=== PATIENT | male | born 1965 | race Caucasian/White ===

== ENCOUNTER 2023-04-24 21:01 | Emergency (ER) | payer MEDICAID, SELFPAY ==
[2023-04-24 21:02] VITALS: BP 171/81; PULSE 82; RESP 18; TEMP 36.7; O2SAT 98; BMI 24.4
--- NOTE | 2023-04-24 21:05 | XR_ITS ---
The [address] [address] Patient Name: BELINDA SAUCEDA MRN: [id number] date: 1965 Sex: M Assigned Patient Location: ER Current Patient Location: ER Accession/Order Number: [id number] Exam Date: 04/24/2023 21:35 Report Date: 04/24/2023 21:49 At the request of: LOIS AGARWAL Procedure: XR ankle LT min 3V EXAM: XR ankle LT min 3V HISTORY: Fall COMPARISON: None. TECHNIQUE: 3 views of the left ankle are performed. FINDINGS: There is a minimally displaced, oblique fracture involving the distal fibula, at the level of the ankle mortise consistent with a Gonzalez type B fracture. There may be minimal widening to the medial clear space. There is soft tissue swelling at the ankle. Degenerative changes are noted at the anterior tibiotalar joint. There is a small plantar calcaneal spur. XR/XR ankle LT min 3V IMPRESSION: Normally displaced distal fibular fracture. Question subtle widening to the medial clear space of the ankle. Electronically authenticated by: JENNIFER CRISTINA Date: 04/24/2023 21:49
--- NOTE | 2023-04-24 21:06 | ED.LOWEXI1 ---
HPI - Extremity Injury (Lower) General Chief Complaint: Extremity Injury, Lower Stated Complaint: FALL Time Seen by Provider: 04/24/23 21:05 Source: patient Mode of arrival: ambulance Limitations: no limitations History of Present Illness HPI Narrative: Patient is a 58-year-old male who presents to the emergency department by ambulance for an injury to the left ankle. He states he was working outside in the mud when he slipped on a hill and twisted his left ankle. He denies any head injury, loss of consciousness, neck or back pain. He has no pain to the left knee or left foot. He has not attempted to ambulate since falling. He declined pain medication with EMS. Related Data Previous Rx's Medication Instructions Recorded hydrocodone 5 mg-acetaminophen 325 1 tab PO Q6H PRN pain 3 days #12 04/24/23 mg tablet tabs Allergies Allergy/AdvReac Type Severity Reaction Status Date / Time No Known Drug Allergies Allergy Verified 04/24/23 21:04 Review of Systems ROS Constitutional Denies: fever or chills Ears, nose, mouth, and throat Denies: throat pain or nasal congestion Respiratory Denies: shortness of breath Gastrointestinal Denies: nausea or vomiting Musculoskeletal Reports: extremity pain, extremity swelling, joint pain, limited range of motion and joint swelling; Denies: back pain or neck pain Integumentary/Breast Denies: rash Neurological Denies: headache Hematologic/Lymphatic Denies: easy bruising or easy bleeding Exam Narrative Exam Narrative: Gen.: Awake, alert, in no distress Head: Normocephalic, atraumatic ENT: Moist mucous membranes Respiratory: No respiratory distress Extremities: No bony tenderness of the left knee or left foot with 2+ left DP pulse. Left ankle is diffusely edematous and tender to palpation. No bony tenderness over the left fifth metatarsal. No open wounds or drainage noted. Normal flexion and extension of the toes of the left foot. Psych: Normal mood and affect Neuro: No focal neuro deficit Skin: Warm, dry, intact Constitutional Vital Signs, click to edit/add: Last Vital Signs Temp 98.1 F 04/24/23 21:02 Pulse 82 04/24/23 21:02 Resp 18 04/24/23 21:02 BP 171/81 H 04/24/23 21:02 Pulse Ox 98 04/24/23 21:02 O2 Del Method Room Air 04/24/23 21:02 Course Vital Signs Vital signs: Vital Signs Temperature 98.1 F 04/24/23 21:02 Pulse Rate 82 04/24/23 21:02 Respiratory Rate 18 04/24/23 21:02 Blood Pressure 171/81 H 04/24/23 21:02 Pulse Oximetry 98 04/24/23 21:02 Oxygen Delivery Method Room Air 04/24/23 21:02 Temperature 98.1 F 04/24/23 21:02 Pulse Rate 82 04/24/23 21:02 Respiratory Rate 18 04/24/23 21:02 Blood Pressure 171/81 H 04/24/23 21:02 Pulse Oximetry 98 04/24/23 21:02 Oxygen Delivery Method Room Air 04/24/23 21:02 MDM - Extremity Injury (Lower) MDM Narrative Medical decision making narrative: Patient declined pain medication. X-rays show a spiral fracture of the left distal fibula. There is good Alignment of the fracture at this time. No dislocation noted. Patient is neurovascularly intact pre and post splint application. A short posterior splint with stirrup was applied. He continues to decline pain medication but was sent home with a prescription of [place]. He was instructed to follow-up with podiatry. Rest, ice, elevate. Crutches given for comfort, he was instructed to be nonweightbearing until he follows up with podiatry. Return to the ER if symptoms change or worsen Medical Records Attestation: I reviewed the patient's medical records. Imaging Data XR ankle: Attestation: I have reviewed the pertinent imaging results. Radiologist's impression: ITS Impressions Ankle X-Ray 04/24/23 21:05 IMPRESSION: Normally displaced distal fibular fracture. Question subtle widening to the medial clear space of the ankle. Electronically authenticated by: JENNIFER CRISTINA Date: 04/24/2023 21:49 Discharge Plan Discharge Chief Complaint: Extremity Injury, Lower Clinical Impression: Closed fracture of distal end of left fibula Patient Disposition: Home, Self-Care Time of Disposition Decision: 21:50 Condition: Good Prescriptions / Home Meds: New hydrocodone-acetaminophen 5-325 mg tablet 1 tab PO Q6H PRN (Reason: pain) 3 Days Qty: 12 0RF Rx Instructions: DX: M25.572 Instructions: Ankle Fracture (ED) Stand Alone Forms: Portal Instructions Referrals: BELINDA ALONSO [Primary Care Provider] - 1 week Brett Prieto DPM [Physician] - 1 week Discharge Date/Time: 04/24/23 22:21
[2023-04-24] MEDS: HYDROCODONE/ACET 5-325 MG TABLET 2 TAB PO (22:13)
[2023-04-24 22:21] VITALS: BP 142/76
== END 2023-04-24 22:21 | disposition home or self-care (01) ==
PROVIDERS: Emergency Provider Internal Medicine; PCP Internal Medicine
DX: S82.832A Other fracture of upper and lower end of left fibula, initial encounter for closed fracture (principal); W01.0XXA Fall on same level from slipping, tripping and stumbling without subsequent striking against object, initial encounter
CPT/HCPCS: 29515; 73610; 99283

== ENCOUNTER 2023-04-25 09:47 | Emergency (ER) | payer MEDICAID, SELFPAY ==
[2023-04-25] VITALS (9 sets, daily range): BP systolic 120–133; BP diastolic 61–65; PULSE 47–55; RESP 13–20; TEMP 36.5; O2SAT 93–100; BMI 24.4
--- NOTE | 2023-04-25 09:55 | ECG_ITS ---
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
--- NOTE | 2023-04-25 10:02 | PC.NURSE ---
PT WAS SEEN AT ER YESTERDAY FOR ANKLE FRACTURE AND WAS SENT HOME ON [place]. PT STATES TOOK [place] ON EMPTY STOMACH AND WENT OUTSIDE TO SMOKE. PT STATES FELT REAL DIZZY. PT STATES PASSED OUT AND CAUGHT HIM. PT DID VOMIT UPON WAKING. PT STABLE AT BEDSIDE AT THIS TIME.
[2023-04-25 10:19] LABS: Basophils Absolute Auto 0.1 10^3/uL (0.0-0.1); Basophils Percent Auto 0.5 % (0.2-2.0); Eosinophils Absolute Auto 0.1 10^3/uL (0.0-0.7); Eosinophils Percent Auto 1.2 % (0.9-7.0); Hematocrit 37.1 % (42.0-54.0); Hemoglobin 11.8 g/dL (14.0-18.0); Immature Granulocytes Abs Auto 0.03 10^3/uL (0.00-0.03); Immature Granulocytes Pct Auto 0.3 % (0.0-0.5); Lymphocytes Absolute Auto 1.9 10^3/uL (1.2-3.8); Lymphocytes Percent Auto 19.2 % (20.5-60.0); Mean Corpuscular HGB Conc 31.8 g/dL (29.9-35.2); Mean Corpuscular Hemoglobin 29.1 pg (25.9-34.0); Mean Corpuscular Volume 91.6 fL (80.0-94.0); Mean Platelet Volume 10.6 fL (9.5-13.5); Monocytes Absolute Auto 1.1 10^3/uL (0.3-0.8); Monocytes Percent Auto 11.1 % (1.7-12.0); Neutrophils Absolute Auto 6.8 10^3/uL (1.4-6.5); Neutrophils Percent Auto 67.7 % (43.0-75.0); Platelet Count 131 10^3/uL (150-450); Red Blood Count 4.05 10^6/uL (4.70-6.10); Red Cell Distribution Width 13.1 % (11.0-15.0); White Blood Count 10.1 10^3/uL (4.0-11.0)
--- OUTSIDE RECORDS SUMMARY | 2023-04-25 10:24 | XMS_ITS | CCD ---
Author Name Unknown Address [address] [place] [id number] Organization [facility] Care Team Providers Care Practical Nursing Teacher Name Role Phone PHYSICIAN, DEFAULT Unavailable Unavailable PHYSICIAN, DEFAULT Unavailable Unavailable Gabino, Chda Unavailable Unavailable Gabino, Chad Unavailable Unavailable MIKEY JARQUIN Unavailable Unavailable MENDEZ GARCIA Unavailable Unavailable UNKNOWN, PROVIDER Unavailable Unavailable [place] Unavailable Unavailable PHYSICIAN, DEFAULT Unavailable Unavailable PHYSICIAN, DEFAULT Unavailable Unavailable MENDEZ GARCIA Unavailable Unavailable NATALYA HERNANDEZ Attending Unavailable NATALYA HERNANDEZ Consulting Unavailable NATALYA HERNANDEZ Admitting Unavailable MENDEZ GARCIA Primary Care Unavailable JAMIR YUN Attending Unavailable MENDEZ GARCIA Attending Unavailable Allergies Allergy Classification Reported Allergen(s) Allergy Type Date of Onset Reaction(s) Facility (1 source) 98809,00 Drug allergy (disorder) 8 [facility] Repository (1 source) No Known Allergies; Translations: [No Known Allergies] Propensity to adverse reactions (disorder) [facility] Repository Problems Problem Classification Problem Date Documented Da te Episodic/Chronic Coronary atherosclerosis and other heart disease (5 sources) Unstable angina; Translations: [Atherosclerotic heart disease of [place] coronary artery with unstable angina pectoris] Onset: 06-20-2017 Chronic Coronary atherosclerosis and other heart disease (2 sources) Presence of coronary angioplasty implant and graft; Translations: [Presence of coronary angioplasty implant and graft] Onset: 07-03-2022 Episodic Diabetes mellitus without complication (1 source) Type 2 diabetes mellitus without complications; Translations: [TYPE 2 DIABETES MELLITUS WITHOUT COMPLICATIONS] Onset: 06-20-2017 Chronic Heart valve disorders (4 sources) Nonrheumatic aortic (valve) insufficiency; Translations: [NONRHEUMATIC AORTIC INSUFFICIENCY] Onset: 04-07-2020 Chronic Substance-related disorders (1 source) Nicotine dependence, cigarettes, uncomplicated; Translations: [NICOTINE DEPENDENCE, CIGARETTES, UNCOMPLICATED] Onset: 06-20-2017 Chronic 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 (2 sources) Unknown / UNK(Unknown) Onset: 06-20-2017 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 (1 source) skilled nursing (current) use of oral hypoglycemic drugs; Translations: [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) USE OF ORAL HYPOGLYCEMIC DRUGS] Onset: 06-20-2017 Results Test Name Value Interpretation Reference Range Facility Office Visiton 07-03-2022 [id number] [place] 1965 M Date Provider Department Center 07/03/2022 JAMIR CHRISTIAN C[facility] Family History Problem Relation Age of Onset Coronary artery disease Mother Diabetes Mother Hypertension Father Heart attack Paternal Grandmother Family Status - Relation Status Age at Mother Father Paternal Grandmother Level of Service:48268 [place] OFFICE/OUTPATIENT ESTABLISHED LOW MDM 20-29 MIN Reason for Visit and Comments: Coronary Artery Disease [187] Normal [facility] Q - COMPREHENSIVE METABOLIC PANEL W/EGFRon 07-11-2021 Albumin [Mass/Vol] 4.4 g/dL Normal 3.6-5.1 [facility] Comment on above: Order Comment: [facility] 11U Testing performed at: [facility], [address] [place] [address], [address] [place] [address], [phone], Airport Clerk: Blaise Sol MD [facility] Collection Date/Time: [facility] Results Received Date/Time: [facility] Reported Date/Time: FASTING: NO Performed By: #### 1 0231A, [id number], [id number] #### [facility] Default [address] [place] [address] Albumin/Globulin [Mass ratio] 1.7 {ratio} Normal 1.0-2.5 [facility] Comment on above: Order Comment: [facility] 11U Testing performed at: [facility], [address] [place] [address], [address] [place] [address], [phone], Airport Clerk: Blaise Sol MD [facility] Collection Date/Time: [facility] Results Received Date/Time: [facility] Reported Date/Time: FASTING: NO Performed By: #### 1 0231A, [id number], [id number] #### [facility] Default [address] [place] [address] ALP [Catalytic activity/Vol] 65 U/L Normal 35-144 [facility] Comment on above: Order Comment: [facility] 11U Testing performed at: [employer] [facility], [address] [place] [address], [address] [place] [address], [address] [place] [address], Airport Clerk: Blaise Sol MD [facility] Collection Date/Time: [facility] Results Received Date/Time: [facility] Reported Date/Time: FASTING: NO Performed By: #### 1 0231A, [id number], [id number] #### [facility] [address] [place] [address] ALT [Catalytic activity/Vol] 62 U/L High 9-46 [facility] Specialist Comment on above: Order Comment: [facility] 11U Testing performed at: [employer] [facility], [address] [place] [address], [address] [place] [address], [address] [place] [address], Airport Clerk: Blaise Sol MD [facility] Collection Date/Time: [facility] Results Received Date/Time: [facility] Reported Date/Time: FASTING: NO Performed By: #### 1 0231A, [id number], [id number] #### [facility] [address] [place] [address] AST [Catalytic activity/Vol] 29 U/L Normal 10-35 [facility] Specialist Comment on above: Order Comment: [facility] 11U Testing performed at: [employer] [facility], [address] [place] [address], [address] [place] [address], [address] [place] [address], Airport Clerk: Blaise Sol MD [facility] Collection Date/Time: [facility] Results Received Date/Time: [facility] Reported Date/Time: FASTING: NO Performed By: #### 1 0231A, [id number], [id number] #### [facility] Default [address] [place] [address] Bilirubin [Mass/Vol] 0.4 mg/dL Normal 0.2-1.2 [facility] Specialist Comment on above: Order Comment: [facility] 11U Testing performed at: [employer] [employer] [facility], [address] [place] [address], [address] [place] [address], [address] [place] [address], Airport Clerk: Blaise Sol MD [facility] Collection Date/Time: [facility] Results Received Date/Time: [facility] Reported Date/Time: FASTING: NO Performed By: #### 1 0231A, [id number], [id number] #### [facility] Default [address] [place] [address] BUN/CREA 23 NOT APPLICABLE Normal 6-22 [facility] Comment on above: Order Comment: [facility] 11U Testing performed at: [employer] [facility], [address] [place] [address], [address] [place] [address], [address] [place] [address], Airport Clerk: Blaise Sol MD [facility] Collection Date/Time: [facility] Results Received Date/Time: [facility] Reported Date/Time: FASTING: NO Performed By: #### 1 0231A, [id number], [id number] #### [facility] Default [address] [place] [address] Calcium [Mass/Vol] 9.7 mg/dL Normal 8.6-10.3 [facility] Comment on above: Order Comment: [facility] 11U Testing performed at: [facility], [address] [place] [address], [address] [place] [address], [address] [place] [address], Airport Clerk: Blaise Sol MD [facility] Collection Date/Time: [id number] [facility] Results Received Date/Time: [facility] Reported Date/Time: FASTING: NO Performed By: #### 1 0231A, [id number], [id number] #### [facility] Default [address] [place] [address] Chloride [Moles/Vol] 104 mmol/L Normal 98-110 [facility] Comment on above: Order Comment: [facility] 11U Testing performed at: [employer] [facility], [address] [place] [address], [address] [place] [address], [address] [place] [address], Airport Clerk: Blaise Sol MD [facility] Collection Date/Time: [facility] Results Received Date/Time: [facility] Reported Date/Time: FASTING: NO Performed By: #### 1 0231A, [id number], [id number] #### [facility] [address] [place] [address] CO2 [Moles/Vol] 26 mmol/L Normal 20-32 [facility] Specialist Comment on above: Order Comment: [facility] 11U Testing performed at: [employer] [facility], [address] [place] [address], [address] [place] [address], [address] [place] [address], Airport Clerk: Blaise Sol MD [facility] Collection Date/Time: [facility] Results Received Date/Time: [facility] Reported Date/Time: FASTING: NO Performed By: #### 1 0231A, [id number], 5363X #### [facility] [address] [place] [address] Creatinine [Mass/Vol] 0.81 mg/dL Normal 0.70-1.33 [facility] Specialist Comment on above: Order Comment: [facility] 11U Testing performed at: [employer] [facility], [address] [place] [address], [address] [place] [address], [address] [place] [address], Airport Clerk: Blaise Sol MD [facility] Collection Date/Time: [facility] Results Received Date/Time: [facility] Reported Date/Time: FASTING: NO Result Comment: For patients >49 years of age, the reference limit for Creatinine is approximately 13% higher for people identified as -Burkin[place]. Performed By: #### 1 0231A, [id number], 5363X #### [facility] Default [address] [place] [address] eGFRAA (Quest) 114 mL/min/1.73m2 Normal > OR = 60 [facility] Comment on above: Order Comment: [facility] 11U Testing performed at: [employer] [facility], [address] [place] [address], [address] [place] [address], [address] [place] [address], Airport Clerk: Blaise Sol MD [facility] Collection Date/Time: [facility] Results Received Date/Time: [facility] Reported Date/Time: FASTING: NO Performed By: #### 1 0231A, [id number], 5363X #### [facility] Default [address] [place] [address] eGFRNAA (Quest) 98 mL/min/1.73m2 Normal > OR = 60 [facility] Comment on above: Order Comment: [facility] 11U Testing performed at: [facility], [employer] [facility], [address] [place] [address], [address] [place] [address], [address] [place] [address], Airport Clerk: Blaise Sol MD [facility] Collection Date/Time: [facility] Results Received Date/Time: [facility] Reported Date/Time: FASTING: NO Performed By: #### 1 0231A, [id number], 5363X #### [facility] Default [address] [place] [address] Globulin (S) [Mass/Vol] 2.6 g/dL Normal 1.9-3.7 [facility] Comment on above: Order Comment: [facility] 11U Testing performed at: [employer] [facility], [address] [place] [address], [address] [place] [address], [address] [place] [address], Airport Clerk: Blaise Sol MD [facility] Collection Date/Time: [facility] Results Received Date/Time: [facility] Reported Date/Time: FASTING: NO Performed By: #### 1 0231A, [id number], 5363X #### [facility] Default [address] [place] [address] Glucose [Mass/Vol] 123 mg/dL Normal 65-139 [facility] Comment on above: Order Comment: [facility] 11U Testing performed at: [facility], [employer] [facility], [address] [place] [address], [address] [place] [address], [address] [place] [address], Airport Clerk: Blaise Sol MD [facility] Collection Date/Time: [facility] Results Received Date/Time: [facility] Reported Date/Time: FASTING: NO Result Comment: Non-fasting reference interval For someone without known diabetes, a glucose value between 100 and 125 mg/dL is consistent with prediabetes and should be confirmed with a follow-up test. Performed By: #### 1 0231A, [id number], 5363X #### [facility] Default [address] [place] [address] Potassium [Moles/Vol] 4.7 mmol/L Normal 3.5-5.3 [facility] Comment on above: Order Comment: [facility] 11U Testing performed at: [employer] [facility], [address] [place] [address], [address] [place] [address], [phone], Airport Clerk: Blaise Sol MD [facility] Collection Date/Time: [facility] Results Received Date/Time: [facility] Reported Date/Time: FASTING: NO Performed By: #### 1 0231A, [id number], 5363X #### [facility] Default [address] [place] [address] Protein [Mass/Vol] 7.0 g/dL Normal 6.1-8.1 [facility] Comment on above: Order Comment: [facility] 11U Testing performed at: [facility], [address] [place] [address], [address] [place] [address], [phone], Airport Clerk: Blaise Sol MD [facility] Collection Date/Time: [facility] Results Received Date/Time: [facility] Reported Date/Time: FASTING: NO Performed By: #### 1 0231A, [id number], 5363X #### [facility] Default [address] [place] [address] Sodium [Moles/Vol] 137 mmol/L Normal 135-146 [facility] Comment on above: Order Comment: [facility] 11U Testing performed at: [employer] [facility], [address] [place] [address], [address] [place] [address], [phone], Airport Clerk: Blaise Sol MD [facility] Collection Date/Time: [facility] Results Received Date/Time: [facility] Reported Date/Time: FASTING: NO Performed By: #### 1 0231A, [id number], 5363X #### [facility] Default [address] [place] [address] Urea nitrogen [Mass/Vol] 19 mg/dL Normal 7-25 [facility] Comment on above: Order Comment: [facility] 11U Testing performed at: [employer] [facility], [address] [place] [address], [address] [place] [address], [address] [place] [address], Airport Clerk: Blaise Sol MD [facility] Collection Date/Time: [facility] Results Received Date/Time: [facility] Reported Date/Time: FASTING: NO Performed By: #### 1 0231A, [id number], 5363X #### [facility] Default [address] [place] [address] Q - MICROALBUMIN,RANDOM URIN E (W/CREAT)on 07-11-2021 Albumin DL <= 20 mg/L (U) [Mass/Vol] 1.0 mg/dL Normal See Note: [facility] Comment on above: Order Comment: [facility] 11U Testing performed at: [facility], [address] [place] [address], [address] [place] [address], [phone], Airport Clerk: Blaise Sol MD [facility] Collection Date/Time: [facility] Results Received Date/Time: [facility] Reported Date/Time: FASTING: NO Result Comment: Refe rence Range: Reference Range Not established Performed By: #### 1 0231A, [id number], 5363X #### [facility] Default [address] [place] [address] Creatinine (U) [Mass/Vol] 65 mg/dL Normal 20-320 [place] [facility] Comment on above: Order Comment: [facility] 11U Testing performed at: [employer] [facility], [address] [place] [address], [address] [place] [address], [address] [place] [address], Airport Clerk: Blaise Sol MD [facility] Collection Date/Time: [facility] Results Received Date/Time: [facility] Reported Date/Time: FASTING: NO Performed By: #### 1 0231A, [id number], 5363X #### [facility] Default [address] [place] [address] MICROALBUMIN/CRE ATININE RATIO, RANDOM URINE 15 mcg/mg creat Normal <30 [facility] Comment on above: Order Comment: [facility] 11U Testing performed at: [employer] [facility], [facility] [facility], [address] [place] [address], [address] [place] [address], Airport Clerk: Blaise Sol MD [facility] Collection Date/Time: [facility] Results Received Date/Time: [facility] Reported Date/Time: FASTING: NO Result Comment: The ADA defines abnormalities in albumin excretion as follows: Albuminuria Category Result (mcg/mg creatinine) Normal to Mildly increased <30 Moderately increased 30-299 Severely increased > OR = 300 The ADA recommends that at least two of three specimens collected within a 3-6 month period be abnormal before considering a patient to be within a diagnostic category. Performed By: #### 1 0231A, [id number], 5363X #### [facility] Default [address] [place] [address] Q - PSA TOTALon 07-11-2021 PSA, TOTAL 1.41 ng/mL Normal < OR = 4.00 [facility] Comment on above: Order Comment: [facility] 11U Testing performed at: [facility], [address] , [address] [place], [place], [address] [place] [address], Airport Clerk: Blaise Sol MD [facility] Collection Date/Time: [facility] Results Received Date/Time: [facility] Reported Date/Time: FASTING: NO Result Comment: The total PSA value from this assay system is standardized against the WHO standard. The test result will be approximately 20% lower when compared to the equimolar-standardized total PSA (Shadia Michaela). Comparison of serial PSA results should be interpreted with this fact in mind. This test was performed using the Siemens chemiluminescent method. Values obtained from different assay methods cannot be used interchangeably. PSA levels, regardless of value, should not be interpreted as absolute evidence of the presence or absence of disease. Performed By: #### 1 0231A, [id number], 5363X #### [facility] Default [address] [place] [address] ECHOCARDIO M/2D COMPLETEon 0 04-07-2020 ECHOCARDIO M/2D COMPLETE Patient: MENDEZ SAUCEDA Exam Date: 04/07/2020 : 1965 Gender:M Ordering : NATALYA HERNANDEZ Admission #: [id number] Family : DR MENDEZ GARCIA M.D. Order #: [id number] CLICK HERE TO VIEW EXAM ECHOCARDIOGRAM REPORT PROCEDURE: CARDIO PULMONARY ECHOCARDIO M/2D COMP INDICATIONS: Aortic valve regurgitation COMPARISON: None. DESCRIPTION: COMPLETE ECHOCARDIOGRAM Real-time transthoracic echocardiography with 2D, M-mode, spectral and color flow Doppler performed. QUALITY: Technical quality was good. LEFT VENTRICLE: Normal chamber size. Normal left ventricular wall thickness. LV EF: Normal left ventricular ejection fraction, (>55%). DIASTOLIC: Normal diastolic function. ATRIAL SEPTUM: Appears visually intact. LEFT ATRIUM: Normal chamber size. RIGHT ATRIUM: Normal chamber size. RIGHT VENTRICLE: Normal chamber size. Normal right ventricular systolic function. TRICUSPID VALVE: Normal mobility and thickness. Trivial tricuspid regurgitation. MITRAL VALVE: Normal mobility and thickness. No mitral regurgitation. AORTIC VALVE: Normal trileaflet appearance. Mildly calcified aortic valve. Mild eccentric aortic regurgitation. AORTIC ROOT: Normal diameter and appearance. PULMONIC VALVE: Normal thickness and mobility. Mild pulmonic regurgitation. PERICARDIUM: No evidence of pericardial effusion. IVC: Collapses with inspirations. CONCLUSION: Global left ventricular systolic function is normal; ejection fraction is 55 to 60%. No significant wall motion abnormalities. Mild aortic regurgitation. Mild pulmonic regurgitation. Adult Echocardiography Procedure Report Left Ventricle LVEDD (3.7 - 5.6 cm): 4.80 cm LVIVS thickness (0.6 - 1.2 cm): 1.07 cm LVPW thickness (0.5 - 1.0 cm): 9.87 mm Left Atrium Mitral Valve Right Ventricle Aorta Aortic Valve Tricuspid Valve Pulmonic Valve Right Atrium Dictated by: Carl Lazo M.D. on 04/14/2020 at 16:08 Approved by: Carl Lazo M.D. on 04/14/2020 at 16:11 Normal [facility] Discharge Summaryon 07-02-19 Discharge Summary [id number] Sauced[facility] Admitted: 06/20/2017 Discharged: 06/22/2017 Date of : 1965 Physician: Chad Lloyd MD DISCHARGE SUMMARYDISCHARGING PHYSICIAN: Dr. Robin.PRIMARY DIAGNOSIS: Unstable angina/positive stress test.SECONDARY DIAGNOSES:1. Type 2 diabetic.2. Smoker.PROCEDURES: Left heart catheterization.HOSPITAL COURSE: This 52-year-old male was transferred from [facility] with unstable angina. The stress test showed an inferior wallmotion abnormality with inferior defect by perfusion. It was also found tohave T-wave inversions in the inferior leads. He was then sent to [email or web address] next day, he received cardiac catheterization to the radial artery. Hereceived a drug-eluting stent of the mid RCA that was 90% occluded.Procedure occurred without complications. He was then subsequently startedon cardiac regimen, which was optimized.DISCHARGE DISPOSITION: Home.DISCHARGE INSTRUCTIONS: The patient is to follow up with Cardiology asscheduled. The patient is also to take medications exactly as prescribed.He is to improve lifestyle factors including diet, smoking, and other riskfactors.DISCHARGE MEDICATIONS:1. Aspirin 81 mg daily.2. Lipitor 80 mg daily.3. Plavix 75 mg daily.4. Insulin NPH in regular insulin combo as prescribed at home.5. Lisinopril 5 mg daily.6. Metformin 1000 mg b.i.d.7. Metoprolol tartrate 25 mg b.i.d.8. Nicotine 21 mg per 24 hour patch.Electronically Signed by:Chad Lloyd MD 07/25/2017 07:51 P ____Chad Lloyd MD I personally saw this patient on the day of the encounter, performed thekey portion(s) of the service and participated in the management andconfirm the resident's documentation. Please note there may be anadditional personal documentation from me. Date Dict: 06/30/2017/10:43 P/Julia Galindo Trans: 07/01/2017 12:09 Dae/Chris_JN:[id number]: Mendez Garcia M.D. [address] [facility] [address] Mikey Jarquin [facility] [address] [address] [facility] [address] Normal [facility] BASIC METABOLIC PANELon 03-3 Calcium 8.7 mg/dL Normal 8.6-10.3 [facility] Comment on above: Order Comment: No: Do not add to previou s drawNo collection time noted on specimen or requisition. The collection timerecorded is the time of receipt in the lab. Performed By: #### 0 0071, [address]277 ####[facility] [place] [address], [facility] Chloride 103 mmol/L Normal 98-107 [facility] Comment on above: Order Comment: No: Do not add to previou s drawNo collection time noted on specimen or requisition. The collection timerecorded is the time of receipt in the lab. Performed By: #### 0 0071, [id number] ####[facility] [place] [address], [facility] CO2 22 mmol/L Normal 21-31 [facility] Comment on above: Order Comment: No: Do not add to previou s drawNo collection time noted on specimen or requisition. The collection timerecorded is the time of receipt in the lab. Performed By: #### 0 0071, [address]348 ####[facility] Creatinine 0.91 mg/dL Normal 0.70-1.30 [facility] Comment on above: Order Comment: No: Do not add to previou s drawNo collection time noted on specimen or requisition. The collection timerecorded is the time of receipt in the lab. Performed By: #### 0 0071, 87006 ####[facility].[address] eGFR (black) mL/min/{1.73_m2} Normal >60 [facility] Comment on above: Order Comment: No: Do not add to previou s drawNo collection time noted on specimen or requisition. The collection timerecorded is the time of receipt in the lab. Performed By: #### 0 0071, [address] ####[facility].[address] eGFR (non-black) mL/min/{1.73_m2} Normal >60 [facility] Comment on above: Order Comment: No: Do not add to previou s drawNo collection time noted on specimen or requisition. The collection timerecorded is the time of receipt in the lab. Performed By: #### 0 0071, [address]497 ####[facility].[address] Glucose mass conc 270 mg/dL High 70-100 [facility] Comment on above: Order Comment: No: Do not add to previou s drawNo collection time noted on specimen or requisition. The collection timerecorded is the time of receipt in the lab. Performed By: #### 0 0071, [address]9760 ####[facility].[address] Potassium molar conc 4.1 mmol/L Normal 3.5-5.1 [facility] Comment on above: Order Comment: No: Do not add to previou s drawNo collection time noted on specimen or requisition. The collection timerecorded is the time of receipt in the lab. Performed By: #### 0 0071, [id number] ####[facility] [place] [address], [facility] Sodium 132 mmol/L Low 136-145 [facility] Comment on above: Order Comment: No: Do not add to previou s drawNo collection time noted on specimen or requisition. The collection timerecorded is the time of receipt in the lab. Performed By: #### 0 0071, [id number] ####[facility] Urea nitrogen 25 mg/dL Normal 7-25 [facility] Comment on above: Order Comment: No: Do not add to previou s drawNo collection time noted on specimen or requisition. The collection timerecorded is the time of receipt in the lab. Performed By: #### 0 0071, [id number] ####[facility] CBC W/DIFFon 06-22-2017 ABS BASOPHILS 0.0 10*3/uL Normal 0.0-0.2 [facility] Comment on above: Order Comment: No: Do not add to previou s drawNo collection time noted on specimen or requisition. The collection timerecorded is the time of receipt in the lab. Performed By: #### 0 0071, [id number] ####[facility] ABS IMM GRANS 0.0 10*3/uL Normal 0.0-0.2 [facility] Comment on above: Order Comment: No: Do not add to previou s drawNo collection time noted on specimen or requisition. The collection timerecorded is the time of receipt in the lab. Performed By: #### 0 0071, [id number] ####[facility].[address] Basophils Auto #/vol (Bld) 0.5 % Normal 0.0-1.0 [facility] Comment on above: Order Comment: No: Do not add to previou s drawNo collection time noted on specimen or requisition. The collection timerecorded is the time of receipt in the lab. Performed By: #### 0 0071, [id number] ####[facility] [facility] [place] [address], [facility] Eosinophils 0.2 10*3/uL Normal 0.0-0.5 [facility] Comment on above: Order Comment: No: Do not add to previou s drawNo collection time noted on specimen or requisition. The collection timerecorded is the time of receipt in the lab. Performed By: #### 0 0071, [id number] ####[facility] Eosinophils/100 leukocytes 2.1 % Normal 0.0-6.0 [facility] Comment on above: Order Comment: No: Do not add to previou s drawNo collection time noted on specimen or requisition. The collection timerecorded is the time of receipt in the lab. Performed By: #### 0 0071, [id number] ####[facility] [facility].[address] Erythrocyte distribution width Auto Ratio (RBC) 12.4 % Normal 11.5-15.0 [facility] Comment on above: Order Comment: No: Do not add to previou s drawNo collection time noted on specimen or requisition. The collection timerecorded is the time of receipt in the lab. Performed By: #### 0 0071, 53451 ####[place] [id number] [address] Erythrocytes (RBC) 0 % Normal 0-0 [facility] Comment on above: Order Comment: No: Do not add to previou s drawNo collection time noted on specimen or requisition. The collection timerecorded is the time of receipt in the lab. Performed By: #### 0 0071, 48853 ####[facility] [address] Erythrocytes (RBC) 4.30 10*6/uL Normal 4.20-5.70 [facility] Comment on above: Order Comment: No: Do not add to previou s drawNo collection time noted on specimen or requisition. The collection timerecorded is the time of receipt in the lab. Performed By: #### 0 0071, [id number] ####[facility] Hematocrit (HCT) 37.2 % Low 39.0-50.0 [facility] Comment on above: Order Comment: No: Do not add to previou s drawNo collection time noted on specimen or requisition. The collection timerecorded is the time of receipt in the lab. Performed By: #### 0 0071, 96613 ####[facility] Hemoglobin mass conc (Bld) 12.6 g/dL Low 13.0-17.0 [facility] Comment on above: Order Comment: No: Do not add to previou s drawNo collection time noted on specimen or requisition. The collection timerecorded is the time of receipt in the lab. Performed By: #### 0 0071, 65634 ####[facility] IMMATURE GRANS 0.3 % Normal 0.0-1.0 [facility] Comment on above: Order Comment: No: Do not add to previou s drawNo collection time noted on specimen or requisition. The collection timerecorded is the time of receipt in the lab. Performed By: #### 0 0071, 64220 ####[facility] Lymphocytes 2.1 10*3/uL Normal 1.2-4.0 [facility] Comment on above: Order Comment: No: Do not add to previou s drawNo collection time noted on specimen or requisition. The collection timerecorded is the time of receipt in the lab. Performed By: #### 0 0071, 12046 ####[facility] Lymphocytes/100 leukocytes 23.8 % Normal 20.0-45.0 [facility] Comment on above: Order Comment: No: Do not add to previou s drawNo collection time noted on specimen or requisition. The collection timerecorded is the time of receipt in the lab. Performed By: #### 0 0071, 32648 ####[address] MCH 29.3 pg Normal 27.0-33.0 [facility] Comment on above: Order Comment: No: Do not add to previou s drawNo collection time noted on specimen or requisition. The collection timerecorded is the time of receipt in the lab. Performed By: #### 0 0071, 30586 ####[address] MCHC mass conc (RBC) 33.9 g/dL Normal 32.0-35.0 [facility] Comment on above: Order Comment: No: Do not add to previou s drawNo collection time noted on specimen or requisition. The collection timerecorded is the time of receipt in the lab. Performed By: #### 0 0071, 71095 ####[address] MCV 86.5 fL Normal 82.0-98.0 [facility] Comment on above: Order Comment: No: Do not add to previou s drawNo collection time noted on specimen or requisition. The collection timerecorded is the time of receipt in the lab. Performed By: #### 0 0071, [id number] ####[address] Monocytes 0.8 10*3/uL Normal 0.1-1.0 [facility] Comment on above: Order Comment: No: Do not add to previou s drawNo collection time noted on specimen or requisition. The collection timerecorded is the time of receipt in the lab. Performed By: #### 0 0071, [id number] ####[facility] [facility] [place] [address], [facility] MONOS 8.9 % Normal 5.0-12.0 [facility] Comment on above: Order Comment: No: Do not add to previou s drawNo collection time noted on specimen or requisition. The collection timerecorded is the time of receipt in the lab. Performed By: #### 0 0071, 97188 ####[facility] Neutrophils 5.6 10*3/uL Normal 1.6-7.6 [facility] Comment on above: Order Comment: No: Do not add to previou s drawNo collection time noted on specimen or requisition. The collection timerecorded is the time of receipt in the lab. Performed By: #### 0 0071, 60342 ####[facility] [facility].[address] Neutrophils/100 leukocytes 64.4 % Normal 40.0-72.0 [facility] Comment on above: Order Comment: No: Do not add to previou s drawNo collection time noted on specimen or requisition. The collection timerecorded is the time of receipt in the lab. Performed By: #### 0 0071, 42455 ####[facility] [facility].[address] PLAT CNT 152 10*3/uL Normal 150-400 [facility] Comment on above: Order Comment: No: Do not add to previou s drawNo collection time noted on specimen or requisition. The collection timerecorded is the time of receipt in the lab. Performed By: #### 0 0071, 26661 ####[facility] [place] [address].[address] WBC (Leukocytes) 8.7 10*3/uL Normal 4.0-10.6 [facility] Comment on above: Order Comment: No: Do not add to previou s drawNo collection time noted on specimen or requisition. The collection timerecorded is the time of receipt in the lab. Performed By: #### 0 0071, 14322 ####[facility] Cardiovascular Lab Reporton 06-22-2017 Cardiovascular Lab Report [facility] Patient Name: Mendez Sauceda [facility] MR #: [id number] Physician: Jamir Perkins M.D.Medicine Service Date: 06/21/2017Division of Birthdate: 1965Cardiology Room #: 3CD [id number], [place] [address] Cardiovascular Laboratory ReportINDICATION: Mendez Sauceda is a 52-year-old man who was admitted to [facility] with unstable angina. A stress test showed inferior wallmotion abnormality with inferior defect by perfusion. He had T-waveinversions in the inferior leads. He was referred to our center forcardiac catheterization.PROCEDURE:1. Bilateral selective coronary angiography from the right radial access.2. Successful balloon dilatation and drug-eluting stenting of 90% stenosis in the mid right coronary artery reduced to 0% by deployment of a Synergy 2.5 x 16 mm drug-eluting stent post dilated to 2.5 mm at high pressures.3. Administration of intracoronary nitroglycerin.METHODS: Procedure was explained to the patient with risks and benefits.He signed informed consent. He was brought to laboratory animal caretaker in a fasting state.The right wrist area was prepped and draped in usual fashion. Jerome's testwas favorable. Using micropuncture technique, the right radial artery wasaccessed. A 6-Maltese x 11 cm Hydrophilic sheath was advanced. Verapamilwas given through the sheath and heparin was administered intravenously.Bilateral selective coronary angiography was then performed using a6-Maltese JR5 diagnostic catheter for engagement of the right coronaryartery and a 6-Maltese Kaveh radial diagnostic catheter for engagement ofthe left coronary artery. Catheters were removed.Therapeutic ACT confirmed during the procedure and additional heparinadministered as needed. A 6-Maltese JR4 guiding catheter was advanced andused to engage the right coronary ostium. A BMW coronary guidewire wasadvanced into the distal RCA. Balloon angioplasty in the mid RCA wasperformed using Emerge 2.5 x 12 mm balloon inflated at 10 atmospheresfollowed by administration of intracoronary nitroglycerin and angiography.This showed suboptimal result. This was treated using a Synergy 2.5 x 16mm drug-eluting stent deployed at 12 atmospheres and post dilated using NCQuantum Temple 2.5 x 8 mm noncompliant balloon inflated at 22 atmospheres.Angiography revealed excellent result after administration of intracoronarynitroglycerin with reduction of the stenosis to 0%. No evidence ofdissection or perforation and EDA-3 flow in the right coronary artery andbranches. The guiding catheter was removed. The procedure was concluded.The patient was loaded with 600 mg of Plavix at the end of the procedure.The access sheath in radial artery was removed and a compression dressingapplied for hemostasis. He tolerated the procedure well. He wastransferred back to his room.TOTAL FLUORO TIME: 18.03 minutes.TOTAL AIR KERMA: 1161 mGy.TOTAL CONTRAST VOLUME: 120 mL.HEMODYNAMICS: AO 111/68, mean 87.CORONARY ANGIOGRAPHY: This is a codominant circulation.Left main arises from left coronary cusp. It bifurcates into left anteriordescending and circumflex vessels. The left main is free of disease.Left anterior descending: This has a 50% eccentric mid segment stenosisbut no obstructive lesions.Circumflex vessel: This is large and codominant. It has an occluded 2ndobtuse marginal branch with filling of the distal obtuse marginal branch byleft to left collateral circulation. The mid circumflex at the origin ofthat obtuse marginal branch appears to have 30% to 40% stenosis.Right coronary artery: This arises from the right coronary cusp. It is amoderate size and codominant vessel. It has a 90% stenosis in the midsegment. This was reduced to 0% by balloon angioplasty and drug-elutingstenting as noted above.SUMMARY OF THE FINDINGS:1. Severe 2-vessel coronary artery disease.2. 100% occlusion of the second obtuse marginal branch with filling of the distal vessel by [id number] collateral circulation that vessel appears to be of small to moderate size.3. 50% eccentric stenosis in the mid LAD.4. 90% stenosis in the mid right coronary artery reduced to 0% by balloon angioplasty and Synergy drug-eluting stenting.RECOMMENDATIONS:1. Medical therapy for coronary artery disease with aspirin and statin therapy for life.2. Plavix therapy for a minimum of 1 year after drug-eluting stenting and unstable angina presentation.3. Maximum control of risk factors.4. Maximize antianginal therapy.5. Follow up in Cardiology Clinic. If in the future the patient is still having symptoms of angina, then revascularization of the occluded 2nd obtuse marginal branch can be considered if the patient continues to be ischemic in that territory.Electronically Signed by:Jamir Yun M.D. 06/30/2017 05:31 P Jamir Yun M.D.Date Dict: 06/21/2017/11:32 A/Jamir Yun M.D.Date Trans: 06/22/2017 08:38 A/[id number]: Mendez Garcia M.D. [address] [place] [address] Mikey Jarquin D.O. [place] [address] [place] [address] Normal [facility] MAGNESIUM BLOODon 06-22-2017 Magnesium 2.0 mg/dL Normal 1.9-2.7 [facility] Comment on above: Order Comment: No: Do not add to previou s drawNo collection time noted on specimen or requisition. The collection timerecorded is the time of receipt in the lab. Performed By: #### 0 0071, [id number] ####[facility] [place] [address], [facility] POC GLUCOSE LABon 06-22-2017 Glucose mass conc 273 mg/dL High 70-100 [facility] Comment on above: Performed By: #### 15789, 52233 ####[facility] [id number] BASIC METABOLIC PANELon 03-2 Calcium 9.3 mg/dL Normal 8.6-10.3 [facility] Comment on above: Order Comment: No: Do not add to previou s drawNo collection time noted on specimen or requisition. The collection timerecorded is the time of receipt in the lab. Performed By: #### 0 0071, 72117 ####[facility] Chloride 102 mmol/L Normal 98-107 [facility] Comment on above: Order Comment: No: Do not add to previou s drawNo collection time noted on specimen or requisition. The collection timerecorded is the time of receipt in the lab. Performed By: #### 0 0071, 88833 ####[facility] CO2 25 mmol/L Normal 21-31 [facility] Comment on above: Order Comment: No: Do not add to previou s drawNo collection time noted on specimen or requisition. The collection timerecorded is the time of receipt in the lab. Performed By: #### 0 0071, 07290 ####[place] [address] [address] Creatinine 0.92 mg/dL Normal 0.70-1.30 [facility] Comment on above: Order Comment: No: Do not add to previou s drawNo collection time noted on specimen or requisition. The collection timerecorded is the time of receipt in the lab. Performed By: #### 0 0071, 12061 ####[place] [address] eGFR (black) mL/min/{1.73_m2} Normal >60 [facility] Comment on above: Order Comment: No: Do not add to previou s drawNo collection time noted on specimen or requisition. The collection timerecorded is the time of receipt in the lab. Performed By: #### 0 0071, 92740 ####[facility] [facility].[address] eGFR (non-black) mL/min/{1.73_m2} Normal >60 [facility] Comment on above: Order Comment: No: Do not add to previou s drawNo collection time noted on specimen or requisition. The collection timerecorded is the time of receipt in the lab. Performed By: #### 0 0071, 89099 ####[facility] Glucose mass conc 193 mg/dL High 70-100 [facility] Comment on above: Order Comment: No: Do not add to previou s drawNo collection time noted on specimen or requisition. The collection timerecorded is the time of receipt in the lab. Performed By: #### 0 0071, 37337 ####[place] [address] Potassium molar conc 4.0 mmol/L Normal 3.5-5.1 [facility] Comment on above: Order Comment: No: Do not add to previou s drawNo collection time noted on specimen or requisition. The collection timerecorded is the time of receipt in the lab. Performed By: #### 0 0071, 22301 ####[facility] [facility].[address] Sodium 133 mmol/L Low 136-145 [facility] Comment on above: Order Comment: No: Do not add to previou s drawNo collection time noted on specimen or requisition. The collection timerecorded is the time of receipt in the lab. Performed By: #### 0 0071, 34791 ####[facility] [facility].[address] Urea nitrogen 23 mg/dL Normal 7-25 [facility] Comment on above: Order Comment: No: Do not add to previou s drawNo collection time noted on specimen or requisition. The collection timerecorded is the time of receipt in the lab. Performed By: #### 0 0071, 78159 ####[facility] CBC W/DIFFon 06-21-2017 ABS BASOPHILS 0.1 10*3/uL Normal 0.0-0.2 [facility] Comment on above: Order Comment: No: Do not add to previou s drawNo collection time noted on specimen or requisition. The collection timerecorded is the time of receipt in the lab. Performed By: #### 5 0103 ####[facility] ABS IMM GRANS 0.0 10*3/uL Normal 0.0-0.2 [facility] Comment on above: Order Comment: No: Do not add to previou s drawNo collection time noted on specimen or requisition. The collection timerecorded is the time of receipt in the lab. Performed By: #### 5 0103 ####[facility] Basophils Auto #/vol (Bld) 0.5 % Normal 0.0-1.0 [facility] Comment on above: Order Comment: No: Do not add to previou s drawNo collection time noted on specimen or requisition. The collection timerecorded is the time of receipt in the lab. Performed By: #### 5 0103 ####[facility] Eosinophils 0.2 10*3/uL Normal 0.0-0.5 [facility] Comment on above: Order Comment: No: Do not add to previou s drawNo collection time noted on specimen or requisition. The collection timerecorded is the time of receipt in the lab. Performed By: #### 5 0103 ####[facility] [facility] [place] [address], [facility] Eosinophils/100 leukocytes 2.0 % Normal 0.0-6.0 [facility] Comment on above: Order Comment: No: Do not add to previou s drawNo collection time noted on specimen or requisition. The collection timerecorded is the time of receipt in the lab. Performed By: #### 5 0103 ####[facility] [facility].[address] Erythrocyte distribution width Auto Ratio (RBC) 12.6 % Normal 11.5-15.0 [facility] Comment on above: Order Comment: No: Do not add to previou s drawNo collection time noted on specimen or requisition. The collection timerecorded is the time of receipt in the lab. Performed By: #### 5 0103 ####[facility] [facility] [place] [address], [facility] Erythrocytes (RBC) 0 % Normal 0-0 [facility] Comment on above: Order Comment: No: Do not add to previou s drawNo collection time noted on specimen or requisition. The collection timerecorded is the time of receipt in the lab. Performed By: #### 5 0103 ####[facility] [facility].[address] Erythrocytes (RBC) 4.95 10*6/uL Normal 4.20-5.70 [facility] Comment on above: Order Comment: No: Do not add to previou s drawNo collection time noted on specimen or requisition. The collection timerecorded is the time of receipt in the lab. Performed By: #### 5 0103 ####[facility] Hematocrit (HCT) 42.5 % Normal 39.0-50.0 [facility] Comment on above: Order Comment: No: Do not add to previou s drawNo collection time noted on specimen or requisition. The collection timerecorded is the time of receipt in the lab. Performed By: #### 5 0103 ####[facility] Hemoglobin mass conc (Bld) 14.3 g/dL Normal 13.0-17.0 [facility] Comment on above: Order Comment: No: Do not add to previou s drawNo collection time noted on specimen or requisition. The collection timerecorded is the time of receipt in the lab. Performed By: #### 5 0103 ####[facility] IMMATURE GRANS 0.4 % Normal 0.0-1.0 [facility] Comment on above: Order Comment: No: Do not add to previou s drawNo collection time noted on specimen or requisition. The collection timerecorded is the time of receipt in the lab. Performed By: #### 5 0103 ####[facility] [address] Lymphocytes 3.0 10*3/uL Normal 1.2-4.0 [facility] Comment on above: Order Comment: No: Do not add to previou s drawNo collection time noted on specimen or requisition. The collection timerecorded is the time of receipt in the lab. Performed By: #### 5 0103 ####[facility] Lymphocytes/100 leukocytes 28.2 % Normal 20.0-45.0 [facility] Comment on above: Order Comment: No: Do not add to previou s drawNo collection time noted on specimen or requisition. The collection timerecorded is the time of receipt in the lab. Performed By: #### 5 0103 ####[facility] MCH 28.9 pg Normal 27.0-33.0 [facility] Comment on above: Order Comment: No: Do not add to previou s drawNo collection time noted on specimen or requisition. The collection timerecorded is the time of receipt in the lab. Performed By: #### 5 0103 ####[facility] [facility].[address] MCHC mass conc (RBC) 33.6 g/dL Normal 32.0-35.0 [facility] Comment on above: Order Comment: No: Do not add to previou s drawNo collection time noted on specimen or requisition. The collection timerecorded is the time of receipt in the lab. Performed By: #### 5 0103 ####[facility] MCV 85.9 fL Normal 82.0-98.0 [facility] Comment on above: Order Comment: No: Do not add to previou s drawNo collection time noted on specimen or requisition. The collection timerecorded is the time of receipt in the lab. Performed By: #### 5 0103 ####[facility] [facility].[address] Monocytes 1.0 10*3/uL Normal 0.1-1.0 [facility] Comment on above: Order Comment: No: Do not add to previou s drawNo collection time noted on specimen or requisition. The collection timerecorded is the time of receipt in the lab. Performed By: #### 5 0103 ####[facility] [facility].[address] MONOS 9.0 % Normal 5.0-12.0 [facility] Comment on above: Order Comment: No: Do not add to previou s drawNo collection time noted on specimen or requisition. The collection timerecorded is the time of receipt in the lab. Performed By: #### 5 0103 ####[facility] Neutrophils 6.4 10*3/uL Normal 1.6-7.6 [facility] Comment on above: Order Comment: No: Do not add to previou s drawNo collection time noted on specimen or requisition. The collection timerecorded is the time of receipt in the lab. Performed By: #### 5 0103 ####[facility] Neutrophils/100 leukocytes 59.9 % Normal 40.0-72.0 [facility] Comment on above: Order Comment: No: Do not add to previou s drawNo collection time noted on specimen or requisition. The collection timerecorded is the time of receipt in the lab. Performed By: #### 5 0103 ####[facility] PLAT CNT 179 10*3/uL Normal 150-400 [facility] Comment on above: Order Comment: No: Do not add to previou s drawNo collection time noted on specimen or requisition. The collection timerecorded is the time of receipt in the lab. Performed By: #### 5 [id number] ####[facility] WBC (Leukocytes) 10.7 10*3/uL High 4.0-10.6 [facility] Comment on above: Order Comment: No: Do not add to previou s drawNo collection time noted on specimen or requisition. The collection timerecorded is the time of receipt in the lab. Performed By: #### 5 0103 ####[facility] [address] MAGNESIUM BLOODon 06-21-2017 Magnesium 2.3 mg/dL Normal 1.9-2.7 [facility] Comment on above: Order Comment: No: Do not add to previou s drawNo collection time noted on specimen or requisition. The collection timerecorded is the time of receipt in the lab. Performed By: #### 0 [id number], [id number] ####[facility] [address] POC GLUCOSE LABon 06-21-2017 Glucose mass conc 261 mg/dL High 70-100 [facility] Comment on above: Performed By: #### [id number] ####[facility].[address] Glucose mass conc 327 mg/dL High 70-100 [facility] Comment on above: Performed By: #### [id number] ####[facility].[address] Glucose mass conc 176 mg/dL High 70-100 [facility] Comment on above: Performed By: #### [id number] ####[facility] [address] PROTHROMBIN TIMEon 8 INR Coag RelTime (PPP) 1.04 {INR} Normal 0.91-1.16 [facility] Comment on above: Order Comment: No: Do not add to previou s drawNo collection time noted on specimen or requisition. The collection timerecorded is the time of receipt in the lab. Result Comment: ACCC P RECOMMENDED INR FOR WARFARIN THERAPY CONDITION INRPROPHYLAXIS OF VENOUS THROMBOSIS 2-3(HIGH-RISK SURGERY)TREATMENT OF VENOUS THROMBOSIS 2-3TREATMENT OF PULMONARY EMBOLISM 2-3PREVENTION OF SYSTEMIC EMBOLISM: 2-3 ACUTE MYOCARDIAL INFARCTION TISSUE HEART VALVES VALVULAR HEART DISEASE ATRIAL FIBRILLATION RECURRENT SYSTEMIC EMBOLISMMECHANICAL HEART VALVE 2.5-3.5 FROM: ORAL ANTICOAGULANTS. MECHANISM OF ACTION, CLINICALEFFECTIVENESS, AND OPTIMAL THERAPEUTIC RANGE. [id number];108:231S-246S. Performed By: #### 5 [id number], [id number] ####[facility] Prothrombin time (PT) Coag time (PPP) 13.6 s Normal 12.3-14.8 [facility] Comment on above: Order Comment: No: Do not add to previou s drawNo collection time noted on specimen or requisition. The collection timerecorded is the time of receipt in the lab. Result Comment: ALL RESULTS MUST BE INTERPRETED WITH RESPECT TO BLOOD DRAWING ARTIFACTOR DILUTION ERROR OF ANTICOAGULANT AT THE TIME OF SAMPLING. Performed By: #### 5 [id number], [id number] ####[facility] [place] [address], [facility] UFH HEPARIN ASSAYon 06-22-19 18 UNFRACTIONATED HEPARIN CANCELED Normal 0.30-0.70 [facility] Comment on above: Order Comment: Please see comments attac hed. Result Comment: CLIN ICAL SIGNIFICANCE OF THE PTT RESULT IS QUESTIONABLE IN THE PRESENCEOF HEPARIN. Results called. Accurately read back by GUDELIA SYKES RN,[facility] PATIENT'S NURSE, AT 1452, .Patient has had a cath.procedure per Gudelia. Patient may still haveresidual heparin that elevates this UFH result.The released value >1.00 was canceled by KNG on 06/21/2017 15:02 Performed By: #### 3 0477 ####[facility] [place] [address], [facility] UNFRACTIONATED HEPARIN >1.00 Critically high 0.30-0.70 [facility] Comment on above: Result Comment: Rivaroxaban and Apixaban will interfere with the anti Xa assay used tomonitor UFH and LMWH.CLINICAL SIGNIFICANCE OF THE PTT RESULT IS QUESTIONABLE IN THE PRESENCEOF HEPARIN. Results called. Accurately read back by GUDELIA SYKES RN,[facility] PATIENT'S NURSE, AT 1452, .Patient has had a cath.procedure per Gudelia. Patient may still haveresidual heparin in the blood stream. Performed By: #### 3 0477 ####[facility] UNFRACTIONATED HEPARIN 0.67 IU/mL Normal 0.30-0.70 [facility] Comment on above: Order Comment: MOVE TO AM PER SATISH MURRAY A T 0058.No collection time noted on specimen or requisition. The collection timerecorded is the time of receipt in the lab. Result Comment: Morena roxaban and Apixaban will interfere with the anti Xa assay used tomonitor UFH and LMWH. Performed By: #### 5 [id number], [id number] ####[facility].[address] Encounters Encounter Date Encounter Type Care Provider Facility Start: 04-16-2023 End: 04-16-2023 ambulatory MENDEZ GARCIA Not Available Start: 07-03-2022 End[facility] Start: 04-07-2020 End: 04-08-2020 Patient encounter procedure NATALYA HERNANDEZ Facility: Start: 07-19-2017 End: 07-20-2017 Ambulatory DEFAULT PHYSICIAN Facility:[facility] [[email or web address] Start: 06-20-2017 End: 06-22-2017 Evaluation and management of inpatient Chad Lloyd Facility:[facility] [[email or web address] Start: 06-20-2017 End: 06-21-2017 Ambulatory DEFAULT PHYSICIAN Facility:[facility] [[email or web address] Procedures Date Procedure Procedure Detail Performing Clinician Start: 06-21-2017 DILATION OF 1 COR AR T WITH DRUG-ELUT INTRA, PERC APPROACH JAMIR YUN Start: 06-21-2017 FLUOROSCOPY OF MULTI PLE CORONARY ARTERIES USING OTH CONTRAST JAMIR YUN Payers Date Payer Category Payer Medicaid [id number] 1965 Unknown [id number] 1965 Unknown [id number] 1961 Unknown [id number] Unknown Progress note 07-03-2022 Note Date & Type Note Facility 07-03-2022 Note [place] Cardiology - [facility] Subjective Mendez Sauceda is a 57 y.o. year old male patient being seen for 1 year follow up CAD and aortic valve regurgitation. He has lost over 30# since his last visit in Mar 2021. Feels great and has been working out. Denies chest pain and SOB. Wants to quit smoking. Patient Active Problem List Diagnosis Coronary arteriosclerosis Diabetes mellitus (CMS/HCC) Family History Problem Relation Name Age of Onset Coronary artery disease Mother Diabetes Mother Hypertension Father Heart attack Paternal Grandmother Social History Tobacco Use Smoking status: Every Day Packs/day: 0.50 Types: Cigarettes Smokeless tobacco: Never Substance Use Topics Alcohol use: Not Currently HPI Mendez is seen in follow-up. He is a 57-year-old man with coronary artery disease status post stenting of the RCA in 2018 in the setting of unstable angina and abnormal stress test. At that time he had an occluded OM branch with collateral filling and moderate LAD stenosis. He did well after the stenting procedure. Today he reports that he has been doing great. He has been doing intermittent fasting diet and he has lost about 30 pounds. He feels great. He has no angina no heart failure symptoms. No palpitations. No leg edema. Review of Systems All other systems reviewed and are negative. Objective Visit Vitals BP 137/74 (BP Location: Left arm, Patient Position: Sitting) Pulse 59 Ht 1.778 m (5' 10 ) Wt 76.2 kg (168 lb) SpO2 99% BMI 24.11 kg/m??? Smoking Status Every Day BSA 1.94 m??? Physical Exam Constitutional: Appearance: He is well-developed. He is not ill-appearing. HENT: Head: Normocephalic and atraumatic. Nose: Nose normal. Eyes: General: No scleral icterus. Pupils: Pupils are equal, round, and reactive to light. Neck: Thyroid: No thyromegaly. Vascular: No JVD. Cardiovascular: Rate and Rhythm: Normal rate and regular rhythm. Pulses: Radial pulses are 2+ on the right side and 2+ on the left side. Heart sounds: Normal heart sounds. No murmur heard. No friction rub. No gallop. Pulmonary: Effort: Pulmonary effort is normal. No respiratory distress. Breath sounds: Normal breath sounds. No wheezing or rales. Chest: Chest wall: No tenderness. Abdominal: General: Bowel sounds are normal. There is no distension. Palpations: Abdomen is soft. Tenderness: There is no abdominal tenderness. Musculoskeletal: General: No swelling. Cervical back: Neck supple. Skin: General: Skin is warm and dry. Neurological: General: No focal deficit present. Mental Status: He is alert and oriented to person, place, and time. Psychiatric: Mood and Affect: Mood normal. Behavior: Behavior is cooperative. Judgment: Judgment normal. Allergies No Known Allergies Medications Current Outpatient Medications: amLODIPine (Norvasc) 10 mg tablet, Take 1 tablet (10 mg) by mouth in the morning., Disp: 90 tablet, Rfl: 3 aspirin 81 mg chewable tablet, Chew 1 tablet (81 mg) in the morning., Disp: 90 tablet, Rfl: 3 atorvastatin (Lipitor) 80 mg tablet, Take 1 tablet (80 mg) by mouth in the morning., Disp: 90 tablet, Rfl: 3 metFORMIN (Glucophage) 1,000 mg tablet, 1,000 mg with breakfast and with evening meal., Disp: , Rfl: metoprolol succinate XL (Toprol-XL) 50 mg 24 hr tablet, Take 1 tablet (50 mg) by mouth in the morning. (Patient taking differently: Take 25 mg by mouth in the morning.), Disp: 90 tablet, Rfl: 3 Recent Labs No visits with results within 6 Month(s) from this visit. Latest known visit with results is: No results found for any previous visit. blood testing 06/28/2022: Hemoglobin 13.4, platelets 184, glucose 197, BUN 11, creatinine 0.78, EGFR 103, potassium 4.3, LFTs normal, hemoglobin A1c 8.1, cholesterol 115, HDL 45, triglycerides 65, LDL 56. Blood testing 07/11/2021: BUN 19, creatinine 0.81, glucose 123, EGFR 98, potassium 4.7, LFTs normal. Imaging and other tests Cath 06/21/2017: 1. Severe 2-vessel coronary artery disease. 2. 100% occlusion of the second obtuse marginal branch with filling of the distal vessel by [id number] collateral circulation that vessel appears to be of small to moderate size. 3. 50% eccentric stenosis in the mid LAD. 4. 90% stenosis in the mid right coronary artery reduced to 0% by balloon angioplasty and Synergy drug-eluting stenting. Echocardiogram 07/19/2017: Global left ventricular systolic function is normal (Visually estimated EF 60%). Regional wall motion abnormalities (see diagram). Inferolateral and anterolateral hypokinesia. Mild aortic valve regurgitation. Doppler studies suggest normal right sided pressures. Echocardiogram 04/07/2020: LVSF normal EF 55-60% No wall motion abnormalities Mild AV and PV regurg. Assessment/Plan Diagnoses and all orders for this visit: Coronary artery disease involving [place] coronary artery of cher[place] heart without (more content not included)... [facility] Summary Purpose Family History No Family History Records FoundNo Family History Records FoundNo Family History Records FoundNo Family History Records FoundNo Family History Records Found Advance Directives No Advanced Directives Records FoundNo Advanced Directives Records FoundNo Advanced Directives Records FoundNo Advanced Directives Records FoundNo Advanced Directives Records Found Additional Source Comments (unrecognized sect ion and content) No Status Records FoundNo Status Records FoundNo Status Records FoundNo Status Records FoundNo Status Records Found INFORMATION SOURCE (unrecogn ized section and content) DATE CREATED AUTHOR 09/13/2017 [facility] DATE CREATED AUTHOR AUTHOR'S ORGANIZ ATION 04/15/[address] [facility] DATE CREATED AUTHOR AUTHOR'S ORGANIZ ATION 07/13/2021 [facility] d[facility] Special[facility] DATE CREATED AUTHOR AUTHOR'S ORGANIZ ATION 07/03/2022 [facility] DATE CREATED AUTHOR AUTHOR'S ORGANIZ ATION 04/17/2023 [facility] dical Specialists EPIC FOR RECORDS PERTAINING TO PATIENTS WHO ARE OR HAVE BEEN ENROLLED IN A CHEMICAL DEPENDENCY/SUBSTANCEABUSE PROGRAM, SOME INFORMATION MAY BE OMITTED. This clinical summary was aggregated from multiple sources. Caution should be exercised in using it in the provision of clinical care. This summary normalizes information from multiple sources, and as a consequence, information in this document may materially change the coding, format and clinical context of patient data. In addition, data may be omitted in some cases. CLINICAL DECISIONS SHOULD BE BASED ON THE PRIMARY CLINICAL RECORDS. [employer] provides no warranty or guarantee of the accuracy or completeness of information in this document.
[2023-04-25 10:30] LABS: Anion Gap 11.3; BUN Creatinine Ratio 17.2; Calcium 8.8 mg/dL (8.5-10.1); Carbon Dioxide 24.9 mmol/L (21.0-32.0); Chloride 106 mmol/L (98-107); Estimated GFR (African America >60 (>=60); Estimated GFR (Non-African Ame >60 (>=60); Glucose 170 mg/dL (74-106); Potassium 4.2 mmol/L (3.5-5.1); Sodium 138 mmol/L (136-145)
--- NOTE | 2023-04-25 10:31 | ED.DIZZY1 ---
HPI - Dizziness General Chief Complaint: Syncope Stated Complaint: LOWER EXTREMITY INJURY Time Seen by Provider: 04/25/23 09:50 Source: patient Mode of arrival: ambulance Limitations: no limitations History of Present Illness HPI Narrative: The patient had a dizzy episode this morning and felt like he was going to pass out. He fractured his distal fibula last night and was prescribed vicodin. He took it this morning on an empty stomach and then went outside to smoke. He got nauseous and dizzy while outside smoking. He did not fall to the ground or injure anything - the was there and kept him upright. he vomited. EMS was called and told us that the patient's HR was in the 30s . He told us that he has a heart rate in the low 50s all the time . EMS reported HR dropped into the 40s during transport. No additional complaint of dizziness by the time he arrived. Related Data Previous Rx's Medication Instructions Recorded hydrocodone 5 mg-acetaminophen 325 1 tab PO Q6H PRN pain 3 days #12 04/24/23 mg tablet tabs ondansetron 4 mg disintegrating 4 mg PO Q6H PRN nausea and 04/25/23 tablet vomiting #20 tabs Allergies Allergy/AdvReac Type Severity Reaction Status Date / Time No Known Drug Allergies Allergy Verified 04/25/23 09:53 [facility] Social History Smoking status: Current every day smoker Exam Narrative Exam Narrative: Nurses notes and vital signs reviewed and patient is not hypoxic. afebrile General: Well-appearing and in no apparent distress. Skin: Warm, dry, no pallor noted. Head: Normocephalic, atraumatic. Neck: Supple, non-tender. Eye: Pupils are equal, round and EOMI. No scleral icterus. Ears, Nose, Mouth, and Throat: Oral mucosa is slightly dry Cardiovascular: Regular Rate and Rhythm without murmur, gallop or rub. Respiratory: No accessory muscle use or respiratory distress. Lungs are clear to auscultation, no wheezing, rales or rhonchi Back: No midline thoracic or lumbar vertebral tenderness. Musculoskeletal: normal ROM, no calf or popliteal tenderness, no lower extremity edema/swelling GI: Abdomen is soft, non-distended. Normal bowel sounds. No tenderness to palpation. No rebound, guarding, or rigidity noted. Neurological: A&O x4. No cranial nerve dysfunction observed. No truncal ataxia. Moves all extremities. Sensation intact. Psychiatric: Cooperative and interactive. Normal mood and affect. Constitutional Vital Signs, click to edit/add: Last Vital Signs Temp 97.7 F 04/25/23 10:11 Pulse 55 L 04/25/23 10:40 Resp 16 04/25/23 10:40 BP 133/61 04/25/23 10:30 Pulse Ox 100 04/25/23 10:40 O2 Del Method Room Air 04/25/23 09:49 Course Vital Signs Vital signs: Vital Signs Pulse Rate 51 L 04/25/23 09:49 Respiratory Rate 18 04/25/23 09:49 Blood Pressure 131/63 04/25/23 09:49 Pulse Oximetry 100 04/25/23 09:49 Oxygen Delivery Method Room Air 04/25/23 09:49 Temperature 97.7 F 04/25/23 10:11 Pulse Rate 55 L 04/25/23 10:40 Respiratory Rate 16 04/25/23 10:40 Blood Pressure 133/61 04/25/23 10:30 Pulse Oximetry 100 04/25/23 10:40 Oxygen Delivery Method Room Air 04/25/23 09:49 MDM - Dizziness MDM Narrative Medical decision making narrative: Patient was placed on awake overnight monitor and EKG obtained. Blood drawn and sent for evaluation. EMS has already started normal saline IV fluid and he finished that liter. Normal CBC. BMP notable for elevated glucose at 170 but otherwise normal. Patient without residual dizziness or orthostasis on exam and evaluation in the ED. Patient and I discussed results, diagnosis and I explained the events that triggered the episode this morning. He was given reassurance and discharged home. We discussed taking the vicodin with food and I am prescribing odt zofran and instructed him to take it about 20-30 min before taking the vidon. ED return for any concerning symptoms. Lab Data Attestation: I reviewed the patient's lab results. Labs: Lab Results 04/25/23 Range/Units 10:12 WBC 10.1 (4.0-11.0) 10^3/uL RBC 4.05 L (4.70-6.10) 10^6/uL Hgb 11.8 L (14.0-18.0) g/dL Hct 37.1 L (42.0-54.0) % MCV 91.6 (80.0-94.0) fL MCH 29.1 (25.9-34.0) pg MCHC 31.8 (29.9-35.2) g/dL RDW 13.1 (11.0-15.0) % Plt Count 131 L (150-450) 10^3/uL MPV 10.6 (9.5-13.5) fL Neut % (Auto) 67.7 (43.0-75.0) % Lymph % (Auto) 19.2 L (20.5-60.0) % [place] % (Auto) 11.1 (1.7-12.0) % Eos % (Auto) 1.2 (0.9-7.0) % Baso % (Auto) 0.5 (0.2-2.0) % Neut # (Auto) 6.8 H (1.4-6.5) 10^3/uL Lymph # (Auto) 1.9 (1.2-3.8) 10^3/uL [place] # (Auto) 1.1 H (0.3-0.8) 10^3/uL Eos # (Auto) 0.1 (0.0-0.7) 10^3/uL Baso # (Auto) 0.1 (0.0-0.1) 10^3/uL Abs Immat Gran (auto) 0.03 (0.00-0.03) 10^3/uL Imm/Tot Granulo (auto) 0.3 (0.0-0.5) % Sodium 138 (136-145) mmol/L Potassium 4.2 (3.5-5.1) mmol/L Chloride 106 (98-107) mmol/L Carbon Dioxide 24.9 (21.0-32.0) mmol/L Anion Gap 11.3 BUN 16.0 (7.0-18.0) mg/dL Creatinine 0.93 (0.70-1.30) mg/dL Est GFR ( Amer) >60 (>=60) Est GFR (Non-Af Amer) >60 (>=60) BUN/Creatinine Ratio 17.2 Glucose 170 H (74-106) mg/dL Calcium 8.8 (8.5-10.1) mg/dL ECG Data Attestation: I personally reviewed and interpreted this ECG as follows: Interpretation: EKG interpretation: Emergency Department physician interpretation. Sinus bradycardia at 47bpm. Normal axis, normal intervals and no ST segment elevation or depression. Normal except for rate Discharge Plan Discharge Chief Complaint: Syncope Clinical Impression: Vasovagal syncope Patient Disposition: Home, Self-Care Time of Disposition Decision: 10:49 Prescriptions / Home Meds: New ondansetron 4 mg tablet,disintegrating 4 mg PO Q6H PRN (Reason: nausea and vomiting) Qty: 20 0RF No Action hydrocodone-acetaminophen 5-325 mg tablet 1 tab PO Q6H PRN (Reason: pain) 3 Days Qty: 12 0RF Rx Instructions: DX: M25.572 Instructions: Near Syncope (ED) Stand Alone Forms: Portal Instructions Referrals: BELINDA ALONSO [Primary Care Provider] - 1 week
== END 2023-04-25 11:10 | disposition home or self-care (01) ==
PROVIDERS: Emergency Provider Emergency Medicine; PCP Internal Medicine
DX: R55 Syncope and collapse (principal); F17.210 Nicotine dependence, cigarettes, uncomplicated
CPT/HCPCS: 36415; 80048; 85025; 93005; 99284

== ENCOUNTER 2023-05-01 10:31 | Outpatient (OUT) | payer MEDICAID, SELFPAY ==
--- NOTE | 2023-05-01 | XR_ITS ---
[facility] [place] [id number] Patient Name: BELINDA SAUCEDA MRN: [id number] date: 1965 Sex: M Assigned Patient Location: [facility] Current Patient Location: Accession/Order Number: [id number] Exam Date: 05/01/2023 11:50 Report Date: 05/02/2023 06:46 At the request of: ALFA MCKEON Procedure: XR ankle LT min 3V PROCEDURE: XR ankle LT min 3V, XR foot LT min 3V HISTORY: LEFT ANKLE PAIN ; follow-up distal fibular fracture COMPARISON: XR ankle left 04/24/2023 FINDINGS: BONES:Nondisplaced oblique fracture of the distal fibula at the level of the ankle joint without visible callus formation at this time. Subtle asymmetric widening of the joint space between the talus and medial malleolus when compared to the rest of the joint. Mild degenerative change of the first metatarsophalangeal joint. SOFT TISSUES:Soft tissue swelling surrounding the ankle; greatest along the medial aspect. EFFUSION:None visible. OTHER: Negative. XR/XR ankle LT min 3V IMPRESSION: 1. Stable, nondisplaced subacute fracture of the distal fibula. 2. Slight asymmetric widening of the medial aspect of the joint space suggesting medial ligament injury or strain. Electronically authenticated by: GINI HOLLEY Date: 05/02/2023 06:46
--- NOTE | 2023-05-01 | XR_ITS ---
[facility] [place] [id number] Patient Name: BELINDA SAUCEDA MRN: [id number] date: 1965 Sex: M Assigned Patient Location: [facility] Current Patient Location: Accession/Order Number: [id number] Exam Date: 05/01/2023 11:32 Report Date: 05/02/2023 06:46 At the request of: ALFA MCKEON Procedure: XR foot LT min 3V PROCEDURE: XR ankle LT min 3V, XR foot LT min 3V HISTORY: LEFT ANKLE PAIN ; follow-up distal fibular fracture COMPARISON: XR ankle left 04/24/2023 FINDINGS: BONES:Nondisplaced oblique fracture of the distal fibula at the level of the ankle joint without visible callus formation at this time. Subtle asymmetric widening of the joint space between the talus and medial malleolus when compared to the rest of the joint. Mild degenerative change of the first metatarsophalangeal joint. SOFT TISSUES:Soft tissue swelling surrounding the ankle; greatest along the medial aspect. EFFUSION:None visible. OTHER: Negative. XR/XR foot LT min 3V IMPRESSION: 1. Stable, nondisplaced subacute fracture of the distal fibula. 2. Slight asymmetric widening of the medial aspect of the joint space suggesting medial ligament injury or strain. Electronically authenticated by: GINI HOLLEY Date: 05/02/2023 06:46
--- OUTSIDE RECORDS SUMMARY | 2023-05-01 10:34 | XMS_ITS | CCD ---
Author Name Unknown Address [address] [place] [id number] Organization [facility] Care Team Providers Care It Risk And Assurance Manager Name Role Phone PHYSICIAN, DEFAULT Unavailable Unavailable PHYSICIAN, DEFAULT Unavailable Unavailable Gabino, Chad Unavailable Unavailable Gabino, Chad Unavailable Unavailable MIKEY JARQUIN Unavailable Unavailable MENDEZ GARCIA Unavailable Unavailable UNKNOWN, PROVIDER Unavailable Unavailable [place] Unavailable Unavailable PHYSICIAN, DEFAULT Unavailable Unavailable PHYSICIAN, DEFAULT Unavailable Unavailable MENDEZ GARCIA Unavailable Unavailable NATALYA HERNANDEZ Attending Unavailable NATALYA HERNANDEZ Consulting Unavailable NATALYA HERNANDEZ Admitting Unavailable MENDEZ GARCIA Primary Care Unavailable JAMIR YUN Attending Unavailable MENDEZ GARCIA Attending Unavailable Allergies Allergy Classification Reported Allergen(s) Allergy Type Date of Onset Reaction(s) Facility (1 source) 40012,00 Drug allergy (disorder) 8 [facility] Repository (1 source) No Known Allergies; Translations: [No Known Allergies] Propensity to adverse reactions (disorder) [facility] Repository Problems Problem Classification Problem Date Documented Da te Episodic/Chronic Coronary atherosclerosis and other heart disease (5 sources) Unstable angina; Translations: [Atherosclerotic heart disease of [place] coronary artery with unstable angina pectoris] Onset: [...] / UNK(Unknown) Onset: 06-20-2017 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 (1 source) [facility] (current) use of oral hypoglycemic drugs; Translations: [[facility] (CURRENT) USE OF ORAL HYPOGLYCEMIC DRUGS] Onset: 06-20-2017 Results Test Name Value Interpretation Reference Range Facility Office Visiton 07-03-2022 Follow-up visit [id number] [facility] [place] 1965 M Date Provider Department Center 07/03/2022 JAMIR CHRISTIAN CARD [facility] Family History Problem Relation Age of Onset Coronary artery disease Mother Diabetes Mother Hypertension Father Heart attack Paternal Grandmother Family Status - Relation Status Age at Mother Father Paternal Grandmother Level of Service:99029 [place] OFFICE/OUTPATIENT ESTABLISHED LOW MDM 20-29 MIN Reason for Visit and Comments: Coronary Artery Disease [187] Normal [facility] Q - COMPREHENSIVE METABOLIC PANEL W/EGFRon 07-11-2021 Albumin [Mass/Vol] 4.4 g/dL Normal 3.6-5.1 [facility] Permit Coordinator Comment on above: Order Comment: [facility] 11U Testing performed at: [facility], [address] [place] [address], [address] [place] [address], [phone], Machine Welder: Blaise Sol MD [facility] Collection Date/Time: [facility] Results Received Date/Time: [facility] Reported Date/Time: FASTING: NO Performed By: #### 1 0231A, 6517X, 5363X #### [facility] Default [address] [place] [address] Albumin/Globulin [Mass ratio] 1.7 {ratio} Normal 1.0-2.5 [facility] Permit [facility]inator Comment on above: Order Comment: [facility] 11U Testing performed at: [facility], [address] [place] [address], [address] [place] [address], [phone], Machine Welder: Blaise Sol MD [facility] Collection Date/Time: [facility] Results Received Date/Time: [facility] Reported Date/Time: FASTING: NO Performed By: #### 1 0231A, 6517X, 5363X #### [facility] Default [address] [place] [address] ALP [Catalytic activity/Vol] 65 U/L Normal 35-144 [facility] Comment on above: Order Comment: [facility] 11U Testing performed at: [employer] [employer] [facility], [address] [place] [address], [address] [place] [address], [address] [place] [address], Machine Welder: Blaise Sol MD [facility] Collection Date/Time: [facility] Results Received Date/Time: [facility] Reported Date/Time: FASTING: NO Performed By: #### 1 0231A, 6517X, 5363X #### [facility] Default [address] [place] [address] ALT [Catalytic activity/Vol] 62 U/L High 9-46 [facility] Specialist Comment on above: Order Comment: [facility] 11U Testing performed at: [employer], [employer] [facility], [address] [place] [address], [address] [place] [address], [address] [place] [address], Machine Welder: Blaise Sol MD [facility] Collection Date/Time: [facility] Results Received Date/Time: [facility] Reported Date/Time: FASTING: NO Performed By: #### 1 0231A, 6517X, 5363X #### [facility] Default [address] [place] [address] AST [Catalytic activity/Vol] 29 U/L Normal 10-35 [facility] Specialist Comment on above: Order Comment: [facility] 11U Testing performed at: [employer], [employer] [facility], [address] [place] [address], [address] [place] [address], [address] [place] [address], Machine Welder: Blaise Sol MD [facility] Collection Date/Time: [facility] Results Received Date/Time: [facility] Reported Date/Time: FASTING: NO Performed By: #### 1 0231A, 6517X, 5363X #### [facility] Default [address] [place] [address] Bilirubin [Mass/Vol] 0.4 mg/dL Normal 0.2-1.2 [facility] Specialist Comment on above: Order Comment: [facility] 11U Testing performed at: [employer], [employer] [facility], [address] [place] [address], [address] [place] [address], [address] [place] [address], Machine Welder: Blaise Sol MD [facility] Collection Date/Time: [facility] Results Received Date/Time: [facility] Reported Date/Time: FASTING: NO Performed By: #### 1 0231A, [id number], 5363X #### [facility] Default [address] [place] [address] BUN/CREA 23 NOT APPLICABLE Normal 6-22 [facility] Comment on above: Order Comment: [facility] 11U Testing performed at: [employer], [employer] [facility], [address] [place] [address], [address] [place] [address], [address] [place] [address], Machine Welder: Blaise Sol MD [facility] Collection Date/Time: [facility] Results Received Date/Time: [facility] Reported Date/Time: FASTING: NO Performed By: #### 1 0231A, 6517X, 5363X #### [facility] Default [address] [place] [address] Calcium [Mass/Vol] 9.7 mg/dL Normal 8.6-10.3 [facility] Permit Coordinator Comment on above: Order Comment: [facility] 11U Testing performed at: [facility], [address] [place] [address], [address] [place] [address], [address] [place] [address], Machine Welder: Blaise Sol MD [facility] Collection Date/Time: [id number] [facility] Results Received Date/Time: [facility] Reported Date/Time: FASTING: NO Performed By: #### 1 0231A, 6517X, 5363X #### [facility] Default [address] [place] [address] Chloride [Moles/Vol] 104 mmol/L Normal 98-110 [facility] Permit Coord[facility] Comment on above: Order Comment: [facility] 11U Testing performed at: [employer], [employer] [facility], [address] [place] [address], [address] [place] [address], [address] [place] [address], Machine Welder: Blaise Sol MD [facility] Collection Date/Time: [facility] Results Received Date/Time: [facility] Reported Date/Time: FASTING: NO Performed By: #### 1 0231A, 6517X, 5363X #### [facility] Default [address] [place] [address] CO2 [Moles/Vol] 26 mmol/L Normal 20-32 [facility] Specialist Comment on above: Order Comment: [facility] 11U Testing performed at: [employer], [employer] [facility], [address] [place] [address], [address] [place] [address], [address] [place] [address], Machine Welder: Blaise Sol MD [facility] Collection Date/Time: [facility] Results Received Date/Time: [facility] Reported Date/Time: FASTING: NO Performed By: #### 1 0231A, 6517X, 5363X #### [facility] Default [address] [place] [address] Creatinine [Mass/Vol] 0.81 mg/dL Normal 0.70-1.33 [facility] Specialist Comment on above: Order Comment: [facility] 11U Testing performed at: [employer], [employer] [facility], [address] [place] [address], [address] [place] [address], [address] [place] [address], Machine Welder: Blaise Sol MD [facility] Collection Date/Time: [facility] Results Received Date/Time: [facility] Reported Date/Time: FASTING: NO Result Comment: For patients >49 years of age, the reference limit for Creatinine is approximately 13% higher for people identified as -[place]ambodian. Performed By: #### 1 0231A, 6517X, 5363X #### [facility] Default [address] [place] [address] eGFRAA (Quest) 114 mL/min/1.73m2 Normal > OR = 60 [facility] Comment on above: Order Comment: [facility] 11U Testing performed at: [employer], [employer] [facility], [address] [place] [address], [address] [place] [address], [address] [place] [address], Machine Welder: Blaise Sol MD [facility] Collection Date/Time: [facility] Results Received Date/Time: [facility] Reported Date/Time: FASTING: NO Performed By: #### 1 0231A, 6517X, 5363X #### [facility] Default [address] [place] [address] eGFRNAA (Quest) 98 mL/min/1.73m2 Normal > OR = 60 [facility] Comment on above: Order Comment: [facility] 11U Testing performed at: [facility], [employer] [facility], [address] [place] [address], [address] [place] [address], [address] [place] [address], Machine Welder: Blaise Sol MD [facility] Collection Date/Time: [facility] Results Received Date/Time: [facility] Reported Date/Time: FASTING: NO Performed By: #### 1 0231A, 6517X, 5363X #### [facility] Default [address] [place] [address] Globulin (S) [Mass/Vol] 2.6 g/dL Normal 1.9-3.7 [facility] Permit Coordinator Comment on above: Order Comment: [facility] 11U Testing performed at: [employer], [employer] [facility], [address] [place] [address], [address] [place] [address], [address] [place] [address], Machine Welder: Blaise Sol MD [facility] Collection Date/Time: [facility] Results Received Date/Time: [facility] Reported Date/Time: FASTING: NO Performed By: #### 1 0231A, 6517X, 5363X #### [facility] Default [address] [place] [address] Glucose [Mass/Vol] 123 mg/dL Normal 65-139 [facility] Permit Coordinator Comment on above: Order Comment: [facility] 11U Testing performed at: [facility], [employer] [facility], [address] [place] [address], [address] [place] [address], [address] [place] [address], Machine Welder: Blaise Sol MD [facility] Collection Date/Time: [facility] Results Received Date/Time: [facility] Reported Date/Time: FASTING: NO Result Comment: Non-fasting reference interval For someone without known diabetes, a glucose value between 100 and 125 mg/dL is consistent with prediabetes and should be confirmed with a follow-up test. Performed By: #### 1 0231A, 6517X, 5363X #### [facility] Default [address] [place] [address] Potassium [Moles/Vol] 4.7 mmol/L Normal 3.5-5.3 [facility] Permit Coordinator Comment on above: Order Comment: [facility] 11U Testing performed at: [employer] [facility], [address] [place] [address], [address] [place] [address], [phone], Machine Welder: Blaise Sol MD [facility] Collection Date/Time: [facility] Results Received Date/Time: [facility] Reported Date/Time: FASTING: NO Performed By: #### 1 0231A, 6517X, 5363X #### [facility] Default [address] [place] [address] Protein [Mass/Vol] 7.0 g/dL Normal 6.1-8.1 [facility] Permit Coordinator Comment on above: Order Comment: [facility] 11U Testing performed at: [facility], [address] [place] [address], [address] [place] [address], [phone], Machine Welder: Blaise Sol MD [facility] Collection Date/Time: [facility] Results Received Date/Time: [facility] Reported Date/Time: FASTING: NO Performed By: #### 1 0231A, 6517X, 5363X #### [facility] Default [address] [place] [address] Sodium [Moles/Vol] 137 mmol/L Normal 135-146 [facility] Permit Coordinator Comment on above: Order Comment: [facility] 11U Testing performed at: [employer], [employer] [facility], [address] [place] [address], [address] [place] [address], [phone], Machine Welder: Blaise Sol MD [facility] Collection Date/Time: [facility] Results Received Date/Time: [facility] Reported Date/Time: FASTING: NO Performed By: #### 1 0231A, 6517X, 5363X #### [facility] Default [address] [place] [address] Urea nitrogen [Mass/Vol] 19 mg/dL Normal 7-25 [facility] Permit Coordinator Comment on above: Order Comment: [facility] 11U Testing performed at: [employer], [employer] [facility], [address] [place] [address], [address] [place] [address], [address] [place] [address], Machine Welder: Blaise Sol MD [facility] Collection Date/Time: [facility] Results Received Date/Time: [facility] Reported Date/Time: FASTING: NO Performed By: #### 1 0231A, 6517X, 5363X #### [facility] Default [address] [place] [address] Q - MICROALBUMIN,RANDOM URIN E (W/CREAT)on 07-11-2021 Albumin DL <= 20 mg/L (U) [Mass/Vol] 1.0 mg/dL Normal See Note: [facility] Permit Coordinator Comment on above: Order Comment: [facility] 11U Testing performed at: [facility], [address] [place] [address], [address] [place] [address], [phone], Machine Welder: Blaise Sol MD [facility] Collection Date/Time: [facility] Results Received Date/Time: [facility] Reported Date/Time: FASTING: NO Result Comment: Refe rence Range: Reference Range Not established Performed By: #### 1 0231A, 6517X, 5363X #### [facility] Default [address] [place] [address] Creatinine (U) [Mass/Vol] 65 mg/dL Normal 20-320 [facility] Permit Coordinator Comment on above: Order Comment: [facility] 11U Testing performed at: [employer], [employer] [facility], [address] [place] [address], [address] [place] [address], [address] [place] [address], Machine Welder: Blaise Sol MD [facility] Collection Date/Time: [facility] Results Received Date/Time: [facility] Reported Date/Time: FASTING: NO Performed By: #### 1 0231A, 6517X, 5363X #### [facility] Default [address] [place] [address] MICROALBUMIN/CRE ATININE RATIO, RANDOM URINE 15 mcg/mg creat Normal <30 [facility] Permit Coordinator Comment on above: Order Comment: [facility] 11U Testing performed at: [employer], [employer] [facility], [address] [facility], [address] [place] [address], [address] [place] [address], Machine Welder: Blaise Sol MD [facility] Collection Date/Time: [facility] [...] 6517X, 5363X #### [facility] Default [address] [place] [address] Q - PSA TOTALon 07-11-2021 PSA, TOTAL 1.41 ng/mL Normal < OR = 4.00 [facility] Permit Coordinator Comment on above: Order Comment: [facility] 11U Testing performed at: [facility], [address] , [address] [place], [place], [address] [place] [address], Machine Welder: Blaise Sol MD [facility] Collection Date/Time: [facility] [...] 6517X, 5363X #### [facility] Default [address] [place] [address] ECHOCARDIO M/2D COMPLETEon 0 04-07-2020 ECHOCARDIO M/2D COMPLETE Patient: MENDEZ SAUCEDA Exam Date: 04/07/2020 : 1965 Gender:M Ordering : NATALYA HERNANDEZ Admission #: [id number] Family : DR MENDEZ GARCIA M.D. Order #: [id number] CLICK HERE TO VIEW EXAM ECHOCARDIOGRAM REPORT [...] M.D. on 04/14/2020 at 16:11 Normal [facility] Discharge Summaryon 07-02-19 Discharge Summary MR#: [id number] [facility] Mendez Sauceda Admitted: 06/20/2017 Discharged: 06/22/2017 Date of : 1965 Physician: Chad Lloyd MD DISCHARGE SUMMARYDISCHARGING PHYSICIAN: Dr. Robin.PRIMARY DIAGNOSIS: Unstable angina/positive stress test.SECONDARY DIAGNOSES:1. Type 2 diabetic.2. Smoker.PROCEDURES: Left heart catheterization.HOSPITAL COURSE: This 52-year-old male was transferred from [facility] with unstable angina. The stress test showed an inferior wallmotion abnormality with inferior defect by perfusion. It was also found tohave T-wave inversions in the inferior leads. He was then sent to [facility].The next day, he received cardiac catheterization to [...] Dict: 06/30/2017/10:43 P/Julia Galindo Trans: 07/01/2017 12:09 Dae/Chris_JN:[id number]: Mendez Garcia M.D. [address] [facility] [address] Mikey Jarquin D.O. [facility] [address] [facility] [address] Normal [facility] BASIC METABOLIC PANELon 03-3 Calcium 8.7 mg/dL Normal 8.6-10.3 [facility] Comment on above: Order Comment: No: Do not add to previou s drawNo collection time noted on specimen or requisition. The collection timerecorded is the time of receipt in the lab. Performed By: #### 0 0071, 75064 ####[facility] [place] [address], [facility] Chloride 103 mmol/L Normal 98-107 [facility] Comment on above: Order Comment: No: Do not add to previou s drawNo collection time noted on specimen or requisition. The collection timerecorded is the time of receipt in the lab. Performed By: #### 0 0071, 28985 ####[facility] [place] [address], [facility] CO2 22 mmol/L Normal 21-31 [facility] Comment on above: Order Comment: No: Do not add to previou s drawNo collection time noted on specimen or requisition. The collection timerecorded is the time of receipt in the lab. Performed By: #### 0 0071, 62178 ####[facility] [address] Creatinine 0.91 mg/dL Normal 0.70-1.30 [facility] Comment on above: Order Comment: No: Do not add to previou s drawNo collection time noted on specimen or requisition. The collection timerecorded is the time of receipt in the lab. Performed By: #### 0 0071, 75951 ####[facility].[address] eGFR (black) mL/min/{1.73_m2} Normal >60 [facility] Comment on above: Order Comment: No: Do not add to previou s drawNo collection time noted on specimen or requisition. The collection timerecorded is the time of receipt in the lab. Performed By: #### 0 0071, 02782 ####[facility].[address] eGFR (non-black) mL/min/{1.73_m2} Normal >60 Th e [facility] Comment on above: Order Comment: No: Do not add to previou s drawNo collection time noted on specimen or requisition. The collection timerecorded is the time of receipt in the lab. Performed By: #### 0 0071, 05366 ####[facility].[address] Glucose mass conc 270 mg/dL High 70-100 [facility] Comment on above: Order Comment: No: Do not add to previou s drawNo collection time noted on specimen or requisition. The collection timerecorded is the time of receipt in the lab. Performed By: #### 0 0071, 88735 ####[facility].[address] Potassium molar conc 4.1 mmol/L Normal 3.5-5.1 [facility] Comment on above: Order Comment: No: Do not add to previou s drawNo collection time noted on specimen or requisition. The collection timerecorded is the time of receipt in the lab. Performed By: #### 0 0071, 36021 ####[facility] [place] [address], [facility] Sodium 132 mmol/L Low 136-145 [facility] Comment on above: Order Comment: No: Do not add to previou s drawNo collection time noted on specimen or requisition. The collection timerecorded is the time of receipt in the lab. Performed By: #### 0 0071, 67373 ####[facility] [address] Urea nitrogen 25 mg/dL Normal 7-25 [facility] Comment on above: Order Comment: No: Do not add to previou s drawNo collection time noted on specimen or requisition. The collection timerecorded is the time of receipt in the lab. Performed By: #### 0 0071, 66948 ####[facility] [address] CBC W/DIFFon 06-22-2017 ABS BASOPHILS 0.0 10*3/uL Normal 0.0-0.2 [facility] Comment on above: Order Comment: No: Do not add to previou s drawNo collection time noted on specimen or requisition. The collection timerecorded is the time of receipt in the lab. Performed By: #### 0 0071, 78360 ####[facility] [address] ABS IMM GRANS 0.0 10*3/uL Normal 0.0-0.2 [facility] Comment on above: Order Comment: No: Do not add to previou s drawNo collection time noted on specimen or requisition. The collection timerecorded is the time of receipt in the lab. Performed By: #### 0 0071, 83600 ####[facility].[address] Basophils Auto #/vol (Bld) 0.5 % Normal 0.0-1.0 [facility] Comment on above: Order Comment: No: Do not add to previou s drawNo collection time noted on specimen or requisition. The collection timerecorded is the time of receipt in the lab. Performed By: #### 0 0071, 97399 ####[facility] [place] [address], [facility] Eosinophils 0.2 10*3/uL Normal 0.0-0.5 [facility] Comment on above: Order Comment: No: Do not add to previou s drawNo collection time noted on specimen or requisition. The collection timerecorded is the time of receipt in the lab. Performed By: #### 0 0071, 70928 ####[facility] [address] Eosinophils/100 leukocytes 2.1 % Normal 0.0-6.0 [facility] Comment on above: Order Comment: No: Do not add to previou s drawNo collection time noted on specimen or requisition. The collection timerecorded is the time of receipt in the lab. Performed By: #### 0 0071, 92191 ####[facility].[address] Erythrocyte distribution width Auto Ratio (RBC) 12.4 % Normal 11.5-15.0 [facility] Comment on above: Order Comment: No: Do not add to previou s drawNo collection time noted on specimen or requisition. The collection timerecorded is the time of receipt in the lab. Performed By: #### 0 0071, 16187 ####[place] [address] [address] Erythrocytes (RBC) 0 % Normal 0-0 [facility] Comment on above: Order Comment: No: Do not add to previou s drawNo collection time noted on specimen or requisition. The collection timerecorded is the time of receipt in the lab. Performed By: #### 0 0071, 51691 ####[facility] [address] Erythrocytes (RBC) 4.30 10*6/uL Normal 4.20-5.70 [facility] Comment on above: Order Comment: No: Do not add to previou s drawNo collection time noted on specimen or requisition. The collection timerecorded is the time of receipt in the lab. Performed By: #### 0 0071, 97718 ####[facility] [address] Hematocrit (HCT) 37.2 % Low 39.0-50.0 [facility] Comment on above: Order Comment: No: Do not add to previou s drawNo collection time noted on specimen or requisition. The collection timerecorded is the time of receipt in the lab. Performed By: #### 0 0071, 79582 ####[facility] [address] Hemoglobin mass conc (Bld) 12.6 g/dL Low 13.0-17.0 [facility] Comment on above: Order Comment: No: Do not add to previou s drawNo collection time noted on specimen or requisition. The collection timerecorded is the time of receipt in the lab. Performed By: #### 0 0071, [id number] ####[facility] IMMATURE GRANS 0.3 % Normal 0.0-1.0 [facility] Comment on above: Order Comment: No: Do not add to previou s drawNo collection time noted on specimen or requisition. The collection timerecorded is the time of receipt in the lab. Performed By: #### 0 0071, [id number] ####[facility] Lymphocytes 2.1 10*3/uL Normal 1.2-4.0 [facility] Comment on above: Order Comment: No: Do not add to previou s drawNo collection time noted on specimen or requisition. The collection timerecorded is the time of receipt in the lab. Performed By: #### 0 0071, [id number] ####[facility] [address] Lymphocytes/100 leukocytes 23.8 % Normal 20.0-45.0 [facility] Comment on above: Order Comment: No: Do not add to previou s drawNo collection time noted on specimen or requisition. The collection timerecorded is the time of receipt in the lab. Performed By: #### 0 0071, [id number] ####[address] MCH 29.3 pg Normal 27.0-33.0 [facility] Comment on above: Order Comment: No: Do not add to previou s drawNo collection time noted on specimen or requisition. The collection timerecorded is the time of receipt in the lab. Performed By: #### 0 0071, [id number] ####[address] MCHC mass conc (RBC) 33.9 g/dL Normal 32.0-35.0 [facility] Comment on above: Order Comment: No: Do not add to previou s drawNo collection time noted on specimen or requisition. The collection timerecorded is the time of receipt in the lab. Performed By: #### 0 0071, 49594 ####[address] MCV 86.5 fL Normal 82.0-98.0 [facility] Comment on above: Order Comment: No: Do not add to previou s drawNo collection time noted on specimen or requisition. The collection timerecorded is the time of receipt in the lab. Performed By: #### 0 0071, 21096 ####[address] Monocytes 0.8 10*3/uL Normal 0.1-1.0 [facility] Comment on above: Order Comment: No: Do not add to previou s drawNo collection time noted on specimen or requisition. The collection timerecorded is the time of receipt in the lab. Performed By: #### 0 0071, [id number] ####[facility] [facility] [place] [address], [facility] MONOS 8.9 % Normal 5.0-12.0 [facility] Comment on above: Order Comment: No: Do not add to previou s drawNo collection time noted on specimen or requisition. The collection timerecorded is the time of receipt in the lab. Performed By: #### 0 0071, 09265 ####[facility] [address] Neutrophils 5.6 10*3/uL Normal 1.6-7.6 [facility] Comment on above: Order Comment: No: Do not add to previou s drawNo collection time noted on specimen or requisition. The collection timerecorded is the time of receipt in the lab. Performed By: #### 0 0071, [id number] ####[facility].[address] Neutrophils/100 leukocytes 64.4 % Normal 40.0-72.0 [facility] Comment on above: Order Comment: No: Do not add to previou s drawNo collection time noted on specimen or requisition. The collection timerecorded is the time of receipt in the lab. Performed By: #### 0 0071, [id number] ####[facility].[address] PLAT CNT 152 10*3/uL Normal 150-400 [facility] Comment on above: Order Comment: No: Do not add to previou s drawNo collection time noted on specimen or requisition. The collection timerecorded is the time of receipt in the lab. Performed By: #### 0 0071, [id number] ####[facility] [place] [address].[address] WBC (Leukocytes) 8.7 10*3/uL Normal 4.0-10.6 [facility] Comment on above: Order Comment: No: Do not add to previou s drawNo collection time noted on specimen or requisition. The collection timerecorded is the time of receipt in the lab. Performed By: #### 0 0071, [id number] ####[facility]OPE[address] Cardiovascular Lab Reporton 06-22-2017 Cardiovascular Lab Report [facility] Patient Name: Mendez Sauceda [facility] MR #: [id number] Physician: Jamir Perkins M.D.Medicine Service Date: 06/21/2017Division of Birthdate: 1965Cardiology Room #: 3CD [id number] [facility] [place], [place] [address] Fax Cardiovascular Laboratory ReportINDICATION: Mendez Sauceda is a 52-year-old man who was admitted to [facility] with unstable angina. A stress test showed [...] signed informed consent. He was brought to quality lab technician in a fasting state.The right wrist area was prepped and draped in usual fashion. Jerome's testwas favorable. Using micropuncture technique, the right radial artery wasaccessed. A 6-Luxembourger x 11 cm Hydrophilic sheath was advanced. Verapamilwas given through the sheath and heparin was administered intravenously.Bilateral selective coronary angiography was then performed using a6-Luxembourger JR5 diagnostic catheter for engagement of the right coronaryartery and a 6-Luxembourger Kaveh radial diagnostic catheter for engagement ofthe left coronary artery. Catheters were removed.Therapeutic ACT confirmed during the procedure and additional heparinadministered as needed. A 6-Luxembourger JR4 guiding catheter was advanced andused to [...] 12 atmospheres and post dilated using NCQuantum Masury 2.5 x 8 mm noncompliant balloon inflated [...] with filling of the distal vessel by [id number]-bd-eglc collateral circulation that vessel appears to be [...] 06/21/2017/11:32 A/Jamir Yun M.D.Date Trans: 06/22/2017 08:38 A/quinoDN_JN:[id number]: Mendez Garcia M.D. [address] [place] [address] Mikey Jarquin D.O. [place] [address] [place] [address] Normal [facility] MAGNESIUM BLOODon 06-22-2017 Magnesium 2.0 mg/dL Normal 1.9-2.7 [facility] Comment on above: Order Comment: No: Do not add to previou s drawNo collection time noted on specimen or requisition. The collection timerecorded is the time of receipt in the lab. Performed By: #### 0 0071, [id number] ####[facility] [place] [address], [facility] POC GLUCOSE LABon 06-22-2017 Glucose mass conc 273 mg/dL High 70-100 [facility] Comment on above: Performed By: #### 00918, 27611 ####[facility] [id number] BASIC METABOLIC PANELon 03-2 Calcium 9.3 mg/dL Normal 8.6-10.3 [facility] Comment on above: Order Comment: No: Do not add to previou s drawNo collection time noted on specimen or requisition. The collection timerecorded is the time of receipt in the lab. Performed By: #### 0 0071, 08906 ####[facility] Chloride 102 mmol/L Normal 98-107 [facility] Comment on above: Order Comment: No: Do not add to previou s drawNo collection time noted on specimen or requisition. The collection timerecorded is the time of receipt in the lab. Performed By: #### 0 0071, 44378 ####[facility] CO2 25 mmol/L Normal 21-31 [facility] Comment on above: Order Comment: No: Do not add to previou s drawNo collection time noted on specimen or requisition. The collection timerecorded is the time of receipt in the lab. Performed By: #### 0 0071, 08601 ####[place] [address] [address] Creatinine 0.92 mg/dL Normal 0.70-1.30 [facility] Comment on above: Order Comment: No: Do not add to previou s drawNo collection time noted on specimen or requisition. The collection timerecorded is the time of receipt in the lab. Performed By: #### 0 0071, 52782 ####[place] [address] eGFR (black) mL/min/{1.73_m2} Normal >60 [facility] Comment on above: Order Comment: No: Do not add to previou s drawNo collection time noted on specimen or requisition. The collection timerecorded is the time of receipt in the lab. Performed By: #### 0 0071, 21479 ####[facility] [facility].[address] eGFR (non-black) mL/min/{1.73_m2} Normal >60 Th e [facility] Comment on above: Order Comment: No: Do not add to previou s drawNo collection time noted on specimen or requisition. The collection timerecorded is the time of receipt in the lab. Performed By: #### 0 0071, 18442 ####[facility] Glucose mass conc 193 mg/dL High 70-100 [facility] Comment on above: Order Comment: No: Do not add to previou s drawNo collection time noted on specimen or requisition. The collection timerecorded is the time of receipt in the lab. Performed By: #### 0 0071, 84104 ####[place] [address] Potassium molar conc 4.0 mmol/L Normal 3.5-5.1 [facility] Comment on above: Order Comment: No: Do not add to previou s drawNo collection time noted on specimen or requisition. The collection timerecorded is the time of receipt in the lab. Performed By: #### 0 0071, 09065 ####[facility] [facility].[address] Sodium 133 mmol/L Low 136-145 [facility] Comment on above: Order Comment: No: Do not add to previou s drawNo collection time noted on specimen or requisition. The collection timerecorded is the time of receipt in the lab. Performed By: #### 0 0071, 27387 ####[facility] [facility].[address] Urea nitrogen 23 mg/dL Normal 7-25 [facility] Comment on above: Order Comment: No: Do not add to previou s drawNo collection time noted on specimen or requisition. The collection timerecorded is the time of receipt in the lab. Performed By: #### 0 0071, 09213 ####[facility] CBC W/DIFFon 06-21-2017 ABS BASOPHILS 0.1 10*3/uL Normal 0.0-0.2 [facility] Comment on above: Order Comment: No: Do not add to previou s drawNo collection time noted on specimen or requisition. The collection timerecorded is the time of receipt in the lab. Performed By: #### 5 0103 ####[facility] ABS IMM GRANS 0.0 10*3/uL Normal 0.0-0.2 [facility] Comment on above: Order Comment: No: Do not add to previou s drawNo collection time noted on specimen or requisition. The collection timerecorded is the time of receipt in the lab. Performed By: #### 5 0103 ####[facility] Basophils Auto #/vol (Bld) 0.5 % Normal 0.0-1.0 [facility] Comment on above: Order Comment: No: Do not add to previou s drawNo collection time noted on specimen or requisition. The collection timerecorded is the time of receipt in the lab. Performed By: #### 5 0103 ####[facility] Eosinophils 0.2 10*3/uL Normal 0.0-0.5 [facility] Comment on above: Order Comment: No: Do not add to previou s drawNo collection time noted on specimen or requisition. The collection timerecorded is the time of receipt in the lab. Performed By: #### 5 0103 ####[facility] [facility] [place] [address], [facility] Eosinophils/100 leukocytes 2.0 % Normal 0.0-6.0 [facility] Comment on above: Order Comment: No: Do not add to previou s drawNo collection time noted on specimen or requisition. The collection timerecorded is the time of receipt in the lab. Performed By: #### 5 0103 ####[facility] [facility].[address] Erythrocyte distribution width Auto Ratio (RBC) 12.6 % Normal 11.5-15.0 [facility] Comment on above: Order Comment: No: Do not add to previou s drawNo collection time noted on specimen or requisition. The collection timerecorded is the time of receipt in the lab. Performed By: #### 5 0103 ####[facility] [facility] [place] [address], [facility] Erythrocytes (RBC) 0 % Normal 0-0 [facility] Comment on above: Order Comment: No: Do not add to previou s drawNo collection time noted on specimen or requisition. The collection timerecorded is the time of receipt in the lab. Performed By: #### 5 0103 ####[facility] [facility].[address] Erythrocytes (RBC) 4.95 10*6/uL Normal 4.20-5.70 [facility] Comment on above: Order Comment: No: Do not add to previou s drawNo collection time noted on specimen or requisition. The collection timerecorded is the time of receipt in the lab. Performed By: #### 5 0103 ####[facility] Hematocrit (HCT) 42.5 % Normal 39.0-50.0 [facility] Comment on above: Order Comment: No: Do not add to previou s drawNo collection time noted on specimen or requisition. The collection timerecorded is the time of receipt in the lab. Performed By: #### 5 0103 ####[facility] Hemoglobin mass conc (Bld) 14.3 g/dL Normal 13.0-17.0 [facility] Comment on above: Order Comment: No: Do not add to previou s drawNo collection time noted on specimen or requisition. The collection timerecorded is the time of receipt in the lab. Performed By: #### 5 0103 ####[facility] IMMATURE GRANS 0.4 % Normal 0.0-1.0 [facility] Comment on above: Order Comment: No: Do not add to previou s drawNo collection time noted on specimen or requisition. The collection timerecorded is the time of receipt in the lab. Performed By: #### 5 0103 ####[facility] Lymphocytes 3.0 10*3/uL Normal 1.2-4.0 [facility] Comment on above: Order Comment: No: Do not add to previou s drawNo collection time noted on specimen or requisition. The collection timerecorded is the time of receipt in the lab. Performed By: #### 5 0103 ####[facility] Lymphocytes/100 leukocytes 28.2 % Normal 20.0-45.0 [facility] Comment on above: Order Comment: No: Do not add to previou s drawNo collection time noted on specimen or requisition. The collection timerecorded is the time of receipt in the lab. Performed By: #### 5 0103 ####[facility] MCH 28.9 pg Normal 27.0-33.0 [facility] Comment on above: Order Comment: No: Do not add to previou s drawNo collection time noted on specimen or requisition. The collection timerecorded is the time of receipt in the lab. Performed By: #### 5 0103 ####[facility] [facility].[address] MCHC mass conc (RBC) 33.6 g/dL Normal 32.0-35.0 [facility] Comment on above: Order Comment: No: Do not add to previou s drawNo collection time noted on specimen or requisition. The collection timerecorded is the time of receipt in the lab. Performed By: #### 5 0103 ####[facility] MCV 85.9 fL Normal 82.0-98.0 [facility] Comment on above: Order Comment: No: Do not add to previou s drawNo collection time noted on specimen or requisition. The collection timerecorded is the time of receipt in the lab. Performed By: #### 5 0103 ####[facility].[address] Monocytes 1.0 10*3/uL Normal 0.1-1.0 [facility] Comment on above: Order Comment: No: Do not add to previou s drawNo collection time noted on specimen or requisition. The collection timerecorded is the time of receipt in the lab. Performed By: #### 5 0103 ####[facility].[address] MONOS 9.0 % Normal 5.0-12.0 [facility] Comment on above: Order Comment: No: Do not add to previou s drawNo collection time noted on specimen or requisition. The collection timerecorded is the time of receipt in the lab. Performed By: #### 5 0103 ####[facility] Neutrophils 6.4 10*3/uL Normal 1.6-7.6 [facility] Comment on above: Order Comment: No: Do not add to previou s drawNo collection time noted on specimen or requisition. The collection timerecorded is the time of receipt in the lab. Performed By: #### 5 0103 ####[facility] [address] Neutrophils/100 leukocytes 59.9 % Normal 40.0-72.0 [facility] Comment on above: Order Comment: No: Do not add to previou s drawNo collection time noted on specimen or requisition. The collection timerecorded is the time of receipt in the lab. Performed By: #### 5 0103 ####[facility] PLAT CNT 179 10*3/uL Normal 150-400 [facility] Comment on above: Order Comment: No: Do not add to previou s drawNo collection time noted on specimen or requisition. The collection timerecorded is the time of receipt in the lab. Performed By: #### 5 0103 ####[facility] WBC (Leukocytes) 10.7 10*3/uL High 4.0-10.6 [facility] Comment on above: Order Comment: No: Do not add to previou s drawNo collection time noted on specimen or requisition. The collection timerecorded is the time of receipt in the lab. Performed By: #### 5 0103 ####[facility] [address] MAGNESIUM BLOODon 06-21-2017 Magnesium 2.3 mg/dL Normal 1.9-2.7 [facility] Comment on above: Order Comment: No: Do not add to previou s drawNo collection time noted on specimen or requisition. The collection timerecorded is the time of receipt in the lab. Performed By: #### 0 0071, [id number] ####[facility] [address] POC GLUCOSE LABon 06-21-2017 Glucose mass conc 261 mg/dL High 70-100 [facility] Comment on above: Performed By: #### [id number] ####[facility].[address] Glucose mass conc 327 mg/dL High 70-100 [facility] Comment on above: Performed By: #### [id number] ####[facility].[address] Glucose mass conc 176 mg/dL High 70-100 [facility] Comment on above: Performed By: #### 10132 ####[facility] PROTHROMBIN TIMEon 8 INR Coag RelTime (PPP) 1.04 {INR} Normal 0.91-1.16 [facility] Comment on above: Order [...] OF ACTION, CLINICALEFFECTIVENESS, AND OPTIMAL THERAPEUTIC RANGE. [id number]. Performed By: #### 5 6101, [id number] ####[facility] Prothrombin time (PT) Coag time (PPP) 13.6 s Normal 12.3-14.8 [facility] Comment on above: Order Comment: No: Do not add to previou s drawNo collection time noted on specimen or requisition. The collection timerecorded is the time of receipt in the lab. Result Comment: ALL RESULTS MUST BE INTERPRETED WITH RESPECT TO BLOOD DRAWING ARTIFACTOR DILUTION ERROR OF ANTICOAGULANT AT THE TIME OF SAMPLING. Performed By: #### 5 6101, 02138 ####[facility] [place] [address], [facility] UFH HEPARIN ASSAYon 06-22-19 18 UNFRACTIONATED HEPARIN CANCELED Normal 0.30-0.70 [facility] Comment on above: Order Comment: Please see [...] 06/21/2017 15:02 Performed By: #### 3 0477 ####[facility] [place] [address], [facility] UNFRACTIONATED HEPARIN >1.00 Critically high 0.30-0.70 [facility] Comment on above: Result Comment: Rivaroxaban and [...] blood stream. Performed By: #### 3 0477 ####[facility] UNFRACTIONATED HEPARIN 0.67 IU/mL Normal 0.30-0.70 [facility] Comment on above: Order Comment: MOVE TO AM PER SATISH MURRAY A T 0058.No collection time noted on specimen or requisition. The collection timerecorded is the time of receipt in the lab. Result Comment: Morena roxaban and Apixaban will interfere with the anti Xa assay used tomonitor UFH and LMWH. Performed By: #### 5 6101, [id number] ####[facility].[address] Encounters Encounter Date Encounter Type Care Provider Facility Start: 04-16-2023 End: 04-16-2023 ambulatory MENDEZ GARCIA Not Available Start: 07-03-2022 End: 07-03-20[facility] Start: 04-07-2020 End: 04-08-2020 Patient encounter procedure NATALYA HERNANDEZ Facility: Start: 07-19-2017 End: 07-20-2017 Ambulatory DEFAULT PHYSICIAN Facility:[facility] Start: 06-20-2017 End: 06-22-2017 Evaluation and management of inpatient Chad Lloyd Facility:[facility] Start: 06-20-2017 End: 06-21-2017 Ambulatory DEFAULT PHYSICIAN Facility:[facility] Procedures Date Procedure Procedure Detail Performing Clinician Start: 06-21-2017 DILATION OF 1 COR AR T WITH DRUG-ELUT INTRA, PERC APPROACH JAMIR YUN Start: 06-21-2017 FLUOROSCOPY OF MULTI PLE CORONARY ARTERIES USING OTH CONTRAST JAMIR YUN Payers Date Payer Category Payer Medicaid [id number] 1965 Unknown [id number] 1965 Unknown [id number] 1961 Unknown [id number] Unknown Progress note 07-03-2022 Note Date & Type Note Facility 07-03-2022 Note [place] Cardiology - [facility] Subjective Mendez Sauceda is a [...] with filling of the distal vessel by [id number]-ercx collateral circulation that vessel appears to be [...] for this visit: Coronary artery disease involving nenana coronary artery of nenana heart without (more content not included)... [facility] Summary Purpose Family History No Family History [...] and content) DATE CREATED AUTHOR 09/13/2017 [facility] DATE CREATED AUTHOR AUTHOR'S ORGANIZ ATION 04/15/2020 [facility] DATE CREATED AUTHOR AUTHOR'S ORGANIZ ATION 07/13/2021 [facility] dical Specialist DATE CREATED AUTHOR AUTHOR'S ORGANIZ ATION 07/03/2022 [facility] DATE CREATED AUTHOR AUTHOR'S ORGANIZ ATION 04/17/2023 [facility] dical Specialists EPIC FOR RECORDS PERTAINING TO [...]
== END 2023-05-01 10:32 | disposition home or self-care (01) ==
LOC: RAD 10:31
PROVIDERS: PCP Internal Medicine; Visit Provider Podiatrist Foot & Ankle Surgery
DX: M25.572 Pain in left ankle and joints of left foot (principal); M79.672 Pain in left foot; S82.892D Other fracture of left lower leg, subsequent encounter for closed fracture with routine healing
CPT/HCPCS: 73610; 73630

== ENCOUNTER 2023-05-15 10:40 | Outpatient (OUT) | payer MEDICAID, SELFPAY ==
--- NOTE | 2023-05-15 | XR_ITS ---
The [address] [address] Patient Name: BELINDA SAUCEDA MRN: [id number] date: 1965 Sex: M Assigned Patient Location: [facility] Current Patient Location: Accession/Order Number: [id number] Exam Date: 05/15/2023 10:46 Report Date: 05/16/2023 06:33 At the request of: ALFA MCKEON Procedure: XR ankle LT min 3V PROCEDURE: XR ankle LT min 3V HISTORY: LEFT ANKLE PAIN COMPARISON: XR ankle left 05/01/2023 FINDINGS: BONES:Subacute minimally displaced distal fibular fracture level of ankle joint. Intact ankle joint. SOFT TISSUES:Mild soft tissue swelling surrounding the ankle. EFFUSION:None visible. OTHER: Negative. XR/XR ankle LT min 3V IMPRESSION: 1. Subacute distal fibular fracture with minimal displacement, but slightly greater than seen on prior study. 2. No appreciable change in osseous density of the fracture lines. 3. Symmetric appearance of ankle joint. Electronically authenticated by: GINI HOLLEY Date: 05/16/2023 06:33
--- OUTSIDE RECORDS SUMMARY | 2023-05-15 10:49 | XMS_ITS | CCD ---
Author Name Unknown Address [address] [place] [id number] Organization [facility] Care Team Providers Care Supervisor [employer] Name Role Phone PHYSICIAN, DEFAULT Unavailable Unavailable PHYSICIAN, DEFAULT Unavailable Unavailable Gabino, Chad Unavailable Unavailable Gabino, Chad Unavailable Unavailable MIKEY JARQUIN Unavailable Unavailable MENDEZ GACRIA Unavailable Unavailable UNKNOWN, PROVIDER Unavailable Unavailable SC Unavailable Unavailable PHYSICIAN, DEFAULT Unavailable Unavailable PHYSICIAN, DEFAULT Unavailable Unavailable MENDEZ GARCIA Unavailable Unavailable NATALYA HERNANDEZ Attending Unavailable NATALYA HERNANDEZ Consulting Unavailable NATALYA HERNANDEZ Admitting Unavailable MENDEZ GARCIA Primary Care Unavailable JAMIR YUN Attending Unavailable MENDEZ GARCIA Attending Unavailable Allergies Allergy Classification Reported Allergen(s) Allergy Type Date of Onset Reaction(s) Facility (1 source) 01427,00 Drug allergy (disorder) 8 [facility] (1 source) No Known Allergies; Translations: [No Known Allergies] Propensity to adverse reactions (disorder) [facility] Problems Problem Classification Problem Date Documented Da te Episodic/Chronic Coronary atherosclerosis and other heart disease (5 sources) Unstable angina; Translations: [Atherosclerotic heart disease of [place] coronary artery with unstable angina pectoris] Onset: [...] / UNK(Unknown) Onset: 06-20-2017 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 (1 source) care home (current) use of oral hypoglycemic drugs; Translations: [[facility] (CURRENT) USE OF ORAL HYPOGLYCEMIC DRUGS] Onset: 06-20-2017 Results Test Name Value Interpretation Reference Range Facility Office Visiton 07-03-2022 Follow-up visit [id number] [place] 1965 M Date Provider Department Center 07/03/2022 JAMIR CHRISTIAN CARD [facility] Family History Problem Relation Age of Onset Coronary artery disease Mother Diabetes Mother Hypertension Father Heart attack Paternal Grandmother Family Status - Relation Status Age at Mother Father Paternal Grandmother Level of Service:59133 [place] OFFICE/OUTPATIENT ESTABLISHED LOW MDM 20-29 MIN Reason for Visit and Comments: Coronary Artery Disease [187] [facility] Q - COMPREHENSIVE METABOLIC PANEL W/EGFRon 07-11-2021 Albumin [Mass/Vol] 4.4 g/dL Normal 3.6-5.1 [facility] Inspection Manager Comment on above: Order Comment: [facility] 11U Testing performed at: [facility], [address] [place] [address], [address] [place] [address], [phone], Trench Digger Helper: Blaise Sol MD [facility] Collection Date/Time: [facility] Results Received Date/Time: [facility] Reported Date/Time: FASTING: NO Performed By: #### 1 0231A, [id number], 5363X #### [facility] Default [address] [place] [address] Albumin/Globulin [Mass ratio] 1.7 {ratio} Normal 1.0-2.5 [facility] Inspection Manager Comment on above: Order Comment: [facility] 11U Testing performed at: [facility], [address] [place] [address], [address] [place] [address], [phone], Trench Digger Helper: Blaise Sol MD [facility] Collection Date/Time: [facility] Results Received Date/Time: [facility] Reported Date/Time: FASTING: NO Performed By: #### 1 0231A, [id number], 5363X #### [facility] Default [address] [place] [address] ALP [Catalytic activity/Vol] 65 U/L Normal 35-144 [facility] Comment on above: Order Comment: [facility] 11U Testing performed at: [facility], [facility], [address] [place] [address], [address] [place] [address], [address] [place] [address], Trench Digger Helper: Blaise Sol MD [facility] Collection Date/Time: [facility] Results Received Date/Time: [facility] Reported Date/Time: FASTING: NO Performed By: #### 1 0231A, [id number], 5363X #### [facility] Default [address] [place] [address] ALT [Catalytic activity/Vol] 62 U/L High 9-46 [facility] Specialist Comment on above: Order Comment: [facility] 11U Testing performed at: [employer], [facility], [address] [place] [address], [address] [place] [address], [address] [place] [address], Trench Digger Helper: Blaise Sol MD [facility] Collection Date/Time: [facility] Results Received Date/Time: [facility] Reported Date/Time: FASTING: NO Performed By: #### 1 0231A, [id number], 5363X #### [facility] Default [address] [place] [address] AST [Catalytic activity/Vol] 29 U/L Normal 10-35 [facility] Specialist Comment on above: Order Comment: [facility] 11U Testing performed at: [facility] [employer], [facility], [address] [place] [address], [address] [place] [address], [address] [place] [address], Trench Digger Helper: Blaise Sol MD [facility] Collection Date/Time: [facility] Results Received Date/Time: [facility] Reported Date/Time: FASTING: NO Performed By: #### 1 0231A, [id number], 5363X #### [facility] Default [address] [place] [address] Bilirubin [Mass/Vol] 0.4 mg/dL Normal 0.2-1.2 [facility] Special[facility] Comment on above: Order Comment: [facility] 11U Testing performed at: [facility], [facility], [address] [place] [address], [address] [place] [address], [address] [place] [address], Trench Digger Helper: Blaise Sol MD [facility] Collection Date/Time: [facility] Results Received Date/Time: [facility] Reported Date/Time: FASTING: NO Performed By: #### 1 0231A, [id number], 5363X #### [facility] Default [address] [place] [address] BUN/CREA 23 NOT APPLICABLE Normal 6-22 [facility] Comment on above: Order Comment: [facility] 11U Testing performed at: [facility], [facility], [address] [place] [address], [address] [place] [address], [address] [place] [address], Trench Digger Helper: Blaise Sol MD [facility] Collection Date/Time: [facility] Results Received Date/Time: [facility] Reported Date/Time: FASTING: NO Performed By: #### 1 0231A, [id number], 5363X #### [facility] Default [address] [place] [address] Calcium [Mass/Vol] 9.7 mg/dL Normal 8.6-10.3 [facility] Inspection Manager Comment on above: Order Comment: [facility] 11U Testing performed at: [facility], [address] [place] [address], [address] [place] [address], [address] [place] [address], Trench Digger Helper: Blaise Sol MD [facility] Collection Date/Time: [id number] [facility] Results Received Date/Time: [facility] Reported Date/Time: FASTING: NO Performed By: #### 1 0231A, [id number], 5363X #### [facility] Default [address] [place] [address] Chloride [Moles/Vol] 104 mmol/L Normal 98-110 [facility] Inspection Manager Comment on above: Order Comment: [facility] 11U Testing performed at: [facility] [employer], [facility], [address] [place] [address], [address] [place] [address], [address] [place] [address], Trench Digger Helper: Blaise Sol MD [facility] Collection Date/Time: [facility] Results Received Date/Time: [facility] Reported Date/Time: FASTING: NO Performed By: #### 1 0231A, [id number], 5363X #### [facility] Default [address] [place] [address] CO2 [Moles/Vol] 26 mmol/L Normal 20-32 [facility] Specialist Comment on above: Order Comment: [facility] 11U Testing performed at: [place], [facility], [address] [place] [address], [address] [place] [address], [address] [place] [address], Trench Digger Helper: Blaise Sol MD [facility] Collection Date/Time: [facility] Results Received Date/Time: [facility] Reported Date/Time: FASTING: NO Performed By: #### 1 0231A, [id number], 5363X #### [facility] Default [address] [place] [address] Creatinine [Mass/Vol] 0.81 mg/dL Normal 0.70-1.33 [facility] Specialist Comment on above: Order Comment: [facility] 11U Testing performed at: [facility], [facility], [address] [place] [address], [address] [place] [address], [address] [place] [address], Trench Digger Helper: Blaise Sol MD [facility] Collection Date/Time: [facility] Results Received Date/Time: [facility] Reported Date/Time: FASTING: NO Result Comment: For patients >49 years of age, the reference limit for Creatinine is approximately 13% higher for people identified as -[place]. Performed By: #### 1 0231A, 6517X, 5363X #### [facility] Default [address] [place] [address] eGFRAA (Quest) 114 mL/min/1.73m2 Normal > OR = 60 [facility] Comment on above: Order Comment: [facility] 11U Testing performed at: [facility] [employer], [facility], [address] [place] [address], [address] [place] [address], [address] [place] [address], Trench Digger Helper: Blaise Sol MD [facility] Collection Date/Time: [facility] Results Received Date/Time: [facility] Reported Date/Time: FASTING: NO Performed By: #### 1 0231A, [id number], 5363X #### [facility] Default [address] [place] [address] eGFRNAA (Quest) 98 mL/min/1.73m2 Normal > OR = 60 [facility] Comment on above: Order Comment: [facility] 11U Testing performed at: [facility], [facility], [address] [place] [address], [address] [place] [address], [address] [place] [address], Trench Digger Helper: Blaise Sol MD [facility] Collection Date/Time: [facility] Results Received Date/Time: [facility] Reported Date/Time: FASTING: NO Performed By: #### 1 0231A, [id number], 5363X #### [facility] Default [address] [place] [address] Globulin (S) [Mass/Vol] 2.6 g/dL Normal 1.9-3.7 [facility]pection Manager Comment on above: Order Comment: [facility] 11U Testing performed at: [facility] [employer], [facility], [address] [place] [address], [address] [place] [address], [address] [place] [address], Trench Digger Helper: Blaise Sol MD [facility] Collection Date/Time: [facility] Results Received Date/Time: [facility] Reported Date/Time: FASTING: NO Performed By: #### 1 0231A, 6517X, 5363X #### [facility] Default [address] [place] [address] Glucose [Mass/Vol] 123 mg/dL Normal 65-139 [facility]pection Manager Comment on above: Order Comment: [facility] 11U Testing performed at: [facility], [facility], [address] [place] [address], [address] [place] [address], [address] [place] [address], Trench Digger Helper: Blaise Sol MD [facility] Collection Date/Time: [facility] Results Received Date/Time: [facility] Reported Date/Time: FASTING: NO Result Comment: Non-fasting reference interval For someone without known diabetes, a glucose value between 100 and 125 mg/dL is consistent with prediabetes and should be confirmed with a follow-up test. Performed By: #### 1 0231A, [id number], 5363X #### [facility] Default [address] [place] [address] Potassium [Moles/Vol] 4.7 mmol/L Normal 3.5-5.3 [facility]pection Manager Comment on above: Order Comment: [facility] 11U Testing performed at: [facility], [address] [place] [address], [address] [place] [address], [phone], Trench Digger Helper: Blaise Sol MD [facility] Collection Date/Time: [facility] Results Received Date/Time: [facility] Reported Date/Time: FASTING: NO Performed By: #### 1 0231A, 6517X, 5363X #### [facility] Default [address] [place] [address] Protein [Mass/Vol] 7.0 g/dL Normal 6.1-8.1 [facility]pection Manager Comment on above: Order Comment: [facility] 11U Testing performed at: [facility], [address] [place] [address], [address] [place] [address], [phone], Trench Digger Helper: Blaise Sol MD [facility] Collection Date/Time: [facility] Results Received Date/Time: [facility] Reported Date/Time: FASTING: NO Performed By: #### 1 0231A, 6517X, 5363X #### [facility] Default [address] [place] [address] Sodium [Moles/Vol] 137 mmol/L Normal 135-146 [facility]pection Manager Comment on above: Order Comment: [facility] 11U Testing performed at: [facility], [facility], [address] [place] [address], [address] [place] [address], [phone], Trench Digger Helper: Blaise Sol MD [facility] Collection Date/Time: [facility] Results Received Date/Time: [facility] Reported Date/Time: FASTING: NO Performed By: #### 1 0231A, [id number], 5363X #### [facility] Default [address] [place] [address] Urea nitrogen [Mass/Vol] 19 mg/dL Normal 7-25 [facility]pection Manager Comment on above: Order Comment: [facility] 11U Testing performed at: [facility] [employer], [facility], [address] [place] [address], [address] [place] [address], [address] [place] [address], Trench Digger Helper: Blaise Sol MD [facility] Collection Date/Time: [facility] Results Received Date/Time: [facility] Reported Date/Time: FASTING: NO Performed By: #### 1 0231A, [id number], 5363X #### [facility] Default [address] [place] [address] Q - MICROALBUMIN,RANDOM URIN E (W/CREAT)on 07-11-2021 Albumin DL <= 20 mg/L (U) [Mass/Vol] 1.0 mg/dL Normal See Note: [facility]pection Manager Comment on above: Order Comment: [facility] 11U Testing performed at: [facility], [address] [place] [address], [address] [place] [address], [phone], Trench Digger Helper: Blaise Sol MD [facility] Collection Date/Time: [facility] Results Received Date/Time: [facility] Reported Date/Time: FASTING: NO Result Comment: Refe rence Range: Reference Range Not established Performed By: #### 1 0231A, [id number], 5363X #### [facility] Default [address] [place] [address] Creatinine (U) [Mass/Vol] 65 mg/dL Normal 20-320 [facility] Inspection Manager Comment on above: Order Comment: [facility] 11U Testing performed at: [facility] [employer], [facility], [address] [place] [address], [address] [place] [address], [address] [place] [address], Trench Digger Helper: Blaise Sol MD [facility] Collection Date/Time: [facility] Results Received Date/Time: [facility] Reported Date/Time: FASTING: NO Performed By: #### 1 0231A, [id number], 5363X #### [facility] Default [address] [place] [address] MICROALBUMIN/CRE ATININE RATIO, RANDOM URINE 15 mcg/mg creat Normal <30 [facility] Inspection Manager Comment on above: Order Comment: [facility] 11U Testing performed at: [facility], [facility], [address] [facility], [address] [place] [address], [address] [place] [address], Trench Digger Helper: Blaise Sol MD [facility] Collection Date/Time: [facility] [...] 6517X, 5363X #### [facility] Default [address] [place] [address] Q - PSA TOTALon 07-11-2021 PSA, TOTAL 1.41 ng/mL Normal < OR = 4.00 [facility] Inspection Manager Comment on above: Order Comment: [facility] 11U Testing performed at: [facility], [address] [place] , [address] [place], [place], [address] [place] [address], Trench Digger Helper: Blaise Sol MD [facility] Collection Date/Time: [facility] Results Received Date/Time: [facility] Reported Date/Time: FASTING: NO Result Comment: The total PSA value from this assay system is standardized against the WHO standard. The test result will be approximately 20% lower when compared to the equimolar-standardized total PSA (Shadia Powhatan). Comparison of serial PSA results should be interpreted with this fact in mind. This test was performed using the Siemens chemiluminescent method. Values obtained from different assay methods cannot be used interchangeably. PSA levels, regardless of value, should not be interpreted as absolute evidence of the presence or absence of disease. Performed By: #### 1 0231A, 6517X, 5363X #### [facility] Default [address] [place] [address] ECHOCARDIO M/2D COMPLETEon 0 04-07-2020 ECHOCARDIO M/2D COMPLETE Patient: MENDEZ SAUCEDA Exam Date: 04/07/2020 : 1965 Gender:M Ordering : NATALYA HERNANDEZ Admission #: [id number] Family : DR MENDEZ GARCIA M.D. Order #: [id number] CLICK HERE TO VIEW EXAM ECHOCARDIOGRAM REPORT [...] M.D. on 04/14/2020 at 16:11 Normal [facility] Discharge Summaryon 07-02-19 Discharge Summary MR#: [id number] Sau[facility] Admitted: 06/20/2017 Discharged: 06/22/2017 Date of : 1965 Physician: Chad Lloyd MD DISCHARGE SUMMARYDISCHARGING PHYSICIAN: Dr. Robin.PRIMARY DIAGNOSIS: Unstable angina/positive stress test.SECONDARY DIAGNOSES:1. Type 2 diabetic.2. Smoker.PROCEDURES: Left heart catheterization.HOSPITAL COURSE: This 52-year-old male was transferred from [facility] with unstable angina. The stress test showed an inferior wallmotion abnormality with inferior defect by perfusion. It was also found tohave T-wave inversions in the inferior leads. He was then sent to [facility].The next day, he received cardiac catheterization to [...] Dict: 06/30/2017/10:43 P/Julia Galindo Trans: 07/01/2017 12:09 Dae/Chris_JN:[id number]: Mendez Garcia M.D. [address] [facility] [address] Mikey Jarquin D.O. [facility] [address] [facility] [address] Normal [facility] BASIC METABOLIC PANELon 03-3 Calcium 8.7 mg/dL Normal 8.6-10.3 [facility] Comment on above: Order Comment: No: Do not add to previou s drawNo collection time noted on specimen or requisition. The collection timerecorded is the time of receipt in the lab. Performed By: #### 0 0071, 94261 ####[facility] [place] [address], [facility] Chloride 103 mmol/L Normal 98-107 [facility] Comment on above: Order Comment: No: Do not add to previou s drawNo collection time noted on specimen or requisition. The collection timerecorded is the time of receipt in the lab. Performed By: #### 0 0071, 26253 ####[facility] [place] [address], [facility] CO2 22 mmol/L Normal 21-31 [facility] Comment on above: Order Comment: No: Do not add to previou s drawNo collection time noted on specimen or requisition. The collection timerecorded is the time of receipt in the lab. Performed By: #### 0 0071, 99982 ####[facility] Creatinine 0.91 mg/dL Normal 0.70-1.30 [facility] Comment on above: Order Comment: No: Do not add to previou s drawNo collection time noted on specimen or requisition. The collection timerecorded is the time of receipt in the lab. Performed By: #### 0 0071, 74884 ####[facility] [facility].[address] eGFR (black) mL/min/{1.73_m2} Normal >60 [facility] Comment on above: Order Comment: No: Do not add to previou s drawNo collection time noted on specimen or requisition. The collection timerecorded is the time of receipt in the lab. Performed By: #### 0 0071, 86932 ####[facility] [facility].[address] eGFR (non-black) mL/min/{1.73_m2} Normal >60 [facility] Comment on above: Order Comment: No: Do not add to previou s drawNo collection time noted on specimen or requisition. The collection timerecorded is the time of receipt in the lab. Performed By: #### 0 0071, 32525 ####[facility].[address] Glucose mass conc 270 mg/dL High 70-100 [facility] Comment on above: Order Comment: No: Do not add to previou s drawNo collection time noted on specimen or requisition. The collection timerecorded is the time of receipt in the lab. Performed By: #### 0 0071, 67927 ####[facility] [facility].[address] Potassium molar conc 4.1 mmol/L Normal 3.5-5.1 [facility] Comment on above: Order Comment: No: Do not add to previou s drawNo collection time noted on specimen or requisition. The collection timerecorded is the time of receipt in the lab. Performed By: #### 0 0071, 37702 ####[facility] [place] [address], [facility] Sodium 132 mmol/L Low 136-145 [facility] Comment on above: Order Comment: No: Do not add to previou s drawNo collection time noted on specimen or requisition. The collection timerecorded is the time of receipt in the lab. Performed By: #### 0 0071, 38107 ####[facility] Urea nitrogen 25 mg/dL Normal 7-25 [facility] Comment on above: Order Comment: No: Do not add to previou s drawNo collection time noted on specimen or requisition. The collection timerecorded is the time of receipt in the lab. Performed By: #### 0 0071, 77280 ####[facility] CBC W/DIFFon 06-22-2017 ABS BASOPHILS 0.0 10*3/uL Normal 0.0-0.2 [facility] Comment on above: Order Comment: No: Do not add to previou s drawNo collection time noted on specimen or requisition. The collection timerecorded is the time of receipt in the lab. Performed By: #### 0 0071, 37998 ####[facility] ABS IMM GRANS 0.0 10*3/uL Normal 0.0-0.2 [facility] Comment on above: Order Comment: No: Do not add to previou s drawNo collection time noted on specimen or requisition. The collection timerecorded is the time of receipt in the lab. Performed By: #### 0 0071, 01596 ####[facility] [facility].[address] Basophils Auto #/vol (Bld) 0.5 % Normal 0.0-1.0 [facility] Comment on above: Order Comment: No: Do not add to previou s drawNo collection time noted on specimen or requisition. The collection timerecorded is the time of receipt in the lab. Performed By: #### 0 0071, 80591 ####[facility] [place] [address], [facility] Eosinophils 0.2 10*3/uL Normal 0.0-0.5 [facility] Comment on above: Order Comment: No: Do not add to previou s drawNo collection time noted on specimen or requisition. The collection timerecorded is the time of receipt in the lab. Performed By: #### 0 0071, 24837 ####[facility] Eosinophils/100 leukocytes 2.1 % Normal 0.0-6.0 [facility] Comment on above: Order Comment: No: Do not add to previou s drawNo collection time noted on specimen or requisition. The collection timerecorded is the time of receipt in the lab. Performed By: #### 0 0071, 57534 ####[facility] [facility].[address] Erythrocyte distribution width Auto Ratio (RBC) 12.4 % Normal 11.5-15.0 [facility] Comment on above: Order Comment: No: Do not add to previou s drawNo collection time noted on specimen or requisition. The collection timerecorded is the time of receipt in the lab. Performed By: #### 0 0071, 99169 ####[place] [address] [address] Erythrocytes (RBC) 0 % Normal 0-0 [facility] Comment on above: Order Comment: No: Do not add to previou s drawNo collection time noted on specimen or requisition. The collection timerecorded is the time of receipt in the lab. Performed By: #### 0 0071, 04392 ####[facility] Erythrocytes (RBC) 4.30 10*6/uL Normal 4.20-5.70 [facility] Comment on above: Order Comment: No: Do not add to previou s drawNo collection time noted on specimen or requisition. The collection timerecorded is the time of receipt in the lab. Performed By: #### 0 0071, 04774 ####[facility] Hematocrit (HCT) 37.2 % Low 39.0-50.0 [facility] Comment on above: Order Comment: No: Do not add to previou s drawNo collection time noted on specimen or requisition. The collection timerecorded is the time of receipt in the lab. Performed By: #### 0 0071, 28378 ####[facility] Hemoglobin mass conc (Bld) 12.6 g/dL Low 13.0-17.0 [facility] Comment on above: Order Comment: No: Do not add to previou s drawNo collection time noted on specimen or requisition. The collection timerecorded is the time of receipt in the lab. Performed By: #### 0 0071, [id number] ####[facility] IMMATURE GRANS 0.3 % Normal 0.0-1.0 [facility] Comment on above: Order Comment: No: Do not add to previou s drawNo collection time noted on specimen or requisition. The collection timerecorded is the time of receipt in the lab. Performed By: #### 0 0071, 58521 ####[facility] Lymphocytes 2.1 10*3/uL Normal 1.2-4.0 [facility] Comment on above: Order Comment: No: Do not add to previou s drawNo collection time noted on specimen or requisition. The collection timerecorded is the time of receipt in the lab. Performed By: #### 0 0071, 83619 ####[facility] Lymphocytes/100 leukocytes 23.8 % Normal 20.0-45.0 [facility] Comment on above: Order Comment: No: Do not add to previou s drawNo collection time noted on specimen or requisition. The collection timerecorded is the time of receipt in the lab. Performed By: #### 0 0071, 94973 ####[address] MCH 29.3 pg Normal 27.0-33.0 [facility] Comment on above: Order Comment: No: Do not add to previou s drawNo collection time noted on specimen or requisition. The collection timerecorded is the time of receipt in the lab. Performed By: #### 0 0071, 12340 ####[address] MCHC mass conc (RBC) 33.9 g/dL Normal 32.0-35.0 [facility] Comment on above: Order Comment: No: Do not add to previou s drawNo collection time noted on specimen or requisition. The collection timerecorded is the time of receipt in the lab. Performed By: #### 0 0071, 63289 ####[address] MCV 86.5 fL Normal 82.0-98.0 [facility] Comment on above: Order Comment: No: Do not add to previou s drawNo collection time noted on specimen or requisition. The collection timerecorded is the time of receipt in the lab. Performed By: #### 0 0071, 07255 ####[address] Monocytes 0.8 10*3/uL Normal 0.1-1.0 [facility] Comment on above: Order Comment: No: Do not add to previou s drawNo collection time noted on specimen or requisition. The collection timerecorded is the time of receipt in the lab. Performed By: #### 0 0071, [id number] ####[facility]3000 [place] [address], [facility] MONOS 8.9 % Normal 5.0-12.0 [facility] Comment on above: Order Comment: No: Do not add to previou s drawNo collection time noted on specimen or requisition. The collection timerecorded is the time of receipt in the lab. Performed By: #### 0 0071, 49534 ####[facility] Neutrophils 5.6 10*3/uL Normal 1.6-7.6 [facility] Comment on above: Order Comment: No: Do not add to previou s drawNo collection time noted on specimen or requisition. The collection timerecorded is the time of receipt in the lab. Performed By: #### 0 0071, 95480 ####[facility] [facility].[address] Neutrophils/100 leukocytes 64.4 % Normal 40.0-72.0 [facility] Comment on above: Order Comment: No: Do not add to previou s drawNo collection time noted on specimen or requisition. The collection timerecorded is the time of receipt in the lab. Performed By: #### 0 0071, 00602 ####[facility] [facility].[address] PLAT CNT 152 10*3/uL Normal 150-400 [facility] Comment on above: Order Comment: No: Do not add to previou s drawNo collection time noted on specimen or requisition. The collection timerecorded is the time of receipt in the lab. Performed By: #### 0 0071, 30998 ####[facility] [place] [address].[address] WBC (Leukocytes) 8.7 10*3/uL Normal 4.0-10.6 [facility] Comment on above: Order Comment: No: Do not add to previou s drawNo collection time noted on specimen or requisition. The collection timerecorded is the time of receipt in the lab. Performed By: #### 0 0071, 71493 ####[facility] Cardiovascular Lab Reporton 06-22-2017 Cardiovascular Lab Report [facility] Patient Name: Mendez Sauceda [facility] MR #: [id number] Physician: Jamir Perkins M.D.Medicine Service Date: 06/21/2017Division of Birthdate: 1965Cardiology Room #: 3CD [id number] [facility]Serv[facility] [place], [place] [address]Epwiy Fax Cardiovascular Laboratory ReportINDICATION: Mendez Sauceda is a 52-year-old man who was admitted to [facility] with unstable angina. A stress test [...] signed informed consent. 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 Jerome's testwas favorable. Using micropuncture technique, the right radial artery wasaccessed. A 6-[place] x 11 cm Hydrophilic sheath was advanced. Verapamilwas given through the sheath and heparin was administered intravenously.Bilateral selective coronary angiography was then performed using a6-[place] Citizen JR5 diagnostic catheter for engagement of the right coronaryartery and a 6-[place] Kaveh radial diagnostic catheter for engagement ofthe left coronary artery. Catheters were removed.Therapeutic ACT confirmed during the procedure and additional heparinadministered as needed. A 6-[place] Citizen JR4 guiding catheter was advanced andused to [...] 12 atmospheres and post dilated using NCQuantum Lorimor 2.5 x 8 mm noncompliant balloon inflated [...] with filling of the distal vessel by xutd-ig-mdic collateral circulation that vessel appears to be [...] be ischemic in that territory.Electronically Signed by:Jamir Ynu M.D. 06/30/2017 05:31 P Jamir Yun M.D.Date Dict: 06/21/2017/11:32 A/Jamir Yun M.D.Date Trans: 06/22/2017 08:38 A/quinoDN_JN:[id number]: Mendez Garcia M.D. [address] [place] [address] Mikey Jarquin D.O. [place] [address] [place] [address] Normal [facility] MAGNESIUM BLOODon 06-22-2017 Magnesium 2.0 mg/dL Normal 1.9-2.7 [facility] Comment on above: Order Comment: No: Do not add to previou s drawNo collection time noted on specimen or requisition. The collection timerecorded is the time of receipt in the lab. Performed By: #### 0 0071, 54400 ####[facility] [place] [address], [facility] POC GLUCOSE LABon 06-22-2017 Glucose mass conc 273 mg/dL High 70-100 [facility] Comment on above: Performed By: #### [id number], 87693 ####[facility] [id number] BASIC METABOLIC PANELon 03-2 Calcium 9.3 mg/dL Normal 8.6-10.3 [facility] Comment on above: Order Comment: No: Do not add to previou s drawNo collection time noted on specimen or requisition. The collection timerecorded is the time of receipt in the lab. Performed By: #### 0 0071, 48801 ####[facility] Chloride 102 mmol/L Normal 98-107 [facility] Comment on above: Order Comment: No: Do not add to previou s drawNo collection time noted on specimen or requisition. The collection timerecorded is the time of receipt in the lab. Performed By: #### 0 0071, 78878 ####[facility] CO2 25 mmol/L Normal 21-31 [facility] Comment on above: Order Comment: No: Do not add to previou s drawNo collection time noted on specimen or requisition. The collection timerecorded is the time of receipt in the lab. Performed By: #### 0 0071, 66676 ####[place] [address] Creatinine 0.92 mg/dL Normal 0.70-1.30 [facility] Comment on above: Order Comment: No: Do not add to previou s drawNo collection time noted on specimen or requisition. The collection timerecorded is the time of receipt in the lab. Performed By: #### 0 0071, 74999 ####[place] [address] eGFR (black) mL/min/{1.73_m2} Normal >60 [facility] Comment on above: Order Comment: No: Do not add to previou s drawNo collection time noted on specimen or requisition. The collection timerecorded is the time of receipt in the lab. Performed By: #### 0 0071, 29507 ####[facility] [facility].[address] eGFR (non-black) mL/min/{1.73_m2} Normal >60 [facility] Comment on above: Order Comment: No: Do not add to previou s drawNo collection time noted on specimen or requisition. The collection timerecorded is the time of receipt in the lab. Performed By: #### 0 0071, 77430 ####[facility] Glucose mass conc 193 mg/dL High 70-100 [facility] Comment on above: Order Comment: No: Do not add to previou s drawNo collection time noted on specimen or requisition. The collection timerecorded is the time of receipt in the lab. Performed By: #### 0 0071, 61284 ####[place] [address] Potassium molar conc 4.0 mmol/L Normal 3.5-5.1 [facility] Comment on above: Order Comment: No: Do not add to previou s drawNo collection time noted on specimen or requisition. The collection timerecorded is the time of receipt in the lab. Performed By: #### 0 0071, 46969 ####[facility]3000 [facility].[address] Sodium 133 mmol/L Low 136-145 [facility] Comment on above: Order Comment: No: Do not add to previou s drawNo collection time noted on specimen or requisition. The collection timerecorded is the time of receipt in the lab. Performed By: #### 0 0071, 11678 ####[facility] [facility].[address] Urea nitrogen 23 mg/dL Normal 7-25 [facility] Comment on above: Order Comment: No: Do not add to previou s drawNo collection time noted on specimen or requisition. The collection timerecorded is the time of receipt in the lab. Performed By: #### 0 0071, 33394 ####[facility] CBC W/DIFFon 06-21-2017 ABS BASOPHILS 0.1 10*3/uL Normal 0.0-0.2 [facility] Comment on above: Order Comment: No: Do not add to previou s drawNo collection time noted on specimen or requisition. The collection timerecorded is the time of receipt in the lab. Performed By: #### 5 0103 ####[facility] ABS IMM GRANS 0.0 10*3/uL Normal 0.0-0.2 [facility] Comment on above: Order Comment: No: Do not add to previou s drawNo collection time noted on specimen or requisition. The collection timerecorded is the time of receipt in the lab. Performed By: #### 5 0103 ####[facility] Basophils Auto #/vol (Bld) 0.5 % Normal 0.0-1.0 [facility] Comment on above: Order Comment: No: Do not add to previou s drawNo collection time noted on specimen or requisition. The collection timerecorded is the time of receipt in the lab. Performed By: #### 5 0103 ####[facility] Eosinophils 0.2 10*3/uL Normal 0.0-0.5 [facility] Comment on above: Order Comment: No: Do not add to previou s drawNo collection time noted on specimen or requisition. The collection timerecorded is the time of receipt in the lab. Performed By: #### 5 0103 ####[facility] [place] [address], [facility] Eosinophils/100 leukocytes 2.0 % Normal 0.0-6.0 [facility] Comment on above: Order Comment: No: Do not add to previou s drawNo collection time noted on specimen or requisition. The collection timerecorded is the time of receipt in the lab. Performed By: #### 5 0103 ####[facility] [facility].[address] Erythrocyte distribution width Auto Ratio (RBC) 12.6 % Normal 11.5-15.0 [facility] Comment on above: Order Comment: No: Do not add to previou s drawNo collection time noted on specimen or requisition. The collection timerecorded is the time of receipt in the lab. Performed By: #### 5 0103 ####[facility] [place] [address], [facility] Erythrocytes (RBC) 0 % Normal 0-0 [facility] Comment on above: Order Comment: No: Do not add to previou s drawNo collection time noted on specimen or requisition. The collection timerecorded is the time of receipt in the lab. Performed By: #### 5 0103 ####[facility] [facility].[address] Erythrocytes (RBC) 4.95 10*6/uL Normal 4.20-5.70 [facility] Comment on above: Order Comment: No: Do not add to previou s drawNo collection time noted on specimen or requisition. The collection timerecorded is the time of receipt in the lab. Performed By: #### 5 0103 ####[facility] Hematocrit (HCT) 42.5 % Normal 39.0-50.0 [facility] Comment on above: Order Comment: No: Do not add to previou s drawNo collection time noted on specimen or requisition. The collection timerecorded is the time of receipt in the lab. Performed By: #### 5 0103 ####[facility] Hemoglobin mass conc (Bld) 14.3 g/dL Normal 13.0-17.0 [facility] Comment on above: Order Comment: No: Do not add to previou s drawNo collection time noted on specimen or requisition. The collection timerecorded is the time of receipt in the lab. Performed By: #### 5 0103 ####[facility] IMMATURE GRANS 0.4 % Normal 0.0-1.0 [facility] Comment on above: Order Comment: No: Do not add to previou s drawNo collection time noted on specimen or requisition. The collection timerecorded is the time of receipt in the lab. Performed By: #### 5 0103 ####[facility] Lymphocytes 3.0 10*3/uL Normal 1.2-4.0 [facility] Comment on above: Order Comment: No: Do not add to previou s drawNo collection time noted on specimen or requisition. The collection timerecorded is the time of receipt in the lab. Performed By: #### 5 0103 ####[facility] Lymphocytes/100 leukocytes 28.2 % Normal 20.0-45.0 [facility] Comment on above: Order Comment: No: Do not add to previou s drawNo collection time noted on specimen or requisition. The collection timerecorded is the time of receipt in the lab. Performed By: #### 5 0103 ####[facility] MCH 28.9 pg Normal 27.0-33.0 [facility] Comment on above: Order Comment: No: Do not add to previou s drawNo collection time noted on specimen or requisition. The collection timerecorded is the time of receipt in the lab. Performed By: #### 5 0103 ####[facility] [facility].[address] MCHC mass conc (RBC) 33.6 g/dL Normal 32.0-35.0 [facility] Comment on above: Order Comment: No: Do not add to previou s drawNo collection time noted on specimen or requisition. The collection timerecorded is the time of receipt in the lab. Performed By: #### 5 0103 ####[facility] MCV 85.9 fL Normal 82.0-98.0 [facility] Comment on above: Order Comment: No: Do not add to previou s drawNo collection time noted on specimen or requisition. The collection timerecorded is the time of receipt in the lab. Performed By: #### 5 0103 ####[facility] [facility].[address] Monocytes 1.0 10*3/uL Normal 0.1-1.0 [facility] Comment on above: Order Comment: No: Do not add to previou s drawNo collection time noted on specimen or requisition. The collection timerecorded is the time of receipt in the lab. Performed By: #### 5 0103 ####[facility] [facility].[address] MONOS 9.0 % Normal 5.0-12.0 [facility] Comment on above: Order Comment: No: Do not add to previou s drawNo collection time noted on specimen or requisition. The collection timerecorded is the time of receipt in the lab. Performed By: #### 5 0103 ####[facility] Neutrophils 6.4 10*3/uL Normal 1.6-7.6 [facility] Comment on above: Order Comment: No: Do not add to previou s drawNo collection time noted on specimen or requisition. The collection timerecorded is the time of receipt in the lab. Performed By: #### 5 0103 ####[facility] Neutrophils/100 leukocytes 59.9 % Normal 40.0-72.0 [facility] Comment on above: Order Comment: No: Do not add to previou s drawNo collection time noted on specimen or requisition. The collection timerecorded is the time of receipt in the lab. Performed By: #### 5 0103 ####[facility] PLAT CNT 179 10*3/uL Normal 150-400 [facility] Comment on above: Order Comment: No: Do not add to previou s drawNo collection time noted on specimen or requisition. The collection timerecorded is the time of receipt in the lab. Performed By: #### 5 0103 ####[facility] WBC (Leukocytes) 10.7 10*3/uL High 4.0-10.6 [facility] Comment on above: Order Comment: No: Do not add to previou s drawNo collection time noted on specimen or requisition. The collection timerecorded is the time of receipt in the lab. Performed By: #### 5 0103 ####[facility] MAGNESIUM BLOODon 06-21-2017 Magnesium 2.3 mg/dL Normal 1.9-2.7 [facility] Comment on above: Order Comment: No: Do not add to previou s drawNo collection time noted on specimen or requisition. The collection timerecorded is the time of receipt in the lab. Performed By: #### 0 0071, 08309 ####[facility] POC GLUCOSE LABon 06-21-2017 Glucose mass conc 261 mg/dL High 70-100 [facility] Comment on above: Performed By: #### [id number] ####[facility] [facility].[address] Glucose mass conc 327 mg/dL High 70-100 [facility] Comment on above: Performed By: #### [id number] ####[facility] [facility].[address] Glucose mass conc 176 mg/dL High 70-100 [facility] Comment on above: Performed By: #### 11849 ####[facility] PROTHROMBIN TIMEon 8 INR Coag RelTime (PPP) 1.04 {INR} Normal 0.91-1.16 [facility] Comment on above: Order Comment: No: Do [...] OF ACTION, CLINICALEFFECTIVENESS, AND OPTIMAL THERAPEUTIC RANGE. [id number];108:[id number]. Performed By: #### 5 6101, 16381 ####[facility] Prothrombin time (PT) Coag time (PPP) 13.6 s Normal 12.3-14.8 [facility] Comment on above: Order Comment: No: Do not add to previou s drawNo collection time noted on specimen or requisition. The collection timerecorded is the time of receipt in the lab. Result Comment: ALL RESULTS MUST BE INTERPRETED WITH RESPECT TO BLOOD DRAWING ARTIFACTOR DILUTION ERROR OF ANTICOAGULANT AT THE TIME OF SAMPLING. Performed By: #### 5 6101, 62514 ####[facility] [place] [address], [facility] UFH HEPARIN ASSAYon 06-22-19 18 UNFRACTIONATED HEPARIN CANCELED Normal 0.30-0.70 [facility] Comment on above: Order Comment: Please see [...] 06/21/2017 15:02 Performed By: #### 3 0477 ####[facility] [place] [address], [facility] UNFRACTIONATED HEPARIN >1.00 Critically high 0.30-0.70 [facility] Comment on above: Result Comment: Rivaroxaban and [...] blood stream. Performed By: #### 3 0477 ####[facility] UNFRACTIONATED HEPARIN 0.67 IU/mL Normal 0.30-0.70 [facility] Comment on above: Order Comment: MOVE TO AM PER SATISH MURRAY A T 0058.No collection time noted on specimen or requisition. The collection timerecorded is the time of receipt in the lab. Result Comment: Morena roxaban and Apixaban will interfere with the anti Xa assay used tomonitor UFH and LMWH. Performed By: #### 5 6101, 30235 ####[facility] [facility].[address] Encounters Encounter Date Encounter Type Care Provider Facility Start: 04-16-2023 End: 04-16-2023 ambulatory MENDEZ GARCIA Not Available Start: 07-03-2022 End: 07-03-2022 [facility] Start: 04-07-2020 End: 04-08-2020 Patient encounter procedure NATALYA HERNANDEZ Facility: Start: 07-19-2017 End: 07-20-2017 Ambulatory DEFAULT PHYSICIAN Facility:[facility] Start: 06-20-2017 End: 06-22-2017 Evaluation and management of inpatient Chad Lloyd Facility:[facility] Start: 06-20-2017 End: 06-21-2017 Ambulatory DEFAULT PHYSICIAN Facility:[facility] Procedures Date Procedure Procedure Detail Performing Clinician Start: 06-21-2017 DILATION OF 1 COR AR T WITH DRUG-ELUT INTRA, PERC APPROACH JAMIR YUN Start: 06-21-2017 FLUOROSCOPY OF MULTI PLE CORONARY ARTERIES USING OTH CONTRAST JAMIR YUN Payers Date Payer Category Payer Medicaid [id number] 1965 Unknown [id number] 1965 Unknown [id number] 1961 Unknown [id number] Unknown Progress note 07-03-2022 Note Date & Type Note Facility 07-03-2022 Note [facility] Subjective Mendez Sauceda is a [...] with filling of the distal vessel by itaq-qr-tcbu collateral circulation that vessel appears to be [...] for this visit: Coronary artery disease involving [place] coronary artery of [place] heart without (more content not included)... [facility] Summary Purpose Family History No Family History [...] and content) DATE CREATED AUTHOR 09/13/2017 [facility] DATE CREATED AUTHOR AUTHOR'S ORGANIZ ATION 04/15/2020 [facility] DATE CREATED AUTHOR AUTHOR'S ORGANIZ ATION 07/13/2021 [facility] DATE CREATED AUTHOR AUTHOR'S ORGANIZ ATION 07/03/2022 [facility] DATE CREATED AUTHOR AUTHOR'S ORGANIZ ATION 04/17/2023 [facility] EPIC FOR RECORDS PERTAINING [...]
== END 2023-05-15 10:41 | disposition home or self-care (01) ==
PROVIDERS: PCP Internal Medicine; Visit Provider Podiatrist Foot & Ankle Surgery
DX: S82.65XD Nondisplaced fracture of lateral malleolus of left fibula, subsequent encounter for closed fracture with routine healing (principal)
CPT/HCPCS: 73610

== ENCOUNTER 2023-05-29 09:18 | Outpatient (OUT) | payer MEDICAID, SELFPAY ==
--- NOTE | 2023-05-29 | XR_ITS ---
The [address] [address] Patient Name: BELINDA SAUCEDA MRN: [id number] date: 1965 Sex: M Assigned Patient Location: Current Patient Location: Accession/Order Number: [id number] Exam Date: 05/29/2023 09:25 Report Date: 05/29/2023 10:38 At the request of: ALFA MCKEON Procedure: XR ankle LT min 3V PROCEDURE: XR ankle LT min 3V COMPARISON: 05/15/2023 HISTORY: LEFT ANKLE PAIN FINDINGS: BONES:Stable oblique/spiral fracture distal fibular diaphysis/metaphysis with interval increase in sclerosis and bony bridging. No change in angulation or distraction. No new fracture or dislocation. Enthesopathic spurring of the plantar calcaneus SOFT TISSUES:Negative. No visible soft tissue swelling. EFFUSION:None visible. OTHER: Negative. XR/XR ankle LT min 3V IMPRESSION: Stable healing distal fibular fracture Electronically authenticated by: FORREST AGUIRRE Date: 05/29/2023 10:38
--- OUTSIDE RECORDS SUMMARY | 2023-05-29 09:21 | XMS_ITS | CCD ---
Author Name Unknown Address [address] [place] [id number] Organization [facility] Care Team Providers Care Volleyball Referee Name Role Phone PHYSICIAN, DEFAULT Unavailable Unavailable PHYSICIAN, DEFAULT Unavailable Unavailable Gabino, Chad Unavailable Unavailable Gabino, Chad Unavailable Unavailable MIKEY JARQUIN Unavailable Unavailable MENDEZ GARCIA Unavailable Unavailable UNKNOWN, PROVIDER Unavailable Unavailable [place] Unavailable Unavailable PHYSICIAN, DEFAULT Unavailable Unavailable PHYSICIAN, DEFAULT Unavailable Unavailable MENDEZ GARCIA Unavailable Unavailable NATALYA HERNANDEZ Attending Unavailable NATALYA HERNANDEZ Consulting Unavailable NATALYA HERNANDEZ Admitting Unavailable MENDEZ GARCIA Primary Care Unavailable JAMIR YUN Attending Unavailable MENDEZ GARCIA Attending Unavailable Allergies Allergy Classification Reported Allergen(s) Allergy Type Date of Onset Reaction(s) Facility (1 source) 15654,00 Drug allergy (disorder) 8 [facility] Repository (1 source) No Known Allergies; Translations: [No Known Allergies] Propensity to adverse reactions (disorder) [facility] Repository Problems Problem Classification Problem Date Documented Da te Episodic/Chronic Coronary atherosclerosis and other heart disease (5 sources) Unstable angina; Translations: [Atherosclerotic heart disease of [place] coronary artery with unstable angina pectoris] Onset: [...] / UNK(Unknown) Onset: 06-20-2017 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 (1 source) assisted (current) use of oral hypoglycemic drugs; Translations: [[facility] (CURRENT) USE OF ORAL HYPOGLYCEMIC DRUGS] Onset: 06-20-2017 Results Test Name Value Interpretation Reference Range Facility Office Visiton 07-03-2022 Follow-up visit [id number] [place] 1965 M Date Provider Department Center 07/03/2022 JAMIR CHRISTIAN CARD [facility] Family History Problem Relation Age of Onset Coronary artery disease Mother Diabetes Mother Hypertension Father Heart attack Paternal Grandmother Family Status - Relation Status Age at Mother Father Paternal Grandmother Level of Service:14373 [place] OFFICE/OUTPATIENT ESTABLISHED LOW MDM 20-29 MIN Reason for Visit and Comments: Coronary Artery Disease [187] Normal [facility] Q - COMPREHENSIVE METABOLIC PANEL W/EGFRon 07-11-2021 Albumin [Mass/Vol] 4.4 g/dL Normal 3.6-5.1 [facility] Comment on above: Order Comment: [facility] 11U Testing performed at: [employer] [facility], [address] [place] [address], [address] [place] [address], [phone], Kiln Car Repairer: Blaise Sol MD [facility] Collection Date/Time: [facility] Results Received Date/Time: [facility] Reported Date/Time: FASTING: NO Performed By: #### 1 0231A, [id number], 5363X #### [facility] Default [address] [place] [address] Albumin/Globulin [Mass ratio] 1.7 {ratio} Normal 1.0-2.5 [facility] Comment on above: Order Comment: [facility] 11U Testing performed at: [employer] [facility], [address] [place] [address], [address] [place] [address], [phone], Kiln Car Repairer: Blaise Sol MD [facility] Collection Date/Time: [facility] Results Received Date/Time: [facility] Reported Date/Time: FASTING: NO Performed By: #### 1 0231A, 6517X, 5363X #### [facility] Default [address] [place] [address] ALP [Catalytic activity/Vol] 65 U/L Normal 35-144 [facility] Comment on above: Order Comment: [facility] 11U Testing performed at: [employer], [employer] [facility], [address] [place] [address], [address] [place] [address], [address] [place] [address], Kiln Car Repairer: Blaise Sol MD [facility] Collection Date/Time: [facility] Results Received Date/Time: [facility] Reported Date/Time: FASTING: NO Performed By: #### 1 0231A, [id number], 5363X #### [facility] Default [address] [place] [address] ALT [Catalytic activity/Vol] 62 U/L High 9-46 [facility] Comment on above: Order Comment: [facility] 11U Testing performed at: [employer], [employer] [facility], [address] [place] [address], [address] [place] [address], [address] [place] [address], Kiln Car Repairer: Blaise Sol MD [facility] Collection Date/Time: [facility] Results Received Date/Time: [facility] Reported Date/Time: FASTING: NO Performed By: #### 1 0231A, [id number], 5363X #### [facility] [address] [place] [address] AST [Catalytic activity/Vol] 29 U/L Normal 10-35 [facility] Comment on above: Order Comment: [facility] 11U Testing performed at: [employer], [employer] [facility], [address] [place] [address], [address] [place] [address], [address] [place] [address], Kiln Car Repairer: Blaise Sol MD [facility] Collection Date/Time: [facility] Results Received Date/Time: [facility] Reported Date/Time: FASTING: NO Performed By: #### 1 0231A, [id number], 5363X #### [facility] [address] [place] [address] Bilirubin [Mass/Vol] 0.4 mg/dL Normal 0.2-1.2 [facility] Comment on above: Order Comment: [facility] 11U Testing performed at: [employer], [employer] [facility], [address] [place] [address], [address] [place] [address], [address] [place] [address], Kiln Car Repairer: Blaise Sol MD [facility] Collection Date/Time: [facility] Results Received Date/Time: [facility] Reported Date/Time: FASTING: NO Performed By: #### 1 0231A, [id number], 5363X #### [facility] Default [address] [place] [address] BUN/CREA 23 NOT APPLICABLE Normal 6-22 [facility] Comment on above: Order Comment: [facility] 11U Testing performed at: [employer], [employer] [facility], [address] [place] [address], [address] [place] [address], [address] [place] [address], Kiln Car Repairer: Blaise Sol MD [facility] Collection Date/Time: [facility] Results Received Date/Time: [facility] Reported Date/Time: FASTING: NO Performed By: #### 1 0231A, 6517X, 5363X #### [facility] Default [address] [place] [address] Calcium [Mass/Vol] 9.7 mg/dL Normal 8.6-10.3 [facility] Comment on above: Order Comment: [facility] 11U Testing performed at: [employer] [facility], [address] [place] [address], [address] [place] [address], [address] [place] [address], Kiln Car Repairer: Blaise Sol MD [facility] Collection Date/Time: [id number] [facility] Results Received Date/Time: [facility] Reported Date/Time: FASTING: NO Performed By: #### 1 0231A, [id number], 5363X #### [facility] Default [address] [place] [address] Chloride [Moles/Vol] 104 mmol/L Normal 98-110 [facility] Comment on above: Order Comment: [facility] 11U Testing performed at: [employer], [employer] [facility], [address] [place] [address], [address] [place] [address], [address] [place] [address], Kiln Car Repairer: Blaise Sol MD [facility] Collection Date/Time: [facility] Results Received Date/Time: [facility] Reported Date/Time: FASTING: NO Performed By: #### 1 0231A, 6517X, 5363X #### [facility] Default [address] [place] [address] CO2 [Moles/Vol] 26 mmol/L Normal 20-32 [facility] Comment on above: Order Comment: [facility] 11U Testing performed at: [employer], [employer] [facility], [address] [place] [address], [address] [place] [address], [address] [place] [address], Kiln Car Repairer: Blaise Sol MD [facility] Collection Date/Time: [facility] Results Received Date/Time: [facility] Reported Date/Time: FASTING: NO Performed By: #### 1 0231A, 6517X, 5363X #### [facility] [address] [place] [address] Creatinine [Mass/Vol] 0.81 mg/dL Normal 0.70-1.33 [facility] Comment on above: Order Comment: [facility] 11U Testing performed at: [employer], [employer] [facility], [address] [place] [address], [address] [place] [address], [address] [place] [address], Kiln Car Repairer: Blaise Sol MD [facility] Collection Date/Time: [facility] Results Received Date/Time: [facility] Reported Date/Time: FASTING: NO Result Comment: For patients >49 years of age, the reference limit for Creatinine is approximately 13% higher for people identified as -Andor[place]. Performed By: #### 1 0231A, 6517X, 5363X #### [facility] Default [address] [place] [address] eGFRAA (Quest) 114 mL/min/1.73m2 Normal > OR = 60 [facility] Comment on above: Order Comment: [facility] 11U Testing performed at: [employer], [employer] [facility], [address] [place] [address], [address] [place] [address], [address] [place] [address], Kiln Car Repairer: Blaise Sol MD [facility] Collection Date/Time: [facility] Results Received Date/Time: [facility] Reported Date/Time: FASTING: NO Performed By: #### 1 0231A, 6517X, 5363X #### [facility] Default [address] [place] [address] eGFRNAA (Quest) 98 mL/min/1.73m2 Normal > OR = 60 [facility] Comment on above: Order Comment: [facility] 11U Testing performed at: [facility], [employer] [facility], [address] [place] [address], [address] [place] [address], [address] [place] [address], Kiln Car Repairer: Blaise Sol MD [facility] Collection Date/Time: [facility] Results Received Date/Time: [facility] Reported Date/Time: FASTING: NO Performed By: #### 1 0231A, 6517X, 5363X #### [facility] Default [address] [place] [address] Globulin (S) [Mass/Vol] 2.6 g/dL Normal 1.9-3.7 [facility] Comment on above: Order Comment: [facility] 11U Testing performed at: [employer], [employer] [facility], [address] [place] [address], [address] [place] [address], [address] [place] [address], Kiln Car Repairer: Blaise Sol MD [facility] Collection Date/Time: [facility] Results Received Date/Time: [facility] Reported Date/Time: FASTING: NO Performed By: #### 1 0231A, 6517X, 5363X #### [facility] Default [address] [place] [address] Glucose [Mass/Vol] 123 mg/dL Normal 65-139 [facility] Comment on above: Order Comment: [facility] 11U Testing performed at: [facility], [employer] [facility], [address] [place] [address], [address] [place] [address], [address] [place] [address], Kiln Car Repairer: Blaise Sol MD [facility] Collection Date/Time: [facility] Results Received Date/Time: [facility] Reported Date/Time: FASTING: NO Result Comment: Non-fasting reference interval For someone without known diabetes, a glucose value between 100 and 125 mg/dL is consistent with prediabetes and should be confirmed with a follow-up test. Performed By: #### 1 0231A, 6517X, 5363X #### [facility] Default [address] [place] [address] Potassium [Moles/Vol] 4.7 mmol/L Normal 3.5-5.3 [facility] Comment on above: Order Comment: [facility] 11U Testing performed at: [employer] [facility], [address] [place] [address], [address] [place] [address], [phone], Kiln Car Repairer: Blaise Sol MD [facility] Collection Date/Time: [facility] Results Received Date/Time: [facility] Reported Date/Time: FASTING: NO Performed By: #### 1 0231A, 6517X, 5363X #### [facility] Default [address] [place] [address] Protein [Mass/Vol] 7.0 g/dL Normal 6.1-8.1 [facility] Comment on above: Order Comment: [facility] 11U Testing performed at: [employer] [facility], [address] [place] [address], [address] [place] [address], [phone], Kiln Car Repairer: Blaise Sol MD [facility] Collection Date/Time: [facility] Results Received Date/Time: [facility] Reported Date/Time: FASTING: NO Performed By: #### 1 0231A, 6517X, 5363X #### [facility] Default [address] [place] [address] Sodium [Moles/Vol] 137 mmol/L Normal 135-146 [facility] Comment on above: Order Comment: [facility] 11U Testing performed at: [employer], [employer] [facility], [address] [place] [address], [address] [place] [address], [phone], Kiln Car Repairer: Blaise Sol MD [facility] Collection Date/Time: [facility] Results Received Date/Time: [facility] Reported Date/Time: FASTING: NO Performed By: #### 1 0231A, 6517X, 5363X #### [facility] Default [address] [place] [address] Urea nitrogen [Mass/Vol] 19 mg/dL Normal 7-25 [facility] Comment on above: Order Comment: [facility] 11U Testing performed at: [employer], [employer] [facility], [address] [place] [address], [address] [place] [address], [address] [place] [address], Kiln Car Repairer: Blaise Sol MD [facility] Collection Date/Time: [facility] Results Received Date/Time: [facility] Reported Date/Time: FASTING: NO Performed By: #### 1 0231A, 6517X, 5363X #### [facility] Default [address] [place] [address] Q - MICROALBUMIN,RANDOM URIN E (W/CREAT)on 07-11-2021 Albumin DL <= 20 mg/L (U) [Mass/Vol] 1.0 mg/dL Normal See Note: [facility] Comment on above: Order Comment: [facility] 11U Testing performed at: [employer] [facility], [address] [place] [address], [address] [place] [address], [phone], Kiln Car Repairer: Blaise Sol MD [facility] Collection Date/Time: [facility] Results Received Date/Time: [facility] Reported Date/Time: FASTING: NO Result Comment: Refe rence Range: Reference Range Not established Performed By: #### 1 0231A, 6517X, 5363X #### [facility] Default [address] [place] [address] Creatinine (U) [Mass/Vol] 65 mg/dL Normal 20-320 [facility] Comment on above: Order Comment: [facility] 11U Testing performed at: [employer], [employer] [facility], [address] [place] [address], [address] [place] [address], [address] [place] [address], Kiln Car Repairer: Blaise Sol MD [facility] Collection Date/Time: [facility] Results Received Date/Time: [facility] Reported Date/Time: FASTING: NO Performed By: #### 1 0231A, [id number], 5363X #### [facility] Default [address] [place] [address] MICROALBUMIN/CRE ATININE RATIO, RANDOM URINE 15 mcg/mg creat Normal <30 [facility] Comment on above: Order Comment: [facility] 11U Testing performed at: [employer], [employer] [facility], [facility], [address] [place] [address], [address] [place] [address], Kiln Car Repairer: Blaise Sol MD [facility] Collection Date/Time: [facility] [...] 6517X, 5363X #### [facility] Default [address] [place] [address] Q - PSA TOTALon 07-11-2021 PSA, TOTAL 1.41 ng/mL Normal < OR = 4.00 [facility] Comment on above: Order Comment: [facility] 11U Testing performed at: [employer] [facility], [address] , [address] [place], [place], [address] [place] [address], Kiln Car Repairer: Blaise Sol MD [facility] Collection Date/Time: [facility] [...] 6517X, 5363X #### [facility] Default [address] [place] [address] ECHOCARDIO M/2D COMPLETEon 0 04-07-2020 ECHOCARDIO M/2D COMPLETE Patient: MENDEZ SAUCEDA Exam Date: 04/07/2020 : 1965 Gender:M Ordering : NATALYA HERNANDEZ Admission #: [id number] Family : DR MENDEZ GARCIA M.D. Order #: [id number] CLICK HERE TO VIEW EXAM ECHOCARDIOGRAM REPORT [...] M.D. on 04/14/2020 at 16:11 Normal [facility] Discharge Summaryon 07-02-19 Discharge Summary MR[id number] Admitted: 06/20/2017 Discharged: 06/22/2017 Date of : 1965 Physician: Chad Lloyd MD DISCHARGE SUMMARYDISCHARGING PHYSICIAN: Dr. Robin.PRIMARY DIAGNOSIS: Unstable angina/positive stress test.SECONDARY DIAGNOSES:1. Type 2 diabetic.2. Smoker.PROCEDURES: Left heart catheterization.HOSPITAL COURSE: This 52-year-old male was transferred from [facility] with unstable angina. The stress test showed an inferior wallmotion abnormality with inferior defect by perfusion. It was also found tohave T-wave inversions in the inferior leads. He was then sent to [facility].The next day, he received cardiac catheterization to [...] Dict: 06/30/2017/10:43 P/Julia Galindo Trans: 07/01/2017 12:09 Dae/Chris_JN:[id number]: Mendez Garcia M.D. [address] [facility] [address] Mikey Jarquin D.O. [facility] [address] [facility] [address] Normal [facility] BASIC METABOLIC PANELon 03-3 Calcium 8.7 mg/dL Normal 8.6-10.3 [facility] Comment on above: Order Comment: No: Do not add to previou s drawNo collection time noted on specimen or requisition. The collection timerecorded is the time of receipt in the lab. Performed By: #### 0 0071, 38200 ####[facility] [place] [place] [address], [facility] Chloride 103 mmol/L Normal 98-107 [facility] Comment on above: Order Comment: No: Do not add to previou s drawNo collection time noted on specimen or requisition. The collection timerecorded is the time of receipt in the lab. Performed By: #### 0 0071, 14194 ####[facility] [place] [place] [address], [facility] CO2 22 mmol/L Normal 21-31 [facility] Comment on above: Order Comment: No: Do not add to previou s drawNo collection time noted on specimen or requisition. The collection timerecorded is the time of receipt in the lab. Performed By: #### 0 0071, 10549 ####[facility] [place] Creatinine 0.91 mg/dL Normal 0.70-1.30 [facility] Comment on above: Order Comment: No: Do not add to previou s drawNo collection time noted on specimen or requisition. The collection timerecorded is the time of receipt in the lab. Performed By: #### 0 0071, 30903 ####[facility] [place] [facility].[address] eGFR (black) mL/min/{1.73_m2} Normal >60 [facility] Comment on above: Order Comment: No: Do not add to previou s drawNo collection time noted on specimen or requisition. The collection timerecorded is the time of receipt in the lab. Performed By: #### 0 0071, 13264 ####[facility] [place] [facility].[address] eGFR (non-black) mL/min/{1.73_m2} Normal >60 [facility] Comment on above: Order Comment: No: Do not add to previou s drawNo collection time noted on specimen or requisition. The collection timerecorded is the time of receipt in the lab. Performed By: #### 0 0071, 04210 ####[facility] [place] [facility].[address] Glucose mass conc 270 mg/dL High 70-100 [facility] Comment on above: Order Comment: No: Do not add to previou s drawNo collection time noted on specimen or requisition. The collection timerecorded is the time of receipt in the lab. Performed By: #### 0 0071, 53369 ####[facility] [place] [facility].[address] Potassium molar conc 4.1 mmol/L Normal 3.5-5.1 [facility] Comment on above: Order Comment: No: Do not add to previou s drawNo collection time noted on specimen or requisition. The collection timerecorded is the time of receipt in the lab. Performed By: #### 0 0071, 44986 ####[facility] [place] [facility] [place] [address], [facility] Sodium 132 mmol/L Low 136-145 [facility] Comment on above: Order Comment: No: Do not add to previou s drawNo collection time noted on specimen or requisition. The collection timerecorded is the time of receipt in the lab. Performed By: #### 0 0071, 13615 ####[facility] [place] Urea nitrogen 25 mg/dL Normal 7-25 [facility] Comment on above: Order Comment: No: Do not add to previou s drawNo collection time noted on specimen or requisition. The collection timerecorded is the time of receipt in the lab. Performed By: #### 0 0071, 24671 ####[facility] [place] CBC W/DIFFon 06-22-2017 ABS BASOPHILS 0.0 10*3/uL Normal 0.0-0.2 [facility] Comment on above: Order Comment: No: Do not add to previou s drawNo collection time noted on specimen or requisition. The collection timerecorded is the time of receipt in the lab. Performed By: #### 0 0071, 00543 ####[facility] [place] ABS IMM GRANS 0.0 10*3/uL Normal 0.0-0.2 [facility] Comment on above: Order Comment: No: Do not add to previou s drawNo collection time noted on specimen or requisition. The collection timerecorded is the time of receipt in the lab. Performed By: #### 0 0071, 53531 ####[facility] [place] [facility].[address] Basophils Auto #/vol (Bld) 0.5 % Normal 0.0-1.0 [facility] Comment on above: Order Comment: No: Do not add to previou s drawNo collection time noted on specimen or requisition. The collection timerecorded is the time of receipt in the lab. Performed By: #### 0 0071, 47113 ####[facility] [place] [facility] [place] [address], [facility] Eosinophils 0.2 10*3/uL Normal 0.0-0.5 [facility] Comment on above: Order Comment: No: Do not add to previou s drawNo collection time noted on specimen or requisition. The collection timerecorded is the time of receipt in the lab. Performed By: #### 0 0071, 99128 ####[facility] [place] Eosinophils/100 leukocytes 2.1 % Normal 0.0-6.0 [facility] Comment on above: Order Comment: No: Do not add to previou s drawNo collection time noted on specimen or requisition. The collection timerecorded is the time of receipt in the lab. Performed By: #### 0 0071, 11135 ####[facility] [place] [facility].[address] Erythrocyte distribution width Auto Ratio (RBC) 12.4 % Normal 11.5-15.0 [facility] Comment on above: Order Comment: No: Do not add to previou s drawNo collection time noted on specimen or requisition. The collection timerecorded is the time of receipt in the lab. Performed By: #### 0 0071, 54985 ####[place] [id number] [address] Erythrocytes (RBC) 0 % Normal 0-0 [facility] Comment on above: Order Comment: No: Do not add to previou s drawNo collection time noted on specimen or requisition. The collection timerecorded is the time of receipt in the lab. Performed By: #### 0 0071, 66455 ####[facility] [place] Erythrocytes (RBC) 4.30 10*6/uL Normal 4.20-5.70 [facility] Comment on above: Order Comment: No: Do not add to previou s drawNo collection time noted on specimen or requisition. The collection timerecorded is the time of receipt in the lab. Performed By: #### 0 0071, 49107 ####[facility] [place] Hematocrit (HCT) 37.2 % Low 39.0-50.0 [facility] Comment on above: Order Comment: No: Do not add to previou s drawNo collection time noted on specimen or requisition. The collection timerecorded is the time of receipt in the lab. Performed By: #### 0 0071, [id number] ####[facility] [place] Hemoglobin mass conc (Bld) 12.6 g/dL Low 13.0-17.0 [facility] Comment on above: Order Comment: No: Do not add to previou s drawNo collection time noted on specimen or requisition. The collection timerecorded is the time of receipt in the lab. Performed By: #### 0 0071, [id number] ####[facility] [place] IMMATURE GRANS 0.3 % Normal 0.0-1.0 [facility] Comment on above: Order Comment: No: Do not add to previou s drawNo collection time noted on specimen or requisition. The collection timerecorded is the time of receipt in the lab. Performed By: #### 0 0071, 00915 ####[facility] [place] Lymphocytes 2.1 10*3/uL Normal 1.2-4.0 [facility] Comment on above: Order Comment: No: Do not add to previou s drawNo collection time noted on specimen or requisition. The collection timerecorded is the time of receipt in the lab. Performed By: #### 0 0071, [id number] ####[facility] [place] Lymphocytes/100 leukocytes 23.8 % Normal 20.0-45.0 [facility] Comment on above: Order Comment: No: Do not add to previou s drawNo collection time noted on specimen or requisition. The collection timerecorded is the time of receipt in the lab. Performed By: #### 0 0071, [id number] ####[address] MCH 29.3 pg Normal 27.0-33.0 [facility] Comment on above: Order Comment: No: Do not add to previou s drawNo collection time noted on specimen or requisition. The collection timerecorded is the time of receipt in the lab. Performed By: #### 0 0071, 29156 ####[address] MCHC mass conc (RBC) 33.9 g/dL Normal 32.0-35.0 [facility] Comment on above: Order Comment: No: Do not add to previou s drawNo collection time noted on specimen or requisition. The collection timerecorded is the time of receipt in the lab. Performed By: #### 0 0071, 09025 ####[address] MCV 86.5 fL Normal 82.0-98.0 [facility] Comment on above: Order Comment: No: Do not add to previou s drawNo collection time noted on specimen or requisition. The collection timerecorded is the time of receipt in the lab. Performed By: #### 0 0071, 51174 ####[address] Monocytes 0.8 10*3/uL Normal 0.1-1.0 [facility] Comment on above: Order Comment: No: Do not add to previou s drawNo collection time noted on specimen or requisition. The collection timerecorded is the time of receipt in the lab. Performed By: #### 0 0071, 42222 ####[facility] [place] [facility] [place] [address], [facility] MONOS 8.9 % Normal 5.0-12.0 [facility] Comment on above: Order Comment: No: Do not add to previou s drawNo collection time noted on specimen or requisition. The collection timerecorded is the time of receipt in the lab. Performed By: #### 0 0071, 87621 ####[facility] [place] Neutrophils 5.6 10*3/uL Normal 1.6-7.6 [facility] Comment on above: Order Comment: No: Do not add to previou s drawNo collection time noted on specimen or requisition. The collection timerecorded is the time of receipt in the lab. Performed By: #### 0 0071, [id number] ####[facility] [place] [facility].[address] Neutrophils/100 leukocytes 64.4 % Normal 40.0-72.0 [facility] Comment on above: Order Comment: No: Do not add to previou s drawNo collection time noted on specimen or requisition. The collection timerecorded is the time of receipt in the lab. Performed By: #### 0 0071, [id number] ####[facility] [place] [facility].[address] PLAT CNT 152 10*3/uL Normal 150-400 [facility] Comment on above: Order Comment: No: Do not add to previou s drawNo collection time noted on specimen or requisition. The collection timerecorded is the time of receipt in the lab. Performed By: #### 0 0071, [id number] ####[facility] [place] [place] [address].[address] WBC (Leukocytes) 8.7 10*3/uL Normal 4.0-10.6 [facility] Comment on above: Order Comment: No: Do not add to previou s drawNo collection time noted on specimen or requisition. The collection timerecorded is the time of receipt in the lab. Performed By: #### 0 0071, 46390 ####[facility] [place] Cardiovascular Lab Reporton 06-22-2017 Cardiovascular Lab Report [facility] Patient Name: Mendez Sauceda [facility] MR #: [id number] Physician: Jamir Perkins M.D.Medicine Service Date: 06/21/2017Division of Birthdate: 1965Cardiology Room #: 3CD [id number] [facility] [place], [place] [address]Yxjaj Fax Cardiovascular Laboratory ReportINDICATION: Mendez Sauceda is a 52-year-old man who was admitted to [facility] with unstable angina. A stress test [...] signed informed consent. He was brought to lab coordinator in a fasting state.The right wrist area was prepped and draped in usual fashion. Jerome's testwas favorable. Using micropuncture technique, the right radial artery wasaccessed. A 6-Tunisian x 11 cm Hydrophilic sheath was advanced. Verapamilwas given through the sheath and heparin was administered intravenously.Bilateral selective coronary angiography was then performed using a6-Tunisian JR5 diagnostic catheter for engagement of the right coronaryartery and a 6-Tunisian Kaveh radial diagnostic catheter for engagement ofthe left coronary artery. Catheters were removed.Therapeutic ACT confirmed during the procedure and additional heparinadministered as needed. A 6-Tunisian JR4 guiding catheter was advanced andused to [...] 12 atmospheres and post dilated using NCQuantum Crawford 2.5 x 8 mm noncompliant balloon inflated [...] with filling of the distal vessel by [id number] collateral circulation that vessel appears to be [...] 06/21/2017/11:32 A/Jamir Yun M.D.Date Trans: 06/22/2017 08:38 A/quinoDN_JN:[id number]: Mendez Garcia M.D. [address] [place] [address] Mikey Jarquin D.O. [place] [address] [address] [place] [address] Normal [facility] MAGNESIUM BLOODon 06-22-2017 Magnesium 2.0 mg/dL Normal 1.9-2.7 [facility] Comment on above: Order Comment: No: Do not add to previou s drawNo collection time noted on specimen or requisition. The collection timerecorded is the time of receipt in the lab. Performed By: #### 0 0071, [id number] ####[facility] [place] [place] [address], [facility] POC GLUCOSE LABon 06-22-2017 Glucose mass conc 273 mg/dL High 70-100 [facility] Comment on above: Performed By: #### [id number], [id number] ####[facility] [id number] BASIC METABOLIC PANELon 03-2 Calcium 9.3 mg/dL Normal 8.6-10.3 [facility] Comment on above: Order Comment: No: Do not add to previou s drawNo collection time noted on specimen or requisition. The collection timerecorded is the time of receipt in the lab. Performed By: #### 0 0071, 81124 ####[facility] [place] Chloride 102 mmol/L Normal 98-107 [facility] Comment on above: Order Comment: No: Do not add to previou s drawNo collection time noted on specimen or requisition. The collection timerecorded is the time of receipt in the lab. Performed By: #### 0 0071, 77263 ####[facility] [place] CO2 25 mmol/L Normal 21-31 [facility] Comment on above: Order Comment: No: Do not add to previou s drawNo collection time noted on specimen or requisition. The collection timerecorded is the time of receipt in the lab. Performed By: #### 0 0071, 60471 ####[place] [id number] Creatinine 0.92 mg/dL Normal 0.70-1.30 [facility] Comment on above: Order Comment: No: Do not add to previou s drawNo collection time noted on specimen or requisition. The collection timerecorded is the time of receipt in the lab. Performed By: #### 0 0071, 23679 ####[place] [id number] eGFR (black) mL/min/{1.73_m2} Normal >60 [facility] Comment on above: Order Comment: No: Do not add to previou s drawNo collection time noted on specimen or requisition. The collection timerecorded is the time of receipt in the lab. Performed By: #### 0 0071, 33184 ####[facility] [place] [facility].[address] eGFR (non-black) mL/min/{1.73_m2} Normal >60 [facility] Comment on above: Order Comment: No: Do not add to previou s drawNo collection time noted on specimen or requisition. The collection timerecorded is the time of receipt in the lab. Performed By: #### 0 0071, 57906 ####[facility] [place] Glucose mass conc 193 mg/dL High 70-100 [facility] Comment on above: Order Comment: No: Do not add to previou s drawNo collection time noted on specimen or requisition. The collection timerecorded is the time of receipt in the lab. Performed By: #### 0 0071, 04988 ####[place] [id number] Potassium molar conc 4.0 mmol/L Normal 3.5-5.1 [facility] Comment on above: Order Comment: No: Do not add to previou s drawNo collection time noted on specimen or requisition. The collection timerecorded is the time of receipt in the lab. Performed By: #### 0 0071, 96420 ####[facility] [place] [facility].[address] Sodium 133 mmol/L Low 136-145 [facility] Comment on above: Order Comment: No: Do not add to previou s drawNo collection time noted on specimen or requisition. The collection timerecorded is the time of receipt in the lab. Performed By: #### 0 0071, 91982 ####[facility] [place] [facility].[address] Urea nitrogen 23 mg/dL Normal 7-25 [facility] Comment on above: Order Comment: No: Do not add to previou s drawNo collection time noted on specimen or requisition. The collection timerecorded is the time of receipt in the lab. Performed By: #### 0 0071, 04641 ####[facility] [place] CBC W/DIFFon 06-21-2017 ABS BASOPHILS 0.1 10*3/uL Normal 0.0-0.2 [facility] Comment on above: Order Comment: No: Do not add to previou s drawNo collection time noted on specimen or requisition. The collection timerecorded is the time of receipt in the lab. Performed By: #### 5 0103 ####[facility] [place] ABS IMM GRANS 0.0 10*3/uL Normal 0.0-0.2 [facility] Comment on above: Order Comment: No: Do not add to previou s drawNo collection time noted on specimen or requisition. The collection timerecorded is the time of receipt in the lab. Performed By: #### 5 0103 ####[facility] [place] Basophils Auto #/vol (Bld) 0.5 % Normal 0.0-1.0 [facility] Comment on above: Order Comment: No: Do not add to previou s drawNo collection time noted on specimen or requisition. The collection timerecorded is the time of receipt in the lab. Performed By: #### 5 0103 ####[facility] [place] Eosinophils 0.2 10*3/uL Normal 0.0-0.5 [facility] Comment on above: Order Comment: No: Do not add to previou s drawNo collection time noted on specimen or requisition. The collection timerecorded is the time of receipt in the lab. Performed By: #### 5 0103 ####[facility] [place] [facility] [place] [address], [facility] Eosinophils/100 leukocytes 2.0 % Normal 0.0-6.0 [facility] Comment on above: Order Comment: No: Do not add to previou s drawNo collection time noted on specimen or requisition. The collection timerecorded is the time of receipt in the lab. Performed By: #### 5 0103 ####[facility] [place] [facility].[address] Erythrocyte distribution width Auto Ratio (RBC) 12.6 % Normal 11.5-15.0 [facility] Comment on above: Order Comment: No: Do not add to previou s drawNo collection time noted on specimen or requisition. The collection timerecorded is the time of receipt in the lab. Performed By: #### 5 0103 ####[facility] [place] [facility] [place] [address], [facility] Erythrocytes (RBC) 0 % Normal 0-0 [facility] Comment on above: Order Comment: No: Do not add to previou s drawNo collection time noted on specimen or requisition. The collection timerecorded is the time of receipt in the lab. Performed By: #### 5 0103 ####[facility] [place] [facility].[address] Erythrocytes (RBC) 4.95 10*6/uL Normal 4.20-5.70 [facility] Comment on above: Order Comment: No: Do not add to previou s drawNo collection time noted on specimen or requisition. The collection timerecorded is the time of receipt in the lab. Performed By: #### 5 0103 ####[facility] [place] Hematocrit (HCT) 42.5 % Normal 39.0-50.0 [facility] Comment on above: Order Comment: No: Do not add to previou s drawNo collection time noted on specimen or requisition. The collection timerecorded is the time of receipt in the lab. Performed By: #### 5 0103 ####[facility] [place] Hemoglobin mass conc (Bld) 14.3 g/dL Normal 13.0-17.0 [facility] Comment on above: Order Comment: No: Do not add to previou s drawNo collection time noted on specimen or requisition. The collection timerecorded is the time of receipt in the lab. Performed By: #### 5 0103 ####[facility] [place] IMMATURE GRANS 0.4 % Normal 0.0-1.0 [facility] Comment on above: Order Comment: No: Do not add to previou s drawNo collection time noted on specimen or requisition. The collection timerecorded is the time of receipt in the lab. Performed By: #### 5 0103 ####[facility] [place] Lymphocytes 3.0 10*3/uL Normal 1.2-4.0 [facility] Comment on above: Order Comment: No: Do not add to previou s drawNo collection time noted on specimen or requisition. The collection timerecorded is the time of receipt in the lab. Performed By: #### 5 0103 ####[facility] [place] Lymphocytes/100 leukocytes 28.2 % Normal 20.0-45.0 [facility] Comment on above: Order Comment: No: Do not add to previou s drawNo collection time noted on specimen or requisition. The collection timerecorded is the time of receipt in the lab. Performed By: #### 5 0103 ####[facility] [place] MCH 28.9 pg Normal 27.0-33.0 [facility] Comment on above: Order Comment: No: Do not add to previou s drawNo collection time noted on specimen or requisition. The collection timerecorded is the time of receipt in the lab. Performed By: #### 5 0103 ####[facility] [place] [facility].[address] MCHC mass conc (RBC) 33.6 g/dL Normal 32.0-35.0 [facility] Comment on above: Order Comment: No: Do not add to previou s drawNo collection time noted on specimen or requisition. The collection timerecorded is the time of receipt in the lab. Performed By: #### 5 0103 ####[facility] [place] MCV 85.9 fL Normal 82.0-98.0 [facility] Comment on above: Order Comment: No: Do not add to previou s drawNo collection time noted on specimen or requisition. The collection timerecorded is the time of receipt in the lab. Performed By: #### 5 0103 ####[facility] [place] [facility].[address] Monocytes 1.0 10*3/uL Normal 0.1-1.0 [facility] Comment on above: Order Comment: No: Do not add to previou s drawNo collection time noted on specimen or requisition. The collection timerecorded is the time of receipt in the lab. Performed By: #### 5 0103 ####[facility] [place] [facility].[address] MONOS 9.0 % Normal 5.0-12.0 [facility] Comment on above: Order Comment: No: Do not add to previou s drawNo collection time noted on specimen or requisition. The collection timerecorded is the time of receipt in the lab. Performed By: #### 5 0103 ####[facility] [place] Neutrophils 6.4 10*3/uL Normal 1.6-7.6 [facility] Comment on above: Order Comment: No: Do not add to previou s drawNo collection time noted on specimen or requisition. The collection timerecorded is the time of receipt in the lab. Performed By: #### 5 0103 ####[facility] [place] Neutrophils/100 leukocytes 59.9 % Normal 40.0-72.0 [facility] Comment on above: Order Comment: No: Do not add to previou s drawNo collection time noted on specimen or requisition. The collection timerecorded is the time of receipt in the lab. Performed By: #### 5 0103 ####[facility] [place] PLAT CNT 179 10*3/uL Normal 150-400 [facility] Comment on above: Order Comment: No: Do not add to previou s drawNo collection time noted on specimen or requisition. The collection timerecorded is the time of receipt in the lab. Performed By: #### 5 0103 ####[facility] [place] WBC (Leukocytes) 10.7 10*3/uL High 4.0-10.6 [facility] Comment on above: Order Comment: No: Do not add to previou s drawNo collection time noted on specimen or requisition. The collection timerecorded is the time of receipt in the lab. Performed By: #### 5 0103 ####[facility] [place] MAGNESIUM BLOODon 06-21-2017 Magnesium 2.3 mg/dL Normal 1.9-2.7 [facility] Comment on above: Order Comment: No: Do not add to previou s drawNo collection time noted on specimen or requisition. The collection timerecorded is the time of receipt in the lab. Performed By: #### 0 0071, 73986 ####[facility] [place] POC GLUCOSE LABon 06-21-2017 Glucose mass conc 261 mg/dL High 70-100 [facility] Comment on above: Performed By: #### 60075 ####[facility] [place] [facility].[address] Glucose mass conc 327 mg/dL High 70-100 [facility] Comment on above: Performed By: #### [id number] ####[facility] [place] [facility].[address] Glucose mass conc 176 mg/dL High 70-100 [facility] Comment on above: Performed By: #### 00046 ####[facility] [place] PROTHROMBIN TIMEon 8 INR Coag RelTime (PPP) 1.04 {INR} Normal 0.91-1.16 [facility] Comment on above: Order Comment: [...] OF ACTION, CLINICALEFFECTIVENESS, AND OPTIMAL THERAPEUTIC RANGE. [id number]. Performed By: #### 5 6101, 60701 ####[facility] [place] Prothrombin time (PT) Coag time (PPP) 13.6 s Normal 12.3-14.8 [facility] Comment on above: Order Comment: No: Do not add to previou s drawNo collection time noted on specimen or requisition. The collection timerecorded is the time of receipt in the lab. Result Comment: ALL RESULTS MUST BE INTERPRETED WITH RESPECT TO BLOOD DRAWING ARTIFACTOR DILUTION ERROR OF ANTICOAGULANT AT THE TIME OF SAMPLING. Performed By: #### 5 6101, 96310 ####[facility] [place] [place] [address], [facility] UFH HEPARIN ASSAYon 06-22-19 18 UNFRACTIONATED HEPARIN CANCELED Normal 0.30-0.70 [facility] Comment on above: Order Comment: Please [...] 06/21/2017 15:02 Performed By: #### 3 0477 ####[facility] [place] [place] [address], [facility] UNFRACTIONATED HEPARIN >1.00 Critically high 0.30-0.70 [facility] Comment on above: Result Comment: Rivaroxaban [...] blood stream. Performed By: #### 3 0477 ####[facility] [place] UNFRACTIONATED HEPARIN 0.67 IU/mL Normal 0.30-0.70 [facility] Comment on above: Order Comment: MOVE TO AM PER SATISH MURRAY A T 0058.No collection time noted on specimen or requisition. The collection timerecorded is the time of receipt in the lab. Result Comment: [place] roxaban and Apixaban will interfere with the anti Xa assay used tomonitor UFH and LMWH. Performed By: #### 5 6101, 24057 ####[facility] [place]3000 [facility].[address] Encounters Encounter Date Encounter Type Care Provider Facility Start: 04-16-2023 End: 04-16-2023 ambulatory MENDEZ GARCIA Not Available Start: 07-03-2022 End: [facility] Start: 04-07-2020 End: 04-08-2020 Patient encounter procedure NATALYA HERNANDEZ Facility: Start: 07-19-2017 End: 07-20-2017 Ambulatory DEFAULT PHYSICIAN Facility:[facility] Start: 06-20-2017 End: 06-22-2017 Evaluation and management of inpatient Chad Lloyd Facility:[facility] Start: 06-20-2017 End: 06-21-2017 Ambulatory DEFAULT PHYSICIAN Facility:[facility] Procedures Date Procedure Procedure Detail Performing Clinician Start: 06-21-2017 DILATION OF 1 COR AR T WITH DRUG-ELUT INTRA, PERC APPROACH JAMIR YUN Start: 06-21-2017 FLUOROSCOPY OF MULTI PLE CORONARY ARTERIES USING OTH CONTRAST JAMIR [facility] Payers Date Payer Category Payer Medicaid [id number] 1965 Unknown [id number] 1965 Unknown [id number] 1961 Unknown [id number] Unknown Progress note 07-03-2022 Note Date & Type Note Facility 07-03-2022 Note [facility] Subjective Menedz Sauceda is a 57 y.o. year old [...] with filling of the distal vessel by [id number] collateral circulation that vessel appears to be [...] for this visit: Coronary artery disease involving menominee coronary artery of menominee heart without (more content not included)... [facility] Summary Purpose Family History No Family [...] and content) DATE CREATED AUTHOR 09/13/2017 [facility] DATE CREATED AUTHOR AUTHOR'S ORGANIZ ATION 04/15/2020 [facility] DATE CREATED AUTHOR AUTHOR'S ORGANIZ ATION 07/13/2021 [facility] DATE CREATED AUTHOR AUTHOR'S ORGANIZ ATION 07/03/2022 [facility] DATE CREATED AUTHOR AUTHOR'S ORGANIZ ATION 04/17/2023 [facility] EPIC FOR RECORDS PERTAINING TO [...]
== END 2023-05-29 09:19 | disposition home or self-care (01) ==
LOC: EC 09:18
PROVIDERS: PCP Internal Medicine; Visit Provider Podiatrist Foot & Ankle Surgery
DX: S82.65XD Nondisplaced fracture of lateral malleolus of left fibula, subsequent encounter for closed fracture with routine healing (principal)
CPT/HCPCS: 73610

== ENCOUNTER 2023-06-13 09:13 | Outpatient (OUT) | payer MEDICAID, SELFPAY ==
--- NOTE | 2023-06-13 | XR_ITS ---
[facility] [place] [id number] Patient Name: BELINDA SAUCEDA MRN: [id number] date: 1965 Sex: M Assigned Patient Location: Current Patient Location: Accession/Order Number: [id number] Exam Date: 06/13/2023 09:35 Report Date: 06/13/2023 13:29 At the request of: ALFA MCKEON Procedure: XR ankle LT min 3V PROCEDURE: XR ankle LT min 3V COMPARISON: 05/29/2023 HISTORY: LEFT ANKLE PAIN FINDINGS: BONES:Stable oblique mildly displaced fracture of the distal fibula with interval minimal bone formation and partial bony bridging along the medial aspect. No new fracture. No dislocation. Enthesopathic spurring of the calcaneus SOFT TISSUES:Negative. No visible soft tissue swelling. EFFUSION:None visible. OTHER: Negative. XR/XR ankle LT min 3V IMPRESSION: Stable healing distal fibular fracture Electronically authenticated by: FORREST AGUIRRE Date: 06/13/2023 13:29
--- OUTSIDE RECORDS SUMMARY | 2023-06-13 09:23 | XMS_ITS | CCD ---
Author Organization [facility] Care Team Providers Care Attractions Associate Name Role Phone PHYSICIAN, DEFAULT Unavailable Unavailable PHYSICIAN, DEFAULT Unavailable Unavailable Gabino, Chad Unavailable Unavailable Gabino, Chad Unavailable Unavailable NADAUD, MIKEY Unavailable Unavailable MENDEZ GARCIA Unavailable Unavailable UNKNOWN, PROVIDER Unavailable Unavailable [place] Unavailable Unavailable PHYSICIAN, DEFAULT Unavailable Unavailable PHYSICIAN, DEFAULT Unavailable Unavailable MENDEZ GARCIA Unavailable Unavailable NATALYA HERNANDEZ Attending Unavailable NATALYA HERNANDEZ Consulting Unavailable NATALYA HERNANDEZ Admitting Unavailable MENDEZ GARCIA Primary Care Unavailable JAMIR BANG Attending Unavailable MENDEZ GARCIA Attending Unavailable Allergies Allergy Classification Reported Allergen(s) Allergy Type Date of Onset Reaction(s) Facility (1 source) 82488,00 Drug allergy (disorder) 8 [facility] Repository (1 source) No Known Allergies; Translations: [No Known Allergies] Propensity to adverse reactions (disorder) [facility] Problems Problem Classification Problem Date Documented Da te Episodic/Chronic Coronary atherosclerosis and other heart disease (5 sources) Unstable angina; Translations: [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] Onset: [...] / UNK(Unknown) Onset: 06-20-2017 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 (1 source) [facility] (current) use of oral hypoglycemic drugs; 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 DRUGS] Onset: 06-20-2017 Results Test Name Value Interpretation Reference Range Facility Office Visiton 07-03-2022 Follow-up visit [id number] Rafa Rodríguez 1965 M Date Provider Department Center 07/03/2022 Yolanda-JAMIR BANG [facility] D[facility] Family History Problem Relation Age of Onset Coronary artery disease Mother Diabetes Mother Hypertension Father Heart attack Paternal Grandmother Family Status - Relation Status Age at Mother Father Paternal Grandmother Level of Service:21622 [place] OFFICE/OUTPATIENT ESTABLISHED LOW MDM 20-29 MIN Reason for Visit and Comments: Coronary Artery Disease [187] [facility] Q - COMPREHENSIVE METABOLIC PANEL W/EGFRon 07-11-2021 Albumin [Mass/Vol] 4.4 g/dL Normal 3.6-5.1 [facility] [employer] Associate Comment on above: Order Comment: [facility] 11U Testing performed at: [facility], [address] [place] [address], [address] [place] [address], [address] [place] [address], [employer]: Blaise Sol MD Quest Collection Date/Time: [facility] Results Received Date/Time: [facility] Reported Date/Time: FASTING: NO Performed By: #### 1 0231A, [id number], 5363X #### [facility] Default [address] [place] [address] Albumin/Globulin [Mass ratio] 1.7 {ratio} Normal 1.0-2.5 [facility] Specialist Comment on above: Order Comment: [facility] 11U Testing performed at: [facility], [address] [facility], [address] [place] [address], [address] [place] [address], [employer]: Blaise Sol MD [facility] Collection Date/Time: [facility] Results Received Date/Time: [facility] Reported Date/Time: FASTING: NO Performed By: #### 1 0231A, [id number], 5363X #### [facility] Default [address] [place] [address] ALP [Catalytic activity/Vol] 65 U/L Normal 35-144 [facility] Specialist Comment on above: Order Comment: [facility] 11U Testing performed at: [employer], [facility], [address] [place] [address], [address] [place] [address], [address] [place] [address], [employer]: Blaise Sol MD [facility] Collection Date/Time: [facility] Results Received Date/Time: [facility] Reported Date/Time: FASTING: NO Performed By: #### 1 0231A, [id number], 5363X #### [facility] [address] [place] [address] ALT [Catalytic activity/Vol] 62 U/L High 9-46 [facility] Specialist Comment on above: Order Comment: [facility] 11U Testing performed at: [employer], [facility], [address] [place] [address], [address] [place] [address], [address] [place] [address], [employer]: Blaise Sol MD [facility] Collection Date/Time: [facility] Results Received Date/Time: [facility] Reported Date/Time: FASTING: NO Performed By: #### 1 0231A, [id number], 5363X #### [facility] Default [address] [place] [address] AST [Catalytic activity/Vol] 29 U/L Normal 10-35 [facility] [employer] Associate Comment on above: Order Comment: [facility] 11U Testing performed at: [employer], [facility], [address] [place] [address], [address] [place] [address], [address] [place] [address], [employer]: Blaise Sol MD [facility] Collection Date/Time: [facility] Results Received Date/Time: [facility] Reported Date/Time: FASTING: NO Performed By: #### 1 0231A, [id number], 5363X #### [facility] Default [address] [place] [address] Bilirubin [Mass/Vol] 0.4 mg/dL Normal 0.2-1.2 [facility] [employer] Associate Comment on above: Order Comment: [facility] 11U Testing performed at: [employer], [facility], [address] [facility], [address] [place] [address], [address] [place] [address], [employer]: Blaise Sol MD [facility] Collection Date/Time: [facility] Results Received Date/Time: [facility] Reported Date/Time: FASTING: NO Performed By: #### 1 0231A, [id number], 5363X #### [facility] Default [address] [place] [address] BUN/CREA 23 NOT APPLICABLE Normal 6-22 [facility] Comment on above: Order Comment: [facility] 11U Testing performed at: [employer], [facility], [address] [place] [address], [address] [place] [address], [address] [place] [address], [employer]: Blaise Sol MD [facility] Collection Date/Time: [facility] Results Received Date/Time: [facility] Reported Date/Time: FASTING: NO Performed By: #### 1 0231A, [id number], 5363X #### [facility] Default [address] [place] [address] Calcium [Mass/Vol] 9.7 mg/dL Normal 8.6-10.3 [facility] [employer] Associate Comment on above: Order Comment: [facility] 11U Testing performed at: [employer], [facility], [address] [place] [address], [address] [place] [address], [address] [place] [address], [employer]: Blaise Sol MD [facility] Collection Date/Time: [facility] Results Received Date/Time: [facility] Reported Date/Time: FASTING: NO Performed By: #### 1 0231A, [id number], 5363X #### [facility] [address] [place] [address] Chloride [Moles/Vol] 104 mmol/L Normal 98-110 [facility] [employer] Associate Comment on above: Order Comment: [facility] 11U Testing performed at: [employer], [facility], [address] [place] [address], [address] [place] [address], [address] [place] [address], [employer]: Blaise Sol MD [facility] Collection Date/Time: [facility] Results Received Date/Time: [facility] Reported Date/Time: FASTING: NO Performed By: #### 1 0231A, [id number], 5363X #### [facility] [address] [place] [address] CO2 [Moles/Vol] 26 mmol/L Normal 20-32 [facility] [employer] Associate Comment on above: Order Comment: [facility] 11U Testing performed at: [employer], [facility], [address] [place] [address], [address] [place] [address], [address] [place] [address], [employer]: Blaise Sol MD [facility] Collection Date/Time: [facility] Results Received Date/Time: [facility] Reported Date/Time: FASTING: NO Performed By: #### 1 0231A, [id number], 5363X #### [facility] Default [address] [place] [address] Creatinine [Mass/Vol] 0.81 mg/dL Normal 0.70-1.33 [facility] [employer] Associate Comment on above: Order Comment: [facility] 11U Testing performed at: [employer], [facility], [address] [place] [address], [address] [place] [address], [address] [place] [address], [employer]: Blaise Sol MD [facility] Collection Date/Time: [facility] Results Received Date/Time: [facility] Reported Date/Time: FASTING: NO Result Comment: For patients >49 years of age, the reference limit for Creatinine is approximately 13% higher for people identified as -Citizen Of [place]. Performed By: #### 1 0231A, [id number], 5363X #### [facility] Default [address] [place] [address] eGFRAA (Quest) 114 mL/min/1.73m2 Normal > OR = 60 [facility] Comment on above: Order Comment: [facility] 11U Testing performed at: [employer], [facility], [address] [place] [address], [address] [place] [address], [address] [place] [address], [employer]: Blaise Sol MD [facility] Collection Date/Time: [facility] Results Received Date/Time: [facility] Reported Date/Time: FASTING: NO Performed By: #### 1 0231A, [id number], 5363X #### [facility] Default [address] [place] [address] eGFRNAA (Quest) 98 mL/min/1.73m2 Normal > OR = 60 [facility] Comment on above: Order Comment: [facility] 11U Testing performed at: [employer], [facility], [address] [facility], [address] [place] [address], , [employer]: Blaise Sol MD [facility] Collection Date/Time: [facility] Results Received Date/Time: [facility] Reported Date/Time: FASTING: NO Performed By: #### 1 0231A, [id number], 5363X #### [facility] Default [address] [place] [address] Globulin (S) [Mass/Vol] 2.6 g/dL Normal 1.9-3.7 [facility] [employer] Associate Comment on above: Order Comment: [facility] 11U Testing performed at: [facility], [address] [facility], [address] [place] [address], [phone], [employer]: Blaise Sol MD [facility] Collection Date/Time: [facility] Results Received Date/Time: [facility] Reported Date/Time: FASTING: NO Performed By: #### 1 0231A, [id number], 5363X #### [facility] Default [address] [place] [address] Glucose [Mass/Vol] 123 mg/dL Normal 65-139 [facility] [employer] Associate Comment on above: Order Comment: [facility] 11U Testing performed at: [facility], [address] [facility], [address] [place] [address], [phone], [employer]: Blaise Sol MD [facility] Collection Date/Time: [facility] Results Received Date/Time: [facility] Reported Date/Time: FASTING: NO Result Comment: Non-fasting reference interval For someone without known diabetes, a glucose value between 100 and 125 mg/dL is consistent with prediabetes and should be confirmed with a follow-up test. Performed By: #### 1 0231A, [id number], 5363X #### [facility] Default [address] [place] [address] Potassium [Moles/Vol] 4.7 mmol/L Normal 3.5-5.3 [facility] [employer] Associate Comment on above: Order Comment: [facility] 11U Testing performed at: [employer], [facility], [address] [place] [address], [address] [place] [address], [address] [place] [address], [employer]: Blaise Sol MD [facility] Collection Date/Time: [facility] Results Received Date/Time: [facility] Reported Date/Time: FASTING: NO Performed By: #### 1 0231A, [id number], 5363X #### [facility] Default [address] [place] [address] Protein [Mass/Vol] 7.0 g/dL Normal 6.1-8.1 [facility] [employer] Associate Comment on above: Order Comment: [facility] 11U Testing performed at: [facility], [address] [place] [address], [address] [place] [address], [address] [place] [address], [employer]: Blaise Sol MD [facility] Collection Date/Time: [facility] Results Received Date/Time: [facility] Reported Date/Time: FASTING: NO Performed By: #### 1 0231A, [id number], 5363X #### [facility] Default [address] [place] [address] Sodium [Moles/Vol] 137 mmol/L Normal 135-146 [facility] [employer] Associate Comment on above: Order Comment: [facility] 11U Testing performed at: [employer], [facility], [address] [place] [address], [address] [place] [address], [address] [place] [address], [employer]: Blaise Sol MD [facility] Collection Date/Time: [facility] Results Received Date/Time: [facility] Reported Date/Time: FASTING: NO Performed By: #### 1 0231A, [id number], 5363X #### [facility] Default [address] [place] [address] Urea nitrogen [Mass/Vol] 19 mg/dL Normal 7-25 [facility] [employer] Associate Comment on above: Order Comment: [facility] 11U Testing performed at: [facility], [address] [facility], [address] [place] [address], [address] [place] [address], [employer]: Blaise Sol MD [facility] Collection Date/Time: [facility] Results Received Date/Time: [facility] Reported Date/Time: FASTING: NO Performed By: #### 1 0231A, [id number], 5363X #### [facility] Default [address] [place] [address] Q - MICROALBUMIN,RANDOM URIN E (W/CREAT)on 07-11-2021 Albumin DL <= 20 mg/L (U) [Mass/Vol] 1.0 mg/dL Normal See Note: [facility] [employer] Associate Comment on above: Order Comment: [facility] 11U Testing performed at: [facility], [address] [facility], [address] [place] [address], [address] [place] [address], [employer]: Blaise Sol MD [facility] Collection Date/Time: [facility] Results Received Date/Time: [facility] Reported Date/Time: FASTING: NO Result Comment: Refe rence Range: Reference Range Not established Performed By: #### 1 0231A, [id number], 5363X #### [facility] Default [address] [place] [address] Creatinine (U) [Mass/Vol] 65 mg/dL Normal 20-320 [facility] [employer] Associate Comment on above: Order Comment: [facility] 11U Testing performed at: [facility], [address] [place] [address], [address] [place] [address], [address] [place] [address], [employer]: Blaise Sol MD [facility] Collection Date/Time: [id number] [facility] Results Received Date/Time: [facility] Reported Date/Time: FASTING: NO Performed By: #### 1 0231A, [id number], 5363X #### [facility] Default [address] [place] [address] MICROALBUMIN/CRE ATININE RATIO, RANDOM URINE 15 mcg/mg creat Normal <30 [facility] [employer] Associate Comment on above: Order Comment: [facility] 11U Testing performed at: [employer], [facility], [address] [place] [address], [address] [place] [address], [phone], [employer]: Blaise Sol MD [facility] Collection Date/Time: Quest [...] 6517X, 5363X #### [facility] Default [address] [place] [address] Q - PSA TOTALon 07-11-2021 PSA, TOTAL 1.41 ng/mL Normal < OR = 4.00 [facility] [employer] Associate Comment on above: Order Comment: [facility] 11U Testing performed at: [facility], [address] [place] [address], [address] [place] [address], [phone], [employer]: Blaise Sol MD [facility] Collection Date/Time: [id number] [facility] Results Received Date/Time: [facility] Reported Date/Time: FASTING: NO Result Comment: The total PSA value from this assay system is standardized against the WHO standard. The test result will be approximately 20% lower when compared to the equimolar-standardized total PSA ([employer]). Comparison of serial PSA results should be interpreted with this fact in mind. This test was performed using the Siemens chemiluminescent method. Values obtained from different assay methods cannot be used interchangeably. PSA levels, regardless of value, should not be interpreted as absolute evidence of the presence or absence of disease. Performed By: #### 1 0231A, 6517X, 5363X #### [facility] Default [address] [place] [address] ECHOCARDIO M/2D COMPLETEon 0 04-07-2020 ECHOCARDIO M/2D COMPLETE Patient: MENDEZ RODRÍGUEZ Exam Date: 04/07/2020 : 1965 Gender:M Ordering : NATALYA HERNANDEZ Admission #: [id number] Family : DR MENDEZ GARCIA M.D. Order #: [id number] CLICK HERE TO VIEW EXAM ECHOCARDIOGRAM REPORT [...] M.D. on 04/14/2020 at 16:11 Normal [facility] Discharge Summaryon 07-02-19 Discharge Summary MR#: [id number] [facility] Mendez Rod[facility]guez Admitted: 06/20/2017 Discharged: 06/22/2017 Date of : 1965 Physician: Chad Lloyd MD DISCHARGE SUMMARYDISCHARGING PHYSICIAN: Dr. Robin.PRIMARY DIAGNOSIS: Unstable angina/positive stress test.SECONDARY DIAGNOSES:1. Type 2 diabetic.2. Smoker.PROCEDURES: Left heart catheterization.HOSPITAL COURSE: This 52-year-old male was transferred from [facility] with unstable angina. The stress test showed an inferior wallmotion abnormality with inferior defect by perfusion. It was also found tohave T-wave inversions in the inferior leads. He was then sent to [facility].The next day, he received cardiac catheterization to [...] Dict: 06/30/2017/10:43 P/Julia Galindo Trans: 07/01/2017 12:09 [id number]: Mendez Garcia M.D. [facility] [address] Mikey Marks D.O. [facility] [address] [facility] [address] Normal [facility] BASIC METABOLIC PANELon 03-3 Calcium 8.7 mg/dL Normal 8.6-10.3 [facility] Comment on above: Order Comment: No: Do not add to previou s drawNo collection time noted on specimen or requisition. The collection timerecorded is the time of receipt in the lab. Performed By: #### 0 0071, 69814 ####[facility] [place] [address], [facility] Chloride 103 mmol/L Normal 98-107 [facility] Comment on above: Order Comment: No: Do not add to previou s drawNo collection time noted on specimen or requisition. The collection timerecorded is the time of receipt in the lab. Performed By: #### 0 0071, 86863 ####[facility] [place] [address], [facility] CO2 22 mmol/L Normal 21-31 [facility] Comment on above: Order Comment: No: Do not add to previou s drawNo collection time noted on specimen or requisition. The collection timerecorded is the time of receipt in the lab. Performed By: #### 0 0071, 39167 ####[facility] [facility].[address] Creatinine 0.91 mg/dL Normal 0.70-1.30 [facility] Comment on above: Order Comment: No: Do not add to previou s drawNo collection time noted on specimen or requisition. The collection timerecorded is the time of receipt in the lab. Performed By: #### 0 0071, 37296 ####[facility] [facility].[address] eGFR (black) mL/min/{1.73_m2} Normal >60 [facility] Comment on above: Order Comment: No: Do not add to previou s drawNo collection time noted on specimen or requisition. The collection timerecorded is the time of receipt in the lab. Performed By: #### 0 0071, 03381 ####[facility] [facility].[address] eGFR (non-black) mL/min/{1.73_m2} Normal >60 [facility] Comment on above: Order Comment: No: Do not add to previou s drawNo collection time noted on specimen or requisition. The collection timerecorded is the time of receipt in the lab. Performed By: #### 0 0071, 22159 ####[facility] [facility].[address] Glucose mass conc 270 mg/dL High 70-100 [facility] Comment on above: Order Comment: No: Do not add to previou s drawNo collection time noted on specimen or requisition. The collection timerecorded is the time of receipt in the lab. Performed By: #### 0 0071, 07852 ####[facility] [facility].[address] Potassium molar conc 4.1 mmol/L Normal 3.5-5.1 [facility] Comment on above: Order Comment: No: Do not add to previou s drawNo collection time noted on specimen or requisition. The collection timerecorded is the time of receipt in the lab. Performed By: #### 0 0071, 41494 ####[facility] [facility].[address] Sodium 132 mmol/L Low 136-145 [facility] Comment on above: Order Comment: No: Do not add to previou s drawNo collection time noted on specimen or requisition. The collection timerecorded is the time of receipt in the lab. Performed By: #### 0 0071, 72652 ####[facility] Urea nitrogen 25 mg/dL Normal 7-25 [facility] Comment on above: Order Comment: No: Do not add to previou s drawNo collection time noted on specimen or requisition. The collection timerecorded is the time of receipt in the lab. Performed By: #### 0 0071, 23515 ####[facility] CBC W/DIFFon 06-22-2017 ABS BASOPHILS 0.0 10*3/uL Normal 0.0-0.2 [facility] Comment on above: Order Comment: No: Do not add to previou s drawNo collection time noted on specimen or requisition. The collection timerecorded is the time of receipt in the lab. Performed By: #### 0 0071, 02889 ####[facility] ABS IMM GRANS 0.0 10*3/uL Normal 0.0-0.2 [facility] Comment on above: Order Comment: No: Do not add to previou s drawNo collection time noted on specimen or requisition. The collection timerecorded is the time of receipt in the lab. Performed By: #### 0 0071, 62712 ####[facility] [facility].[address] Basophils Auto #/vol (Bld) 0.5 % Normal 0.0-1.0 [facility] Comment on above: Order Comment: No: Do not add to previou s drawNo collection time noted on specimen or requisition. The collection timerecorded is the time of receipt in the lab. Performed By: #### 0 0071, 60395 ####[facility] Eosinophils 0.2 10*3/uL Normal 0.0-0.5 [facility] Comment on above: Order Comment: No: Do not add to previou s drawNo collection time noted on specimen or requisition. The collection timerecorded is the time of receipt in the lab. Performed By: #### 0 0071, 72045 ####[facility] [place] [address] Eosinophils/100 leukocytes 2.1 % Normal 0.0-6.0 [facility] Comment on above: Order Comment: No: Do not add to previou s drawNo collection time noted on specimen or requisition. The collection timerecorded is the time of receipt in the lab. Performed By: #### 0 0071, 41288 ####[address] Erythrocyte distribution width Auto Ratio (RBC) 12.4 % Normal 11.5-15.0 [facility] Comment on above: Order Comment: No: Do not add to previou s drawNo collection time noted on specimen or requisition. The collection timerecorded is the time of receipt in the lab. Performed By: #### 0 0071, 33048 ####[facility] Erythrocytes (RBC) 0 % Normal 0-0 [facility] Comment on above: Order Comment: No: Do not add to previou s drawNo collection time noted on specimen or requisition. The collection timerecorded is the time of receipt in the lab. Performed By: #### 0 0071, 66025 ####[address] Erythrocytes (RBC) 4.30 10*6/uL Normal 4.20-5.70 [facility] Comment on above: Order Comment: No: Do not add to previou s drawNo collection time noted on specimen or requisition. The collection timerecorded is the time of receipt in the lab. Performed By: #### 0 0071, 61956 ####[facility] Hematocrit (HCT) 37.2 % Low 39.0-50.0 [facility] Comment on above: Order Comment: No: Do not add to previou s drawNo collection time noted on specimen or requisition. The collection timerecorded is the time of receipt in the lab. Performed By: #### 0 0071, 45227 ####[facility] Hemoglobin mass conc (Bld) 12.6 g/dL Low 13.0-17.0 [facility] Comment on above: Order Comment: No: Do not add to previou s drawNo collection time noted on specimen or requisition. The collection timerecorded is the time of receipt in the lab. Performed By: #### 0 0071, 20377 ####[facility] IMMATURE GRANS 0.3 % Normal 0.0-1.0 [facility] Comment on above: Order Comment: No: Do not add to previou s drawNo collection time noted on specimen or requisition. The collection timerecorded is the time of receipt in the lab. Performed By: #### 0 0071, 07879 ####[place] [address] Lymphocytes 2.1 10*3/uL Normal 1.2-4.0 [facility] Comment on above: Order Comment: No: Do not add to previou s drawNo collection time noted on specimen or requisition. The collection timerecorded is the time of receipt in the lab. Performed By: #### 0 0071, 28528 ####[place] [address] Lymphocytes/100 leukocytes 23.8 % Normal 20.0-45.0 [facility] Comment on above: Order Comment: No: Do not add to previou s drawNo collection time noted on specimen or requisition. The collection timerecorded is the time of receipt in the lab. Performed By: #### 0 0071, [id number] ####[facility] MCH 29.3 pg Normal 27.0-33.0 [facility] Comment on above: Order Comment: No: Do not add to previou s drawNo collection time noted on specimen or requisition. The collection timerecorded is the time of receipt in the lab. Performed By: #### 0 0071, 69255 ####[facility] MCHC mass conc (RBC) 33.9 g/dL Normal 32.0-35.0 [facility] Comment on above: Order Comment: No: Do not add to previou s drawNo collection time noted on specimen or requisition. The collection timerecorded is the time of receipt in the lab. Performed By: #### 0 0071, 50305 ####[facility] MCV 86.5 fL Normal 82.0-98.0 [facility] Comment on above: Order Comment: No: Do not add to previou s drawNo collection time noted on specimen or requisition. The collection timerecorded is the time of receipt in the lab. Performed By: #### 0 0071, 19039 ####[facility] Monocytes 0.8 10*3/uL Normal 0.1-1.0 [facility] Comment on above: Order Comment: No: Do not add to previou s drawNo collection time noted on specimen or requisition. The collection timerecorded is the time of receipt in the lab. Performed By: #### 0 0071, 42461 ####[facility] [place] [address], [facility] MONOS 8.9 % Normal 5.0-12.0 [facility] Comment on above: Order Comment: No: Do not add to previou s drawNo collection time noted on specimen or requisition. The collection timerecorded is the time of receipt in the lab. Performed By: #### 0 0071, 12553 ####[facility] [place] [address], [facility] Neutrophils 5.6 10*3/uL Normal 1.6-7.6 [facility] Comment on above: Order Comment: No: Do not add to previou s drawNo collection time noted on specimen or requisition. The collection timerecorded is the time of receipt in the lab. Performed By: #### 0 0071, 94989 ####[facility] [facility].[address] Neutrophils/100 leukocytes 64.4 % Normal 40.0-72.0 [facility] Comment on above: Order Comment: No: Do not add to previou s drawNo collection time noted on specimen or requisition. The collection timerecorded is the time of receipt in the lab. Performed By: #### 0 0071, 47408 ####[facility] [place] [address], [facility] PLAT CNT 152 10*3/uL Normal 150-400 [facility] Comment on above: Order Comment: No: Do not add to previou s drawNo collection time noted on specimen or requisition. The collection timerecorded is the time of receipt in the lab. Performed By: #### 0 0071, 21128 ####[facility] [facility].[address] WBC (Leukocytes) 8.7 10*3/uL Normal 4.0-10.6 [facility] Comment on above: Order Comment: No: Do not add to previou s drawNo collection time noted on specimen or requisition. The collection timerecorded is the time of receipt in the lab. Performed By: #### 0 0071, 18600 ####[facility] [facility] Cardiovascular Lab Reporton 06-22-[address] [facility] Patient Name: Mendez Rodríguez [facility] MR #: [id number] Physician: Jamir Perkins M.D.Medicine Service Date: 06/21/2017Division of Birthdate: 1965Cardiology Room #: 3CD [id number] [facility]Services[facility] [place], [place] [address]D[place]ovy Fax Cardiovascular Laboratory ReportINDICATION: Mendez Rodríguez is a 52-year-old man who was admitted to [facility] with unstable angina. A stress [...] signed informed consent. He was brought to [facility] materials [facility] in a fasting state.The right wrist area was prepped and draped in usual fashion. Jerome's testwas favorable. Using micropuncture technique, the right radial artery wasaccessed. A 6-St Helenian x 11 cm Hydrophilic sheath was advanced. Verapamilwas given through the sheath and heparin was administered intravenously.Bilateral selective coronary angiography was then performed using a6-St Helenian JR5 diagnostic catheter for engagement of the right coronaryartery and a 6-St Helenian Kaveh radial diagnostic catheter for engagement ofthe left coronary artery. Catheters were removed.Therapeutic ACT confirmed during the procedure and additional heparinadministered as needed. A 6-St Helenian JR4 guiding catheter was advanced andused to [...] 12 atmospheres and post dilated using NCQuantum Lamont 2.5 x 8 mm noncompliant balloon inflated [...] with filling of the distal vessel by [id number] collateral circulation that vessel appears to be [...] be ischemic in that territory.Electronically Signed by:Jamir Bang M.D. 06/30/2017 05:31 P Jamir Bang M.D.Date Dict: 06/21/2017/11:32 A/Jamir Bang M.D.Date Trans: 06/22/2017 08:38 A/[id number]: Mendez Garcia M.D. [address] [place] [address] Mikey Marks D.O. [place] [address] [place] [address] Normal [facility] MAGNESIUM BLOODon 06-22-2017 Magnesium 2.0 mg/dL Normal 1.9-2.7 [facility] Comment on above: Order Comment: No: Do not add to previou s drawNo collection time noted on specimen or requisition. The collection timerecorded is the time of receipt in the lab. Performed By: #### 0 0071, 17102 ####[facility] [place] [address], [facility] POC GLUCOSE LABon 06-22-2017 Glucose mass conc 273 mg/dL High 70-100 [facility] Comment on above: Performed By: #### 71663, 76355 ####[facility]3000 [facility] BASIC METABOLIC PANELon 03-2 Calcium 9.3 mg/dL Normal 8.6-10.3 [facility] Comment on above: Order Comment: No: Do not add to previou s drawNo collection time noted on specimen or requisition. The collection timerecorded is the time of receipt in the lab. Performed By: #### 0 0071, 66924 ####[facility] [facility].[address] Chloride 102 mmol/L Normal 98-107 [facility] Comment on above: Order Comment: No: Do not add to previou s drawNo collection time noted on specimen or requisition. The collection timerecorded is the time of receipt in the lab. Performed By: #### 0 0071, 57447 ####[place] [address] [facility].[address] CO2 25 mmol/L Normal 21-31 [facility] Comment on above: Order Comment: No: Do not add to previou s drawNo collection time noted on specimen or requisition. The collection timerecorded is the time of receipt in the lab. Performed By: #### 0 0071, 12945 ####[place] [address] [facility].[address] Creatinine 0.92 mg/dL Normal 0.70-1.30 [facility] Comment on above: Order Comment: No: Do not add to previou s drawNo collection time noted on specimen or requisition. The collection timerecorded is the time of receipt in the lab. Performed By: #### 0 0071, 16480 ####[place] [address] [facility].[address] eGFR (black) mL/min/{1.73_m2} Normal >60 [facility] Comment on above: Order Comment: No: Do not add to previou s drawNo collection time noted on specimen or requisition. The collection timerecorded is the time of receipt in the lab. Performed By: #### 0 0071, 03555 ####[facility] [facility].[address] eGFR (non-black) mL/min/{1.73_m2} Normal >60 [facility] Comment on above: Order Comment: No: Do not add to previou s drawNo collection time noted on specimen or requisition. The collection timerecorded is the time of receipt in the lab. Performed By: #### 0 0071, 72362 ####[facility] [facility].[address] Glucose mass conc 193 mg/dL High 70-100 [facility] Comment on above: Order Comment: No: Do not add to previou s drawNo collection time noted on specimen or requisition. The collection timerecorded is the time of receipt in the lab. Performed By: #### 0 0071, 74336 ####[place] [address] [facility].[address] Potassium molar conc 4.0 mmol/L Normal 3.5-5.1 [facility] Comment on above: Order Comment: No: Do not add to previou s drawNo collection time noted on specimen or requisition. The collection timerecorded is the time of receipt in the lab. Performed By: #### 0 0071, 24170 ####[facility] [facility].[address] Sodium 133 mmol/L Low 136-145 [facility] Comment on above: Order Comment: No: Do not add to previou s drawNo collection time noted on specimen or requisition. The collection timerecorded is the time of receipt in the lab. Performed By: #### 0 0071, 90808 ####[facility] [place] [address], [facility] Urea nitrogen 23 mg/dL Normal 7-25 [facility] Comment on above: Order Comment: No: Do not add to previou s drawNo collection time noted on specimen or requisition. The collection timerecorded is the time of receipt in the lab. Performed By: #### 0 0071, 67080 ####[facility] CBC W/DIFFon 06-21-2017 ABS BASOPHILS 0.1 10*3/uL Normal 0.0-0.2 [facility] Comment on above: Order Comment: No: Do not add to previou s drawNo collection time noted on specimen or requisition. The collection timerecorded is the time of receipt in the lab. Performed By: #### 5 0103 ####[place] [address] ABS IMM GRANS 0.0 10*3/uL Normal 0.0-0.2 [facility] Comment on above: Order Comment: No: Do not add to previou s drawNo collection time noted on specimen or requisition. The collection timerecorded is the time of receipt in the lab. Performed By: #### 5 0103 ####[place] [address] Basophils Auto #/vol (Bld) 0.5 % Normal 0.0-1.0 [facility] Comment on above: Order Comment: No: Do not add to previou s drawNo collection time noted on specimen or requisition. The collection timerecorded is the time of receipt in the lab. Performed By: #### 5 0103 ####[facility] Eosinophils 0.2 10*3/uL Normal 0.0-0.5 [facility] Comment on above: Order Comment: No: Do not add to previou s drawNo collection time noted on specimen or requisition. The collection timerecorded is the time of receipt in the lab. Performed By: #### 5 0103 ####[facility] Eosinophils/100 leukocytes 2.0 % Normal 0.0-6.0 [facility] Comment on above: Order Comment: No: Do not add to previou s drawNo collection time noted on specimen or requisition. The collection timerecorded is the time of receipt in the lab. Performed By: #### 5 0103 ####[facility] Erythrocyte distribution width Auto Ratio (RBC) 12.6 % Normal 11.5-15.0 [facility] Comment on above: Order Comment: No: Do not add to previou s drawNo collection time noted on specimen or requisition. The collection timerecorded is the time of receipt in the lab. Performed By: #### 5 0103 ####[address] Erythrocytes (RBC) 0 % Normal 0-0 [facility] Comment on above: Order Comment: No: Do not add to previou s drawNo collection time noted on specimen or requisition. The collection timerecorded is the time of receipt in the lab. Performed By: #### 5 0103 ####[place] [address] Erythrocytes (RBC) 4.95 10*6/uL Normal 4.20-5.70 [facility] Comment on above: Order Comment: No: Do not add to previou s drawNo collection time noted on specimen or requisition. The collection timerecorded is the time of receipt in the lab. Performed By: #### 5 0103 ####[place] [address] Hematocrit (HCT) 42.5 % Normal 39.0-50.0 [facility] Comment on above: Order Comment: No: Do not add to previou s drawNo collection time noted on specimen or requisition. The collection timerecorded is the time of receipt in the lab. Performed By: #### 5 0103 ####[facility] [facility].[address] Hemoglobin mass conc (Bld) 14.3 g/dL Normal 13.0-17.0 [facility] Comment on above: Order Comment: No: Do not add to previou s drawNo collection time noted on specimen or requisition. The collection timerecorded is the time of receipt in the lab. Performed By: #### 5 0103 ####[facility] [facility].[address] IMMATURE GRANS 0.4 % Normal 0.0-1.0 [facility] Comment on above: Order Comment: No: Do not add to previou s drawNo collection time noted on specimen or requisition. The collection timerecorded is the time of receipt in the lab. Performed By: #### 5 0103 ####[facility] [facility].[address] Lymphocytes 3.0 10*3/uL Normal 1.2-4.0 [facility] Comment on above: Order Comment: No: Do not add to previou s drawNo collection time noted on specimen or requisition. The collection timerecorded is the time of receipt in the lab. Performed By: #### 5 0103 ####[facility] [facility].[address] Lymphocytes/100 leukocytes 28.2 % Normal 20.0-45.0 [facility] Comment on above: Order Comment: No: Do not add to previou s drawNo collection time noted on specimen or requisition. The collection timerecorded is the time of receipt in the lab. Performed By: #### 5 0103 ####[facility] MCH 28.9 pg Normal 27.0-33.0 [facility] Comment on above: Order Comment: No: Do not add to previou s drawNo collection time noted on specimen or requisition. The collection timerecorded is the time of receipt in the lab. Performed By: #### 5 0103 ####[facility] [facility].[address] MCHC mass conc (RBC) 33.6 g/dL Normal 32.0-35.0 [facility] Comment on above: Order Comment: No: Do not add to previou s drawNo collection time noted on specimen or requisition. The collection timerecorded is the time of receipt in the lab. Performed By: #### 5 0103 ####[facility] MCV 85.9 fL Normal 82.0-98.0 [facility] Comment on above: Order Comment: No: Do not add to previou s drawNo collection time noted on specimen or requisition. The collection timerecorded is the time of receipt in the lab. Performed By: #### 5 0103 ####[facility] [facility].[address] Monocytes 1.0 10*3/uL Normal 0.1-1.0 [facility] Comment on above: Order Comment: No: Do not add to previou s drawNo collection time noted on specimen or requisition. The collection timerecorded is the time of receipt in the lab. Performed By: #### 5 0103 ####[facility] [facility].[address] MONOS 9.0 % Normal 5.0-12.0 [facility] Comment on above: Order Comment: No: Do not add to previou s drawNo collection time noted on specimen or requisition. The collection timerecorded is the time of receipt in the lab. Performed By: #### 5 0103 ####[facility] [facility].[address] Neutrophils 6.4 10*3/uL Normal 1.6-7.6 [facility] Comment on above: Order Comment: No: Do not add to previou s drawNo collection time noted on specimen or requisition. The collection timerecorded is the time of receipt in the lab. Performed By: #### 5 0103 ####[facility] [facility].[address] Neutrophils/100 leukocytes 59.9 % Normal 40.0-72.0 [facility] Comment on above: Order Comment: No: Do not add to previou s drawNo collection time noted on specimen or requisition. The collection timerecorded is the time of receipt in the lab. Performed By: #### 5 0103 ####[facility] [place] [address], [facility] PLAT CNT 179 10*3/uL Normal 150-400 [facility] Comment on above: Order Comment: No: Do not add to previou s drawNo collection time noted on specimen or requisition. The collection timerecorded is the time of receipt in the lab. Performed By: #### 5 0103 ####[facility] [facility].[address] WBC (Leukocytes) 10.7 10*3/uL High 4.0-10.6 [facility] Comment on above: Order Comment: No: Do not add to previou s drawNo collection time noted on specimen or requisition. The collection timerecorded is the time of receipt in the lab. Performed By: #### 5 0103 ####[facility] [place] [address], [facility] MAGNESIUM BLOODon 06-21-2017 Magnesium 2.3 mg/dL Normal 1.9-2.7 [facility] Comment on above: Order Comment: No: Do not add to previou s drawNo collection time noted on specimen or requisition. The collection timerecorded is the time of receipt in the lab. Performed By: #### 0 0071, 07575 ####[facility] [place] [address], [facility] POC GLUCOSE LABon 06-21-2017 Glucose mass conc 261 mg/dL High 70-100 [facility] Comment on above: Performed By: #### [id number] ####[facility] [place] [address], [facility] Glucose mass conc 327 mg/dL High 70-100 [facility] Comment on above: Performed By: #### 95312 ####[facility] [place] [address], [facility] Glucose mass conc 176 mg/dL High 70-100 [facility] Comment on above: Performed By: #### 97647 ####[facility] [place] [address], [facility] PROTHROMBIN TIMEon 8 INR Coag RelTime (PPP) 1.04 {INR} Normal 0.91-1.16 [facility] Comment on above: Order Comment: [...] OF ACTION, CLINICALEFFECTIVENESS, AND OPTIMAL THERAPEUTIC RANGE. [id number]. Performed By: #### 5 6101, 75197 ####[facility]3000 [facility] Prothrombin time (PT) Coag time (PPP) 13.6 s Normal 12.3-14.8 [facility] Comment on above: Order Comment: No: Do not add to previou s drawNo collection time noted on specimen or requisition. The collection timerecorded is the time of receipt in the lab. Result Comment: ALL RESULTS MUST BE INTERPRETED WITH RESPECT TO BLOOD DRAWING ARTIFACTOR DILUTION ERROR OF ANTICOAGULANT AT THE TIME OF SAMPLING. Performed By: #### 5 6101, 20447 ####[facility] [place] [address], [facility] UFH HEPARIN ASSAYon 06-22-19 18 UNFRACTIONATED HEPARIN CANCELED Normal 0.30-0.70 [facility] Comment on above: Order Comment: Please [...] 06/21/2017 15:02 Performed By: #### 3 0477 ####[facility] [place] [address], [facility] UNFRACTIONATED HEPARIN >1.00 Critically high 0.30-0.70 [facility] Comment on above: Result Comment: Rivaroxaban [...] blood stream. Performed By: #### 3 0477 ####[facility]3000 PATRICIADESHAWN LOPEZ.[address] UNFRACTIONATED HEPARIN 0.67 IU/mL Normal 0.30-0.70 [facility] Comment on above: Order Comment: MOVE TO AM PER SATISH Pearl T 0058.No collection time noted on specimen or requisition. The collection timerecorded is the time of receipt in the lab. Result Comment: Morena roxaban and Apixaban will interfere with the anti Xa assay used tomonitor UFH and LMWH. Performed By: #### 5 6101, 24685 ####[facility] [facility]OPE[facility].[address] Encounters Encounter Date Encounter Type Care Provider Facility Start: 04-16-2023 End: 04-16-2023 ambulatory MENDEZ GARCIA Not Available Start: 07-03-2022 End: 07-03-2022 ambulatory JAMIR BANG [facility] Start: 04-07-2020 End: 04-08-2020 Patient encounter procedure NATALYA HERNANDEZ Facility: Start: 07-19-2017 End: 07-20-2017 Ambulatory DEFAULT PHYSICIAN Facility:[facility] Start: 06-20-2017 End: 06-22-2017 Evaluation and management of inpatient Chad Lloyd Facility:[facility] Start: 06-20-2017 End: 06-21-2017 Ambulatory DEFAULT PHYSICIAN Facility:[facility] Procedures Date Procedure Procedure Detail Performing Clinician Start: 06-21-2017 DILATION OF 1 COR AR T WITH DRUG-ELUT INTRA, PERC APPROACH JAMIR BANG Start: 06-21-2017 FLUOROSCOPY OF MULTI PLE CORONARY ARTERIES USING OTH CONTRAST JAMIR BANG Payers Date Payer Category Payer Medicaid [id number] 1965 Unknown [id number] 1965 Unknown [id number] 1961 Unknown [id number] Unknown Progress note 07-03-2022 Note Date & Type Note Facility 07-03-2022 Note [place] [facility] Subjective Mendez Rodríguez is a 57 y.o. year old male [...] with filling of the distal vessel by [id number] collateral circulation that vessel appears to be [...] for this visit: Coronary artery disease involving grayling coronary artery of grayling heart without (more content not included)... [facility] Summary Purpose Family History No Family [...] and content) DATE CREATED AUTHOR 09/13/2017 [facility] DATE CREATED AUTHOR AUTHOR'S ORGANIZ ATION 04/15/2020 [facility] DATE CREATED AUTHOR AUTHOR'S ORGANIZ ATION 07/13/2021 [facility] Specialist DATE CREATED AUTHOR AUTHOR'S ORGANIZ ATION 07/03/2022 [facility] DATE CREATED AUTHOR AUTHOR'S ORGANIZ ATION 04/17/2023 [facility] d[facility] Specialists [facility] FOR RECORDS PERTAINING TO PATIENTS WHO ARE [...] BE BASED ON THE PRIMARY CLINICAL RECORDS. [facility] [employer] [facility]. provides no warranty or guarantee of the accuracy or completeness of information in this document.
== END 2023-06-13 09:14 | disposition home or self-care (01) ==
LOC: EC 09:13
PROVIDERS: PCP Internal Medicine; Visit Provider Podiatrist Foot & Ankle Surgery
DX: M25.572 Pain in left ankle and joints of left foot (principal); S89.392D Other physeal fracture of lower end of left fibula, subsequent encounter for fracture with routine healing
CPT/HCPCS: 73610

== ENCOUNTER 2023-06-27 09:21 | Outpatient (OUT) | payer MEDICAID, SELFPAY ==
--- NOTE | 2023-06-27 | XR_ITS ---
The [address] [address] Patient Name: BELINDA SAUCEDA MRN: [id number] date: 1965 Sex: M Assigned Patient Location: Current Patient Location: Accession/Order Number: [id number] Exam Date: 06/27/2023 09:36 Report Date: 06/28/2023 06:43 At the request of: ASA KHANNA Procedure: XR ankle LT min 3V PROCEDURE: XR ankle LT min 3V HISTORY: LEFT ANKLE PAIN ; follow-up fracture COMPARISON: XR ankle left 06/13/2023, 04/24/2023 FINDINGS: BONES:Prior oblique fracture of distal fibula at level of ankle joint which remains in normal alignment. Slight increased density of the fracture line compared to initial study. Intact tibiotalar joint. SOFT TISSUES:No visible soft tissue swelling. EFFUSION:None visible. OTHER: Negative. XR/XR ankle LT min 3V IMPRESSION: 1. Stable alignment and likely ongoing bone healing. Fracture line is still readily visible. Electronically authenticated by: GINI HOLLEY Date: 06/28/2023 06:43
--- OUTSIDE RECORDS SUMMARY | 2023-06-27 09:30 | XMS_ITS | CCD ---
Author Organization [facility] Care Team Providers Care Greenhouse Technician Name Role Phone PHYSICIAN, DEFAULT Unavailable Unavailable PHYSICIAN, DEFAULT Unavailable Unavailable Gabino, Chad Unavailable Unavailable Gabino, Chad Unavailable Unavailable NADAUD, MIKEY Unavailable Unavailable MENDEZ GARCIA Unavailable Unavailable UNKNOWN, PROVIDER Unavailable Unavailable NE Unavailable Unavailable PHYSICIAN, DEFAULT Unavailable Unavailable PHYSICIAN, DEFAULT Unavailable Unavailable MENDEZ GARCIA Unavailable Unavailable NATALYA HERNANDEZ Attending Unavailable NATALYA HERNANDEZ Consulting Unavailable NATALYA HERNANDEZ Admitting Unavailable MENDEZ GARCIA Primary Care Unavailable JAMIR BANG Attending Unavailable MENDEZ GARCIA Attending Unavailable Allergies Allergy Classification Reported Allergen(s) Allergy Type Date of Onset Reaction(s) Facility (1 source) 56741,00 Drug allergy (disorder) 8 [facility] Repository (1 source) No Known Allergies; Translations: [No Known Allergies] Propensity to adverse reactions (disorder) [facility] Repository Problems Problem Classification Problem Date Documented Da te Episodic/Chronic Coronary atherosclerosis and other heart disease (5 sources) Unstable angina; Translations: [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] Onset: [...] / UNK(Unknown) Onset: 06-20-2017 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 (1 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; Translations: [PENITENTIARY (CURRENT) USE OF ORAL HYPOGLYCEMIC DRUGS] Onset: 06-20-2017 Results Test Name Value Interpretation Reference Range Facility Office Visiton 07-03-2022 Follow-up visit [id number] Rafa Rodríguez 1965 M Date Provider Department Center 07/03/2022 Yolanda-JAMIR BANG [facility] Family History Problem Relation Age of Onset Coronary artery disease Mother Diabetes Mother Hypertension Father Heart attack Paternal Grandmother Family Status - Relation Status Age at Mother Father Paternal Grandmother Level of Service:16423 NE OFFICE/OUTPATIENT ESTABLISHED LOW MDM 20-29 MIN Reason for Visit and Comments: Coronary Artery Disease [187] Normal [facility] Q - COMPREHENSIVE METABOLIC PANEL W/EGFRon 07-11-2021 Albumin [Mass/Vol] 4.4 g/dL Normal 3.6-5.1 [facility] [employer] Teacher Comment on above: Order Comment: [facility] 11U Testing performed at: [facility], [address] [place] [address], [address] [place] [address], [address] [place] [address], Cooking Chef: Blaise Sol MD [facility] Collection Date/Time: [facility] Results Received Date/Time: [facility] Reported Date/Time: FASTING: NO Performed By: #### 1 [id number], [id number], [id number] #### [facility] Default [address] [place] [address] Albumin/Globulin [Mass ratio] 1.7 {ratio} Normal 1.0-2.5 [facility] Specialist Comment on above: Order Comment: [facility] 11U Testing performed at: [facility], [address] [facility], [address] [place] [address], [address] [place] [address], Cooking Chef: Blaise Sol MD [facility] Collection Date/Time: [facility] Results Received Date/Time: [facility] Reported Date/Time: FASTING: NO Performed By: #### 1 [id number], [id number], [id number] #### [facility] Default [address] [place] [address] ALP [Catalytic activity/Vol] 65 U/L Normal 35-144 [facility] Specialist Comment on above: Order Comment: [facility] 11U Testing performed at: [place], [address] [place] [address], [address] [place] [address], [address] [place] [address], Cooking Chef: Blaise Sol MD [facility] Collection Date/Time: [facility] Results Received Date/Time: [facility] Reported Date/Time: FASTING: NO Performed By: #### 1 0231A, [id number], [id number] #### [facility] Default [address] [place] [address] ALT [Catalytic activity/Vol] 62 U/L High 9-46 [facility] Specialist Comment on above: Order Comment: [facility] 11U Testing performed at: [place], [address] [place] [address], [address] [place] [address], [address] [place] [address], Cooking Chef: Blaise Sol MD [facility] Collection Date/Time: [facility] Results Received Date/Time: [facility] Reported Date/Time: FASTING: NO Performed By: #### 1 0231A, [id number], [id number] #### [facility] Default [address] [place] [address] AST [Catalytic activity/Vol] 29 U/L Normal 10-35 [facility] [employer] Mathematics Teacher Comment on above: Order Comment: [facility] 11U Testing performed at: [employer], [facility], [address] [place] [address], [address] [place] [address], [address] [place] [address], Cooking Chef: Blaise Sol MD [facility] Collection Date/Time: [facility] Results Received Date/Time: [facility] Reported Date/Time: FASTING: NO Performed By: #### 1 [id number], [id number], [id number] #### [facility] Default [address] [place] [address] Bilirubin [Mass/Vol] 0.4 mg/dL Normal 0.2-1.2 [facility] [employer] Teacher Comment on above: Order Comment: [facility] 11U Testing performed at: [employer], [address] [facility], [address] [place] [address], [address] [place] [address], Cooking Chef: Blaise Sol MD [facility] Collection Date/Time: [facility] Results Received Date/Time: [facility] Reported Date/Time: FASTING: NO Performed By: #### 1 0231A, [id number], [id number] #### [facility] Default [address] [place] [address] BUN/CREA 23 NOT APPLICABLE Normal 6-22 [facility] Comment on above: Order Comment: [facility] 11U Testing performed at: [employer], [address] [place] [address], [address] [place] [address], [address] [place] [address], Cooking Chef: Blaise Sol MD [facility] Collection Date/Time: [facility] Results Received Date/Time: [facility] Reported Date/Time: FASTING: NO Performed By: #### 1 0231A, [id number], [id number] #### [facility] Default [address] [place] [address] Calcium [Mass/Vol] 9.7 mg/dL Normal 8.6-10.3 [facility] [employer] Teacher Comment on above: Order Comment: [facility] 11U Testing performed at: [employer], [address] [place] [address], [address] [place] [address], [address] [place] [address], Cooking Chef: Blaise Sol MD [facility] Collection Date/Time: [facility] Results Received Date/Time: [facility] Reported Date/Time: FASTING: NO Performed By: #### 1 0231A, [id number], [id number] #### [facility] Default [address] [place] [address] Chloride [Moles/Vol] 104 mmol/L Normal 98-110 [facility] [employer] Teacher Comment on above: Order Comment: [facility] 11U Testing performed at: [employer], [address] [place] [address], [address] [place] [address], [address] [place] [address], Cooking Chef: Blaise Sol MD [facility] Collection Date/Time: [facility] Results Received Date/Time: [facility] Reported Date/Time: FASTING: NO Performed By: #### 1 0231A, [id number], [id number] #### [facility] Default [address] [place] [address] CO2 [Moles/Vol] 26 mmol/L Normal 20-32 [facility] [employer] Mathematics Teacher Comment on above: Order Comment: [facility] 11U Testing performed at: [employer], [address] [place] [address], [address] [place] [address], [address] [place] [address], Cooking Chef: Blaise Sol MD [facility] Collection Date/Time: [facility] Results Received Date/Time: [facility] Reported Date/Time: FASTING: NO Performed By: #### 1 0231A, [id number], [id number] #### [facility] Default [address] [place] [address] Creatinine [Mass/Vol] 0.81 mg/dL Normal 0.70-1.33 [facility] [employer] Mathematics Teacher Comment on above: Order Comment: [facility] 11U Testing performed at: [employer], [address] [place] [address], [address] [place] [address], [address] [place] [address], Cooking Chef: Blaise Sol MD [facility] Collection Date/Time: [facility] Results Received Date/Time: [facility] Reported Date/Time: FASTING: NO Result Comment: For patients >49 years of age, the reference limit for Creatinine is approximately 13% higher for people identified as -Cambodian. Performed By: #### 1 0231A, [id number], 5363X #### [facility] Default [address] [place] [address] eGFRAA (Quest) 114 mL/min/1.73m2 Normal > OR = 60 [facility] Comment on above: Order Comment: [facility] 11U Testing performed at: [employer], [address] [place] [address], [address] [place] [address], [address] [place] [address], Cooking Chef: Blaise Sol MD [facility] Collection Date/Time: [facility] Results Received Date/Time: [facility] Reported Date/Time: FASTING: NO Performed By: #### 1 0231A, [id number], 5363X #### [facility] Default [address] [place] [address] eGFRNAA (Quest) 98 mL/min/1.73m2 Normal > OR = 60 [facility] Comment on above: Order Comment: [facility] 11U Testing performed at: [employer], [address] [facility], [address] [place] [address], , Cooking Chef: Blaise Sol MD [facility] Collection Date/Time: [facility] Results Received Date/Time: [facility] Reported Date/Time: FASTING: NO Performed By: #### 1 0231A, [id number], 5363X #### [facility] Default [address] [place] [address] Globulin (S) [Mass/Vol] 2.6 g/dL Normal 1.9-3.7 [facility] [employer] Mathematics Teacher Comment on above: Order Comment: [facility] 11U Testing performed at: [facility], [address] [facility], [address] [place] [address], [address], Cooking Chef: Blaise Sol MD [facility] Collection Date/Time: [facility] Results Received Date/Time: [facility] Reported Date/Time: FASTING: NO Performed By: #### 1 0231A, [id number], 5363X #### [facility] Default [address] [place] [address] Glucose [Mass/Vol] 123 mg/dL Normal 65-139 [facility] [employer] Mathematics Teacher Comment on above: Order Comment: [facility] 11U Testing performed at: [facility], [address] [facility], [address] [place] [address], [address], Cooking Chef: Blaise Sol MD [facility] Collection Date/Time: [facility] Results Received Date/Time: [facility] Reported Date/Time: FASTING: NO Result Comment: Non-fasting reference interval For someone without known diabetes, a glucose value between 100 and 125 mg/dL is consistent with prediabetes and should be confirmed with a follow-up test. Performed By: #### 1 0231A, [id number], 5363X #### [facility] Default [address] [place] [address] Potassium [Moles/Vol] 4.7 mmol/L Normal 3.5-5.3 [facility] [employer] Mathematics Teacher Comment on above: Order Comment: [facility] 11U Testing performed at: [employer], [address] [place] [address], [address] [place] [address], [address] [place] [address], Cooking Chef: Blaise Sol MD [facility] Collection Date/Time: [facility] Results Received Date/Time: [facility] Reported Date/Time: FASTING: NO Performed By: #### 1 0231A, [id number], 5363X #### [facility] Default [address] [place] [address] Protein [Mass/Vol] 7.0 g/dL Normal 6.1-8.1 [facility] [employer] Mathematics Teacher Comment on above: Order Comment: [facility] 11U Testing performed at: [facility], [address] [place] [address], [address] [place] [address], [address] [place] [address], Cooking Chef: Blaise Sol MD [facility] Collection Date/Time: [facility] Results Received Date/Time: [facility] Reported Date/Time: FASTING: NO Performed By: #### 1 0231A, [id number], [id number] #### [facility] Default [address] [place] [address] Sodium [Moles/Vol] 137 mmol/L Normal 135-146 [employer] Mathematics Teacher Comment on above: Order Comment: [facility] 11U Testing performed at: [employer], [address] [place] [address], [address] [place] [address], [address] [place] [address], Cooking Chef: Blaise Sol MD [facility] Collection Date/Time: [facility] Results Received Date/Time: [facility] Reported Date/Time: FASTING: NO Performed By: #### 1 0231A, [id number], [id number] #### [facility] Default [address] [place] [address] Urea nitrogen [Mass/Vol] 19 mg/dL Normal 7-25 [facility] [employer] Mathematics Teacher Comment on above: Order Comment: [facility] 11U Testing performed at: [facility], [address] [facility], [address] [place] [address], [address] [place] [address], Cooking Chef: Blaise Sol MD [facility] Collection Date/Time: [facility] Results Received Date/Time: [facility] Reported Date/Time: FASTING: NO Performed By: #### 1 0231A, [id number], 5363X #### [facility] Default [address] [place] [address] Q - MICROALBUMIN,RANDOM URIN E (W/CREAT)on 07-11-2021 Albumin DL <= 20 mg/L (U) [Mass/Vol] 1.0 mg/dL Normal See Note: [facility] [employer] Mathematics Teacher Comment on above: Order Comment: [facility] 11U Testing performed at: [facility], [address] [facility], [address] [place] [address], [address] [place] [address], Cooking Chef: Blaise Sol MD [facility] Collection Date/Time: [facility] Results Received Date/Time: [facility] Reported Date/Time: FASTING: NO Result Comment: Refe rence Range: Reference Range Not established Performed By: #### 1 0231A, [id number], [id number] #### [facility] Default [address] [place] [address] Creatinine (U) [Mass/Vol] 65 mg/dL Normal 20-320 [employer] Mathematics Teacher Comment on above: Order Comment: [facility] 11U Testing performed at: [facility], [address] [place] [address], [address] [place] [address], [address] [place] [address], Cooking Chef: Blaise Sol MD [facility] Collection Date/Time: [id number] [facility] Results Received Date/Time: [facility] Reported Date/Time: FASTING: NO Performed By: #### 1 0231A, [id number], [id number] #### [facility] Default [address] [place] [address] MICROALBUMIN/CRE ATININE RATIO, RANDOM URINE 15 mcg/mg creat Normal <30 [facility] [employer] Mathematics Teacher Comment on above: Order Comment: [facility] 11U Testing performed at: [employer], [address] [place] [address], [address] [place] [address], [address], Cooking Chef: Blaise Sol MD [facility] Collection Date/Time: Quest [...] 6517X, 5363X #### [facility] Default [address] [place] [address] Q - PSA TOTALon 07-11-2021 PSA, TOTAL 1.41 ng/mL Normal < OR = 4.00 [facility] [employer] Mathematics Teacher Comment on above: Order Comment: [facility] 11U Testing performed at: [facility], [address] [place] [address], [address] [place] [address], [address], Cooking Chef: Blaise Sol MD [facility] Collection Date/Time: [id number] [facility] Results Received Date/Time: [facility] Reported Date/Time: [...] 6517X, 5363X #### [facility] Default [address] [place] [address] ECHOCARDIO M/2D COMPLETEon 0 04-07-2020 ECHOCARDIO M/2D COMPLETE Patient: MENDEZ RODRÍGUEZ Exam Date: 04/07/2020 : 1965 Gender:M Ordering : NATALYA HERNANDEZ Admission #: [id number] Family : DR MENDEZ GARCIA M.D. Order #: [id number] CLICK HERE TO VIEW EXAM ECHOCARDIOGRAM REPORT [...] M.D. on 04/14/2020 at 16:11 Normal [facility] Discharge Summaryon 07-02-19 Discharge Summary MR[id number] Rod[facility] Admitted: 06/20/2017 Discharged: 06/22/2017 Date of : 1965 Physician: Chad Lloyd MD DISCHARGE SUMMARYDISCHARGING PHYSICIAN: Dr. Robin.PRIMARY DIAGNOSIS: Unstable angina/positive stress test.SECONDARY DIAGNOSES:1. Type 2 diabetic.2. Smoker.PROCEDURES: Left heart catheterization.HOSPITAL COURSE: This 52-year-old male was transferred from [facility] with unstable angina. The stress test showed an inferior wallmotion abnormality with inferior defect by perfusion. It was also found tohave T-wave inversions in the inferior leads. He was then sent to [facility] [place].The next day, he received cardiac catheterization to [...] Dict: 06/30/2017/10:43 P/Julia Galindo Trans: 07/01/2017 12:09 [id number]: Mendez Garcia M.D. 3 [facility] [address] Mikey Marks D.O. [facility] [address] [facility] [address] Normal [facility] BASIC METABOLIC PANELon 03-3 Calcium 8.7 mg/dL Normal 8.6-10.3 [facility] Comment on above: Order Comment: No: Do not add to previou s drawNo collection time noted on specimen or requisition. The collection timerecorded is the time of receipt in the lab. Performed By: #### 0 0071, 60175 ####[facility] [place] [address], [facility] Chloride 103 mmol/L Normal 98-107 [facility] Comment on above: Order Comment: No: Do not add to previou s drawNo collection time noted on specimen or requisition. The collection timerecorded is the time of receipt in the lab. Performed By: #### 0 0071, 00871 ####[facility] [place] [address], [facility] CO2 22 mmol/L Normal 21-31 [facility] Comment on above: Order Comment: No: Do not add to previou s drawNo collection time noted on specimen or requisition. The collection timerecorded is the time of receipt in the lab. Performed By: #### 0 0071, 38157 ####[facility] [facility].[address] Creatinine 0.91 mg/dL Normal 0.70-1.30 [facility] Comment on above: Order Comment: No: Do not add to previou s drawNo collection time noted on specimen or requisition. The collection timerecorded is the time of receipt in the lab. Performed By: #### 0 0071, 09307 ####[facility] [facility].[address] eGFR (black) mL/min/{1.73_m2} Normal >60 [facility] Comment on above: Order Comment: No: Do not add to previou s drawNo collection time noted on specimen or requisition. The collection timerecorded is the time of receipt in the lab. Performed By: #### 0 0071, 41446 ####[facility] [facility].[address] eGFR (non-black) mL/min/{1.73_m2} Normal >60 [facility] Comment on above: Order Comment: No: Do not add to previou s drawNo collection time noted on specimen or requisition. The collection timerecorded is the time of receipt in the lab. Performed By: #### 0 0071, 13132 ####[facility] [facility].[address] Glucose mass conc 270 mg/dL High 70-100 [facility] Comment on above: Order Comment: No: Do not add to previou s drawNo collection time noted on specimen or requisition. The collection timerecorded is the time of receipt in the lab. Performed By: #### 0 0071, 80146 ####[facility] [facility].[address] Potassium molar conc 4.1 mmol/L Normal 3.5-5.1 [facility] Comment on above: Order Comment: No: Do not add to previou s drawNo collection time noted on specimen or requisition. The collection timerecorded is the time of receipt in the lab. Performed By: #### 0 0071, 18679 ####[facility] [facility].[address] Sodium 132 mmol/L Low 136-145 [facility] Comment on above: Order Comment: No: Do not add to previou s drawNo collection time noted on specimen or requisition. The collection timerecorded is the time of receipt in the lab. Performed By: #### 0 0071, 69678 ####[facility] Urea nitrogen 25 mg/dL Normal 7-25 [facility] Comment on above: Order Comment: No: Do not add to previou s drawNo collection time noted on specimen or requisition. The collection timerecorded is the time of receipt in the lab. Performed By: #### 0 0071, 34284 ####[facility] CBC W/DIFFon 06-22-2017 ABS BASOPHILS 0.0 10*3/uL Normal 0.0-0.2 [facility] Comment on above: Order Comment: No: Do not add to previou s drawNo collection time noted on specimen or requisition. The collection timerecorded is the time of receipt in the lab. Performed By: #### 0 0071, 26808 ####[facility] ABS IMM GRANS 0.0 10*3/uL Normal 0.0-0.2 [facility] Comment on above: Order Comment: No: Do not add to previou s drawNo collection time noted on specimen or requisition. The collection timerecorded is the time of receipt in the lab. Performed By: #### 0 0071, 90412 ####[facility] [facility].[address] Basophils Auto #/vol (Bld) 0.5 % Normal 0.0-1.0 [facility] Comment on above: Order Comment: No: Do not add to previou s drawNo collection time noted on specimen or requisition. The collection timerecorded is the time of receipt in the lab. Performed By: #### 0 0071, 87812 ####[facility] Eosinophils 0.2 10*3/uL Normal 0.0-0.5 [facility] Comment on above: Order Comment: No: Do not add to previou s drawNo collection time noted on specimen or requisition. The collection timerecorded is the time of receipt in the lab. Performed By: #### 0 0071, 48838 ####[facility] [place] [address] Eosinophils/100 leukocytes 2.1 % Normal 0.0-6.0 [facility] Comment on above: Order Comment: No: Do not add to previou s drawNo collection time noted on specimen or requisition. The collection timerecorded is the time of receipt in the lab. Performed By: #### 0 0071, 27019 ####[address] Erythrocyte distribution width Auto Ratio (RBC) 12.4 % Normal 11.5-15.0 [facility] Comment on above: Order Comment: No: Do not add to previou s drawNo collection time noted on specimen or requisition. The collection timerecorded is the time of receipt in the lab. Performed By: #### 0 0071, 05335 ####[facility] Erythrocytes (RBC) 0 % Normal 0-0 [facility] Comment on above: Order Comment: No: Do not add to previou s drawNo collection time noted on specimen or requisition. The collection timerecorded is the time of receipt in the lab. Performed By: #### 0 0071, 49572 ####[address] Erythrocytes (RBC) 4.30 10*6/uL Normal 4.20-5.70 [facility] Comment on above: Order Comment: No: Do not add to previou s drawNo collection time noted on specimen or requisition. The collection timerecorded is the time of receipt in the lab. Performed By: #### 0 0071, 25672 ####[facility] Hematocrit (HCT) 37.2 % Low 39.0-50.0 [facility] Comment on above: Order Comment: No: Do not add to previou s drawNo collection time noted on specimen or requisition. The collection timerecorded is the time of receipt in the lab. Performed By: #### 0 0071, 25355 ####[facility] Hemoglobin mass conc (Bld) 12.6 g/dL Low 13.0-17.0 [facility] Comment on above: Order Comment: No: Do not add to previou s drawNo collection time noted on specimen or requisition. The collection timerecorded is the time of receipt in the lab. Performed By: #### 0 0071, [id number] ####[facility] IMMATURE GRANS 0.3 % Normal 0.0-1.0 [facility] [place] [facility] Comment on above: Order Comment: No: Do not add to previou s drawNo collection time noted on specimen or requisition. The collection timerecorded is the time of receipt in the lab. Performed By: #### 0 0071, [id number] ####[place] [address] Lymphocytes 2.1 10*3/uL Normal 1.2-4.0 [facility] [place] [facility] Comment on above: Order Comment: No: Do not add to previou s drawNo collection time noted on specimen or requisition. The collection timerecorded is the time of receipt in the lab. Performed By: #### 0 0071, [id number] ####[place] [address] Lymphocytes/100 leukocytes 23.8 % Normal 20.0-45.0 [facility] Comment on above: Order Comment: No: Do not add to previou s drawNo collection time noted on specimen or requisition. The collection timerecorded is the time of receipt in the lab. Performed By: #### 0 0071, [id number] ####[facility] MCH 29.3 pg Normal 27.0-33.0 [facility] Comment on above: Order Comment: No: Do not add to previou s drawNo collection time noted on specimen or requisition. The collection timerecorded is the time of receipt in the lab. Performed By: #### 0 0071, 58032 ####[facility] MCHC mass conc (RBC) 33.9 g/dL Normal 32.0-35.0 [facility] Comment on above: Order Comment: No: Do not add to previou s drawNo collection time noted on specimen or requisition. The collection timerecorded is the time of receipt in the lab. Performed By: #### 0 0071, 67022 ####[facility] MCV 86.5 fL Normal 82.0-98.0 [facility] [place] [facility] Comment on above: Order Comment: No: Do not add to previou s drawNo collection time noted on specimen or requisition. The collection timerecorded is the time of receipt in the lab. Performed By: #### 0 0071, 79665 ####[facility] Monocytes 0.8 10*3/uL Normal 0.1-1.0 [facility] Comment on above: Order Comment: No: Do not add to previou s drawNo collection time noted on specimen or requisition. The collection timerecorded is the time of receipt in the lab. Performed By: #### 0 0071, [id number] ####[facility]3000 [facility] [place] [address], [facility] MONOS 8.9 % Normal 5.0-12.0 [facility] [place] [facility] Comment on above: Order Comment: No: Do not add to previou s drawNo collection time noted on specimen or requisition. The collection timerecorded is the time of receipt in the lab. Performed By: #### 0 0071, [id number] ####[facility]3000 [facility] [place] [address], [facility] Neutrophils 5.6 10*3/uL Normal 1.6-7.6 [facility] Comment on above: Order Comment: No: Do not add to previou s drawNo collection time noted on specimen or requisition. The collection timerecorded is the time of receipt in the lab. Performed By: #### 0 0071, 40956 ####[facility]3000 [facility].[address] Neutrophils/100 leukocytes 64.4 % Normal 40.0-72.0 [facility] Comment on above: Order Comment: No: Do not add to previou s drawNo collection time noted on specimen or requisition. The collection timerecorded is the time of receipt in the lab. Performed By: #### 0 0071, 29180 ####[facility]3000 [facility] [place] [address], [facility] PLAT CNT 152 10*3/uL Normal 150-400 [facility] Comment on above: Order Comment: No: Do not add to previou s drawNo collection time noted on specimen or requisition. The collection timerecorded is the time of receipt in the lab. Performed By: #### 0 0071, 32550 ####[facility]3000 [facility].[address] WBC (Leukocytes) 8.7 10*3/uL Normal 4.0-10.6 [facility] Comment on above: Order Comment: No: Do not add to previou s drawNo collection time noted on specimen or requisition. The collection timerecorded is the time of receipt in the lab. Performed By: #### 0 0071, [id number] ####[facility] Cardiovascular Lab Reporton 06-22-2017 Cardiovascular Lab Report [facility] Patient Name: Mendez Rodríguez [facility] MR #: [id number] Physician: Jamir Perkins M.D.Medicine Service Date: 06/21/2017Division of Birthdate: 1965Cardiology Room #: 3CD [id number] [place], [place] [address] Fax Cardiovascular Laboratory ReportINDICATION: Mendez Rodríguez is a 52-year-old man who was admitted to [facility] with unstable angina. A stress test showed [...] signed informed consent. He was brought to orthodontic lab technician in a fasting state.The right wrist area was prepped and draped in usual fashion. Jerome's testwas favorable. Using micropuncture technique, the right radial artery wasaccessed. A 6-Sierra Leonean x 11 cm Hydrophilic sheath was advanced. Verapamilwas given through the sheath and heparin was administered intravenously.Bilateral selective coronary angiography was then performed using a6-Sierra Leonean JR5 diagnostic catheter for engagement of the right coronaryartery and a 6-S[place]an Kaveh radial diagnostic catheter for engagement ofthe left coronary artery. Catheters were removed.Therapeutic ACT confirmed during the procedure and additional heparinadministered as needed. A 6-S[place]an JR4 guiding catheter was advanced andused to [...] 12 atmospheres and post dilated using NCQuantum Maunie 2.5 x 8 mm noncompliant balloon inflated [...] with filling of the distal vessel by [id number] collateral circulation that vessel appears to be [...] 06/21/2017/11:32 A/Jamir Bang M.D.Date Trans: 06/22/2017 08:38 A/[id number]: Mendez Garcia M.D. [address] [place] [address] Mikey Mraks D.O. [place] [address] [address] [place] [address] Normal [facility] MAGNESIUM BLOODon 06-22-2017 Magnesium 2.0 mg/dL Normal 1.9-2.7 [facility] Comment on above: Order Comment: No: Do not add to previou s drawNo collection time noted on specimen or requisition. The collection timerecorded is the time of receipt in the lab. Performed By: #### 0 0071, 45789 ####[facility]3000 [place] [address], [facility] POC GLUCOSE LABon 06-22-2017 Glucose mass conc 273 mg/dL High 70-100 [facility] Comment on above: Performed By: #### 98525, 27879 ####[facility]3000 [facility] BASIC METABOLIC PANELon 03-2 Calcium 9.3 mg/dL Normal 8.6-10.3 [facility] [place] [facility] Comment on above: Order Comment: No: Do not add to previou s drawNo collection time noted on specimen or requisition. The collection timerecorded is the time of receipt in the lab. Performed By: #### 0 0071, 65661 ####[facility]3000 [facility].[address] Chloride 102 mmol/L Normal 98-107 [facility] [place] [facility] Comment on above: Order Comment: No: Do not add to previou s drawNo collection time noted on specimen or requisition. The collection timerecorded is the time of receipt in the lab. Performed By: #### 0 0071, 14330 ####[place] [address] [facility].[address] CO2 25 mmol/L Normal 21-31 [facility] Comment on above: Order Comment: No: Do not add to previou s drawNo collection time noted on specimen or requisition. The collection timerecorded is the time of receipt in the lab. Performed By: #### 0 0071, 10984 ####[place] [address] [facility].[address] Creatinine 0.92 mg/dL Normal 0.70-1.30 [facility] [place] [facility] Comment on above: Order Comment: No: Do not add to previou s drawNo collection time noted on specimen or requisition. The collection timerecorded is the time of receipt in the lab. Performed By: #### 0 0071, 41422 ####[place] [address] [facility].[address] eGFR (black) mL/min/{1.73_m2} Normal >60 [facility] Comment on above: Order Comment: No: Do not add to previou s drawNo collection time noted on specimen or requisition. The collection timerecorded is the time of receipt in the lab. Performed By: #### 0 0071, 64832 ####[facility]3000 [facility].[address] eGFR (non-black) mL/min/{1.73_m2} Normal >60 [facility] Comment on above: Order Comment: No: Do not add to previou s drawNo collection time noted on specimen or requisition. The collection timerecorded is the time of receipt in the lab. Performed By: #### 0 0071, 87535 ####[facility]3000 [facility].[address] Glucose mass conc 193 mg/dL High 70-100 [facility] [place] [facility] Comment on above: Order Comment: No: Do not add to previou s drawNo collection time noted on specimen or requisition. The collection timerecorded is the time of receipt in the lab. Performed By: #### 0 0071, 27273 ####[place] [address] [facility].[address] Potassium molar conc 4.0 mmol/L Normal 3.5-5.1 [facility] Comment on above: Order Comment: No: Do not add to previou s drawNo collection time noted on specimen or requisition. The collection timerecorded is the time of receipt in the lab. Performed By: #### 0 0071, 05155 ####[facility]3000 [facility].[address] Sodium 133 mmol/L Low 136-145 [facility] Comment on above: Order Comment: No: Do not add to previou s drawNo collection time noted on specimen or requisition. The collection timerecorded is the time of receipt in the lab. Performed By: #### 0 0071, 96099 ####[facility]3000 [facility] [address], [facility] Urea nitrogen 23 mg/dL Normal 7-25 [facility] Comment on above: Order Comment: No: Do not add to previou s drawNo collection time noted on specimen or requisition. The collection timerecorded is the time of receipt in the lab. Performed By: #### 0 0071, 62742 ####[facility] CBC W/DIFFon 06-21-2017 ABS BASOPHILS 0.1 10*3/uL Normal 0.0-0.2 [facility] [place] [facility] Comment on above: Order Comment: No: Do not add to previou s drawNo collection time noted on specimen or requisition. The collection timerecorded is the time of receipt in the lab. Performed By: #### 5 0103 ####[place] [address] ABS IMM GRANS 0.0 10*3/uL Normal 0.0-0.2 [facility] [place] [facility] Comment on above: Order Comment: No: Do not add to previou s drawNo collection time noted on specimen or requisition. The collection timerecorded is the time of receipt in the lab. Performed By: #### 5 0103 ####[place] [address] Basophils Auto #/vol (Bld) 0.5 % Normal 0.0-1.0 [facility] [place] [facility] Comment on above: Order Comment: No: Do not add to previou s drawNo collection time noted on specimen or requisition. The collection timerecorded is the time of receipt in the lab. Performed By: #### 5 0103 ####[facility] Eosinophils 0.2 10*3/uL Normal 0.0-0.5 [facility] [place] [facility] Comment on above: Order Comment: No: Do not add to previou s drawNo collection time noted on specimen or requisition. The collection timerecorded is the time of receipt in the lab. Performed By: #### 5 0103 ####[facility] Eosinophils/100 leukocytes 2.0 % Normal 0.0-6.0 [facility] [place] [facility] Comment on above: Order Comment: No: Do not add to previou s drawNo collection time noted on specimen or requisition. The collection timerecorded is the time of receipt in the lab. Performed By: #### 5 0103 ####[facility] Erythrocyte distribution width Auto Ratio (RBC) 12.6 % Normal 11.5-15.0 [facility] [place] [facility] Comment on above: Order Comment: No: Do not add to previou s drawNo collection time noted on specimen or requisition. The collection timerecorded is the time of receipt in the lab. Performed By: #### 5 0103 ####[address] Erythrocytes (RBC) 0 % Normal 0-0 [facility] Comment on above: Order Comment: No: Do not add to previou s drawNo collection time noted on specimen or requisition. The collection timerecorded is the time of receipt in the lab. Performed By: #### 5 0103 ####[place] [address] [address] Erythrocytes (RBC) 4.95 10*6/uL Normal 4.20-5.70 [facility] Comment on above: Order Comment: No: Do not add to previou s drawNo collection time noted on specimen or requisition. The collection timerecorded is the time of receipt in the lab. Performed By: #### 5 0103 ####[place] [address] Hematocrit (HCT) 42.5 % Normal 39.0-50.0 [facility] Comment on above: Order Comment: No: Do not add to previou s drawNo collection time noted on specimen or requisition. The collection timerecorded is the time of receipt in the lab. Performed By: #### 5 0103 ####[facility]3000 [facility].[address] Hemoglobin mass conc (Bld) 14.3 g/dL Normal 13.0-17.0 [facility] Comment on above: Order Comment: No: Do not add to previou s drawNo collection time noted on specimen or requisition. The collection timerecorded is the time of receipt in the lab. Performed By: #### 5 0103 ####[facility]3000 [facility].[address] IMMATURE GRANS 0.4 % Normal 0.0-1.0 [facility] Comment on above: Order Comment: No: Do not add to previou s drawNo collection time noted on specimen or requisition. The collection timerecorded is the time of receipt in the lab. Performed By: #### 5 0103 ####[facility]3000 [facility].[address] Lymphocytes 3.0 10*3/uL Normal 1.2-4.0 [facility] Comment on above: Order Comment: No: Do not add to previou s drawNo collection time noted on specimen or requisition. The collection timerecorded is the time of receipt in the lab. Performed By: #### 5 0103 ####[facility]3000 [facility].[address] Lymphocytes/100 leukocytes 28.2 % Normal 20.0-45.0 [facility] Comment on above: Order Comment: No: Do not add to previou s drawNo collection time noted on specimen or requisition. The collection timerecorded is the time of receipt in the lab. Performed By: #### 5 0103 ####[facility] MCH 28.9 pg Normal 27.0-33.0 [facility] Comment on above: Order Comment: No: Do not add to previou s drawNo collection time noted on specimen or requisition. The collection timerecorded is the time of receipt in the lab. Performed By: #### 5 0103 ####[facility]3000 [facility].[address] MCHC mass conc (RBC) 33.6 g/dL Normal 32.0-35.0 [facility] Comment on above: Order Comment: No: Do not add to previou s drawNo collection time noted on specimen or requisition. The collection timerecorded is the time of receipt in the lab. Performed By: #### 5 0103 ####[facility] MCV 85.9 fL Normal 82.0-98.0 [facility] Comment on above: Order Comment: No: Do not add to previou s drawNo collection time noted on specimen or requisition. The collection timerecorded is the time of receipt in the lab. Performed By: #### 5 0103 ####[facility]3000 [facility].[address] Monocytes 1.0 10*3/uL Normal 0.1-1.0 [facility] Comment on above: Order Comment: No: Do not add to previou s drawNo collection time noted on specimen or requisition. The collection timerecorded is the time of receipt in the lab. Performed By: #### 5 0103 ####[facility]3000 [facility].[address] MONOS 9.0 % Normal 5.0-12.0 [facility] Comment on above: Order Comment: No: Do not add to previou s drawNo collection time noted on specimen or requisition. The collection timerecorded is the time of receipt in the lab. Performed By: #### 5 0103 ####[facility]3000 [facility].[address] Neutrophils 6.4 10*3/uL Normal 1.6-7.6 [facility] Comment on above: Order Comment: No: Do not add to previou s drawNo collection time noted on specimen or requisition. The collection timerecorded is the time of receipt in the lab. Performed By: #### 5 0103 ####[facility]3000 [facility].[address] Neutrophils/100 leukocytes 59.9 % Normal 40.0-72.0 [facility] Comment on above: Order Comment: No: Do not add to previou s drawNo collection time noted on specimen or requisition. The collection timerecorded is the time of receipt in the lab. Performed By: #### 5 0103 ####[facility]3000 [place] [address], [facility] PLAT CNT 179 10*3/uL Normal 150-400 [facility] Comment on above: Order Comment: No: Do not add to previou s drawNo collection time noted on specimen or requisition. The collection timerecorded is the time of receipt in the lab. Performed By: #### 5 0103 ####[facility]3000 [facility].[address] WBC (Leukocytes) 10.7 10*3/uL High 4.0-10.6 [facility] Comment on above: Order Comment: No: Do not add to previou s drawNo collection time noted on specimen or requisition. The collection timerecorded is the time of receipt in the lab. Performed By: #### 5 0103 ####[facility]3000 [facility] [address], [facility] MAGNESIUM BLOODon 06-21-2017 Magnesium 2.3 mg/dL Normal 1.9-2.7 [facility] Comment on above: Order Comment: No: Do not add to previou s drawNo collection time noted on specimen or requisition. The collection timerecorded is the time of receipt in the lab. Performed By: #### 0 0071, 77251 ####[facility]3000 [facility] [address], [facility] POC GLUCOSE LABon 06-21-2017 Glucose mass conc 261 mg/dL High 70-100 [facility] [place] [facility] Comment on above: Performed By: #### [id number] ####[facility]3000 [facility] [address], [facility] Glucose mass conc 327 mg/dL High 70-100 [facility] Comment on above: Performed By: #### [id number] ####[facility]3000 [facility] [address], [facility] Glucose mass conc 176 mg/dL High 70-100 [facility] [place] [facility] Comment on above: Performed By: #### [id number] ####[facility]3000 [facility] [address], [facility] PROTHROMBIN TIMEon 8 INR Coag RelTime (PPP) 1.04 {INR} Normal 0.91-1.16 [facility] Comment on above: Order Comment: No: [...] OF ACTION, CLINICALEFFECTIVENESS, AND OPTIMAL THERAPEUTIC RANGE. [id number]. Performed By: #### 5 6101, 56700 ####[facility]3000 [facility].[address] Prothrombin time (PT) Coag time (PPP) 13.6 s Normal 12.3-14.8 [facility] [place] [facility] Comment on above: Order Comment: No: Do not add to previou s drawNo collection time noted on specimen or requisition. The collection timerecorded is the time of receipt in the lab. Result Comment: ALL RESULTS MUST BE INTERPRETED WITH RESPECT TO BLOOD DRAWING ARTIFACTOR DILUTION ERROR OF ANTICOAGULANT AT THE TIME OF SAMPLING. Performed By: #### 5 6101, 24179 ####[facility]3000 [facility] [address], [facility] UFH HEPARIN ASSAYon 06-22-19 18 UNFRACTIONATED HEPARIN CANCELED Normal 0.30-0.70 [facility] [place] [facility] Comment on above: Order Comment: Please [...] 06/21/2017 15:02 Performed By: #### 3 0477 ####[facility]3000 [facility] [place] [address], [facility] UNFRACTIONATED HEPARIN >1.00 Critically high 0.30-0.70 [facility] Comment on above: Result Comment: Rivaroxaban [...] blood stream. Performed By: #### 3 0477 ####[facility]3000 PATRICIADESHAWN LOPEZ.[address] UNFRACTIONATED HEPARIN 0.67 IU/mL Normal 0.30-0.70 [facility] [place] [facility] Comment on above: Order Comment: MOVE TO AM PER SATISH Pearl T 0058.No collection time noted on specimen or requisition. The collection timerecorded is the time of receipt in the lab. Result Comment: [place] roxaban and Apixaban will interfere with the anti Xa assay used tomonitor UFH and LMWH. Performed By: #### 5 6101, 83961 ####[facility]3000 PATRICIAD[address]HAWN LOPEZ.[address] Encounters Encounter Date Encounter Type Care Provider Facility Start: 04-16-2023 End: 04-16-2023 ambulatory MENDEZ GARCIA Not Available Start: 07-03-2022 End: 07-03-2022 ambulatory JAMIR BANG [facility] Start: 04-07-2020 End: 04-08-2020 Patient encounter procedure NATALYA HERNANDEZ Facility: Start: 07-19-2017 End: 07-20-2017 Ambulatory DEFAULT PHYSICIAN Facility:[facility] [place] Start: 06-20-2017 End: 06-22-2017 Evaluation and management of inpatient Chad Lloyd Facility:[facility] [place] Start: 06-20-2017 End: 06-21-2017 Ambulatory DEFAULT PHYSICIAN Facility:[facility] [place] Procedures Date Procedure Procedure Detail Performing Clinician Start: 06-21-2017 DILATION OF 1 COR AR T WITH DRUG-ELUT INTRA, PERC APPROACH JAMIR BANG Start: 06-21-2017 FLUOROSCOPY OF MULTI PLE CORONARY ARTERIES USING OTH CONTRAST JAMIR BANG Payers Date Payer Category Payer Medicaid [id number] 1965 Unknown [id number] 1965 Unknown [id number] 1961 Unknown [id number] Unknown Progress note 07-03-2022 Note Date & Type Note Facility 07-03-2022 Note [place] [facility] Subjective Mendez Rodríguez is a 57 [...] with filling of the distal vessel by [id number] collateral circulation that vessel appears to be [...] for this visit: Coronary artery disease involving choctaw coronary artery of choctaw heart without (more content not included)... [facility] Summary Purpose Family History No Family [...] and content) DATE CREATED AUTHOR 09/13/2017 [facility] DATE CREATED AUTHOR AUTHOR'S ORGANIZ ATION 04/15/2020 [facility] DATE CREATED AUTHOR AUTHOR'S ORGANIZ ATION 07/13/2021 [facility] DATE CREATED AUTHOR AUTHOR'S ORGANIZ ATION 07/03/[address] [facility] DATE CREATED AUTHOR AUTHOR'S ORGANIZ ATION 04/17/2023 [facility] FOR RECORDS PERTAINING TO PATIENTS [...] BE BASED ON THE PRIMARY CLINICAL RECORDS. [facility] [employer] [facility]. provides no warranty or guarantee of the accuracy or completeness of information in this document.
== END 2023-06-27 09:22 | disposition home or self-care (01) ==
LOC: EC 09:21
PROVIDERS: PCP Internal Medicine; Visit Provider Podiatrist Foot & Ankle Surgery
DX: M25.572 Pain in left ankle and joints of left foot (principal); S89.392D Other physeal fracture of lower end of left fibula, subsequent encounter for fracture with routine healing
CPT/HCPCS: 73610

== ENCOUNTER 2023-07-17 09:21 | Outpatient (OUT) | payer MEDICAID, SELFPAY ==
--- NOTE | 2023-07-17 | XR_ITS ---
[place] [id number] Patient Name: BELINDA SAUCEDA MRN: [id number] date: 1965 Sex: M Assigned Patient Location: Current Patient Location: Accession/Order Number: [id number] Exam Date: 07/17/2023 09:28 Report Date: 07/17/2023 10:17 At the request of: ALFA MCKEON Procedure: XR ankle LT min 3V PROCEDURE: XR ankle LT min 3V COMPARISON: 06/27/2023 HISTORY: LEFT ANKLE PAIN FINDINGS: BONES:Stable oblique fracture of the distal fibula with minimal interval bone formation. Incomplete bony bridging. No new fracture or dislocation. Moderate enthesopathic spurring of the calcaneus SOFT TISSUES:Moderate diffuse soft tissue swelling EFFUSION:Ankle joint effusion OTHER: Negative. XR/XR ankle LT min 3V IMPRESSION: Stable distal fibular fracture with minimal interval healing Electronically authenticated by: FORREST AGUIRRE Date: 07/17/2023 10:17
== END 2023-07-17 09:22 | disposition home or self-care (01) ==
LOC: EC 09:21
PROVIDERS: PCP Internal Medicine; Visit Provider Podiatrist Foot & Ankle Surgery
DX: M25.572 Pain in left ankle and joints of left foot (principal); S89.392D Other physeal fracture of lower end of left fibula, subsequent encounter for fracture with routine healing
CPT/HCPCS: 73610

== ENCOUNTER 2023-08-29 09:14 | Outpatient (OUT) | payer MEDICAID, SELFPAY ==
--- NOTE | 2023-08-29 | XR_ITS ---
The [address] [address] Patient Name: BELINDA SAUCEDA MRN: [id number] date: 1965 Sex: M Assigned Patient Location: Current Patient Location: Accession/Order Number: [id number] Exam Date: 08/29/2023 09:15 Report Date: 08/30/2023 07:37 At the request of: ALFA MCKEON Procedure: XR ankle LT min 3V PROCEDURE: XR ankle LT min 3V HISTORY: LEFT ANKLE PAIN COMPARISON: XR ankle left 07/17/2023 FINDINGS: BONES:Stable nondisplaced to very minimally displaced fracture of the distal fibula at the level of the ankle joint with increased density fracture line and increased callus formation at the margins. SOFT TISSUES:No visible soft tissue swelling. EFFUSION:None visible. OTHER: Negative. XR/XR ankle LT min 3V IMPRESSION: 1. Stable, normal alignment of distal fibular fracture with increased bone formation compatible with ongoing bone healing. Electronically authenticated by: GINI HOLLEY Date: 08/30/2023 07:37
--- OUTSIDE RECORDS SUMMARY | 2023-08-29 09:30 | XMS_ITS | CCD ---
Author Organization [facility] CliniSytn Care Team Providers Care A Auxiliary Name Role Phone PHYSICIAN, DEFAULT Unavailable Unavailable PHYSICIAN, DEFAULT Unavailable Unavailable Gabino, Chad Unavailable Unavailable Gabino, Chad Unavailable Unavailable NADAUD, MIKEY Unavailable Unavailable MENDEZ GARCIA Unavailable Unavailable UNKNOWN, PROVIDER Unavailable Unavailable GA Unavailable Unavailable PHYSICIAN, DEFAULT Unavailable Unavailable PHYSICIAN, DEFAULT Unavailable Unavailable MENDEZ GARCIA Unavailable Unavailable NATALYA HERNANDEZ Attending Unavailable NATALYA HERNANDEZ Consulting Unavailable NATALYA HERNANDEZ Admitting Unavailable MENDEZ GARCIA Primary Care Unavailable JAMIR BANG Attending Unavailable MENDEZ GARCIA Attending Unavailable MENDEZ GARCIA Attending Unavailable Allergies Allergy Classification Reported Allergen(s) Allergy Type Date of Onset Reaction(s) Facility (1 source) 29619,00 Drug allergy (disorder) 8 [facility] Repository (1 source) No Known Allergies; Translations: [No Known Allergies] Propensity to adverse reactions (disorder) [facility] Repository Problems Problem Classification Problem Date Documented Da te Episodic/Chronic Coronary atherosclerosis and other heart disease (5 sources) Unstable angina; Translations: [Atherosclerotic heart disease of [place] coronary artery with unstable angina pectoris] Onset: 06-20-2017 Chronic Coronary atherosclerosis and other heart disease (2 sources) Presence of coronary angioplasty implant and graft; Translations: [Presence of coronary angioplasty implant and graft] Onset: 07-13-2023 Episodic Diabetes mellitus without complication (1 source) Type 2 diabetes mellitus without complications; Translations: [TYPE 2 DIABETES MELLITUS WITHOUT COMPLICATIONS] Onset: 06-20-2017 Chronic Essential hypertension (2 sources) Essential (primary) hypertension; Translations: [Essential (primary) hypertension] Onset: 07-13-2023 Chronic Heart valve disorders (4 sources) Nonrheumatic aortic (valve) insufficiency; Translations: [NONRHEUMATIC AORTIC INSUFFICIENCY] Onset: 04-07-2020 Chronic Substance-related disorders (1 source) Nicotine dependence, cigarettes, uncomplicated; Translations: [NICOTINE DEPENDENCE, CIGARETTES, UNCOMPLICATED] Onset: 06-20-2017 Chronic 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 (2 sources) Unknown / UNK(Unknown) Onset: 06-20-2017 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 (1 source) custodial (current) use of oral hypoglycemic drugs; Translations: [HALFWAY (CURRENT) USE OF ORAL HYPOGLYCEMIC DRUGS] Onset: 06-20-2017 Results Test Name Value Interpretation Reference Range Facility Office Visiton 07-13-2023 Follow-up visit [id number] Rafa Rodríguez 1965 M Date Provider Department Center 07/13/2023 Yolanda-JAMIR BANG CARD [facility] Family History Problem Relation Age of Onset Coronary artery disease Mother Diabetes Mother Hypertension Father Heart attack Paternal Grandmother Family Status - Relation Status Age at Mother Father Paternal Grandmother Level of Service:74099 [place] OFFICE/OUTPATIENT ESTABLISHED MOD MDM 30 MIN Reason for Visit and Comments: Follow-up [250403] - 1 year follow up Normal [facility] Q - COMPREHENSIVE METABOLIC PANEL W/EGFRon 07-11-2021 Albumin [Mass/Vol] 4.4 g/dL Normal 3.6-5.1 [facility] Patient Access Director Comment on above: Order Comment: [facility] 11U Testing performed at: [facility], [address] [place] [address], [address] [place] [address], Vamp Cut Out Worker: Blaise Sol MD [facility] Collection Date/Time: [facility] Results Received Date/Time: [facility] Reported Date/Time: FASTING: NO Performed By: #### 1 0231A, [id number], 5363X #### [facility] [address] [place] [address] Albumin/Globulin [Mass ratio] 1.7 {ratio} Normal 1.0-2.5 [facility] Patient Access Director Comment on above: Order Comment: [facility] 11U Testing performed at: [facility], [address] [place] [address], [address] [place] [address], [id number], Vamp Cut Out Worker: Blaise Sol MD [facility] Collection Date/Time: [facility] Results Received Date/Time: [facility] Reported Date/Time: FASTING: NO Performed By: #### 1 0231A, [id number], 5363X #### [facility] [address] [place] [address] ALP [Catalytic activity/Vol] 65 U/L Normal 35-144 [facility] Comment on above: Order Comment: [facility] 11U Testing performed at: [facility], [facility], [address] [facility], [address] [place] [address], [address] [place] [address], Vamp Cut Out Worker: Blaise Sol MD [facility] Collection Date/Time: [facility] Results Received Date/Time: [facility] Reported Date/Time: FASTING: NO Performed By: #### 1 0231A, [id number], 5363X #### [facility] [address] [place] [address] ALT [Catalytic activity/Vol] 62 U/L High 9-46 [facility] Specialist Comment on above: Order Comment: [facility] 11U Testing performed at: [facility], [facility], [address] [place] [address], [address] [place] [address], [address] [place] [address], Vamp Cut Out Worker: Blaise Sol MD [facility] Collection Date/Time: [facility] Results Received Date/Time: [facility] Reported Date/Time: FASTING: NO Performed By: #### 1 0231A, [id number], [id number] #### [facility] [address] [place] [address] AST [Catalytic activity/Vol] 29 U/L Normal 10-35 [facility] Specialist Comment on above: Order Comment: [facility] 11U Testing performed at: [facility], [facility], [address] [place] [address], [address] [place] [address], [address] [place] [address], Vamp Cut Out Worker: Blaise Sol MD [facility] Collection Date/Time: [facility] Results Received Date/Time: [facility] Reported Date/Time: FASTING: NO Performed By: #### 1 0231A, [id number], [id number] #### [facility] [address] [place] [address] Bilirubin [Mass/Vol] 0.4 mg/dL Normal 0.2-1.2 [facility] Specialist Comment on above: Order Comment: [facility] 11U Testing performed at: [facility], [facility], [address] [facility], [address] [place] [address], [address] [place] [address], [employer] Out Worker: Blaise Sol MD [facility] Collection Date/Time: [facility] Results Received Date/Time: [facility] Reported Date/Time: FASTING: NO Performed By: #### 1 0231A, [id number], [id number] #### [facility] [address] [place] [address] BUN/CREA 23 NOT APPLICABLE Normal 6-22 [facility] Comment on above: Order Comment: [facility] 11U Testing performed at: [facility] [facility], [facility], [address] [place] [address], [address] [place] [address], [address] [place] [address], [employer] Out Worker: Blaise Sol MD [facility] Collection Date/Time: [facility] Results Received Date/Time: [facility] Reported Date/Time: FASTING: NO Performed By: #### 1 0231A, [id number], 5363X #### [facility] [address] [place] [address] Calcium [Mass/Vol] 9.7 mg/dL Normal 8.6-10.3 [facility] Specialist Comment on above: Order Comment: [facility] 11U Testing performed at: [facility], [facility], [address] [facility], [address] [place] [address], [address] [place] [address], Vamp Cut Out Worker: Blaise Sol MD [facility] Collection Date/Time: [facility] Results Received Date/Time: [facility] Reported Date/Time: FASTING: NO Performed By: #### 1 0231A, [id number], 5363X #### [facility] [address] [place] [address] Chloride [Moles/Vol] 104 mmol/L Normal 98-110 [facility] Specialist Comment on above: Order Comment: [facility] 11U Testing performed at: [facility], [facility], [address] [facility], [address] [place] [address], [address] [place] [address], [employer] Out Worker: Blaise Sol MD [facility] Collection Date/Time: [facility] Results Received Date/Time: [facility] Reported Date/Time: FASTING: NO Performed By: #### 1 0231A, [id number], 5363X #### [facility] [address] [place] [address] CO2 [Moles/Vol] 26 mmol/L Normal 20-32 [facility] Comment on above: Order Comment: [facility] 11U Testing performed at: [facility], [facility], [address] [facility], [address] [place] [address], [address] [place] [address], [employer] Out Worker: Blaise Sol MD [facility] Collection Date/Time: [facility] Results Received Date/Time: [facility] Reported Date/Time: FASTING: NO Performed By: #### 1 0231A, [id number], 5363X #### [facility] [address] [place] [address] Creatinine [Mass/Vol] 0.81 mg/dL Normal 0.70-1.33 [facility] Specialist Comment on above: Order Comment: [facility] 11U Testing performed at: [employer], [facility], [address] [facility], [address] [place] [address], [address] [place] [address], Vamp Cut Out Worker: Blaise Sol MD [facility] Collection Date/Time: [facility] Results Received Date/Time: [facility] Reported Date/Time: FASTING: NO Result Comment: For patients >49 years of age, the reference limit for Creatinine is approximately 13% higher for people identified as -[place]. Performed By: #### 1 0231A, [id number], 5363X #### [facility] Default [address] [place] [address] eGFRAA (Quest) 114 mL/min/1.73m2 Normal > OR = 60 [facility] [place] Patient Access Director Comment on above: Order Comment: [facility] 11U Testing performed at: [facility], [facility], [address] [place] [address], [address] [place] [address], [address] [place] [address], Vamp [employer] Out Worker: Blaise Sol MD [facility] Collection Date/Time: [facility] Results Received Date/Time: [facility] Reported Date/Time: FASTING: NO Performed By: #### 1 0231A, [id number], 5363X #### [facility] [address] [place] [address] eGFRNAA (Quest) 98 mL/min/1.73m2 Normal > OR = 60 [facility] Patient Access Director Comment on above: Order Comment: [facility] 11U Testing performed at: [employer] [facility], [facility], [address] [place] [address], [address] [place] [address], [address] [place] [address], Vamp [employer] Out Worker: Blaise Sol MD [facility] Collection Date/Time: [facility] Results Received Date/Time: [facility] Reported Date/Time: FASTING: NO Performed By: #### 1 0231A, 6517X, 5363X #### [facility] [address] [place] [address] Globulin (S) [Mass/Vol] 2.6 g/dL Normal 1.9-3.7 [facility] Patient Access Director Comment on above: Order Comment: [facility] 11U Testing performed at: [facility], [address] [place] [address], [address] [place] [address], [address] [place] [address], Vamp Cut Out Worker: Blaise Sol MD [facility] Collection Date/Time: [facility] Results Received Date/Time: [facility] Reported Date/Time: FASTING: NO Performed By: #### 1 0231A, 6517X, 5363X #### [facility] [address] [place] [address] Glucose [Mass/Vol] 123 mg/dL Normal 65-139 [facility] Patient Access Director Comment on above: Order Comment: [facility] 11U Testing performed at: [employer], [facility], [address] [place] [address], [address] [place] [address], [address] [place] [address], Vamp [employer] Out Worker: Blaise Sol MD [facility] Collection Date/Time: [facility] Results Received Date/Time: [facility] Reported Date/Time: FASTING: NO Result Comment: Non-fasting reference interval For someone without known diabetes, a glucose value between 100 and 125 mg/dL is consistent with prediabetes and should be confirmed with a follow-up test. Performed By: #### 1 0231A, [id number], 5363X #### [facility] Default [address] [place] [address] Potassium [Moles/Vol] 4.7 mmol/L Normal 3.5-5.3 [facility] Patient Access Director Comment on above: Order Comment: [facility] 11U Testing performed at: [facility], [address] [place] [address], [address] [place] [address], [address] [place] [address], Vamp Cut Out Worker: Blaise Sol MD [facility] Collection Date/Time: [facility] Results Received Date/Time: [facility] Reported Date/Time: FASTING: NO Performed By: #### 1 0231A, [id number], 5363X #### [facility] Default [address] [place] [address] Protein [Mass/Vol] 7.0 g/dL Normal 6.1-8.1 [facility] Patient Access Director Comment on above: Order Comment: [facility] 11U Testing performed at: [facility], [address] [place] [address], [address] [place] [address], [address] [place] [address], [employer] Out Worker: Blaise Sol MD [facility] Collection Date/Time: [facility] Results Received Date/Time: [facility] Reported Date/Time: FASTING: NO Performed By: #### 1 0231A, [id number], 5363X #### [facility] Default [address] [place] [address] Sodium [Moles/Vol] 137 mmol/L Normal 135-146 [place] Patient Access Director Comment on above: Order Comment: [facility] 11U Testing performed at: [facility], [facility], [address] [facility], [address] [place] [address], [address] [place] [address], Vamp Cut Out Worker: Blaise Sol MD [facility] Collection Date/Time: [facility] Results Received Date/Time: [facility] Reported Date/Time: FASTING: NO Performed By: #### 1 0231A, 6517X, 5363X #### [facility] Default [address] [place] [address] Urea nitrogen [Mass/Vol] 19 mg/dL Normal 7-25 [facility] Patient Access Director Comment on above: Order Comment: [facility] 11U Testing performed at: [facility], [facility], [address] [facility], [address] [place] [address], [address] [place] [address], [employer] Out Worker: Blaise Sol MD [facility] Collection Date/Time: [facility] Results Received Date/Time: [facility] Reported Date/Time: FASTING: NO Performed By: #### 1 0231A, [id number], 5363X #### [facility] Default [address] [place] [address] Q - MICROALBUMIN,RANDOM URIN E (W/CREAT)on 07-11-2021 Albumin DL <= 20 mg/L (U) [Mass/Vol] 1.0 mg/dL Normal See Note: [facility] Patient Access Director Comment on above: Order Comment: [facility] 11U Testing performed at: [facility], [address] [facility], [address] [place] [address], [address] [place] [address], [employer] Out Worker: Blaise Sol MD [facility] Collection Date/Time: [id number] [facility] Results Received Date/Time: [facility] Reported Date/Time: FASTING: NO Result Comment: Refe rence Range: Reference Range Not established Performed By: #### 1 0231A, 6517X, 5363X #### [facility] Default [address] [place] [address] Creatinine (U) [Mass/Vol] 65 mg/dL Normal 20-320 [place] Patient Access Director Comment on above: Order Comment: [facility] 11U Testing performed at: [facility], [facility], [address] [facility], [address] [place] [address], [address], Vamp Cut Out Worker: Blaise Sol MD [facility] Collection Date/Time: [facility] Results Received Date/Time: [facility] Reported Date/Time: FASTING: NO Performed By: #### 1 0231A, [id number], 5363X #### [facility] Default [address] [place] [address] MICROALBUMIN/CRE ATININE RATIO, RANDOM URINE 15 mcg/mg creat Normal <30 [facility] Patient Access Director Comment on above: Order Comment: [facility] 11U Testing performed at: [facility], [facility], [address] [facility], [address] [place] [address], [address] [place] [address], [employer] Out Worker: Blaise Sol MD [facility] Collection Date/Time: Quest [...] 6517X, 5363X #### [facility] Default [address] [place] [address] Q - PSA TOTALon 07-11-2021 PSA, TOTAL 1.41 ng/mL Normal < OR = 4.00 [facility] Patient Access Director Comment on above: Order Comment: [facility] 11U Testing performed at: [facility], [facility], [address] [facility], [address] [place] [address], [address] [place] [address], Vamp Cut Out Worker: Blaise Sol MD [facility] Collection Date/Time: [facility] Results Received Date/Time: [facility] Reported Date/Time: FASTING: NO Result Comment: The total PSA value from this assay system is standardized against the WHO standard. The test result will be approximately 20% lower when compared to the equimolar-standardized total PSA (Shadia [place]). Comparison of serial PSA results should be interpreted with this fact in mind. This test was performed using the Siemens chemiluminescent method. Values obtained from different assay methods cannot be used interchangeably. PSA levels, regardless of value, should not be interpreted as absolute evidence of the presence or absence of disease. Performed By: #### 1 0231A, 6517X, 5363X #### [facility] Default [address] [place] [address] ECHOCARDIO M/2D COMPLETEon 0 04-07-2020 ECHOCARDIO M/2D COMPLETE Patient: MENDEZ RODRÍGUEZ Exam Date: 04/07/2020 : 1965 Gender:M Ordering : NATALYA MARY Admission #: [id number] Family : DR MENDEZ GARCIA M.D. Order #: [id number] CLICK HERE TO VIEW EXAM ECHOCARDIOGRAM REPORT [...] M.D. on 04/14/2020 at 16:11 Normal [facility] Discharge Summaryon 07-02-19 Discharge Summary [id number] Rod[facility] Admitted: 06/20/2017 Discharged: 06/22/2017 Date of : 1965 Physician: Chad Lloyd MD DISCHARGE SUMMARYDISCHARGING PHYSICIAN: Dr. Robin.PRIMARY DIAGNOSIS: Unstable angina/positive stress test.SECONDARY DIAGNOSES:1. Type 2 diabetic.2. Smoker.PROCEDURES: Left heart catheterization.HOSPITAL COURSE: This 52-year-old male was transferred from [facility] with unstable angina. The stress test showed an inferior wallmotion abnormality with inferior defect by perfusion. It was also found tohave T-wave inversions in the inferior leads. He was then sent to [facility].The next day, he received cardiac catheterization [...] Dict: 06/30/2017/10:43 P/Julia Galindo Trans: 07/01/2017 12:09 [id number]: Mendez Garcia M.D. [address] [place] [address] Mikey Marks D.O. [facility] [address] [place] [address] Normal [facility] BASIC METABOLIC PANELon 03-3 Calcium 8.7 mg/dL Normal 8.6-10.3 [facility] Comment on above: Order Comment: No: Do not add to previou s drawNo collection time noted on specimen or requisition. The collection timerecorded is the time of receipt in the lab. Performed By: #### 0 0071, 17094 ####[facility] [place] [address], [place] Chloride 103 mmol/L Normal 98-107 [facility] Comment on above: Order Comment: No: Do not add to previou s drawNo collection time noted on specimen or requisition. The collection timerecorded is the time of receipt in the lab. Performed By: #### 0 0071, 41609 ####[facility] [place] [address], [place] CO2 22 mmol/L Normal 21-31 [facility] Comment on above: Order Comment: No: Do not add to previou s drawNo collection time noted on specimen or requisition. The collection timerecorded is the time of receipt in the lab. Performed By: #### 0 0071, 83897 ####[facility] [place] [address], [place] Creatinine 0.91 mg/dL Normal 0.70-1.30 [facility] Comment on above: Order Comment: No: Do not add to previou s drawNo collection time noted on specimen or requisition. The collection timerecorded is the time of receipt in the lab. Performed By: #### 0 0071, 04967 ####[facility] [address] eGFR (black) mL/min/{1.73_m2} Normal >60 [facility] Comment on above: Order Comment: No: Do not add to previou s drawNo collection time noted on specimen or requisition. The collection timerecorded is the time of receipt in the lab. Performed By: #### 0 0071, [address]157 ####[place] [address] eGFR (non-black) mL/min/{1.73_m2} Normal >60 [facility] Comment on above: Order Comment: No: Do not add to previou s drawNo collection time noted on specimen or requisition. The collection timerecorded is the time of receipt in the lab. Performed By: #### 0 0071, 95899 ####[place] [address] Glucose mass conc 270 mg/dL High 70-100 [facility] Comment on above: Order Comment: No: Do not add to previou s drawNo collection time noted on specimen or requisition. The collection timerecorded is the time of receipt in the lab. Performed By: #### 0 0071, 13049 ####[facility] [place] [address], [place] Potassium molar conc 4.1 mmol/L Normal 3.5-5.1 [facility] Comment on above: Order Comment: No: Do not add to previou s drawNo collection time noted on specimen or requisition. The collection timerecorded is the time of receipt in the lab. Performed By: #### 0 0071, 68221 ####[facility] [address] Sodium 132 mmol/L Low 136-145 [facility] Comment on above: Order Comment: No: Do not add to previou s drawNo collection time noted on specimen or requisition. The collection timerecorded is the time of receipt in the lab. Performed By: #### 0 0071, 35342 ####[place] [address] Urea nitrogen 25 mg/dL Normal 7-25 [facility] Comment on above: Order Comment: No: Do not add to previou s drawNo collection time noted on specimen or requisition. The collection timerecorded is the time of receipt in the lab. Performed By: #### 0 70, 49946 ####[place] [address] CBC W/DIFFon 06-22-2017 ABS BASOPHILS 0.0 10*3/uL Normal 0.0-0.2 [facility] Comment on above: Order Comment: No: Do not add to previou s drawNo collection time noted on specimen or requisition. The collection timerecorded is the time of receipt in the lab. Performed By: #### 0 1, 84589 ####[facility] [address] ABS IMM GRANS 0.0 10*3/uL Normal 0.0-0.2 [facility] Comment on above: Order Comment: No: Do not add to previou s drawNo collection time noted on specimen or requisition. The collection timerecorded is the time of receipt in the lab. Performed By: #### 0 1, 26932 ####[address] Basophils Auto #/vol (Bld) 0.5 % Normal 0.0-1.0 [facility] Comment on above: Order Comment: No: Do not add to previou s drawNo collection time noted on specimen or requisition. The collection timerecorded is the time of receipt in the lab. Performed By: #### 0 0071, 63766 ####[facility] [place] [address], [place] Eosinophils 0.2 10*3/uL Normal 0.0-0.5 [facility] Comment on above: Order Comment: No: Do not add to previou s drawNo collection time noted on specimen or requisition. The collection timerecorded is the time of receipt in the lab. Performed By: #### 0 0071, 94042 ####[facility] [place] [address], [place] Eosinophils/100 leukocytes 2.1 % Normal 0.0-6.0 [facility] Comment on above: Order Comment: No: Do not add to previou s drawNo collection time noted on specimen or requisition. The collection timerecorded is the time of receipt in the lab. Performed By: #### 0 0071, 98751 ####[facility].[address] Erythrocyte distribution width Auto Ratio (RBC) 12.4 % Normal 11.5-15.0 [facility] Comment on above: Order Comment: No: Do not add to previou s drawNo collection time noted on specimen or requisition. The collection timerecorded is the time of receipt in the lab. Performed By: #### 0 0071, [id number] ####[facility] [place] [address], [place] Erythrocytes (RBC) 0 % Normal 0-0 [facility] Comment on above: Order Comment: No: Do not add to previou s drawNo collection time noted on specimen or requisition. The collection timerecorded is the time of receipt in the lab. Performed By: #### 0 0071, [id number] ####[facility] [place] [address], [place] Erythrocytes (RBC) 4.30 10*6/uL Normal 4.20-5.70 [facility] Comment on above: Order Comment: No: Do not add to previou s drawNo collection time noted on specimen or requisition. The collection timerecorded is the time of receipt in the lab. Performed By: #### 0 0071, 76466 ####[facility] Hematocrit (HCT) 37.2 % Low 39.0-50.0 [facility] Comment on above: Order Comment: No: Do not add to previou s drawNo collection time noted on specimen or requisition. The collection timerecorded is the time of receipt in the lab. Performed By: #### 0 0071, [id number] ####[place] [address] Hemoglobin mass conc (Bld) 12.6 g/dL Low 13.0-17.0 [facility] Comment on above: Order Comment: No: Do not add to previou s drawNo collection time noted on specimen or requisition. The collection timerecorded is the time of receipt in the lab. Performed By: #### 0 007, 42042 ####[facility] IMMATURE GRANS 0.3 % Normal 0.0-1.0 [facility] Comment on above: Order Comment: No: Do not add to previou s drawNo collection time noted on specimen or requisition. The collection timerecorded is the time of receipt in the lab. Performed By: #### 0 0071, 82309 ####[facility] [place] [address] Lymphocytes 2.1 10*3/uL Normal 1.2-4.0 [facility] Comment on above: Order Comment: No: Do not add to previou s drawNo collection time noted on specimen or requisition. The collection timerecorded is the time of receipt in the lab. Performed By: #### 0 0071, 17569 ####[facility].[address] Lymphocytes/100 leukocytes 23.8 % Normal 20.0-45.0 [facility] Comment on above: Order Comment: No: Do not add to previou s drawNo collection time noted on specimen or requisition. The collection timerecorded is the time of receipt in the lab. Performed By: #### 0 0071, 83540 ####[facility].[address] MCH 29.3 pg Normal 27.0-33.0 [facility] Comment on above: Order Comment: No: Do not add to previou s drawNo collection time noted on specimen or requisition. The collection timerecorded is the time of receipt in the lab. Performed By: #### 0 0071, [id number] ####[facility].[address] MCHC mass conc (RBC) 33.9 g/dL Normal 32.0-35.0 [facility] Comment on above: Order Comment: No: Do not add to previou s drawNo collection time noted on specimen or requisition. The collection timerecorded is the time of receipt in the lab. Performed By: #### 0 0071, 19905 ####[place] [address] [facility].[address] MCV 86.5 fL Normal 82.0-98.0 [facility] Comment on above: Order Comment: No: Do not add to previou s drawNo collection time noted on specimen or requisition. The collection timerecorded is the time of receipt in the lab. Performed By: #### 0 0071, 86677 ####[facility] Monocytes 0.8 10*3/uL Normal 0.1-1.0 [facility] Comment on above: Order Comment: No: Do not add to previou s drawNo collection time noted on specimen or requisition. The collection timerecorded is the time of receipt in the lab. Performed By: #### 0 0071, 63946 ####[facility] [place] [address], [place] MONOS 8.9 % Normal 5.0-12.0 [facility] Comment on above: Order Comment: No: Do not add to previou s drawNo collection time noted on specimen or requisition. The collection timerecorded is the time of receipt in the lab. Performed By: #### 0 0071, 89533 ####[facility] [place] [address], [place] Neutrophils 5.6 10*3/uL Normal 1.6-7.6 [facility] Comment on above: Order Comment: No: Do not add to previou s drawNo collection time noted on specimen or requisition. The collection timerecorded is the time of receipt in the lab. Performed By: #### 0 0071, 73458 ####[facility] [place] [address], [place] Neutrophils/100 leukocytes 64.4 % Normal 40.0-72.0 [facility] Comment on above: Order Comment: No: Do not add to previou s drawNo collection time noted on specimen or requisition. The collection timerecorded is the time of receipt in the lab. Performed By: #### 0 0071, 62657 ####[facility] [place] [address], [place] PLAT CNT 152 10*3/uL Normal 150-400 [facility] Comment on above: Order Comment: No: Do not add to previou s drawNo collection time noted on specimen or requisition. The collection timerecorded is the time of receipt in the lab. Performed By: #### 0 0071, 16529 ####[facility] WBC (Leukocytes) 8.7 10*3/uL Normal 4.0-10.6 [facility] Comment on above: Order Comment: No: Do not add to previou s drawNo collection time noted on specimen or requisition. The collection timerecorded is the time of receipt in the lab. Performed By: #### 0 0071, [id number] ####[facility] Cardiovascular Lab Reporton 06-22-2017 Cardiovascular Lab Report [facility] Patient Name: Mendez Rodríguez [facility] MR #: [id number] Physician: Jamir Perkins M.D.Medicine Service Date: 06/21/2017Division of Birthdate: 1965Cardiology Room #: 3CD [id number] [place], [place] [address]Nzung Fax Cardiovascular Laboratory ReportINDICATION: Mendez Rodríguez is a 52-year-old man who was admitted to [facility] with unstable angina. A stress test [...] signed informed consent. 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 Jerome's testwas favorable. Using micropuncture technique, the right radial artery wasaccessed. A 6-Belizean x 11 cm Hydrophilic sheath was advanced. Verapamilwas given through the sheath and heparin was administered intravenously.Bilateral selective coronary angiography was then performed using a6-Belizean JR5 diagnostic catheter for engagement of the right coronaryartery and a 6-Belizean Kaveh radial diagnostic catheter for engagement ofthe left coronary artery. Catheters were removed.Therapeutic ACT confirmed during the procedure and additional heparinadministered as needed. A 6-Belizean JR4 guiding catheter was advanced andused to [...] 12 atmospheres and post dilated using NC[employer] [place] 2.5 x 8 mm noncompliant balloon inflated [...] with filling of the distal vessel by [id number]-[id number] collateral circulation that vessel appears to be [...] 05:31 P Jamir Bang M.D.Date Dict: 06/21/2017/11:32 Dae/Jamir Bang M.D.Date Trans: 06/22/2017 08:38 Dae/Chris_JN:[id number]: Mendez Garcia M.D. 3 [facility] [address] Mikey Marks D.O. [place] [address] [place] [address] Normal [facility] MAGNESIUM BLOODon 06-22-2017 Magnesium 2.0 mg/dL Normal 1.9-2.7 [facility] Comment on above: Order Comment: No: Do not add to previou s drawNo collection time noted on specimen or requisition. The collection timerecorded is the time of receipt in the lab. Performed By: #### 0 0071, 04295 ####[facility] [place] [address], [place] POC GLUCOSE LABon 06-22-2017 Glucose mass conc 273 mg/dL High 70-100 [facility] Comment on above: Performed By: #### 94965, 04059 ####[facility] BASIC METABOLIC PANELon 03-2 Calcium 9.3 mg/dL Normal 8.6-10.3 [facility] Comment on above: Order Comment: No: Do not add to previou s drawNo collection time noted on specimen or requisition. The collection timerecorded is the time of receipt in the lab. Performed By: #### 0 0071, 13263 ####[place] [address] Chloride 102 mmol/L Normal 98-107 [facility] Comment on above: Order Comment: No: Do not add to previou s drawNo collection time noted on specimen or requisition. The collection timerecorded is the time of receipt in the lab. Performed By: #### 0 0071, 58762 ####[facility] CO2 25 mmol/L Normal 21-31 [facility] Comment on above: Order Comment: No: Do not add to previou s drawNo collection time noted on specimen or requisition. The collection timerecorded is the time of receipt in the lab. Performed By: #### 0 0071, 93503 ####[place] [address] Creatinine 0.92 mg/dL Normal 0.70-1.30 [facility] Comment on above: Order Comment: No: Do not add to previou s drawNo collection time noted on specimen or requisition. The collection timerecorded is the time of receipt in the lab. Performed By: #### 0 0071, 77169 ####[place] [address] eGFR (black) mL/min/{1.73_m2} Normal >60 [facility] Comment on above: Order Comment: No: Do not add to previou s drawNo collection time noted on specimen or requisition. The collection timerecorded is the time of receipt in the lab. Performed By: #### 0 0071, 21197 ####[facility].[address] eGFR (non-black) mL/min/{1.73_m2} Normal >60 [facility] Comment on above: Order Comment: No: Do not add to previou s drawNo collection time noted on specimen or requisition. The collection timerecorded is the time of receipt in the lab. Performed By: #### 0 0071, 87673 ####[facility] Glucose mass conc 193 mg/dL High 70-100 [facility] Comment on above: Order Comment: No: Do not add to previou s drawNo collection time noted on specimen or requisition. The collection timerecorded is the time of receipt in the lab. Performed By: #### 0 0071, 34372 ####[place] [address] [facility].[address] Potassium molar conc 4.0 mmol/L Normal 3.5-5.1 [facility] Comment on above: Order Comment: No: Do not add to previou s drawNo collection time noted on specimen or requisition. The collection timerecorded is the time of receipt in the lab. Performed By: #### 0 0071, 99937 ####[facility] [place] [address], [place] Sodium 133 mmol/L Low 136-145 [facility] Comment on above: Order Comment: No: Do not add to previou s drawNo collection time noted on specimen or requisition. The collection timerecorded is the time of receipt in the lab. Performed By: #### 0 0071, 04563 ####[facility] Urea nitrogen 23 mg/dL Normal 7-25 [facility] Comment on above: Order Comment: No: Do not add to previou s drawNo collection time noted on specimen or requisition. The collection timerecorded is the time of receipt in the lab. Performed By: #### 0 0071, 77429 ####[address] CBC W/DIFFon 06-21-2017 ABS BASOPHILS 0.1 10*3/uL Normal 0.0-0.2 [facility] Comment on above: Order Comment: No: Do not add to previou s drawNo collection time noted on specimen or requisition. The collection timerecorded is the time of receipt in the lab. Performed By: #### 5 0103 ####[place] [address] ABS IMM GRANS 0.0 10*3/uL Normal 0.0-0.2 [facility] Comment on above: Order Comment: No: Do not add to previou s drawNo collection time noted on specimen or requisition. The collection timerecorded is the time of receipt in the lab. Performed By: #### 5 0103 ####[address] Basophils Auto #/vol (Bld) 0.5 % Normal 0.0-1.0 [facility] Comment on above: Order Comment: No: Do not add to previou s drawNo collection time noted on specimen or requisition. The collection timerecorded is the time of receipt in the lab. Performed By: #### 5 0103 ####[address] Eosinophils 0.2 10*3/uL Normal 0.0-0.5 [facility] Comment on above: Order Comment: No: Do not add to previou s drawNo collection time noted on specimen or requisition. The collection timerecorded is the time of receipt in the lab. Performed By: #### 5 0103 ####[facility] Eosinophils/100 leukocytes 2.0 % Normal 0.0-6.0 [facility] Comment on above: Order Comment: No: Do not add to previou s drawNo collection time noted on specimen or requisition. The collection timerecorded is the time of receipt in the lab. Performed By: #### 5 0103 ####[facility].[address] Erythrocyte distribution width Auto Ratio (RBC) 12.6 % Normal 11.5-15.0 [facility] Comment on above: Order Comment: No: Do not add to previou s drawNo collection time noted on specimen or requisition. The collection timerecorded is the time of receipt in the lab. Performed By: #### 5 0103 ####[facility] Erythrocytes (RBC) 0 % Normal 0-0 [facility] Comment on above: Order Comment: No: Do not add to previou s drawNo collection time noted on specimen or requisition. The collection timerecorded is the time of receipt in the lab. Performed By: #### 5 0103 ####[facility].[address] Erythrocytes (RBC) 4.95 10*6/uL Normal 4.20-5.70 [facility] Comment on above: Order Comment: No: Do not add to previou s drawNo collection time noted on specimen or requisition. The collection timerecorded is the time of receipt in the lab. Performed By: #### 5 0103 ####[facility] Hematocrit (HCT) 42.5 % Normal 39.0-50.0 [facility] Comment on above: Order Comment: No: Do not add to previou s drawNo collection time noted on specimen or requisition. The collection timerecorded is the time of receipt in the lab. Performed By: #### 5 0103 ####[facility].[address] Hemoglobin mass conc (Bld) 14.3 g/dL Normal 13.0-17.0 [facility] Comment on above: Order Comment: No: Do not add to previou s drawNo collection time noted on specimen or requisition. The collection timerecorded is the time of receipt in the lab. Performed By: #### 5 0103 ####[facility] IMMATURE GRANS 0.4 % Normal 0.0-1.0 [facility] Comment on above: Order Comment: No: Do not add to previou s drawNo collection time noted on specimen or requisition. The collection timerecorded is the time of receipt in the lab. Performed By: #### 5 0103 ####[facility] Lymphocytes 3.0 10*3/uL Normal 1.2-4.0 [facility] Comment on above: Order Comment: No: Do not add to previou s drawNo collection time noted on specimen or requisition. The collection timerecorded is the time of receipt in the lab. Performed By: #### 5 0103 ####[facility].[address] Lymphocytes/100 leukocytes 28.2 % Normal 20.0-45.0 [facility] Comment on above: Order Comment: No: Do not add to previou s drawNo collection time noted on specimen or requisition. The collection timerecorded is the time of receipt in the lab. Performed By: #### 5 0103 ####[facility] MCH 28.9 pg Normal 27.0-33.0 [facility] Comment on above: Order Comment: No: Do not add to previou s drawNo collection time noted on specimen or requisition. The collection timerecorded is the time of receipt in the lab. Performed By: #### 5 0103 ####[facility] MCHC mass conc (RBC) 33.6 g/dL Normal 32.0-35.0 [facility] Comment on above: Order Comment: No: Do not add to previou s drawNo collection time noted on specimen or requisition. The collection timerecorded is the time of receipt in the lab. Performed By: #### 5 0103 ####[address] MCV 85.9 fL Normal 82.0-98.0 [facility] Comment on above: Order Comment: No: Do not add to previou s drawNo collection time noted on specimen or requisition. The collection timerecorded is the time of receipt in the lab. Performed By: #### 5 0103 ####[facility] [place] [address] Monocytes 1.0 10*3/uL Normal 0.1-1.0 [facility] Comment on above: Order Comment: No: Do not add to previou s drawNo collection time noted on specimen or requisition. The collection timerecorded is the time of receipt in the lab. Performed By: #### 5 0103 ####[facility] MONOS 9.0 % Normal 5.0-12.0 [facility] Comment on above: Order Comment: No: Do not add to previou s drawNo collection time noted on specimen or requisition. The collection timerecorded is the time of receipt in the lab. Performed By: #### 5 0103 ####[facility].[address] Neutrophils 6.4 10*3/uL Normal 1.6-7.6 [facility] Comment on above: Order Comment: No: Do not add to previou s drawNo collection time noted on specimen or requisition. The collection timerecorded is the time of receipt in the lab. Performed By: #### 5 0103 ####[facility] Neutrophils/100 leukocytes 59.9 % Normal 40.0-72.0 [facility] Comment on above: Order Comment: No: Do not add to previou s drawNo collection time noted on specimen or requisition. The collection timerecorded is the time of receipt in the lab. Performed By: #### 5 0103 ####[facility] PLAT CNT 179 10*3/uL Normal 150-400 [facility] Comment on above: Order Comment: No: Do not add to previou s drawNo collection time noted on specimen or requisition. The collection timerecorded is the time of receipt in the lab. Performed By: #### 5 0103 ####[facility] WBC (Leukocytes) 10.7 10*3/uL High 4.0-10.6 [facility] Comment on above: Order Comment: No: Do not add to previou s drawNo collection time noted on specimen or requisition. The collection timerecorded is the time of receipt in the lab. Performed By: #### 5 0103 ####[address] MAGNESIUM BLOODon 06-21-2017 Magnesium 2.3 mg/dL Normal 1.9-2.7 [facility] Comment on above: Order Comment: No: Do not add to previou s drawNo collection time noted on specimen or requisition. The collection timerecorded is the time of receipt in the lab. Performed By: #### 0 0071, 71895 ####[facility].[address] POC GLUCOSE LABon 06-21-2017 Glucose mass conc 261 mg/dL High 70-100 [facility] Comment on above: Performed By: #### [id number] ####[facility].[address] Glucose mass conc 327 mg/dL High 70-100 [facility] Comment on above: Performed By: #### [id number] ####[facility] [place] [address], [place] Glucose mass conc 176 mg/dL High 70-100 [facility] Comment on above: Performed By: #### 65865 ####[facility] PROTHROMBIN TIMEon 8 INR Coag RelTime (PPP) 1.04 {INR} Normal 0.91-1.16 [facility] Comment on above: Order Comment: No: [...] OF ACTION, CLINICALEFFECTIVENESS, AND OPTIMAL THERAPEUTIC RANGE. [id number]. Performed By: #### 5 6101, 15329 ####[facility].[address] Prothrombin time (PT) Coag time (PPP) 13.6 s Normal 12.3-14.8 [facility] Comment on above: Order Comment: No: Do not add to previou s drawNo collection time noted on specimen or requisition. The collection timerecorded is the time of receipt in the lab. Result Comment: ALL RESULTS MUST BE INTERPRETED WITH RESPECT TO BLOOD DRAWING ARTIFACTOR DILUTION ERROR OF ANTICOAGULANT AT THE TIME OF SAMPLING. Performed By: #### 5 6101, 27184 ####[facility].[address] UFH HEPARIN ASSAYon 06-22-19 18 UNFRACTIONATED HEPARIN CANCELED Normal 0.30-0.70 [facility] Comment on above: Order Comment: Please [...] 06/21/2017 15:02 Performed By: #### 3 0477 ####[facility].[address] UNFRACTIONATED HEPARIN >1.00 Critically high 0.30-0.70 [facility] Comment on above: Result Comment: Rivaroxaban [...] blood stream. Performed By: #### 3 0477 ####[facility].[address] UNFRACTIONATED HEPARIN 0.67 IU/mL Normal 0.30-0.70 [facility] Comment on above: Order Comment: MOVE TO AM PER SATISH MURRAY A T 0058.No collection time noted on specimen or requisition. The collection timerecorded is the time of receipt in the lab. Result Comment: Morena roxaban and Apixaban will interfere with the anti Xa assay used tomonitor UFH and LMWH. Performed By: #### 5 6101, 09863 ####[facility].[address] Encounters Encounter Date Encounter Type Care Provider Facility Start: 07-16-2023 End: 07-16-2023 ambulatory MENDEZ GARCIA Not Available Start: 07-13-2023 End: 07-13-2023 ambulatory JAMIR INMAURICE [facility] Start: 04-16-2023 End: 04-16-2023 ambulatory MENDEZ GARCIA Not Available Start: 04-07-2020 End: 04-08-2020 Patient encounter procedure NATALYA MARY Facility: Start: 07-19-2017 End: 07-20-2017 Ambulatory DEFAULT PHYSICIAN Facility:[facility] Start: 06-20-2017 End: 06-22-2017 Evaluation and management of inpatient Chad Lloyd Facility:[facility] Start: 06-20-2017 End: 06-21-2017 Ambulatory DEFAULT PHYSICIAN Facility:[facility] Procedures Date Procedure Procedure Detail Performing Clinician Start: 06-21-2017 DILATION OF 1 COR AR T WITH DRUG-ELUT INTRA, PERC APPROACH JAMIR BANG Start: 06-21-2017 FLUOROSCOPY OF MULTI PLE CORONARY ARTERIES USING OTH CONTRAST JAMIR BANG Payers Date Payer Category Payer Medicaid [id number] 1965 Unknown [id number] 1965 Unknown [id number] [id number] 1965 Unknown [id number] 1961 Unknown [id number] Unknown Progress note 07-13-2023 Note Date & Type Note Facility 07-13-2023 Note [place] [facility] Subjective Mendez Rodríguez is a 58 y.o. year old male patient being seen for 1 year follow up CAD. Patient Active Problem List Diagnosis Coronary arteriosclerosis Diabetes mellitus (CMS/HCC) Family History Problem Relation Name Age of Onset Coronary artery disease Mother Diabetes Mother Hypertension Father Heart attack Paternal Grandmother Social History Tobacco Use Smoking status: Every Day Packs/day: .5 Types: Cigarettes Smokeless tobacco: Never Substance Use Topics Alcohol use: Not Currently HPI Mendez is seen in follow-up. He is a 58-year-old man with coronary artery disease status post [...] fasting diet and he has lost about 55 pounds. He feels great. He has no angina no heart failure symptoms. No palpitations. No leg edema. He is to be on aspirin 81 mg daily and atorvastatin 80 mg daily but he stopped those he says that after discussion with his PCP. In addition his metoprolol was reduced to 12.5 mg daily and amlodipine to 2.5 mg daily. His blood pressure and heart rate were on the lower side. Review of Systems All other systems reviewed and are negative. Objective Visit Vitals BP 110/62 (BP Location: Left arm, Patient Position: Sitting, BP Cuff Size: Adult) Pulse 62 Resp 11 Ht 1.778 m (5' 10 ) Wt 73.9 kg (163 lb) SpO2 99% BMI 23.39 kg/m??? Smoking Status Every Day BSA 1.91 m??? Physical Exam Constitutional: Appearance: He is [...] Allergies Medications Current Outpatient Medications: amLODIPine (Norvasc) 2.5 mg tablet, Take 2.5 mg by mouth in the morning., Disp: , Rfl: metFORMIN (Glucophage) 500 mg tablet, Take 500 mg by mouth once daily as directed., Disp: , Rfl: aspirin 81 mg chewable tablet, Chew 1 tablet (81 mg) in the morning., Disp: 90 tablet, Rfl: 3 atorvastatin (Lipitor) 80 mg tablet, Take 1 tablet (80 mg) by mouth in the morning., Disp: 90 tablet, Rfl: 3 Recent Labs [...] 123, EGFR 98, potassium 4.7, LFTs normal. Blood testing 04/25/2023: Hemoglobin 11.8, platelets 131, potassium 4.2, BUN 16, creatinine 0.93, EGFR more than 60. Imaging and other tests ECG 04/25/2023: Sinus bradycardia. Heart rate 47 bpm. Cath 06/21/2017: 1. Severe 2-vessel coronary artery disease. 2. 100% occlusion of the second obtuse marginal branch with filling of the distal vessel by [id number] collateral circulation that vessel appears to be [...] Assessment/Plan Diagnoses and all orders for this visit (more content not included)... [facility] Summary Purpose Family History No Family [...] and content) DATE CREATED AUTHOR 09/13/2017 [facility] DATE CREATED AUTHOR AUTHOR'S ORGANIZ ATION 04/15/2020 [facility] DATE CREATED AUTHOR AUTHOR'S ORGANIZ ATION 07/13/2021 [facility] DATE CREATED AUTHOR AUTHOR'S ORGANIZ ATION 07/14/2023 [facility] DATE CREATED AUTHOR AUTHOR'S ORGANIZ ATION 07/17/2023 [facility] EPIC FOR RECORDS PERTAINING [...] PRIMARY CLINICAL RECORDS. [facility]. provides no warranty or guarantee of the accuracy or completeness of information in this document.
== END 2023-08-29 09:15 | disposition home or self-care (01) ==
LOC: EC 09:14
PROVIDERS: PCP Internal Medicine; Visit Provider Podiatrist Foot & Ankle Surgery
DX: S82.65XD Nondisplaced fracture of lateral malleolus of left fibula, subsequent encounter for closed fracture with routine healing (principal)
CPT/HCPCS: 73610

== ENCOUNTER 2023-12-05 10:05 | Outpatient (OUT) | payer MEDICAID, SELFPAY ==
--- NOTE | 2023-12-05 | XR_ITS ---
The [address] [address] Patient Name: BELINDA SAUCEDA MRN: [id number] date: 1965 Sex: M Assigned Patient Location: Current Patient Location: ED.MAIN Accession/Order Number: [id number] Exam Date: 12/05/2023 10:05 Report Date: 12/07/2023 04:27 At the request of: ALFA MCKEON Procedure: XR ankle LT min 3V PROCEDURE: XR ankle LT min 3V HISTORY: LEFT ANKLE PAIN COMPARISON: XR ankle left 08/29/2023 FINDINGS: BONES:Prior fracture of lateral malleolus with increasing density at fracture line and callus formation. SOFT TISSUES:No visible soft tissue swelling. EFFUSION:None visible. OTHER: Negative. XR/XR ankle LT min 3V IMPRESSION: 1. Ongoing bone healing and stable normal alignment of lateral malleolus fracture. Electronically authenticated by: GINI HOLLEY Date: 12/07/2023 04:27
== END 2023-12-05 10:06 | disposition home or self-care (01) ==
LOC: EC 10:05
PROVIDERS: PCP Internal Medicine; Visit Provider Podiatrist Foot & Ankle Surgery
DX: M25.572 Pain in left ankle and joints of left foot (principal); S82.62XD Displaced fracture of lateral malleolus of left fibula, subsequent encounter for closed fracture with routine healing
CPT/HCPCS: 73610

== ENCOUNTER 2023-12-05 15:27 | Emergency (ER) | payer MEDICAID, SELFPAY ==
[2023-12-05 15:40] VITALS: BP 165/85; PULSE 70; TEMP 36.6; O2SAT 100; BMI 23.7
--- OUTSIDE RECORDS SUMMARY | 2023-12-05 15:51 | XMS_ITS | CCD ---
Author Organization [facility] Care Team Providers Care Director Of Claims Name Role Phone PHYSICIAN, DEFAULT Unavailable Unavailable PHYSICIAN, DEFAULT Unavailable Unavailable Gabino, Chad Unavailable Unavailable Gabino, Chad Unavailable Unavailable NADAUD, MIKEY Unavailable Unavailable MENDEZ GARCIA Unavailable Unavailable UNKNOWN, PROVIDER Unavailable Unavailable [place] Unavailable Unavailable PHYSICIAN, DEFAULT Unavailable Unavailable PHYSICIAN, DEFAULT Unavailable Unavailable MENDEZ GARCIA Unavailable Unavailable NATALYA HERNANDEZ Attending Unavailable NATALYA HERNANDEZ Consulting Unavailable NATALYA HERNANDEZ Admitting Unavailable MENDEZ GARCIA Primary Care Unavailable JAMIR BANG Attending Unavailable MENDEZ GARCIA Attending Unavailable MENDEZ GARCIA Attending Unavailable MENDEZ GARCIA Attending Unavailable Allergies Allergy Classification Reported Allergen(s) Allergy Type Date of Onset Reaction(s) Facility (1 source) 52248,00 Drug allergy (disorder) 8 [facility] Repository (1 source) No Known Allergies; Translations: [No Known Allergies] Propensity to adverse reactions (disorder) [facility] Repository Problems Problem Classification Problem Date Documented Da te Episodic/Chronic Coronary atherosclerosis and other heart disease (5 sources) Unstable angina; Translations: [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] Onset: [...] (valve) insufficiency; Translations: [NONRHEUMATIC AORTIC INSUFFICIENCY] Onset: 01-13-2021 Chronic Substance-related disorders (1 source) Nicotine dependence, cigarettes, uncomplicated; Translations: [NICOTINE DEPENDENCE, CIGARETTES, UNCOMPLICATED] Onset: 06-20-2017 Chronic 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 (2 sources) Unknown / UNK(Unknown) Onset: 06-20-2017 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 (1 source) 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 drugs; Translations: [SENIOR LIVING (CURRENT) USE OF ORAL HYPOGLYCEMIC DRUGS] Onset: 06-20-2017 Results Test Name Value Interpretation Reference Range Facility Office Visiton 07-13-2023 Follow-up visit [id number] Rafa Rodríguez 1965 M Date Provider Department Center 07/13/2023 Yolanda-JAMIR BANG [facility] Family History Problem Relation Age of Onset Coronary artery disease Mother Diabetes Mother Hypertension Father Heart attack Paternal Grandmother Family Status - Relation Status Age at Mother Father Paternal Grandmother Level of Service:86037 [place] OFFICE/OUTPATIENT ESTABLISHED MOD MDM 30 MIN Reason for Visit and Comments: Follow-up [752255] - 1 year follow up Normal [facility] Q - COMPREHENSIVE METABOLIC PANEL W/EGFRon 07-11-2021 Albumin [Mass/Vol] 4.4 g/dL Normal 3.6-5.1 [facility] Comment on above: Order Comment: [facility] 11U Testing performed at: [employer] [facility], [address] [place] [address], [address] [place] [address], [id number], Director Of Restaurants: Blaise Sol MD [facility] Collection Date/Time: [id number] [facility] Results Received Date/Time: [id number] [facility] Reported Date/Time: FASTING: NO Performed By: #### 1 0231A, [id number], 5363X #### [facility] Default [address] [place] [address] Albumin/Globulin [Mass ratio] 1.7 {ratio} Normal 1.0-2.5 [facility] Comment on above: Order Comment: [facility] 11U Testing performed at: [employer] [facility], [address] [place] [address], [address] [place] [address], [phone], Director Of Restaurants: Blaise Sol MD [facility] Collection Date/Time: [id number] [facility] Results Received Date/Time: [facility] Reported Date/Time: FASTING: NO Performed By: #### 1 0231A, [id number], 5363X #### [facility] Default [address] [place] [address] ALP [Catalytic activity/Vol] 65 U/L Normal 35-144 [facility] Comment on above: Order Comment: [facility] 11U Testing performed at: [employer] [employer] [facility], [address] [place] [address], [address] [place] [address], [address] [place] [address], Director Of Restaurants: Blaise Sol MD [facility] Collection Date/Time: [facility] Results Received Date/Time: [facility] Reported Date/Time: FASTING: NO Performed By: #### 1 0231A, [id number], 5363X #### [facility] Default [address] [place] [address] ALT [Catalytic activity/Vol] 62 U/L High 9-46 [facility] Comment on above: Order Comment: [facility] 11U Testing performed at: [employer] [employer] [facility], [address] [place] [address], [address] [place] [address], [address] [place] [address], Director Of Restaurants: Blaise Sol MD [facility] Collection Date/Time: [facility] Results Received Date/Time: [facility] Reported Date/Time: FASTING: NO Performed By: #### 1 0231A, [id number], 5363X #### [facility] Default [address] [place] [address] AST [Catalytic activity/Vol] 29 U/L Normal 10-35 [facility] Comment on above: Order Comment: [facility] 11U Testing performed at: [employer] [employer] [facility], [address] [place] [address], [address] [place] [address], [address] [place] [address], Director Of Restaurants: Blaise Sol MD [facility] Collection Date/Time: [facility] Results Received Date/Time: [facility] Reported Date/Time: FASTING: NO Performed By: #### 1 0231A, [id number], 5363X #### [facility] Default [address] [place] [address] Bilirubin [Mass/Vol] 0.4 mg/dL Normal 0.2-1.2 [facility] Comment on above: Order Comment: [facility] 11U Testing performed at: [employer] [employer] [facility], [address] [facility], [address] [place] [address], [address] [place] [address], Director Of Restaurants: Blaise Sol MD [facility] Collection Date/Time: [facility] Results Received Date/Time: [facility] Reported Date/Time: FASTING: NO Performed By: #### 1 0231A, [id number], 5363X #### [facility] Default [address] [place] [address] BUN/CREA 23 NOT APPLICABLE Normal 6-22 [facility] Comment on above: Order Comment: [facility] 11U Testing performed at: [employer] [employer] [facility], [address] [place] [address], [address] [place] [address], [address] [place] [address], Director Of Restaurants: Blaise Sol MD [facility] Collection Date/Time: [facility] Results Received Date/Time: [facility] Reported Date/Time: FASTING: NO Performed By: #### 1 0231A, 6517X, 5363X #### [facility] Default [address] [place] [address] Calcium [Mass/Vol] 9.7 mg/dL Normal 8.6-10.3 [facility] Comment on above: Order Comment: [facility] 11U Testing performed at: [employer] [employer] [facility], [address] [facility], [address] [place] [address], [address] [place] [address], Director Of Restaurants: Blaise Sol MD [facility] Collection Date/Time: [facility] Results Received Date/Time: [facility] Reported Date/Time: FASTING: NO Performed By: #### 1 0231A, 6517X, 5363X #### [facility] Default [address] [place] [address] Chloride [Moles/Vol] 104 mmol/L Normal 98-110 [facility] Comment on above: Order Comment: [facility] 11U Testing performed at: [employer] [employer] [facility], [address] [place] [address], [address] [place] [address], [address] [place] [address], Director Of Restaurants: Blaise Sol MD [facility] Collection Date/Time: [facility] Results Received Date/Time: [facility] Reported Date/Time: FASTING: NO Performed By: #### 1 0231A, 6517X, 5363X #### [facility] Default [address] [place] [address] CO2 [Moles/Vol] 26 mmol/L Normal 20-32 [facility] Comment on above: Order Comment: [facility] 11U Testing performed at: [employer] [employer] [facility], [address] [facility], [address] [place] [address], [address] [place] [address], Director Of Restaurants: Blaise Sol MD [facility] Collection Date/Time: [facility] Results Received Date/Time: [facility] Reported Date/Time: FASTING: NO Performed By: #### 1 0231A, 6517X, 5363X #### [facility] Default [address] [place] [address] Creatinine [Mass/Vol] 0.81 mg/dL Normal 0.70-1.33 [facility] Comment on above: Order Comment: [facility] 11U Testing performed at: [employer] [employer] [facility], [address] [place] [address], [address] [place] [address], [address] [place] [address], Director Of Restaurants: Blaise Sol MD [facility] Collection Date/Time: [facility] Results Received Date/Time: [facility] Reported Date/Time: FASTING: NO Result Comment: For patients >49 years of age, the reference limit for Creatinine is approximately 13% higher for people identified as -Cuban. Performed By: #### 1 0231A, 6517X, 5363X #### [facility] Default [address] [place] [address] eGFRAA (Quest) 114 mL/min/1.73m2 Normal > OR = 60 [facility] [place] [facility] Comment on above: Order Comment: [facility] 11U Testing performed at: [employer] [employer] [facility], [address] [place] [address], [address] [place] [address], [address] [place] [address], Director Of Restaurants: Blaise Sol MD [facility] Collection Date/Time: [facility] Results Received Date/Time: [facility] Reported Date/Time: FASTING: NO Performed By: #### 1 0231A, 6517X, 5363X #### [facility] Default [address] [place] [address] eGFRNAA (Quest) 98 mL/min/1.73m2 Normal > OR = 60 [facility] Comment on above: Order Comment: [facility] 11U Testing performed at: [employer] [facility], [address] [place] [address], [address] [place] [address], [address] [place] [address], Director Of Restaurants: Blaise Sol MD [facility] Collection Date/Time: [facility] Results Received Date/Time: [facility] Reported Date/Time: FASTING: NO Performed By: #### 1 0231A, 6517X, 5363X #### [facility] Default [address] [place] [address] Globulin (S) [Mass/Vol] 2.6 g/dL Normal 1.9-3.7 [facility] Comment on above: Order Comment: [facility] 11U Testing performed at: [employer] [facility], [address] [place] [address], [address] [place] [address], [address] [place] [address], Director Of Restaurants: Blaise Sol MD [facility] Collection Date/Time: [id number] [facility] Results Received Date/Time: [facility] Reported Date/Time: FASTING: NO Performed By: #### 1 0231A, 6517X, 5363X #### [facility] Default [address] [place] [address] Glucose [Mass/Vol] 123 mg/dL Normal 65-139 [facility] Comment on above: Order Comment: [facility] 11U Testing performed at: [employer] [facility], [address] [facility], [address] [place] [address], [address] [place] [address], Director Of Restaurants: Blaise Sol MD [facility] Collection Date/Time: [facility] Results Received Date/Time: [facility] Reported Date/Time: FASTING: NO Result Comment: Non-fasting reference interval For someone without known diabetes, a glucose value between 100 and 125 mg/dL is consistent with prediabetes and should be confirmed with a follow-up test. Performed By: #### 1 0231A, 6517X, 5363X #### [facility] Default [address] [place] [address] Potassium [Moles/Vol] 4.7 mmol/L Normal 3.5-5.3 [facility] Comment on above: Order Comment: [facility] 11U Testing performed at: [employer] [facility], [address] [place] [address], [address] [place] [address], [address] [place] [address], Director Of Restaurants: Blaise Sol MD [facility] Collection Date/Time: [facility] Results Received Date/Time: [facility] Reported Date/Time: FASTING: NO Performed By: #### 1 0231A, 6517X, 5363X #### [facility] Default [address] [place] [address] Protein [Mass/Vol] 7.0 g/dL Normal 6.1-8.1 [facility] Comment on above: Order Comment: [facility] 11U Testing performed at: [employer] [facility], [address] [facility], [address] [place] [address], [address] [place] [address], Director Of Restaurants: Blaise Sol MD [facility] Collection Date/Time: [facility] Results Received Date/Time: [facility] Reported Date/Time: FASTING: NO Performed By: #### 1 0231A, 6517X, 5363X #### [facility] Default [address] [place] [address] Sodium [Moles/Vol] 137 mmol/L Normal 135-146 [place] [facility] Comment on above: Order Comment: [facility] 11U Testing performed at: [employer] [facility], [address] [facility], [address] [place] [address], [address] [place] [address], Director Of Restaurants: Blaise Sol MD [facility] Collection Date/Time: [facility] Results Received Date/Time: [facility] Reported Date/Time: FASTING: NO Performed By: #### 1 0231A, 6517X, 5363X #### [facility] Default [address] [place] [address] Urea nitrogen [Mass/Vol] 19 mg/dL Normal 7-25 [facility] Comment on above: Order Comment: [facility] 11U Testing performed at: [employer] [facility], [address] [facility], [address] [place] [address], [address] [place] [address], Director Of Restaurants: Blaise Sol MD [facility] Collection Date/Time: [facility] Results Received Date/Time: [facility] Reported Date/Time: FASTING: NO Performed By: #### 1 0231A, 6517X, 5363X #### [facility] Default [address] [place] [address] Q - MICROALBUMIN,RANDOM URIN E (W/CREAT)on 07-11-2021 Albumin DL <= 20 mg/L (U) [Mass/Vol] 1.0 mg/dL Normal See Note: [facility] Comment on above: Order Comment: [facility] 11U Testing performed at: [employer] [facility], [address] [facility], [address] [place] [address], [address] [place] [address], Director Of Restaurants: Blaise Sol MD [facility] Collection Date/Time: [id number] [facility] Results Received Date/Time: [facility] Reported Date/Time: FASTING: NO Result Comment: Refe rence Range: Reference Range Not established Performed By: #### 1 0231A, 6517X, 5363X #### [facility] Default [address] [place] [address] Creatinine (U) [Mass/Vol] 65 mg/dL Normal 20-320 [facility] [place] [facility] Comment on above: Order Comment: [facility] 11U Testing performed at: [employer] [facility], [address] [place] [address], [address] [place] [address], [address] [place] [address], Director Of Restaurants: Blaise Sol MD [facility] Collection Date/Time: [facility] Results Received Date/Time: [facility] Reported Date/Time: FASTING: NO Performed By: #### 1 0231A, [id number], 5363X #### [facility] Default [address] [place] [address] MICROALBUMIN/CRE ATININE RATIO, RANDOM URINE 15 mcg/mg creat Normal <30 [facility] Comment on above: Order Comment: [facility] 11U Testing performed at: [employer] [facility], [address] [facility], [address] [place] [address], [address], Director Of Restaurants: Blaise Sol MD [facility] Collection Date/Time: Quest [...] 6517X, 5363X #### [facility] Default [address] [place] [address] Q - PSA TOTALon 07-11-2021 PSA, TOTAL 1.41 ng/mL Normal < OR = 4.00 [facility] Comment on above: Order Comment: [facility] 11U Testing performed at: [employer] [facility], [address] [place] [address], [address] [place] [address], [address] [place] [address], Director Of Restaurants: Blaise Sol MD [facility] Collection Date/Time: Quest [...] 6517X, 5363X #### [facility] Default [address] [place] [address] ECHOCARDIO M/2D COMPLETEon 0 04-07-2020 ECHOCARDIO M/2D COMPLETE Patient: MENDEZ RODRÍGUEZ Exam Date: 04/07/2020 : 1965 Gender:M Ordering : NATALYA HERNANDEZ Admission #: [id number] Family : DR MENDEZ GARCIA M.D. Order #: [id number] CLICK HERE TO VIEW EXAM ECHOCARDIOGRAM REPORT [...] 04/14/2020 at 16:11 Normal [facility] Discharge Summaryon 07-02-19 Discharge Summary MR#: [id number] [facility] Pt. Name: Mendez Rodríguez Admitted: 06/20/2017 Discharged: [...] inferior leads. He was then sent to [facility].The next day, he received cardiac catheterization to [...] Dict: 06/30/2017/10:43 P/Julia Galindo Trans: 07/01/2017 12:09 [id number]: Mendez Garcia M.D[address] [address] Mikey Marks D.O. [facility] [address] [place] [address] Normal [facility] BASIC METABOLIC PANELon 03-3 Calcium 8.7 mg/dL Normal 8.6-10.3 [facility] Comment on above: Order Comment: No: Do not add to previou s drawNo collection time noted on specimen or requisition. The collection timerecorded is the time of receipt in the lab. Performed By: #### 0 0071, 67340 ####[facility] [place] [address], [facility] Chloride 103 mmol/L Normal 98-107 [facility] Comment on above: Order Comment: No: Do not add to previou s drawNo collection time noted on specimen or requisition. The collection timerecorded is the time of receipt in the lab. Performed By: #### 0 0071, 47782 ####[facility] [place] [address], [facility] CO2 22 mmol/L Normal 21-31 [facility] Comment on above: Order Comment: No: Do not add to previou s drawNo collection time noted on specimen or requisition. The collection timerecorded is the time of receipt in the lab. Performed By: #### 0 0071, 51006 ####[facility] [place] [address], [facility] Creatinine 0.91 mg/dL Normal 0.70-1.30 [facility] Comment on above: Order Comment: No: Do not add to previou s drawNo collection time noted on specimen or requisition. The collection timerecorded is the time of receipt in the lab. Performed By: #### 0 0071, 81259 ####[facility] eGFR (black) mL/min/{1.73_m2} Normal >60 [facility] Comment on above: Order Comment: No: Do not add to previou s drawNo collection time noted on specimen or requisition. The collection timerecorded is the time of receipt in the lab. Performed By: #### 0 0071, 30148 ####[facility] eGFR (non-black) mL/min/{1.73_m2} Normal >60 Th e [facility] Comment on above: Order Comment: No: Do not add to previou s drawNo collection time noted on specimen or requisition. The collection timerecorded is the time of receipt in the lab. Performed By: #### 0 0071, 53224 ####[facility] [place] [address], [facility] Glucose mass conc 270 mg/dL High 70-100 [facility] Comment on above: Order Comment: No: Do not add to previou s drawNo collection time noted on specimen or requisition. The collection timerecorded is the time of receipt in the lab. Performed By: #### 0 0071, 90020 ####[facility] [place] [address], [facility] Potassium molar conc 4.1 mmol/L Normal 3.5-5.1 [facility] Comment on above: Order Comment: No: Do not add to previou s drawNo collection time noted on specimen or requisition. The collection timerecorded is the time of receipt in the lab. Performed By: #### 0 0071, 87765 ####[facility] Sodium 132 mmol/L Low 136-145 [facility] Comment on above: Order Comment: No: Do not add to previou s drawNo collection time noted on specimen or requisition. The collection timerecorded is the time of receipt in the lab. Performed By: #### 0 0071, [address]9639 ####[address] Urea nitrogen 25 mg/dL Normal 7-25 [facility] Comment on above: Order Comment: No: Do not add to previou s drawNo collection time noted on specimen or requisition. The collection timerecorded is the time of receipt in the lab. Performed By: #### 0 70, [address]12 ####[address] CBC W/DIFFon 06-22-2017 ABS BASOPHILS 0.0 10*3/uL Normal 0.0-0.2 [facility] Comment on above: Order Comment: No: Do not add to previou s drawNo collection time noted on specimen or requisition. The collection timerecorded is the time of receipt in the lab. Performed By: #### 0 0071, 24054 ####[address] ABS IMM GRANS 0.0 10*3/uL Normal 0.0-0.2 [facility] Comment on above: Order Comment: No: Do not add to previou s drawNo collection time noted on specimen or requisition. The collection timerecorded is the time of receipt in the lab. Performed By: #### 0 0071, 64450 ####[address] Basophils Auto #/vol (Bld) 0.5 % Normal 0.0-1.0 [facility] Comment on above: Order Comment: No: Do not add to previou s drawNo collection time noted on specimen or requisition. The collection timerecorded is the time of receipt in the lab. Performed By: #### 0 0071, 22758 ####[facility] [place] [address], [facility] Eosinophils 0.2 10*3/uL Normal 0.0-0.5 [facility] Comment on above: Order Comment: No: Do not add to previou s drawNo collection time noted on specimen or requisition. The collection timerecorded is the time of receipt in the lab. Performed By: #### 0 0071, 08128 ####[facility] Eosinophils/100 leukocytes 2.1 % Normal 0.0-6.0 [facility] Comment on above: Order Comment: No: Do not add to previou s drawNo collection time noted on specimen or requisition. The collection timerecorded is the time of receipt in the lab. Performed By: #### 0 0071, 04825 ####[facility] Erythrocyte distribution width Auto Ratio (RBC) 12.4 % Normal 11.5-15.0 [facility] Comment on above: Order Comment: No: Do not add to previou s drawNo collection time noted on specimen or requisition. The collection timerecorded is the time of receipt in the lab. Performed By: #### 0 0071, 58348 ####[facility] Erythrocytes (RBC) 0 % Normal 0-0 [facility] Comment on above: Order Comment: No: Do not add to previou s drawNo collection time noted on specimen or requisition. The collection timerecorded is the time of receipt in the lab. Performed By: #### 0 0071, 64467 ####[facility] .[place], [place] [address] Erythrocytes (RBC) 4.30 10*6/uL Normal 4.20-5.70 [facility] Comment on above: Order Comment: No: Do not add to previou s drawNo collection time noted on specimen or requisition. The collection timerecorded is the time of receipt in the lab. Performed By: #### 0 0071, 39672 ####[facility] Hematocrit (HCT) 37.2 % Low 39.0-50.0 [facility] Comment on above: Order Comment: No: Do not add to previou s drawNo collection time noted on specimen or requisition. The collection timerecorded is the time of receipt in the lab. Performed By: #### 0 0071, [id number] ####[place] [id number] [address] Hemoglobin mass conc (Bld) 12.6 g/dL Low 13.0-17.0 [facility] Comment on above: Order Comment: No: Do not add to previou s drawNo collection time noted on specimen or requisition. The collection timerecorded is the time of receipt in the lab. Performed By: #### 0 0071, [id number] ####[facility] IMMATURE GRANS 0.3 % Normal 0.0-1.0 [facility] Comment on above: Order Comment: No: Do not add to previou s drawNo collection time noted on specimen or requisition. The collection timerecorded is the time of receipt in the lab. Performed By: #### 0 0071, [id number] ####[facility] Lymphocytes 2.1 10*3/uL Normal 1.2-4.0 [facility] Comment on above: Order Comment: No: Do not add to previou s drawNo collection time noted on specimen or requisition. The collection timerecorded is the time of receipt in the lab. Performed By: #### 0 0071, [id number] ####[facility] Lymphocytes/100 leukocytes 23.8 % Normal 20.0-45.0 [facility] Comment on above: Order Comment: No: Do not add to previou s drawNo collection time noted on specimen or requisition. The collection timerecorded is the time of receipt in the lab. Performed By: #### 0 0071, [id number] ####[facility] MCH 29.3 pg Normal 27.0-33.0 [facility] Comment on above: Order Comment: No: Do not add to previou s drawNo collection time noted on specimen or requisition. The collection timerecorded is the time of receipt in the lab. Performed By: #### 0 0071, [id number] ####[facility] MCHC mass conc (RBC) 33.9 g/dL Normal 32.0-35.0 [facility] Comment on above: Order Comment: No: Do not add to previou s drawNo collection time noted on specimen or requisition. The collection timerecorded is the time of receipt in the lab. Performed By: #### 0 0071, [id number] ####[facility] MCV 86.5 fL Normal 82.0-98.0 [facility] Comment on above: Order Comment: No: Do not add to previou s drawNo collection time noted on specimen or requisition. The collection timerecorded is the time of receipt in the lab. Performed By: #### 0 0071, [id number] ####[facility] Monocytes 0.8 10*3/uL Normal 0.1-1.0 [facility] Comment on above: Order Comment: No: Do not add to previou s drawNo collection time noted on specimen or requisition. The collection timerecorded is the time of receipt in the lab. Performed By: #### 0 0071, [id number] ####[facility] [place] [address], [facility] MONOS 8.9 % Normal 5.0-12.0 [facility] Comment on above: Order Comment: No: Do not add to previou s drawNo collection time noted on specimen or requisition. The collection timerecorded is the time of receipt in the lab. Performed By: #### 0 0071, 87729 ####[facility] Neutrophils 5.6 10*3/uL Normal 1.6-7.6 [facility] Comment on above: Order Comment: No: Do not add to previou s drawNo collection time noted on specimen or requisition. The collection timerecorded is the time of receipt in the lab. Performed By: #### 0 0071, [id number] ####[facility] Neutrophils/100 leukocytes 64.4 % Normal 40.0-72.0 [facility] Comment on above: Order Comment: No: Do not add to previou s drawNo collection time noted on specimen or requisition. The collection timerecorded is the time of receipt in the lab. Performed By: #### 0 0071, [id number] ####[facility] [place] [address], [facility] PLAT CNT 152 10*3/uL Normal 150-400 [facility] Comment on above: Order Comment: No: Do not add to previou s drawNo collection time noted on specimen or requisition. The collection timerecorded is the time of receipt in the lab. Performed By: #### 0 0071, 71079 ####[facility] WBC (Leukocytes) 8.7 10*3/uL Normal 4.0-10.6 [facility] Comment on above: Order Comment: No: Do not add to previou s drawNo collection time noted on specimen or requisition. The collection timerecorded is the time of receipt in the lab. Performed By: #### 0 0071, [id number] ####[place] [id number] [address] Cardiovascular Lab Reporton 06-22-2017 Cardiovascular Lab Report [facility] Patient Name: Mendez Rodríguez [facility] MR #: [id number] Physician: Jamir Perkins M.D.Medicine Service Date: 06/21/2017Division of Birthdate: 1965Cardiology Room #: 3CD [id number] [facility] [address]Bycgx Fax Cardiovascular Laboratory ReportINDICATION: Mendez Rodríguez is a 52-year-old man who was [facility] with unstable angina. A stress [...] signed informed consent. He was brought to label pinker in a fasting state.The right wrist area was prepped and draped in usual fashion. Jerome's testwas favorable. Using micropuncture technique, the right radial artery wasaccessed. A 6-Afghan x 11 cm Hydrophilic sheath was advanced. Verapamilwas given through the sheath and heparin was administered intravenously.Bilateral selective coronary angiography was then performed using a6-Afghan JR5 diagnostic catheter for engagement of the right coronaryartery and a 6-Afghan Kaveh radial diagnostic catheter for engagement ofthe left coronary artery. Catheters were removed.Therapeutic ACT confirmed during the procedure and additional heparinadministered as needed. A 6-Afghan JR4 guiding catheter was advanced andused to [...] 12 atmospheres and post dilated using NCQuantum [place] 2.5 x 8 mm noncompliant balloon inflated [...] with filling of the distal vessel by zuew-ld-hewm collateral circulation that vessel appears to be [...] 06/21/2017/11:32 Dae/Jamir Bang M.D.Date Trans: 06/22/2017 08:38 A/Chris_[id number]: Mendez Garcia M.D. 3 [facility] [address] [address] D[address] [place] [address] [address] [facility] [address] [place] [address] Normal [facility] MAGNESIUM BLOODon 06-22-2017 Magnesium 2.0 mg/dL Normal 1.9-2.7 [facility] Comment on above: Order Comment: No: Do not add to previou s drawNo collection time noted on specimen or requisition. The collection timerecorded is the time of receipt in the lab. Performed By: #### 0 0071, [id number] ####[facility] [place] [address], [facility] P[facility] GLUCOSE LABon 06-22-2017 Glucose mass conc 273 mg/dL High 70-100 [facility] Comment on above: Performed By: #### [id number], 09090 ####[facility] BASIC METABOLIC PANELon 03-2 Calcium 9.3 mg/dL Normal 8.6-10.3 [facility] Comment on above: Order Comment: No: Do not add to previou s drawNo collection time noted on specimen or requisition. The collection timerecorded is the time of receipt in the lab. Performed By: #### 0 0071, [id number] ####[place] [address] [address] Chloride 102 mmol/L Normal 98-107 [facility] Comment on above: Order Comment: No: Do not add to previou s drawNo collection time noted on specimen or requisition. The collection timerecorded is the time of receipt in the lab. Performed By: #### 0 0071, 93276 ####[place] [address] CO2 25 mmol/L Normal 21-31 [facility] Comment on above: Order Comment: No: Do not add to previou s drawNo collection time noted on specimen or requisition. The collection timerecorded is the time of receipt in the lab. Performed By: #### 0 0071, 85273 ####[place] [address] [address] Creatinine 0.92 mg/dL Normal 0.70-1.30 [facility] Comment on above: Order Comment: No: Do not add to previou s drawNo collection time noted on specimen or requisition. The collection timerecorded is the time of receipt in the lab. Performed By: #### 0 0071, 99804 ####[facility] eGFR (black) mL/min/{1.73_m2} Normal >60 [facility] Comment on above: Order Comment: No: Do not add to previou s drawNo collection time noted on specimen or requisition. The collection timerecorded is the time of receipt in the lab. Performed By: #### 0 0071, 71212 ####[facility] eGFR (non-black) mL/min/{1.73_m2} Normal >60 Th e [facility] Comment on above: Order Comment: No: Do not add to previou s drawNo collection time noted on specimen or requisition. The collection timerecorded is the time of receipt in the lab. Performed By: #### 0 0071, 54472 ####[facility] Glucose mass conc 193 mg/dL High 70-100 [facility] Comment on above: Order Comment: No: Do not add to previou s drawNo collection time noted on specimen or requisition. The collection timerecorded is the time of receipt in the lab. Performed By: #### 0 0071, 48536 ####[facility] Potassium molar conc 4.0 mmol/L Normal 3.5-5.1 [facility] Comment on above: Order Comment: No: Do not add to previou s drawNo collection time noted on specimen or requisition. The collection timerecorded is the time of receipt in the lab. Performed By: #### 0 0071, 86441 ####[facility] Sodium 133 mmol/L Low 136-145 [facility] Comment on above: Order Comment: No: Do not add to previou s drawNo collection time noted on specimen or requisition. The collection timerecorded is the time of receipt in the lab. Performed By: #### 0 0071, 18877 ####[facility] Urea nitrogen 23 mg/dL Normal 7-25 [facility] Comment on above: Order Comment: No: Do not add to previou s drawNo collection time noted on specimen or requisition. The collection timerecorded is the time of receipt in the lab. Performed By: #### 0 0071, 61034 ####[facility] CBC W/DIFFon 06-21-2017 ABS BASOPHILS 0.1 10*3/uL Normal 0.0-0.2 [facility] Comment on above: Order Comment: No: Do not add to previou s drawNo collection time noted on specimen or requisition. The collection timerecorded is the time of receipt in the lab. Performed By: #### 5 0103 ####[facility] ABS IMM GRANS 0.0 10*3/uL Normal 0.0-0.2 [facility] Comment on above: Order Comment: No: Do not add to previou s drawNo collection time noted on specimen or requisition. The collection timerecorded is the time of receipt in the lab. Performed By: #### 5 0103 ####[facility] Basophils Auto #/vol (Bld) 0.5 % Normal 0.0-1.0 [facility] Comment on above: Order Comment: No: Do not add to previou s drawNo collection time noted on specimen or requisition. The collection timerecorded is the time of receipt in the lab. Performed By: #### 5 0103 ####[facility] Eosinophils 0.2 10*3/uL Normal 0.0-0.5 [facility] Comment on above: Order Comment: No: Do not add to previou s drawNo collection time noted on specimen or requisition. The collection timerecorded is the time of receipt in the lab. Performed By: #### 5 0103 ####[facility] Eosinophils/100 leukocytes 2.0 % Normal 0.0-6.0 [facility] Comment on above: Order Comment: No: Do not add to previou s drawNo collection time noted on specimen or requisition. The collection timerecorded is the time of receipt in the lab. Performed By: #### 5 0103 ####[facility] Erythrocyte distribution width Auto Ratio (RBC) 12.6 % Normal 11.5-15.0 [facility] Comment on above: Order Comment: No: Do not add to previou s drawNo collection time noted on specimen or requisition. The collection timerecorded is the time of receipt in the lab. Performed By: #### 5 0103 ####[facility] Erythrocytes (RBC) 0 % Normal 0-0 [facility] Comment on above: Order Comment: No: Do not add to previou s drawNo collection time noted on specimen or requisition. The collection timerecorded is the time of receipt in the lab. Performed By: #### 5 0103 ####[facility] Erythrocytes (RBC) 4.95 10*6/uL Normal 4.20-5.70 [facility] Comment on above: Order Comment: No: Do not add to previou s drawNo collection time noted on specimen or requisition. The collection timerecorded is the time of receipt in the lab. Performed By: #### 5 0103 ####[facility] Hematocrit (HCT) 42.5 % Normal 39.0-50.0 [facility] Comment on above: Order Comment: No: Do not add to previou s drawNo collection time noted on specimen or requisition. The collection timerecorded is the time of receipt in the lab. Performed By: #### 5 0103 ####[facility] Hemoglobin mass conc (Bld) 14.3 g/dL Normal 13.0-17.0 [facility] Comment on above: Order Comment: No: Do not add to previou s drawNo collection time noted on specimen or requisition. The collection timerecorded is the time of receipt in the lab. Performed By: #### 5 0103 ####[facility] IMMATURE GRANS 0.4 % Normal 0.0-1.0 [facility] Comment on above: Order Comment: No: Do not add to previou s drawNo collection time noted on specimen or requisition. The collection timerecorded is the time of receipt in the lab. Performed By: #### 5 0103 ####[facility] Lymphocytes 3.0 10*3/uL Normal 1.2-4.0 [facility] Comment on above: Order Comment: No: Do not add to previou s drawNo collection time noted on specimen or requisition. The collection timerecorded is the time of receipt in the lab. Performed By: #### 5 0103 ####[facility] Lymphocytes/100 leukocytes 28.2 % Normal 20.0-45.0 [facility] Comment on above: Order Comment: No: Do not add to previou s drawNo collection time noted on specimen or requisition. The collection timerecorded is the time of receipt in the lab. Performed By: #### 5 0103 ####[facility] MCH 28.9 pg Normal 27.0-33.0 [facility] Comment on above: Order Comment: No: Do not add to previou s drawNo collection time noted on specimen or requisition. The collection timerecorded is the time of receipt in the lab. Performed By: #### 5 0103 ####[facility] MCHC mass conc (RBC) 33.6 g/dL Normal 32.0-35.0 [facility] Comment on above: Order Comment: No: Do not add to previou s drawNo collection time noted on specimen or requisition. The collection timerecorded is the time of receipt in the lab. Performed By: #### 5 0103 ####[address] MCV 85.9 fL Normal 82.0-98.0 [facility] Comment on above: Order Comment: No: Do not add to previou s drawNo collection time noted on specimen or requisition. The collection timerecorded is the time of receipt in the lab. Performed By: #### 5 0103 ####[address] Monocytes 1.0 10*3/uL Normal 0.1-1.0 [facility] Comment on above: Order Comment: No: Do not add to previou s drawNo collection time noted on specimen or requisition. The collection timerecorded is the time of receipt in the lab. Performed By: #### 5 0103 ####[address] MONOS 9.0 % Normal 5.0-12.0 [facility] Comment on above: Order Comment: No: Do not add to previou s drawNo collection time noted on specimen or requisition. The collection timerecorded is the time of receipt in the lab. Performed By: #### 5 0103 ####[facility] Neutrophils 6.4 10*3/uL Normal 1.6-7.6 [facility] Comment on above: Order Comment: No: Do not add to previou s drawNo collection time noted on specimen or requisition. The collection timerecorded is the time of receipt in the lab. Performed By: #### 5 0103 ####[facility] Neutrophils/100 leukocytes 59.9 % Normal 40.0-72.0 [facility] Comment on above: Order Comment: No: Do not add to previou s drawNo collection time noted on specimen or requisition. The collection timerecorded is the time of receipt in the lab. Performed By: #### 5 0103 ####[facility] PLAT CNT 179 10*3/uL Normal 150-400 [facility] Comment on above: Order Comment: No: Do not add to previou s drawNo collection time noted on specimen or requisition. The collection timerecorded is the time of receipt in the lab. Performed By: #### 5 0103 ####[facility] WBC (Leukocytes) 10.7 10*3/uL High 4.0-10.6 [facility] Comment on above: Order Comment: No: Do not add to previou s drawNo collection time noted on specimen or requisition. The collection timerecorded is the time of receipt in the lab. Performed By: #### 5 0103 ####[facility] MAGNESIUM BLOODon 06-21-2017 Magnesium 2.3 mg/dL Normal 1.9-2.7 [facility] Comment on above: Order Comment: No: Do not add to previou s drawNo collection time noted on specimen or requisition. The collection timerecorded is the time of receipt in the lab. Performed By: #### 0 0071, [id number] ####[facility] [facility] [place] [place] [address], [facility] GLUCOSE LABon 06-21-2017 Glucose mass conc 261 mg/dL High 70-100 [facility] Comment on above: Performed By: #### [id number] ####[facility] [facility] [place] [address], [facility] Glucose mass conc 327 mg/dL High 70-100 [facility] Comment on above: Performed By: #### [id number] ####[facility] [facility] [place] [place] [address], [facility] Glucose mass conc 176 mg/dL High 70-100 [facility] Comment on above: Performed By: #### [id number] ####[facility] [place] [address], [facility] PROTHROMBIN TIMEon 8 INR Coag RelTime (PPP) 1.04 {INR} Normal 0.91-1.16 [facility] Comment on above: Order Comment: No: [...] OF ACTION, CLINICALEFFECTIVENESS, AND OPTIMAL THERAPEUTIC RANGE. [id number];108:[id number]. Performed By: #### 5 6101, 01048 ####[facility] Prothrombin time (PT) Coag time (PPP) 13.6 s Normal 12.3-14.8 [facility] Comment on above: Order Comment: No: Do not add to previou s drawNo collection time noted on specimen or requisition. The collection timerecorded is the time of receipt in the lab. Result Comment: ALL RESULTS MUST BE INTERPRETED WITH RESPECT TO BLOOD DRAWING ARTIFACTOR DILUTION ERROR OF ANTICOAGULANT AT THE TIME OF SAMPLING. Performed By: #### 5 6101, 65210 ####[facility] UFH HEPARIN ASSAYon 06-22-19 18 UNFRACTIONATED HEPARIN CANCELED Normal 0.30-0.70 [facility] Comment on above: Order Comment: Please [...] 06/21/2017 15:02 Performed By: #### 3 0477 ####[facility] [place] [address], [facility] UNFRACTIONATED HEPARIN >1.00 Critically high 0.30-0.70 [facility] Comment on above: Result Comment: Rivaroxaban [...] blood stream. Performed By: #### 3 0477 ####[facility] UNFRACTIONATED HEPARIN 0.67 IU/mL Normal 0.30-0.70 [facility] Comment on above: Order Comment: MOVE TO AM PER SATISH MURRAY A T 0058.No collection time noted on specimen or requisition. The collection timerecorded is the time of receipt in the lab. Result Comment: Morena roxaban and Apixaban will interfere with the anti Xa assay used tomonitor UFH and LMWH. Performed By: #### 5 6101, [id number] ####[facility] Encounters Encounter Date Encounter Type Care Provider Facility Start: 09-14-2023 End: 09-14-2023 ambulatory MENDEZ GARCIA Not Available Start: 07-16-2023 End: 07-16-2023 ambulatory MENDEZ GARCIA Not Available Start: 07-13-2023 End: 07-13-2023 ambulatory JAMIR BANG [facility] Start: 04-16-2023 End: 04-16-2023 ambulatory MENDEZ GARCIA Not Available Start: 04-07-2020 End: 04-08-2020 Patient encounter procedure NATALYA HERNANDEZ Facility: Start: 07-19-2017 End: 07-20-2017 Ambulatory DEFAULT PHYSICIAN Facility:[facility] Start: 06-20-2017 End: 06-22-2017 Evaluation and management of inpatient Chadlaura Lloyd Facility:[facility] Start: 06-20-2017 End: 06-21-2017 Ambulatory DEFAULT PHYSICIAN Facility:[facility] Procedures Date Procedure Procedure Detail Performing Clinician Start: 06-21-2017 DILATION OF 1 COR AR T WITH DRUG-ELUT INTRA, PERC APPROACH JAMIR BANG Start: 06-21-2017 FLUOROSCOPY OF MULTI PLE CORONARY ARTERIES USING OTH CONTRAST JAMIR BANG Payers Date Payer Category Payer Medicaid [id number] 1965 Unknown [id number] 2.16.84 [id number] 1965 Unknown [id number] 2.16.84 [id number] 1965 Unknown [id number] 2.16.84 [id number] 1965 Unknown [id number] 2.16.84 [id number] 1965 Unknown [id number] 2.16.84 [id number] 1961 Unknown [id number] Unknown Progress note 07-13-2023 Note Date & Type Note Facility 07-13-2023 Note [place] [facility] Subjective Mendez Rodríguez is a 58 y.o. year old male patient being seen for 1 year follow up CAD. Patient Active Problem List Diagnosis Coronary arteriosclerosis Diabetes mellitus ([facility]) Family History Problem Relation Name Age of [...] with filling of the distal vessel by kfqk-ko-ozir collateral circulation that vessel appears to be [...] for this visit (more content not included)... [facility] Summary Purpose Family History No Family [...] AUTHOR AUTHOR'S ORGANIZ ATION 04/15/2020 [facility] DATE CREATED AUTHOR AUTHOR'S ORGANIZ ATION 07/13/2021 [facility] dical Specialist DATE CREATED AUTHOR AUTHOR'S ORGANIZ ATION 07/14/2023 [facility] DATE CREATED AUTHOR AUTHOR'S ORGANIZ ATION 09/16/2023 [facility] FOR RECORDS PERTAINING TO PATIENTS WHO ARE [...] BE BASED ON THE PRIMARY CLINICAL RECORDS. [facility] [employer] provides no warranty or guarantee of the accuracy or completeness of information in this document.
--- NOTE | 2023-12-05 16:16 | ED_ITS ---
HPI - Wound/Laceration General Chief Complaint: Wound/Laceration Stated Complaint: Laceration/Puncture Wound Time Seen by Provider: 12/05/23 15:41 Source: patient Mode of arrival: walk-in Limitations: no limitations History of Present Illness HPI narrative: Patient presents ED complaining of laceration on the left leg. He was carrying a toilet out to the car and set it down on the bottom of it scraped his leg ca using a laceration. No other injury, bleeding controlled. He said he placed a Band-Aid over it but it was still oozing and did not seem to be coming together well so he came in for further evaluation. He is diabetic. Related Data Previous Rx's ?Medication ?Instructions ?Recorded cephalexin 500 mg capsule 500 mg PO BID 7 days #14 caps 12/05/23 Allergies Allergy/AdvReac Type Severity Reaction Status Date / Time No Known Drug Allergies Allergy Verified 04/25/23 09:53 Review of Systems ROS Status of ROS 10 or more systems reviewed and unremark able except as noted in history and below PFSH PFSH Social History Smoking status: Current every day smoker Little interest or pleasure in doing things: not at all Feeling down, depressed, or hopeless: not at all Exam Narrative Exam Narrative: General: alert, no acute distress Cardiovascular: regular rate and rhythm, normal peripheral perfusion. Respiratory: Lungs CTA, respirations non labored. Extremities: Corner like laceration to the medial aspect of the left lower leg. Neurological: oriented x 4, LOC appropriate for age. Constitutional Vital Signs, click to edit/add: Last Vital Signs Temp 97.9 F 12/05/23 15:40 Pulse 70 12/05/23 15:40 Resp 18 12/05/23 15:40 BP 165/85 H 12/05/23 15:40 Pulse Ox 100 12/05/23 15:40 O2 Del Method Room Air 12/05/23 15:40 Course Vital Signs Vital signs: Vital Signs Temperature 97.9 F 12/05/23 15:40 Pulse Rate 70 12/05/23 15:40 Respiratory Rate 18 12/05/23 15:40 Blood Pressure 165/85 H 12/05/23 15:40 Pulse Oximetry 100 12/05/23 15:40 Oxygen Delivery Method Room Air 12/05/23 15:40 Temperature 97.9 F 12/05/23 15:40 Pulse Rate 70 12/05/23 15:40 Respiratory Rate 18 12/05/23 15:40 Blood Pressure 165/85 H 12/05/23 15:40 Pulse Oximetry 100 12/05/23 15:40 Oxygen Delivery Method Room Air 12/05/23 15:40 MDM - Wound/Laceration MDM Narrative Medical decision making narrative: Laceration was repaired. Patient was up-to-date on his tetanus shot. He had antibiotics called into the pharmacy in case it starts looking infected because he is diabetic. He states he does not really like to take any medication but I told him to parts picker the antibiotic prescription if the wound starts looking infected. Counseled on suture wound care and return in about a week for suture removal or follow-up with family doctor to have the sutures removed. Patient comfortable care plan for home. Differential Diagnosis Differential diagnosis: Likely laceration Discharge Plan Discharge Chief Complaint: Wound/Laceration Clinical Impression: Laceration Patient Disposition: Home, Self-Care Time of Disposition Decision: 16:09 Condition: Good Mode of Transportation: Private Vehicle Prescriptions / Home Meds: New cephalexin 500 mg capsule 500 mg PO BID 7 Days Qty: 14 0RF Print Language: Anguillan Instructions: Care For Your Stitches (ED) Referrals: BELINDA ALONSO [Primary Care Provider] - 1 week Procedures ED Laceration Laceration Laceration 1: Site: lower extremity Side (if applicable): left Size (cm): 3 Description: linear Depth: simple, single layer Anesthetic used: with epi Anesthesia technique: local infiltration Amount (ml): 3 Pre-repair: irrigated extensively Skin layer closed with: other (Ethilon) Size (cm): 4-0 Number of sutures: 4 Technique: simple, interrupted
== END 2023-12-05 16:20 | disposition home or self-care (01) ==
PROVIDERS: Emergency Provider Emergency Medicine; PCP Internal Medicine
DX: S81.812A Laceration without foreign body, left lower leg, initial encounter (principal); F17.200 Nicotine dependence, unspecified, uncomplicated; E11.9 Type 2 diabetes mellitus without complications; M25.572 Pain in left ankle and joints of left foot; S82.62XD Displaced fracture of lateral malleolus of left fibula, subsequent encounter for closed fracture with routine healing
CPT/HCPCS: 12002; 73610; 99283

== ENCOUNTER 2024-11-06 08:03 | Outpatient (OUT) | payer MEDICAID, SELFPAY ==
--- NOTE | 2024-11-06 08:00 | CA_ITS ---
Patient Name: BELINDA SAUCEDA MR#: [id number] : 1965 Exam Date: 11/06/2024 Ordering Doctor: DR JAMIR BANG M.D. ECHOCARDIOGRAM REPORT PROCEDURE: CA ECHO DOPPLER COMPLETE INDICATIONS: Aortic regurgitation, coronary artery disease, cardiac stent, smoker, diabetes COMPARISON: None. DESCRIPTION: COMPLETE ECHOCARDIOGRAM Real-time transthoracic echocardiography with 2D, M-mode, spectral and color flow Doppler performed. QUALITY: Technical quality was good. LEFT VENTRICLE: Normal chamber size. Thickened septal wall. Mild concentric hypertrophy. Normal systolic function. LV EF: Normal left ventricular ejection fraction, (60-65%). DIASTOLIC: Diastolic function is indeterminate. ATRIAL SEPTUM: Visually appears intact. LEFT ATRIUM: Mild dilatation. RIGHT ATRIUM: Normal chamber size. RIGHT VENTRICLE: Normal chamber size. Normal right ventricular systolic function. TRICUSPID VALVE: Normal mobility and thickness. No stenosis with mild regurgitation. Doppler studies reveal mildly (35-45) elevated right sided pressures. RVSP 40 mmHg MITRAL VALVE: Normal mobility and thickness. No evidence of mitral valve stenosis. There is no mitral annular calcification. Trivial mitral regurgitation. AORTIC VALVE: Normal trileaflet appearance. No visible sclerosis. Normal leaflet mobility. No evidence of aortic valve stenosis. Trivial aortic regurgitation. AORTIC ROOT: Normal diameter and appearance, measuring 3.6 cm. Ascending aorta is normal in size, measuring 3.1 cm. PULMONIC VALVE: Normal thickness and mobility. No stenosis. Trivial regurgitation. PERICARDIUM: No evidence of pericardial effusion. IVC: IVC is dilated (2.7 cm), does not collapse. PLEURA: CONCLUSION: 1. Mild concentric left ventricular hypertrophy with normal systolic function. Estimated LVEF is 60 to 65%. 2. Normal right ventricular size and systolic function. 3. Mild tricuspid regurgitation. 4. Trivial aortic regurgitation. 5. Mildly elevated right-sided pressures. Adult Echocardiography Procedure Report Left Ventricle LVEDD (3.7 - 5.6 cm): 4.62 cm LVESD (2.2 - 4.0 cm): 3.22 cm LVIVS thickness (0.6 - 1.2 cm): 1.28 cm LVPW thickness (0.5 - 1.0 cm): 0.99 cm e': 0.10 m/s E - e': 8.21 LVOT Max Gradient: 3.45 mm[Hg] LVOT Area (cm2): 0.93 m/s Peak Velocity (LVOT): 0.93 m/s Mean Velocity (LVOT): 0.58 m/s LVOT Diameter 2.10 cm Left Ventricular Ejection Fraction: 60-65 % Left Atrium LA Volume Index (2D A2C): 38.95 ml/m2 Left Atrium Systolic Dimension: 4.01 cm Mitral Valve MV E to A Ratio: 0.92 Mitral Valve A-Wave Peak Velocity: 0.87 m/s Mitral Valve E-Wave Peak Velocity: 0.80 m/s Right Ventricle Aorta AO Root Diam: 3.62 cm Ascending Ao Diam: 3.09 cm Aortic Valve AoV Area ([place]): 2.90 cm2, 2.90 cm2 AoV Area (VTI): 2.86 cm2, 2.86 cm2 Peak Velocity(Antegrade Flow): 1.11 m/s Peak Gradient(Antegrade Flow): 4.92 mm[Hg] Mean Velocity(Antegrade Flow): 0.74 m/s Mean Gradient(Antegrade Flow): 2.52 mm[Hg] Velocity Time Integral: 28.15 cm Tricuspid Valve Peak Velocity (Regurgitant Flow): 2.07 m/s, 2.49 m/s Pulmonic Valve Peak Gradient: 4.18 mm[Hg], 3.96 mm[Hg] Right Atrium Right Atrium Systolic Pressure: 34.21 ml, 34.21 ml Dictated by: Jamir Bang M.D. on 11/07/2024 at 21:39 Approved by: Jamir Bang M.D. on 11/07/2024 at 21:43
--- OUTSIDE RECORDS SUMMARY | 2024-11-06 08:07 | XMS_ITS | CCD ---
Author Organization [facility] Care Team Providers Care Patient Relations Representative Name Role Phone PHYSICIAN, DEFAULT Unavailable Unavailable PHYSICIAN, DEFAULT Unavailable Unavailable Gabino, Chad Unavailable Unavailable Gabino, Chad Unavailable Unavailable MILKA, MKIEY Unavailable Unavailable MENDEZ GARCIA Unavailable Unavailable UNKNOWN, PROVIDER Unavailable Unavailable GA Unavailable Unavailable PHYSICIAN, DEFAULT Unavailable Unavailable PHYSICIAN, DEFAULT Unavailable Unavailable MENDEZ GARCIA Unavailable Unavailable NATALYA HERNANDEZ Attending Unavailable NATALYA HERNANDEZ Consulting Unavailable NATALYA HERNANDEZ Admitting Unavailable MENDEZ GARCIA Primary Care Unavailable Mendez Garcia MD Primary Care Provider [phone] Karuna Swartz Unavailable Unavailable ELMA RODRIGUEZ Attending Unavailable MENDEZ GARCIA Referring Unavailable ELMA RODRIGUEZ Attending Unavailable MENDEZ GARCIA Referring Unavailable Unavailable Primary Care Provider UnavailKATI Santos Attending Unavailable ELMA RODRIGUEZ Referring Unavaleriai MENDEZ Antonio Attending Unavailable BONG HOLLINGSWORTH Attending Unavailable BONG HOLLINGSWORTH Referring Unavailable MADELINE FOSS Attending Unavailable MENDEZ GARCIA Attending Unavailable MENDEZ GARCIA Attending Unavailable JAMIR YUN Attending Unavailable SEFERINO GONZALEZ Attending Unavailable Allergies Allergy Classification Reported Allergen(s) Allergy Type Date of Onset Reaction(s) Facility (1 source) 59555,00 Drug allergy (disorder) 8 [facility] Repository (1 source) No Known Allergies; Translations: [No Known Allergies] Propensity to adverse reactions (disorder) [facility] Repository Medications Current Medications Medication Drug Class(es) Dates Sig (Normalized) Sig (Original) aspirin 81 mg chewable tablet (12 sources) Platelet Aggregation Inhibitor, Nonsteroidal Anti-inflammatory Drug Start: 08-22-2023 take 1 tablet by mouth in the morning Aspirin Low Dose 81 MG chewable tablet CHEW AND SWALLOW 1 (ONE) TABLET BY MOUTH IN THE MORNING 08/22/2023 Active Blood Glucose Monitoring Suppl (True Metrix Air Glucose Meter) w/Device kit (12 sources) Start: 11-25-2021 Blood Glucose Monitoring Suppl (True Metrix Air Glucose Meter) w/Device kit USE DIRECTED to CHECK BLOOD SUGAR TWICE DAILY 11/25/2021 Active Continuous Glucose Logistics Account Manager (FreeStyle Preeti 3 Boykin) device (9 sources) Start: 07-14-2024 Continuous Glucose Logistics Account Manager (FreeStyle Preeti 3 Boykin) device Indications: Type 2 diabetes mellitus with other specified complication, with long-term current use of insulin (HCC) 1 Device continuously 1 each 07/14/2024 Active Start: 07-14-2024 Continuous Glu cose Logistics Account Manager (FreeStyle Preeti 3 Boykin) device Indications: Type 2 diabetes mellitus with other specified complication, with long-term current use of insulin 1 Device continuously 1 each 07/14/2024 Active Continuous Glucose Sensor (FreeStyle Preeti 3 Sensor) misc (9 sources) Start: 07-14-2024 apply 1 dose transdermal route once Continuous Glucose Sensor (FreeStyle Preeti 3 Sensor) misc Indications: Type 2 diabetes mellitus with other specified complication, with long-term current use of insulin (HCC) Apply 1 patch topically every 14 (fourteen) days 2 each 11 07/14/2024 Active Start: 07-14-2024 apply 1 dose transde rmal route once Continuous Glucose Sensor (FreeStyle Preeti 3 Sensor) misc Indications: Type 2 diabetes mellitus with other specified complication, with long-term current use of insulin Apply 1 patch topically every 14 (fourteen) days 2 each 11 07/14/2024 Active ibuprofen 600 mg oral tablet (11 sources) Nonsteroidal Anti-inflammatory Drug Start: 08-15-2024 End: 09-04-2024 take 1 tablet by mouth three times daily as needed ibuprofen 600 MG tablet Indications: Acute pain of left shoulder TAKE 1 TABLET BY MOUTH THREE TIMES DAILY NEEDED WITH FOOD OR MILK 90 tablet 2 08/15/2024 09/04/2024 Discontinued () Start: 05-20-2024 take 1 tablet by hodan th three times daily as needed ibuprofen 600 MG tablet Indications: Acute pain of left shoulder TAKE 1 TABLET BY MOUTH THREE TIMES DAILY NEEDED WITH FOOD OR MILK 90 tablet 2 05/20/2024 Active Start: 09-11-2023 take 1 tablet by hodan th three times daily as needed ibuprofen 600 MG tablet Indications: Acute pain of left shoulder TAKE 1 TABLET BY MOUTH THREE TIMES DAILY NEEDED WITH FOOD OR MILK 90 tablet 5 09/11/2023 Active insulin glargine 100 unt/ml injectable solution (13 sources) Insulin Analog Start: 09-04-2024 End: 10-04-2024 inject 10 [IU] by subcutaneous injection at bedtime insulin glargine (Lantus) 100 UNIT/ML injection Indications: Type 2 diabetes mellitus with hyperglycemia (HCC) Inject 10 Units under the skin at bedtime 60 mL 09/04/2024 10/04/2024 Active Start: 01-22-2024 End: 09-04-2024 inject 80 [IU] by subcutaneous injection at bedtime Lantus 100 UNIT/ML injection Indications: Type 2 diabetes mellitus with hyperglycemia (HCC) INJECT 80 UNITS SUBCUTANEOUSLY AT BEDTIME 60 mL 11 01/22/2024 09/04/2024 Discontinued inject 80 [IU] by menendez bcutaneous injection at bedtime Lantus 100 UNIT/ML injection INJECT 80 UNITS SUBCUTANEOUSLY AT BEDTIME Active 3 ml insulin lispro 100 unt/ml pen injector (4 sources) Insulin Analog Start: 08-25-2024 insulin lispro (HumaLOG) 100 UNIT/ML injection Indications: Type 2 diabetes mellitus with other specified complication, with long-term current use of insulin (HCC) Inject 7 Units under the skin in the morning and 7 Units at noon and 7 Units in the evening. Inject with meals. 15 mL 11 08/25/2024 Active isopropyl alcohol 0.7 ml/ml medicated pad (12 sources) Start: 11-24-2021 Alcohol Swabs (B-D SINGLE USE SWABS REGULAR) pads USE DIRECTED TWICE DAILY 11/24/2021 Active metFORMIN hydrochloride 1000 mg oral tablet (14 sources) Biguanide Start: 05-20-2024 End: 10-04-2024 take 1 tablet by mouth in the morning metFORMIN (Glucophage) 1000 MG tablet Indications: Type 2 diabetes mellitus with hyperglycemia (HCC) Take 1 tablet (1,000 mg) by mouth in the morning and 1 tablet (1,000 mg) in the evening. Take with meals. 60 tablet 09/04/2024 10/04/2024 Active Start: 05-18-2023 End: 05-17-2024 take 1 tablet by mouth at mealtime metFORMIN (Glucophage) 1000 MG tablet Indications: Type 2 diabetes mellitus with hyperglycemia (CMS/HCC) Take 1 tablet (1,000 mg) by mouth in the morning. Take with meals. 30 tablet 11 05/18/2023 05/17/2024 Active 24 hr nicotine 0.292 mg/hr transdermal system (8 sources) Cholinergic Nicotinic Agonist Start: 07-15-2024 End: 09-04-2024 nicotine (Nicoderm, Step 3) 7 MG/24HR patch Indications: Light cigarette smoker (1-9 cigs/day) PLACE 1 patch on the skin EVERY 24 HOURS ONCE DAILY at the same time each day 28 patch 2 07/15/2024 09/04/2024 Discontinued () Start: 07-14-2024 End: 10-12-2024 nicotine (Nicoderm CQ) 7 MG/ 24HR patch Indications: Light cigarette smoker (1-9 cigs/day) Place 1 patch over 24 hours on the skin 1 (one) time each day at the same time 30 patch 2 07/14/2024 10/12/2024 Active Completed/Discontinued Medications Medication Drug Class(es) Dates Sig (Normalized) Sig (Original) atorvastatin 80 mg oral tablet (5 sources) HMG-CoA Reductase Inhibitor Start: 08-22-2023 End: 07-14-2024 take 1 tablet by mouth in the morning atorvastatin (Lipitor) 80 MG tablet Take 80 mg by mouth in the morning. 08/22/2023 07/14/2024 Discontinued Problems Active Problems Problem Classification Problem Date Documented Date Episodic/Chronic Coronary atherosclerosis and other heart disease (19 sources) Unstable angina; Translations: [Atherosclerotic heart disease of [place] coronary artery with unstable angina pectoris] Onset: 06-20-2017 08-28-2022 Chronic Coronary atherosclerosis and other heart disease (2 sources) Presence of coronary angioplasty implant and graft; Translations: [Presence of coronary angioplasty implant and graft] Onset: 10-13-2024 Episodic Diabetes mellitus with complications (20 sources) Hyperglycemia due to type 2 diabetes mellitus; Translations: [Type 2 diabetes mellitus with hyperglycemia] Onset: 08-28-2022 08-28-2022 Chronic Diabetes mellitus without complication (13 sources) Type 2 diabetes mellitus without complications; Translations: [Diabetes mellitus] Onset: 06-20-2017 09-14-2023 Chronic Disorders of lipid metabolism (18 sources) Pure hypercholesterolemia; Translations: [Pure hypercholesterolemia, unspecified] Onset: 07-16-2023 07-16-2023 Chronic Essential hypertension (16 sources) Hypertensive disorder; Translations: [Essential (primary) hypertension] Onset: 08-28-2022 08-28-2022 Chronic Fracture of lower limb (2 sources) Closed fracture of shaft of fibula; Translations: [Displaced oblique fracture of shaft of left fibula, subsequent encounter for closed fracture with nonunion] 07-17-2024 Episodic Heart valve disorders (6 sources) Nonrheumatic aortic (valve) insufficiency; Translations: [NONRHEUMATIC AORTIC INSUFFICIENCY] Onset: 04-07-2020 Chronic Open wounds of extremities (2 sources) Laceration of lower limb; Translations: [Laceration without foreign body, left lower leg, initial encounter] 12-17-2023 Episodic Other aftercare (1 source) 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; Translations: [Type 2 diabetes mellitus with hyperglycemia, with long-term current use of insulin (HCC)] Onset: 10-29-2024 Episodic Other circulatory disease (2 sources) Elevated blood-pressure reading without diagnosis of hypertension; Translations: [Elevated blood-pressure reading, without diagnosis of hypertension] 09-04-2024 Episodic Other connective tissue disease (4 sources) Disorder of musculoskeletal system; Translations: [Other specified disorders of synovium, left ankle and foot] 07-17-2024 Episodic Other ear and sense organ disorders (12 sources) Chronic otitis externa of left external auditory canal; Translations: [Unspecified chronic otitis externa, left ear] Onset: 08-28-2022 08-28-2022 Chronic Other male genital disorders (4 sources) Male erectile dysfunction, unspecified; Translations: [Impotence of organic origin] Onset: 08-05-2024 07-14-2024 Chronic Other male genital disorders (1 source) Erectile dysfunction due to diseases classified elsewhere; Translations: [Erectile dysfunction due to diabetes mellitus (HCC)] Onset: 10-29-2024 Chronic Other male genital disorders (1 source) Induration penis plastica; Translations: [Peyronie's disease] Onset: 10-29-2024 Chronic Other screening for suspected conditions (not mental disorders or infectious disease) (2 sources) Patient encounter status; Translations: [Encounter for screening for other suspected endocrine disorder] 09-04-2024 Episodic Peripheral and visceral atherosclerosis (2 sources) Peripheral vascular disease, unspecified; Translations: [Peripheral vascular disease, unspecified] Onset: 10-13-2024 Chronic Substance-related disorders (4 sources) Nicotine dependence, cigarettes, uncomplicated; Translations: [Light cigarette smoker (1-9 cigs/day) ] Onset: 06-20-2017 07-14-2024 Chronic 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 (2 sources) Unknown / UNK(Unknown) Onset: 06-20-2017 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 (1 source) snf (current) use of oral hypoglycemic drugs; Translations: [USP (CURRENT) USE OF ORAL HYPOGLYCEMIC DRUGS] Onset: 06-20-2017 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 (2 sources) Erectile dysfunction, unspecified erectile dysfunction type 07-14-2024 Past or Other Problems Problem Classification Problem Date Documented Da te Episodic/Chronic Cardiac dysrhythmias (12 sources) Palpitations; Translations: [Palpitations] Onset: 08-28-2022 08-28-2022 Episodic Conditions associated with dizziness or vertigo (14 sources) Labyrinthine disorder; Translations: [Unspecified disorder of vestibular function, unspecified ear] Onset: 12-17-2023 12-17-2023 Episodic Other connective tissue disease (12 sources) Adhesive capsulitis of left shoulder; Translations: [Adhesive capsulitis of left shoulder] Onset: 08-28-2022 08-28-2022 Episodic Other non-traumatic joint disorders (12 sources) Pain in left shoulder; Translations: [Pain in joint, shoulder region] Onset: 08-28-2022 08-28-2022 Episodic Otitis media and related conditions (14 sources) Dysfunction of eustachian tube; Translations: [Unspecified Eustachian tube disorder, bilateral] Onset: 12-17-2023 12-17-2023 Episodic Results Test Name Value Interpretation Reference Range Facility [facility] 10-31-2024 [facility] Telephone (URON) MENDEZ RODRÍGUEZ ([id number]) 1965 M Date Time Provider Department 10/31/24 ELMA ADAME During your visit today, we recorded the following information about you: Allergies As of Date: 10/31/2024 (No Known Allergies) Date Reviewed: 10/29/2024 Reviewed by: Seferino Gonzalez MD - Fully Assessed Prescriptions as of 10/31/2024 - metFORMIN (GLUCOPHAGE) 1,000 mg tablet Take 1 tablet by mouth two times a day with meals. Problem List As Of Date: 10/31/2024 (None) Encounter Status:Closed by ELMA ADAME on 10/31/24 [facility] CNOVon 10-29-2024 CNOV Office Visit (UROLBE ) MENDEZ RODRÍGUEZ ([id number]) 1965 M Date Time Provider Department 10/29/24 8:40 AM SEFERINO GONZALEZ UROLNAMAN During your visit today, we recorded the following information about you: Seferino Gonzalez MD 10/29/2024 9:07 AM Signed We discussed your erectile dysfunction (ED): - Your ED is most likely caused by diabetes, which has led to damage in the small arteries that supply blood to the penis. This damage is irreversible, and further testing is not necessary as it would not change the treatment plan. - Your testosterone levels are within the normal range, so this is not contributing to your ED. - During the physical exam, I identified scar tissue in your penis, which is consistent with Peyronie?s disease. This condition can result from minor injuries to the penis and is more common in diabetics. It may also have been exacerbated by prior penile injections. Due to this, I do not recommend revisiting injections as a treatment option, as they could worsen the scar tissue, cause curvature, or lead to loss of penile length. We discussed treatment options for your ED: 1. Vacuum Pump: - This involves using a plastic tube to create a vacuum that draws blood into the penis, followed by placing a constriction ring at the base of the penis to maintain the erection. - This option is cumbersome and typically not effective for men who have not responded to injections. Only about 30% of men are satisfied with this method. 2. Penile Implant: - This is a 30-minute outpatient surgical procedure where a device is implanted that allows you to control erections manually. The implant does not rely on blood flow and can provide reliable erections. - The procedure is covered by insurance, including Medicare, and has a satisfaction rate of over 90% for both patients and their partners. - Risks include: - Infection (5% risk, higher in diabetics). If this occurs, the implant would need to be removed and replaced. - Device malfunction, though implants typically last about 20 years. - Potential loss of penile length due to prior scar tissue or lack of strong erections over time. The implant is designed to restore function, not appearance. - If you are interested, my nurse will call you to discuss scheduling. Surgery is performed on , and there may be a wait of a few months. You can request to be placed on the cancellation list for an earlier date. We discussed lifestyle recommendations to optimize your diabetes control and minimize risks: - Continue maintaining a healthy diet and exercise routine. - Avoid white foods such as rice, bread, and potatoes, as well as sugar, soda, and alcohol, which can worsen blood sugar control. - Keeping your blood sugar levels well-controlled will reduce your risk of complications, including infection after surgery. Next steps: - My nurse will contact you to schedule the procedure and arrange for pre-anesthesia testing and any necessary blood work. - In the meantime, please review the reading material I provided about penile implants. If you have any further questions or concerns, please let us know. Seferino Gonzalez MD 10/29/2024 9:07 AM Signed Urology Note Patient info Mendez Rodríguez 1965 [id number] CC: The patient is a 59-year-old male with a history of DM and ED, presenting for further evaluation and management of ED. HPI: The patient reports a 3-year history of ED, characterized by insufficient rigidity for penetration and brief duration of erections. He notes a worsening of symptoms over the past year. He has trialed oral PDE5 inhibitors and intracavernosal injections without success. He denies any penile curvature or changes suggestive of Peyronie's disease. He reports a subjective improvement in erectile firmness when standing, attributing this to gravitational effects, and notes a coincidental improvement with ibuprofen use, which he was taking for a leg fracture. The patient has a history of DM, with a recent HbA1c of 7.3%. Previous HbA1c levels have been as high as 8.7% within the last year, indicating variable glycemic control. He has a history of coronary artery disease, status post stent placement. Recent testosterone levels were within normal limits, with a total testosterone of 645 ng/dL measured in July. He maintains a healthy lifestyle, including regular exercise and a balanced diet, and expresses a strong desire to restore erectile function, particularly due to the age difference with his . Patient Entered Questionnaires PROMIS Global Health Percentiles provide an indication of how the patient's score ranks in relation to the general population. Higher percentile rankings indicate better function/quality of life. 50th percentile is the average of the general population and indicates half of respondents had a w (more content not included)... Normal [facility] Office Visiton 10-13-2024 Follow-up visit [id number] Rafa Rodríguez 1965 M Date Provider Department Center 10/13/2024 JAMIR CHRISTIAN [facility] Family History Problem Relation Age of Onset Coronary artery disease Mother Diabetes Mother Hypertension Father Heart attack Paternal Grandmother Family Status - Relation Status Age at Mother Father Paternal Grandmother Level of Service:80381 GA OFFICE/OUTPATIENT ESTABLISHED MOD MDM 30 MIN Normal [facility] CNOVon 08-05-2024 CNOV Office Visit (URFHR) MENDEZ RODRÍGUEZ ([id number]) 1965 M Date Time Provider Department 08/05/24 1:40 PM KATI SPIVEY During your visit today, we recorded the following information about you: Pulse Respiration Blood pressure 62/minute 18/minute 153/83 Pauline Seth APRN.CNP 08/05/2024 2:07 PM Signed Chief complaint: ED HPI: Patient is a 59 year old male with chronic ED for ~3 years. He is not to achieve erection. Erections are not firm enough for penetration and not long lasting. He does not have libido issues. He feels his erections have worsened the last 12 months. He has tried PDE5i and ICI for his ED without successful erections. He has DM as a potential reason for ED. He is interested in further testing for his ED. His PSA and testosterone levels are WNL. IPSS-10 QoL- 1 ANAY- 5 No past medical history on file. No past surgical history on file. Allergies: No Known Allergies No current outpatient medications No family history on file. EXAM: SAMMY Labs reviewed:PSA and testosterone Imaging: no new images reviewed today Impression: ASSESSMENT/PLAN: 1. Erectile dysfunction, unspecified erectile dysfunction type - ICD9: 607.84, ICD10: N52.9 Patient presents for further evaluation of ED. Etiology of ED was discussed. Discussed options of including PDE5I, JOSE, ICI, and IPP. He is refractory to PDE5i and ICI. The patient would like to meet with a Men's health specialist for further testing to assess for a circulation issue. Follow up with Dr. Gonzalez for further evaluation and discussion Pauline Seth APRN.CNP Medical Decision Making: Problems: Low: Stable chronic illness Risk: Low: Low risk from testing/treatment Medical Decision Making Level: 3 - Low Referring Provider: ELMA RODRIGUEZ [[id number]] Allergies As of Date: 08/05/2024 (No Known Allergies) Date Reviewed: 08/05/2024 Reviewed by: Pauline Seth APRN.CNP - Fully Assessed Reason for Visit: Consult [173] Erectile Dysfunction [339] Primary Visit Diagnosis:Erectile dysfunction, unspecified erectile dysfunction type [N52.9] Prescriptions as of 08/05/2024 - metFORMIN (GLUCOPHAGE) 1,000 mg tablet Take 1 tablet by mouth two times a day with meals. Problem List As Of Date: 08/05/2024 (None) Disposition: Return if symptoms worsen or fail to improve. Follow-up and Disposition History for Encounter Date Provider Department Center 08/05/2024 [id number] SPIVEY [facility] Encounter Status:Closed by PAULINE SETH on 08/05/24 Normal [facility] ALBUMIN, RANDOM URINE W/CREA Ines 08-04-2024 ALBUMIN, URINE <0.2 Normal See Note: [facility] Comment on above: Order Comment: SPLIT 08/01/2024 FROM 001 1534 Result Comment: Refe carlaileen Range: Reference Range Not established Performed By: #### 6 [id number] #### [facility] [address], [address] [place] [address] Licensed Pesticide Applicator: Blaise Sol MD ALBUMIN/CREATIN INE RATIO, RANDOM URINE NOTE Normal <30 [facility] Comment on above: Order Comment: SPLIT 08/01/2024 FROM 001 1534 Result Comment: NOTE : The urine albumin value is less than 0.2 mg/dL therefore we are unable to calculate excretion and/or creatinine ratio. The ADA defines abnormalities in albumin excretion as follows: Albuminuria Category Result (mg/g creatinine) Normal to Mildly increased <30 Moderately increased 30-299 Severely increased > OR = 300 The ADA recommends that at least two of three specimens collected within a 3-6 month period be abnormal before considering a patient to be within a diagnostic category. Performed By: #### 6 517 #### [facility] [address], [address] [place] [id number] Licensed Pesticide Applicator: Blaise Sol MD Creatinine (U) [Mass/Vol] 16 mg/dL Low 20-320 [facility] Comment on above: Order Comment: SPLIT 08/01/2024 FROM 001 1534 Performed By: #### 6 517 #### [facility] [address], [address] [place] [phone] Licensed Pesticide Applicator: Blaise Sol MD CBC (H/H, RBC, INDICES, WBC, PLT)on 08-02-2024 Erythrocyte distribution width (RBC) [Ratio] 13.0 % Normal 11.0-15.0 [facility] Comment on above: Performed By: #### 5363, 7600 #### [facility] [place] [address] Licensed Pesticide Applicator: Blaise Sol MD #### [id number], 1759 #### [facility] [address] Licensed Pesticide Applicator: Mariluz Daniel Hematocrit (Bld) [Volume fraction] 42.4 % Normal 38.5-50.0 [facility] Comment on above: Performed By: #### 5363, 7600 #### [facility] [place] [address] Licensed Pesticide Applicator: Blaise Sol MD #### [id number], 1759 #### [facility] [address] Licensed Pesticide Applicator: Mariluz Daniel Hemoglobin (Bld) [Mass/Vol] 14.2 g/dL Normal 13.2-17.1 [facility] Comment on above: Performed By: #### 5363, 7600 #### [facility] [place] [address] Licensed Pesticide Applicator: Blaise Sol MD #### [address], 1759 #### [facility] [address] Licensed Pesticide Applicator: Mariluz Daniel MCH (RBC) [Entitic mass] 30.0 pg Normal 27.0-33.0 [facility] Comment on above: Performed By: #### 5363, 7600 #### [facility] [address], [address] [place] [address] Licensed Pesticide Applicator: Blaise Sol MD #### [id number], 1759 #### [facility] Licensed Pesticide Applicator: Mariluz Daniel MCHC (RBC) [Mass/Vol] 33.5 g/dL Normal 32.0-36.0 [facility] Comment on above: Result Comment: For adults, a slight dec rease in the calculated MCHC value (in the range of 30 to 32 g/dL) is most likely not clinically significant; however, it should be interpreted with caution in correlation with other red cell parameters and the patient's clinical condition. Performed By: #### 5 363, 7600 #### [facility] [address], [address] [place], [place] [address] Licensed Pesticide Applicator: Blaise Sol MD #### [id number], 1759 #### [facility] [address] Licensed Pesticide Applicator: Mariluz Daniel MCV (RBC) [Entitic vol] 89.5 fL Normal 80.0-100.0 [facility] Comment on above: Performed By: #### 5363, 0 #### [facility] [address], [address] [place] [address] Licensed Pesticide Applicator: Blaise Sol MD #### [id number], 1759 #### [facility] [address] Licensed Pesticide Applicator: Mariluz Daniel Platelet mean volume (Bld) [Entitic vol] 11.1 fL Normal 7.5-12.5 [facility] Comment on above: Performed By: #### 5363, 0 #### [facility] [address], [address] [place] [address] Licensed Pesticide Applicator: Blaise Sol MD #### [id number], 1759 #### [facility] Licensed Pesticide Applicator: Mariluz Daniel Platelets (Bld) [#/Vol] 166 10*3/uL Normal 140-400 [facility] Comment on above: Performed By: #### 5363, 7600 #### [facility] [address], [address] [place] [address] Licensed Pesticide Applicator: Blaise Sol MD #### [id number], 1759 #### [facility] [address] [place], [place] [phone] Licensed Pesticide Applicator: Mariluz Daniel RBC (Bld) [#/Vol] 4.74 10*6/uL Normal 4.20-5.80 [facility] Comment on above: Performed By: #### 5363, 7600 #### [facility] [address], [address] [place] [address] Licensed Pesticide Applicator: Blaise Sol MD #### [id number], 1759 #### [facility] [address] [place], [place] [phone] Licensed Pesticide Applicator: Mariluz Daniel WBC (Bld) [#/Vol] 7.4 10*3/uL Normal 3.8-10.8 [facility] Comment on above: Performed By: #### 5363, 5490 #### [facility] [address], [address] [place] [address] Licensed Pesticide Applicator: Blaise Sol MD #### [id number], 1759 #### [facility] [phone] Licensed Pesticide Applicator: Mariluz Daniel [facility] METABOL[facility] 08-02-2024 Albumin [Mass/Vol] 4.3 g/dL Normal 3.6-5.1 [facility] Comment on above: Performed By: #### 5363, 7600 #### [facility] [address], [address] [place] [address] Licensed Pesticide Applicator: Blaise Sol MD #### [id number], 1759 #### [facility] [address] [place] [phone] Licensed Pesticide Applicator: Mariluz Daniel Albumin/Globuli n [Mass ratio] 1.8 {ratio} Normal 1.0-2.5 [facility] Comment on above: Performed By: #### 5363, 7600 #### [facility] [address], [address] [place] [address] Licensed Pesticide Applicator: Blaise Sol MD #### [id number], 175 #### [facility] [address] [place] [address] Licensed Pesticide Applicator: Mariluz Daniel ALP [Catalytic activity/Vol] 53 U/L Normal 35-144 [facility] Comment on above: Performed By: #### 5363, 7600 #### [facility] [address], [address] [place] [address] Licensed Pesticide Applicator: Blaise Sol MD #### [id number], 1759 #### [facility] [address] [place], [place] [phone] Licensed Pesticide Applicator: Mariluz Daniel ALT [Catalytic activity/Vol] 23 U/L Normal 9-46 [facility] Comment on above: Performed By: #### 5363, 0 #### [facility] [address], [address] [place] [address] Licensed Pesticide Applicator: Blaise Sol MD #### [id number], 1759 #### [facility] [address] Licensed Pesticide Applicator: Mariluz Daniel AST [Catalytic activity/Vol] 17 U/L Normal 10-35 [facility] Comment on above: Performed By: #### 5363, 0 #### [facility] [address], [address] [place] [address] Licensed Pesticide Applicator: Blaise Sol MD #### 14654, 1759 #### [facility] [address] Licensed Pesticide Applicator: Mariluz Daniel Bilirubin [Mass/Vol] 0.5 mg/dL Normal 0.2-1.2 [facility] Comment on above: Performed By: #### 5363, 0 #### [facility] [address], [address] [place] [address] Licensed Pesticide Applicator: Blaise Sol MD #### [id number], 1759 #### [facility] Licensed Pesticide Applicator: Mariluz Daniel BUN/CREATININE RATIO SEE NOTE: Normal 6-22 [facility] Comment on above: Result Comment: Not Reported: BUN and Cr eatinine are within reference range. Performed By: #### 5 363, 7600 #### [facility] [address], [address] [place] [address] Licensed Pesticide Applicator: Blaise Sol MD #### [id number], 1759 #### [facility] [address] Licensed Pesticide Applicator: Mariluz Lamari Calcium [Mass/Vol] 9.5 mg/dL Normal 8.6-10.3 [facility] Comment on above: Performed By: #### 5389, 7600 #### [facility] [address], [address] [place] [address] Licensed Pesticide Applicator: Blaise Sol MD #### 81606, 1759 #### [facility] [address] Licensed Pesticide Applicator: Mariluz Alexis Flati Chloride [Moles/Vol] 103 mmol/L Normal 98-110 [facility] Comment on above: Performed By: #### 0278, 0 #### [facility] [address], [address] [place] [address] Licensed Pesticide Applicator: Blaise Sol MD #### [id number], 1759 #### [facility] Licensed Pesticide Applicator: Mariluz Alexis Flati CO2 [Moles/Vol] 26 mmol/L Normal 20-32 [facility] Comment on above: Performed By: #### 5361, 7600 #### [facility] [address], [address] [place] [address] Licensed Pesticide Applicator: Blaise Sol MD #### [id number], 175 #### [facility] [address] [place], [place] [id number] Licensed Pesticide Applicator: Mariluz Alexis Flati Creatinine [Mass/Vol] 0.89 mg/dL Normal 0.70-1.35 [facility] Comment on above: Performed By: #### 5331, 7600 #### [facility] [address], [address] [place] [address] Licensed Pesticide Applicator: Blaise Sol MD #### [id number], 1759 #### [facility] [address] [place] [phone] Licensed Pesticide Applicator: Mariluz Daniel GFR/1.73 sq M.predicted among non-blacks MDRD (S/P/Bld) [Vol rate/Area] 97 mL/min/{1.73_m2} Normal > OR = 60 [facility] Comment on above: Performed By: #### 5363, 0 #### [facility] [address], [address] [place] [address] Licensed Pesticide Applicator: Blaise Sol MD #### [id number], 1759 #### [place] [address] Licensed Pesticide Applicator: Mariluz Daniel Globulin (S) [Mass/Vol] 2.4 g/dL Normal 1.9-3.7 [facility] Comment on above: Performed By: #### 5363, 0 #### [facility] [address], [address] [place] [address] Licensed Pesticide Applicator: Blaise Sol MD #### [id number], 1759 #### [facility] [address] [place] [phone] Licensed Pesticide Applicator: Mariluz Daniel Glucose [Mass/Vol] 132 mg/dL High 65-99 [facility] Comment on above: Result Comment: Fasting reference interval For someone without known diabetes, a glucose value >125 mg/dL indicates that they may have diabetes and this should be confirmed with a follow-up test. Performed By: #### 5 363, 2220 #### [facility] [address], [address] [place] [address] Licensed Pesticide Applicator: Blaise Sol MD #### [id number], 175 #### [facility] [phone] Licensed Pesticide Applicator: Mariluz Daniel Potassium [Moles/Vol] 4.4 mmol/L Normal 3.5-5.3 [facility] Comment on above: Performed By: #### 5363, 7600 #### [facility] [address], [address] [place] [address] Licensed Pesticide Applicator: Blaise Sol MD #### [id number], 1759 #### [facility] [address] [place], [place] [phone] Licensed Pesticide Applicator: Mariluz Daniel Protein [Mass/Vol] 6.7 g/dL Normal 6.1-8.1 [facility] Comment on above: Performed By: #### 5363, 7600 #### [facility] [address], [address] [place] [address] Licensed Pesticide Applicator: Blaise Sol MD #### [id number], 1759 #### [facility] [address] Licensed Pesticide Applicator: Mariluz Daniel Sodium [Moles/Vol] 136 mmol/L Normal 135-146 [facility] Comment on above: Performed By: #### 5363, 7600 #### [facility] [place] [address] Licensed Pesticide Applicator: Blaise Sol MD #### 69795, 1759 #### [facility] Licensed Pesticide Applicator: Mariluz Daniel Urea nitrogen [Mass/Vol] 19 mg/dL Normal 7-25 [facility] Comment on above: Performed By: #### 5363, 7600 #### [facility] [address], [address] [place] [address] Licensed Pesticide Applicator: Blaise Sol MD #### 10466, 1759 #### [facility] [phone] Licensed Pesticide Applicator: Mariluz Daniel LIPID PANEL, [facility] [place] 05 0 Cholesterol [Mass/Vol] 243 mg/dL High <200 [facility] Comment on above: Order Comment: MULTIPLE TESTING PRIORITI ES; ROUTINE TESTING TO FOLLOW. Performed By: #### 5 363, 7600 #### [facility] [address], [address] [place] [address] Licensed Pesticide Applicator: Blaise Sol MD #### 91621, 1759 #### [facility] [address] [place], [place] [phone] Licensed Pesticide Applicator: Mariluz Lamari Cholesterol in HDL [Mass/Vol] 66 mg/dL Normal > OR = 40 [facility] Comment on above: Order Comment: MULTIPLE TESTING PRIORITI ES; ROUTINE TESTING TO FOLLOW. Performed By: #### 5 363, 7600 #### [facility] [address], [address] [place] [address] Licensed Pesticide Applicator: Blaise Sol MD #### 64353, 1759 #### [facility] [phone] Licensed Pesticide Applicator: Mariluz Daniel Cholesterol in LDL [Mass/Vol] 162 mg/dL High [facility] Comment on above: Order Comment: MULTIPLE TESTING PRIORITI ES; ROUTINE TESTING TO FOLLOW. Result Comment: Refe rence range: <100 Desirable range <100 mg/dL for primary prevention; <70 mg/dL for patients with CHD or diabetic patients with > or = 2 CHD risk factors. LDL-C is now calculated using the Poncho-Cecelia calculation, which is a validated novel method providing better accuracy than the Friedewald equation in the estimation of LDL-C. Poncho POWELL et al. TRACI. 2013;310(19): 4666-8300 (http://education.OutTrippin.Looker/faq/LAI515) Performed By: #### 5 363, 7600 #### [facility] [address], [address] [place] [address] Licensed Pesticide Applicator: Blaise Sol MD #### [id number], 1759 #### [facility] [address] [place] [phone] Licensed Pesticide Applicator: Mariluz Minor.tot al/Cholesterol in HDL [Mass ratio] 3.7 {ratio} Normal <5.0 [facility] Comment on above: Order Comment: MULTIPLE TESTING PRIORITI ES; ROUTINE TESTING TO FOLLOW. Performed By: #### 5 363, 7600 #### [facility] [address], [address] [place] [address] Licensed Pesticide Applicator: Blaise Sol MD #### [id number], 1759 #### [facility] [address] [place] [phone] Licensed Pesticide Applicator: Mariluz Daniel NON HDL CHOLESTEROL 177 mg/dL (calc) High <130 [facility] Comment on above: Order Comment: MULTIPLE TESTING PRIORITI ES; ROUTINE TESTING TO FOLLOW. Result Comment: For patients with diabetes plus 1 major ASCVD risk factor, treating to a non-HDL-C goal of <100 mg/dL (LDL-C of <70 mg/dL) is considered a therapeutic option. Performed By: #### 5 363, 7600 #### [facility] [address], [address] [place] [address] Licensed Pesticide Applicator: Blaise Sol MD #### 32268, 1759 #### [facility] [address] [place], [place] [phone] Licensed Pesticide Applicator: Mariluz Daniel Triglyceride [Mass/Vol] 60 mg/dL Normal <150 [facility] Comment on above: Order Comment: MULTIPLE TESTING PRIORITI ES; ROUTINE TESTING TO FOLLOW. Performed By: #### 5 363, 3590 #### [facility] [address], [address] [place] [address] Licensed Pesticide Applicator: Blaise Sol MD #### 13390, 1759 #### [facility] [address] [place] [phone] Licensed Pesticide Applicator: Mariluz Daniel PSA, TOTALon 08-02-2024 PSA, TOTAL 1.95 ng/mL Normal < OR = 4.00 [facility] Comment on above: Result Comment: The total PSA value from [...] or absence of disease. Performed By: #### 5 363, 0060 #### [facility] [address], [address] [place] [address] Licensed Pesticide Applicator: Blaise Sol MD #### 25031, 1759 #### [facility] [address] [place] [address] Licensed Pesticide Applicator: Mariluz Daniel TESTOSTERONE, TOTAL, MALES ( ADULT), IAon 08-02-2024 TESTOSTERONE, TOTAL, MALES (ADULT), IA 645 ng/dL Normal 250-827 [facility] Comment on above: Performed By: #### 18203, 873 #### [facility] [address], [address] [place], [place] [id number] Licensed Pesticide Applicator: Blaise Sol MD VITAMIN D,25-OH,TOTAL,IAon 0 08-02-2024 VITAMIN D,25-OH,TOTAL,I A 50 ng/mL Normal 30-100 [facility] Comment on above: Result Comment: Vitamin D Status 25-OH V itamin D: Deficiency: <20 ng/mL Insufficiency: 20 - 29 ng/mL Optimal: > or = 30 ng/mL For 25-OH Vitamin D testing on patients on D2-supplementation and patients for whom quantitation of D2 and D3 fractions is required, the QuestAssureD(TM) 25-OH VIT D, (D2,D3), LC/MS/MS is recommended: order code 30963 (patients >2yrs). See Note 1 Note 1 For additional information, please refer to http://education.OutTrippin.Looker/faq/NIC926 (This link is being provided for informational/ educational purposes only.) Performed By: #### 1 7306, 873 #### [facility] [address], [address] [place], [place] [phone] Licensed Pesticide Applicator: Blaise Sol MD Ambulatory Visit Summaryon 0 07-24-2024 Ambulatory Visit Summary Ambulatory Visit Summary MENDEZ RODRÍGUEZ :1965 Visit Date:07/24/2024 Ambulatory Visit Instructions Your Diagnosis Erectile dysfunction Your Care Team Attending Physician - MICHAEL BROWN, ELMA Ku Primary Care Physician - MENDEZ GARCIA MD Referring Physician - MENDEZ GARCIA MD This Is Your Medications List diazepam (Valium 5 mg Tab) ibuprofen (ibuprofen 600 mg Tab) metformin (metformin 1000 mg Tab) methocarbamol (Robaxin-750 oral tablet) methylPREDNISolone (Medrol Dosepack 4 mg Tab) naproxen (naproxen 500 mg Tab) pioglitazone (Actos 45 mg Tab) tramadol (Ultram 50 mg Tab) Procedures Performed History of placement of stent in anterior descending branch of left coronary artery. Discharge Vitals Temperature (Temporal Artery) 36.3 ???C Heart Rate (Peripheral) 57 Respiratory Rate 16 Blood Pressure 140/80 Height 70 in Height 178 cm Weight 172.622 lb Weight 78.3 kg BMI 24.71 Medications What How Much When Instructions New diazepam (Valium 5 mg Tab) 1 Tablets By Mouth 3 times a day New ibuprofen (ibuprofen 600 mg Tab) 1 Tablets By Mouth 4 times a day New methocarbamol (Robaxin-750 oral tablet) 2 Tablets By Mouth 3 times a day New methylPREDNISolone (Medrol Dosepack 4 mg Tab) 1 Tablets By Mouth As Directed New naproxen (naproxen 500 mg Tab) 1 Tablets By Mouth 2 times a day New pioglitazone (Actos 45 mg Tab) 1 Tablets By Mouth Every day New tramadol (Ultram 50 mg Tab) 1 Tablets By Mouth Every 6 hours Unchanged metformin (metformin 1000 mg Tab) 1 Tablets By Mouth Every day Allergies No Known Allergies Problems Ongoing - Any problem that you are currently receiving treatment for. Coronary atherosclerosis Diabetes mellitus Diabetes mellitus Erectile dysfunction Heart disease Hypertensive disorder Pure hypercholesterolemia Type 2 diabetes mellitus Historical - Any problem that you are no longer receiving treatment for. Diabetes mellitus Patient Survey You may receive a survey via text or e-mail asking about your office visit. Please share your experience with us by completing your survey. We appreciate your feedback and thank you for choosing us for your care. Normal [facility] Urology Office/Clinic Noteon 07-24-2024 Urology Office/Clinic Note Urology Office/Clinic Note Chief Complaint New patient ED HPI Staff 59 year old male new patient referred for ED x 2 days. Has tried Viagra, cialis and has not worked. Has tried ICI and it didn't work. Only way he can get somewhat of an erection if he stands up. Hemoglobin A1c 07/14/24: 8.7 PSA 06/28/22- 1.53 CMP 07/07/23- BUN: 16, Creatinine: 0.78, eGFR:102 IPSS: 3, ANAY: 8 Denies any urological issues Review of Systems PHQ Score Initial Depression Screen Score: 3 SCORE Detailed Depression Screen Score: 1 Total Depression Screen Score: 4 no fever, chills, malaise, myalgia. no rash/lesions. no chest pain, palpitations, or SOB. no abdominal pain, nausea, vomiting. Physical Exam Vitals & Measurements T: 36.3 ???C(Temporal Artery) HR: 57(Peripheral) RR: 16 BP: 140/80 HT: 178 cm HT: 70 in WT: 172.622 lb WT: 78.3 kg BMI: 24.71 General: nontoxic, NAD Mouth: moist mucosa Lungs: normal respiratory effort Cardio: regular rate, good distal perfusion Abdomen: nondistended Neurologic: Grossly normal Skin: No rashes or suspicious lesions Assessment/Plan Supervisor [place] 0.78 BUN 10 Apr 2023 IPSS 3 QOL 0 Previous PSAs (printed from NOMs, exact dates not available): 2 yr ago - 1.53 3 yr ago - 1.41 5 yr ago - 1.8 UA completed in office today shows no microhematuria. Trace leuks only. Denies UTI sx. 1. Erectile dysfunction (N52.9: Male erectile dysfunction, unspecified) Saw [facility] 10 yrs ago for same issue. Failed Viagra, Cialis, and Trimix at that time. In the past few yrs pt has lost 60# with diet and exercise. However he continues to have ED issues. Pt has issues achieving erection yes, firmness yes, maintaining erection yes, reaching climax yes Reports he never has spontaneous nocturnal erection. It's been years. Notices than when he is in standing position the erection is firmer and is better able to maintain than any other position. Pt reports for 6 mos after his cardiac stent placement, his erections were the best they've ever been but that didn't last. ANAY 8 ED contributing factors: Cardiovascular disease yes +stent; hypertension yes, diabetes mellitus yes A1c 8.7 on 07/14/24; hyperlipidemia yes Smoking no quit >35 yrs ago; recreational drugs no, alcohol no, Major surgery (radical prostatectomy) or radiotherapy (pelvis or retroperitoneum) no Spinal cord and brain injuries no, Parkinson disease no, Alzheimer disease no, multiple sclerosis no, stroke no Peyronie's disease no, penile fracture no Hypogonadism no, hyper/hypothyroidism no Antihypertensives yes, antidepressants no, antipsychotics no, antiandrogens no, Performance-related anxiety no, traumatic past experiences no, relationship problems no, anxiety/depression no Pt has tried: vacuum device no, oral medications yes, ICI yes. Reports no improvement with oral meds or ICI. Reports significant and intolerable side effects from both. We reviewed all of his contributing factors including those that are within his control to change and those which are not. I offered basic labs to r/o hypo/hyperthyroid, hypogonadism, hyperprolactinemia. Pt declines at this time. Pt is not interested in re-trying oral medications or ICI. He is not interested in vacuum device. Pt has been researching a lot online and is interested in advanced tx modalities like LIPUS/LIST, revascularization, etc. I explained that our clinic does not offer these options but we are happy to refer him to a tertiary center for evaluation and treatment. Ordered: Body Mass Index (BMI) documented 3008F Current tobacco non-user 1036F Depression Screening Negative 3352F E&M of New Patient Moderate 45-59 Min 59149 Influenza immunization status assessed 1030F Medication list documented in medical record 1159F Most recent diastolic blood pressure 80-89 mm Hg 3079F Review of all meds by a prescribing practitioner or clinical pharmacist documented in EHR 1160F Systolic BP 130-139 mm Hg (Most Recent) 3075F Urnls Dip Stick Auto w/o Microscopy POC 28007 Follow-up With When Contact Information [facility] Additional Instructions: Only if needed/new problems arise. No scheduled appointment indicated at this time. Patient Education Erectile Dysfunction Problem List/Past Medical History Ongoing Coronary atherosclerosis Diabetes mellitus Diabetes mellitus Erectile dysfunction Heart disease Hypertensive disorder Pure hypercholesterolemia Type 2 diabetes mellitus Historical Diabetes mellitus Procedure/Surgical History History of placement of stent in anterior descending branch of left coronary artery. Medications Actos 45 mg Tab, 1 tab(s), Oral, Daily atorvastatin 80 mg Tab ibuprofen 600 mg Tab, 1 tab(s), Oral, QID Lantus 100 units/mL Injection-Insulin Medrol Dosepack 4 mg Tab, 1 tab(s), Oral, As Directed metformin 1000 mg Tab, 1000 mg= 1 tab(s), Oral, Daily naproxen 500 mg Tab, 1 tab(s), Oral, B (more content not included)... Normal [facility] Comment on above: Result Comment: Electronically Signed By : ELMA RODRIGUEZ PA-C\.adelso\Date and Time Signed: 07/24/24 10:33 EDT Patient Letter FTon 2024 Patient Letter [facility] [place] [facility] [place] July 21, 2024 MENDEZ RODRÍGUEZ [address] [place] [id number] : 1965 Dear Mendez Rodríguez You missed your scheduled appointment on: 07/21/24. note our appointment slots fill quickly. When you fail to cancel or reschedule an appointment the office is unable to fill the appointment slot that was reserved for you. In the future, we ask that you call 24 hours in advance to cancel your appointment. Our current reminder system gives you the opportunity to cancel by responding to our reminder text, phone call or email. You can also call the office to reschedule during normal business hours or use our on-line scheduling portal at your convenience. Our goal is to provide convenient and quality care to all of our patients. We appreciate your consideration regarding any future cancellations. 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 [facility] - Hematology and Cell countson 07-14-2024 HbA1c (Bld) [Mass fraction] 8.7 % [facility] WhatsApp No Panel Informationon 07-14 [facility] WhatsApp Q - COMPREHENSIVE METABOLIC PANEL W/EGFRon 07-11-2021 Albumin [Mass/Vol] 4.4 g/dL Normal 3.6-5.1 [facility]rig[facility] Unit Repairer Comment on above: Order Comment: [facility] 11U Testing performed at: [facility] [employer] [facility], [facility], [address] [place] [address], [address] [place] [address], Radiological Health Specialist: Blaise Sol MD [facility] Collection Date/Time: [facility] Results Received Date/Time: [facility] Reported Date/Time: FASTING: NO Performed By: #### 1 [id number], [id number], 5363X #### [facility] Default [address] [place] [address] Albumin/Globuli n [Mass ratio] 1.7 {ratio} Normal 1.0-2.5 [facility] [employer]rigeration Unit Repairer Comment on above: Order Comment: [facility] 11U Testing performed at: [facility], [employer] [facility], [address] [place] [address], [address] [place] [address], [address] [place] [address], Radiological Health Specialist: Blaise Sol MD [facility] Date/Time: [facility] Results Received Date/Time: [facility] Reported Date/Time: FASTING: NO Performed By: #### 1 0231A, 6517X, 5363X #### [facility] Default [address] [place] [address] ALP [Catalytic activity/Vol] 65 U/L Normal 35-144 [employer] [place] [facility] Comment on above: Order Comment: [facility] 11U Testing performed at: [facility], [facility], [address] [place] [address], [address] [place] [address], Radiological Health Specialist: Blaise Sol MD [facility] Collection Date/Time: [facility] Results Received Date/Time: [facility] Reported Date/Time: FASTING: NO Performed By: #### 1 0231A, [id number], [id number] #### [facility] Default [address] [place] [address] ALT [Catalytic activity/Vol] 62 U/L High 9-46 [facility] Comment on above: Order Comment: [facility] 11U Testing performed at: [employer], [employer] [facility], [address] [place] [address], [address] [place] [address], [address] [place] [address], Radiological Health Specialist: Blaise Sol MD [facility] Collection Date/Time: [facility] Results Received Date/Time: [facility] Reported Date/Time: FASTING: NO Performed By: #### 1 0231A, [id number], [id number] #### [facility] Default [address] [place] [address] AST [Catalytic activity/Vol] 29 U/L Normal 10-35 [facility] Comment on above: Order Comment: [facility] 11U Testing performed at: [employer], [employer] [facility], [address] [place] [address], [address] [place] [address], [address] [place] [address], Radiological Health Specialist: Blaise Sol MD [facility] Collection Date/Time: [facility] Results Received Date/Time: [facility] Reported Date/Time: FASTING: NO Performed By: #### 1 0231A, [id number], [id number] #### [facility] Default [address] [place] [address] Bilirubin [Mass/Vol] 0.4 mg/dL Normal 0.2-1.2 [facility] Comment on above: Order Comment: [facility] 11U Testing performed at: [employer], [employer] [facility], [address] [place] [address], [address] [place] [address], [address] [place] [address], Radiological Health Specialist: Blaise Sol MD [facility] Collection Date/Time: [facility] Results Received Date/Time: [facility] Reported Date/Time: FASTING: NO Performed By: #### 1 0231A, [id number], [id number] #### [facility] Default [address] [place] [address] BUN/CREA 23 NOT APPLICABLE Normal 6-22 [facility] Comment on above: Order Comment: [facility] 11U Testing performed at: [employer], [employer] [facility], [address] [place] [address], [address] [place] [address], [address] [place] [address], Radiological Health Specialist: Blaise Sol MD [facility] Collection Date/Time: [facility] Results Received Date/Time: [facility] Reported Date/Time: FASTING: NO Performed By: #### 1 0231A, [id number], [id number] #### [facility] Default [address] [place] [address] Calcium [Mass/Vol] 9.7 mg/dL Normal 8.6-10.3 [facility] Specialist Comment on above: Order Comment: [facility] 11U Testing performed at: [employer], [employer] [facility], [address] [place] [address], [address] [place] [address], [address] [place] [address], Radiological Health Specialist: Blaise Sol MD [facility] Collection Date/Time: [facility] Results Received Date/Time: [facility] Reported Date/Time: FASTING: NO Performed By: #### 1 0231A, [id number], [id number] #### [facility] Default [address] [place] [address] Chloride [Moles/Vol] 104 mmol/L Normal 98-110 [facility] Specialist Comment on above: Order Comment: [facility] 11U Testing performed at: [employer], [employer] [facility], [address] [place] [address], [address] [place] [address], [address] [place] [address], Radiological Health Specialist: Blaise Sol MD [facility] Collection Date/Time: [facility] Results Received Date/Time: [facility] Reported Date/Time: FASTING: NO Performed By: #### 1 0231A, [id number], [id number] #### [facility] Default [address] [place] [address] CO2 [Moles/Vol] 26 mmol/L Normal 20-32 [facility] Comment on above: Order Comment: [facility] 11U Testing performed at: [employer], [employer] [facility], [address] [place] [address], [address] [place] [address], [address] [place] [address], Radiological Health Specialist: Blaise Sol MD [facility] Collection Date/Time: [facility] Results Received Date/Time: [facility] Reported Date/Time: FASTING: NO Performed By: #### 1 0231A, [id number], [id number] #### [facility] Default [address] [place] [address] Creatinine [Mass/Vol] 0.81 mg/dL Normal 0.70-1.33 [facility] Comment on above: Order Comment: [facility] 11U Testing performed at: [facility], [address] [place] [address], [address] [place] [address], [address] [place] [address], Radiological Health Specialist: Blaise Sol MD [facility] Collection Date/Time: [facility] Results Received Date/Time: [facility] Reported Date/Time: FASTING: NO Result Comment: For patients >49 years of age, the reference limit for Creatinine is approximately 13% higher for people identified as -[place]oz[place]. Performed By: #### 1 0231A, [id number], 5363X #### [facility] Default [address] [place] [address] eGFRAA (Quest) 114 mL/min/1.73m2 Normal > OR = 60 [facility] Specialist Comment on above: Order Comment: [facility] 11U Testing performed at: [facility], [address] [place] [address], [address] [place] [address], [address] [place] [address], Radiological Health Specialist: Blaise Sol MD [facility] Collection Date/Time: [facility] Results Received Date/Time: [facility] Reported Date/Time: FASTING: NO Performed By: #### 1 0231A, [id number], 5363X #### [facility] Default [address] [place] [address] eGFRNAA (Quest) 98 mL/min/1.73m2 Normal > OR = 60 [facility] Comment on above: Order Comment: [facility] 11U Testing performed at: [facility], [address] [place] [address], [address] [place] [address], [address] [place] [address], Radiological Health Specialist: Blaise Sol MD [facility] Collection Date/Time: [facility] Results Received Date/Time: [facility] Reported Date/Time: FASTING: NO Performed By: #### 1 0231A, [id number], [id number] #### [facility] Default [address] [place] [address] Globulin (S) [Mass/Vol] 2.6 g/dL Normal 1.9-3.7 [facility] Comment on above: Order Comment: [facility] 11U Testing performed at: [facility] [employer] [facility], [address] [place] [address], [address] [place] [address], [address] [place] [address], Radiological Health Specialist: Blaise Sol MD [facility] Collection Date/Time: [facility] Results Received Date/Time: [facility] Reported Date/Time: FASTING: NO Performed By: #### 1 0231A, [id number], [id number] #### [facility] Default [address] [place] [address] Glucose [Mass/Vol] 123 mg/dL Normal 65-139 [employer] [place] [facility] Comment on above: Order Comment: [facility] 11U Testing performed at: [facility] [employer] [facility], [address] [place] [address], [address] [place] [address], [address] [place] [address], Radiological Health Specialist: Blaise Sol MD [facility] Collection Date/Time: [facility] Results Received Date/Time: [facility] Reported Date/Time: FASTING: NO Result Comment: Non-fasting reference interval For someone without known diabetes, a glucose value between 100 and 125 mg/dL is consistent with prediabetes and should be confirmed with a follow-up test. Performed By: #### 1 0231A, [id number], 5363X #### [facility] Default [address] [place] [address] Potassium [Moles/Vol] 4.7 mmol/L Normal 3.5-5.3 [facility] Comment on above: Order Comment: [facility] 11U Testing performed at: [employer], [employer] [facility], [address] [facility], [address] [place] [address], [address] [place] [address], Radiological Health Specialist: Blaise Sol MD [facility] Collection Date/Time: [facility] Results Received Date/Time: [facility] Reported Date/Time: FASTING: NO Performed By: #### 1 0231A, [id number], 5363X #### [facility] Default [address] [place] [address] Protein [Mass/Vol] 7.0 g/dL Normal 6.1-8.1 [facility] Comment on above: Order Comment: [facility] 11U Testing performed at: [employer], [employer] [facility], [address] [place] [address], [address] [place] [address], [address] [place] [address], Radiological Health Specialist: Blaise Sol MD [facility] Collection Date/Time: [facility] Results Received Date/Time: [facility] Reported Date/Time: FASTING: NO Performed By: #### 1 0231A, [id number], [id number] #### [facility] Default [address] [place] [address] Sodium [Moles/Vol] 137 mmol/L Normal 135-146 [employer] [place] [facility] Comment on above: Order Comment: [facility] 11U Testing performed at: [employer], [employer] [facility], [address] [place] [address], [address] [place] [address], [address] [place] [address], Radiological Health Specialist: Blaise Sol MD [facility] Collection Date/Time: [facility] Results Received Date/Time: [facility] Reported Date/Time: FASTING: NO Performed By: #### 1 0231A, [id number], [id number] #### [facility] Default [address] [place] [address] Urea nitrogen [Mass/Vol] 19 mg/dL Normal 7-25 [facility] Comment on above: Order Comment: [facility] 11U Testing performed at: [employer], [employer] [facility], [address] [place] [address], [address] [place] [address], [address] [place] [address], Radiological Health Specialist: Blaise Sol MD [facility] Collection Date/Time: [facility] Results Received Date/Time: [facility] Reported Date/Time: FASTING: NO Performed By: #### 1 0231A, [id number], [id number] #### [facility] Default [address] [place] [address] Q - MICROALBUMIN,RANDOM URIN E (W/CREAT)on 07-11-2021 Albumin DL <= 20 mg/L (U) [Mass/Vol] 1.0 mg/dL Normal See Note: [facility] Comment on above: Order Comment: [facility] 11U Testing [facility]: [facility] [employer] [facility], [address] [place] [address], [address] [place] [address], [address] [place] [address], Radiological Health Specialist: Blaise Sol MD [facility] Collection Date/Time: [facility] Results Received Date/Time: [facility] Reported Date/Time: FASTING: NO Result Comment: Refe rence Range: Reference Range Not established Performed By: #### 1 0231A, [id number], [id number] #### [facility] Default [address] [place] [address] Creatinine (U) [Mass/Vol] 65 mg/dL Normal 20-320 [employer] [place] [facility] Comment on above: Order Comment: [facility] 11U Testing performed at: [employer], [employer] [facility], [address] [place] [address], [address] [place] [address], [address] [place] [address], Radiological Health Specialist: Blaise Sol MD [facility] Collection Date/Time: [facility] Results Received Date/Time: [facility] Reported Date/Time: FASTING: NO Performed By: #### 1 0231A, [id number], [id number] #### [facility] Default [address] [place] [address] MICROALBUMIN/CR EATININE RATIO, RANDOM URINE 15 mcg/mg creat Normal <30 [employer] [place] [facility] Comment on above: Order Comment: [facility] 11U Testing performed at: [employer], [employer] [facility], [address] [place] [address], [address] [place] [address], [id number], Radiological Health Specialist: Blaise Sol MD [facility] Collection Date/Time: Quest [...] 6517X, 5363X #### [facility] Default [address] [place] [address] Q - PSA TOTALon 07-11-2021 PSA, TOTAL 1.41 ng/mL Normal < OR = 4.00 [facility] Comment on above: Order Comment: [facility] 11U Testing performed at: [employer], [employer] [facility], [address] [facility], [address] [place] [address], [id number], Radiological Health Specialist: Blaise Sol MD [facility] Collection Date/Time: Quest [...] 6517X, 5363X #### [facility] Default [address] [place] [address] ECHOCARDIO M/2D COMPLETEon 0 04-07-2020 ECHOCARDIO M/2D COMPLETE Patient: MENDEZ RODRÍGUEZ Exam Date: 04/07/2020 : 1965 Gender:M Ordering : NATALYA HERNANDEZ Admission #: [id number] Family : DR MENDEZ GARCIA M.D. Order #: [id number] CLICK HERE TO VIEW EXAM ECHOCARDIOGRAM REPORT [...] Lazo M.D. on 04/14/2020 at 16:11 Normal [facility] Discharge Summaryon 07-02-19 18 Discharge Summary MR#: [id number] Admitted: 06/20/2017 Discharged: 06/22/2017 Date of : 1965 Physician: Chad Lloyd MD DISCHARGE SUMMARYDISCHARGING PHYSICIAN: Dr. Robin.PRIMARY DIAGNOSIS: Unstable angina/positive stress test.SECONDARY DIAGNOSES:1. Type 2 diabetic.2. Smoker.PROCEDURES: Left heart catheterization.HOSPITAL COURSE: This 52-year-old male was transferred from [facility] with unstable angina. The stress test showed an inferior wallmotion abnormality with inferior defect by perfusion. It was also found tohave T-wave inversions in the inferior leads. He was then sent to [facility].The next day, he received cardiac catheterization [...] personal documentation from me. Date Dict: 06/30/2017/10:43 P/NONA Galindoate Trans: 07/01/2017 12:09 A/Chris_JN:[id number]: Mendez Garcia M.D. 3 [facility] [address] Mikey Marks D.O. [facility] [address] [place] [address] Normal [facility] BASIC METABOLIC PANELon 03-3 Calcium 8.7 mg/dL Normal 8.6-10.3 [facility] Comment on above: Order Comment: No: Do not add to previou s drawNo collection time noted on specimen or requisition. The collection timerecorded is the time of receipt in the lab. Performed By: #### 0 0071, 18338 ####[facility] [place] [address], [facility] Chloride 103 mmol/L Normal 98-107 [facility] Comment on above: Order Comment: No: Do not add to previou s drawNo collection time noted on specimen or requisition. The collection timerecorded is the time of receipt in the lab. Performed By: #### 0 0071, [id number] ####[facility] [facility] [place] [address], [facility] CO2 22 mmol/L Normal 21-31 [facility] Comment on above: Order Comment: No: Do not add to previou s drawNo collection time noted on specimen or requisition. The collection timerecorded is the time of receipt in the lab. Performed By: #### 0 0071, 23249 ####[facility] [facility] [place] [address], [facility] Creatinine 0.91 mg/dL Normal 0.70-1.30 [facility] Comment on above: Order Comment: No: Do not add to previou s drawNo collection time noted on specimen or requisition. The collection timerecorded is the time of receipt in the lab. Performed By: #### 0 0071, 02079 ####[facility] [place] [address], [facility] eGFR (black) mL/min/{1.73_m2} Normal >60 [facility] Comment on above: Order Comment: No: Do not add to previou s drawNo collection time noted on specimen or requisition. The collection timerecorded is the time of receipt in the lab. Performed By: #### 0 0071, 22216 ####[facility] eGFR (non-black) mL/min/{1.73_m2} Normal >60 [facility] Comment on above: Order Comment: No: Do not add to previou s drawNo collection time noted on specimen or requisition. The collection timerecorded is the time of receipt in the lab. Performed By: #### 0 0071, 10245 ####[facility] [facility].[address] Glucose mass conc 270 mg/dL High 70-100 [facility] Comment on above: Order Comment: No: Do not add to previou s drawNo collection time noted on specimen or requisition. The collection timerecorded is the time of receipt in the lab. Performed By: #### 0 0071, 02138 ####[place] [address] [facility].[address] Potassium molar conc 4.1 mmol/L Normal 3.5-5.1 [facility] Comment on above: Order Comment: No: Do not add to previou s drawNo collection time noted on specimen or requisition. The collection timerecorded is the time of receipt in the lab. Performed By: #### 0 0071, 95420 ####[facility] [facility].[address] Sodium 132 mmol/L Low 136-145 [facility] Comment on above: Order Comment: No: Do not add to previou s drawNo collection time noted on specimen or requisition. The collection timerecorded is the time of receipt in the lab. Performed By: #### 0 0071, 78405 ####[facility] [facility].[address] Urea nitrogen 25 mg/dL Normal 7-25 [facility] Comment on above: Order Comment: No: Do not add to previou s drawNo collection time noted on specimen or requisition. The collection timerecorded is the time of receipt in the lab. Performed By: #### 0 0071, 94682 ####[facility] CBC W/DIFFon 06-22-2017 ABS BASOPHILS 0.0 10*3/uL Normal 0.0-0.2 [facility] Comment on above: Order Comment: No: Do not add to previou s drawNo collection time noted on specimen or requisition. The collection timerecorded is the time of receipt in the lab. Performed By: #### 0 0071, 43418 ####[facility] ABS IMM GRANS 0.0 10*3/uL Normal 0.0-0.2 [facility] Comment on above: Order Comment: No: Do not add to previou s drawNo collection time noted on specimen or requisition. The collection timerecorded is the time of receipt in the lab. Performed By: #### 0 0071, 80653 ####[place] [id number] [address] Basophils Auto #/vol (Bld) 0.5 % Normal 0.0-1.0 [facility] Comment on above: Order Comment: No: Do not add to previou s drawNo collection time noted on specimen or requisition. The collection timerecorded is the time of receipt in the lab. Performed By: #### 0 0071, 31081 ####[facility] Eosinophils 0.2 10*3/uL Normal 0.0-0.5 [facility] Comment on above: Order Comment: No: Do not add to previou s drawNo collection time noted on specimen or requisition. The collection timerecorded is the time of receipt in the lab. Performed By: #### 0 0071, 34162 ####[facility] Eosinophils/100 leukocytes 2.1 % Normal 0.0-6.0 [facility] Comment on above: Order Comment: No: Do not add to previou s drawNo collection time noted on specimen or requisition. The collection timerecorded is the time of receipt in the lab. Performed By: #### 0 0071, 40112 ####[facility] [facility].[address] Erythrocyte distribution width Auto Ratio (RBC) 12.4 % Normal 11.5-15.0 [facility] Comment on above: Order Comment: No: Do not add to previou s drawNo collection time noted on specimen or requisition. The collection timerecorded is the time of receipt in the lab. Performed By: #### 0 0071, 30258 ####[facility] Erythrocytes (RBC) 0 % Normal 0-0 [facility] Comment on above: Order Comment: No: Do not add to previou s drawNo collection time noted on specimen or requisition. The collection timerecorded is the time of receipt in the lab. Performed By: #### 0 0071, 97080 ####[facility] Erythrocytes (RBC) 4.30 10*6/uL Normal 4.20-5.70 [facility] Comment on above: Order Comment: No: Do not add to previou s drawNo collection time noted on specimen or requisition. The collection timerecorded is the time of receipt in the lab. Performed By: #### 0 0071, 31818 ####[facility] [facility].[address] Hematocrit (HCT) 37.2 % Low 39.0-50.0 [facility] Comment on above: Order Comment: No: Do not add to previou s drawNo collection time noted on specimen or requisition. The collection timerecorded is the time of receipt in the lab. Performed By: #### 0 0071, 28207 ####[facility] [facility].[address] Hemoglobin mass conc (Bld) 12.6 g/dL Low 13.0-17.0 [facility] Comment on above: Order Comment: No: Do not add to previou s drawNo collection time noted on specimen or requisition. The collection timerecorded is the time of receipt in the lab. Performed By: #### 0 0071, 31940 ####[facility] IMMATURE GRANS 0.3 % Normal 0.0-1.0 [facility] Comment on above: Order Comment: No: Do not add to previou s drawNo collection time noted on specimen or requisition. The collection timerecorded is the time of receipt in the lab. Performed By: #### 0 0071, 57080 ####[facility] Lymphocytes 2.1 10*3/uL Normal 1.2-4.0 [facility] Comment on above: Order Comment: No: Do not add to previou s drawNo collection time noted on specimen or requisition. The collection timerecorded is the time of receipt in the lab. Performed By: #### 0 0071, 12734 ####[facility] Lymphocytes/100 leukocytes 23.8 % Normal 20.0-45.0 [facility] Comment on above: Order Comment: No: Do not add to previou s drawNo collection time noted on specimen or requisition. The collection timerecorded is the time of receipt in the lab. Performed By: #### 0 0071, 58097 ####[facility] MCH 29.3 pg Normal 27.0-33.0 [facility] Comment on above: Order Comment: No: Do not add to previou s drawNo collection time noted on specimen or requisition. The collection timerecorded is the time of receipt in the lab. Performed By: #### 0 0071, 67052 ####[facility] [facility].[address] MCHC mass conc (RBC) 33.9 g/dL Normal 32.0-35.0 [facility] Comment on above: Order Comment: No: Do not add to previou s drawNo collection time noted on specimen or requisition. The collection timerecorded is the time of receipt in the lab. Performed By: #### 0 0071, 00720 ####[facility] [facility].[address] MCV 86.5 fL Normal 82.0-98.0 [facility] Comment on above: Order Comment: No: Do not add to previou s drawNo collection time noted on specimen or requisition. The collection timerecorded is the time of receipt in the lab. Performed By: #### 0 0071, 97256 ####[facility] [facility].[address] Monocytes 0.8 10*3/uL Normal 0.1-1.0 [facility] Comment on above: Order Comment: No: Do not add to previou s drawNo collection time noted on specimen or requisition. The collection timerecorded is the time of receipt in the lab. Performed By: #### 0 0071, [id number] ####[facility]3000 [facility].[address] MONOS 8.9 % Normal 5.0-12.0 [facility] Comment on above: Order Comment: No: Do not add to previou s drawNo collection time noted on specimen or requisition. The collection timerecorded is the time of receipt in the lab. Performed By: #### 0 0071, [id number] ####[facility]3000 [facility].[address] Neutrophils 5.6 10*3/uL Normal 1.6-7.6 [facility] Comment on above: Order Comment: No: Do not add to previou s drawNo collection time noted on specimen or requisition. The collection timerecorded is the time of receipt in the lab. Performed By: #### 0 0071, 93441 ####[facility] Neutrophils/100 leukocytes 64.4 % Normal 40.0-72.0 [facility] Comment on above: Order Comment: No: Do not add to previou s drawNo collection time noted on specimen or requisition. The collection timerecorded is the time of receipt in the lab. Performed By: #### 0 0071, [id number] ####[facility] PLAT CNT 152 10*3/uL Normal 150-400 [facility] Comment on above: Order Comment: No: Do not add to previou s drawNo collection time noted on specimen or requisition. The collection timerecorded is the time of receipt in the lab. Performed By: #### 0 0071, 43865 ####[facility] WBC (Leukocytes) 8.7 10*3/uL Normal 4.0-10.6 [facility] Comment on above: Order Comment: No: Do not add to previou s drawNo collection time noted on specimen or requisition. The collection timerecorded is the time of receipt in the lab. Performed By: #### 0 0071, [id number] ####[facility] Cardiovascular Lab Reporton 06-22-2017 Cardiovascular Lab Report [facility] Patient Name: Mendez Rodríguez [facility] MR #: [id number] Physician: Jamir Perkins M.D.Medicine Service Date: 06/21/2017Division of Birthdate: 1965Cardiology Room #: 3CD [id number] [address] [address], [place] [address]Ncofy Fax Cardiovascular Laboratory ReportINDICATION: Mendez Rodríguez is a 52-year-old man who was admitted to [facility] with unstable angina. A stress test showed [...] signed informed consent. He was brought to director of labor and delivery in a fasting state.The right wrist area was prepped and draped in usual fashion. Jerome's testwas favorable. Using micropuncture technique, the right radial artery wasaccessed. A 6-St Lucian x 11 cm Hydrophilic sheath was advanced. Verapamilwas given through the sheath and heparin was administered intravenously.Bilateral selective coronary angiography was then performed using a6-St Lucian JR5 diagnostic catheter for engagement of the right coronaryartery and a 6-St Lucian Kaveh radial diagnostic catheter for engagement ofthe left coronary artery. Catheters were removed.Therapeutic ACT confirmed during the procedure and additional heparinadministered as needed. A 6-St Lucian JR4 guiding catheter was advanced andused to [...] 12 atmospheres and post dilated using NC[employer] [place] 2.5 x 8 mm noncompliant balloon inflated [...] with filling of the distal vessel by [id number] collateral circulation that vessel appears to be [...] 06/21/2017/11:32 A/Jamir Yun M.D.Date Trans: 06/22/2017 08:38 A/[id number]: Mendez Garcia M.D. [address] [facility] [address] Mikey Marks D.O. [facility] [address] [facility] [address] Normal [facility] MAGNESIUM BLOODon 06-22-2017 Magnesium 2.0 mg/dL Normal 1.9-2.7 [facility] Comment on above: Order Comment: No: Do not add to previou s drawNo collection time noted on specimen or requisition. The collection timerecorded is the time of receipt in the lab. Performed By: #### 0 0071, [id number] ####[facility]3000 [facility].[address] POC GLUCOSE LABon 06-22-2017 Glucose mass conc 273 mg/dL High 70-100 [facility] Comment on above: Performed By: #### 93707, 85731 ####[facility]3000 [facility] [place] [address], [facility] BASIC METABOLIC PANELon 05-25 Calcium 9.3 mg/dL Normal 8.6-10.3 [facility] Comment on above: Order Comment: No: Do not add to previou s drawNo collection time noted on specimen or requisition. The collection timerecorded is the time of receipt in the lab. Performed By: #### 0 0071, 87529 ####[facility]3000 [place] [address], [facility] Chloride 102 mmol/L Normal 98-107 [facility] Comment on above: Order Comment: No: Do not add to previou s drawNo collection time noted on specimen or requisition. The collection timerecorded is the time of receipt in the lab. Performed By: #### 0 0071, 96548 ####[facility] CO2 25 mmol/L Normal 21-31 [facility] Comment on above: Order Comment: No: Do not add to previou s drawNo collection time noted on specimen or requisition. The collection timerecorded is the time of receipt in the lab. Performed By: #### 0 0071, 22637 ####[place] [address] Creatinine 0.92 mg/dL Normal 0.70-1.30 [facility] Comment on above: Order Comment: No: Do not add to previou s drawNo collection time noted on specimen or requisition. The collection timerecorded is the time of receipt in the lab. Performed By: #### 0 0071, 82334 ####[facility] eGFR (black) mL/min/{1.73_m2} Normal >60 [facility] Comment on above: Order Comment: No: Do not add to previou s drawNo collection time noted on specimen or requisition. The collection timerecorded is the time of receipt in the lab. Performed By: #### 0 0071, 47771 ####[facility]3000 [facility].[address] eGFR (non-black) mL/min/{1.73_m2} Normal >60 [facility] Comment on above: Order Comment: No: Do not add to previou s drawNo collection time noted on specimen or requisition. The collection timerecorded is the time of receipt in the lab. Performed By: #### 0 0071, 49729 ####[facility]3000 [facility].[address] Glucose mass conc 193 mg/dL High 70-100 [facility] Comment on above: Order Comment: No: Do not add to previou s drawNo collection time noted on specimen or requisition. The collection timerecorded is the time of receipt in the lab. Performed By: #### 0 0071, 26840 ####[facility] Potassium molar conc 4.0 mmol/L Normal 3.5-5.1 [facility] Comment on above: Order Comment: No: Do not add to previou s drawNo collection time noted on specimen or requisition. The collection timerecorded is the time of receipt in the lab. Performed By: #### 0 0071, 15171 ####[address] Sodium 133 mmol/L Low 136-145 [facility] Comment on above: Order Comment: No: Do not add to previou s drawNo collection time noted on specimen or requisition. The collection timerecorded is the time of receipt in the lab. Performed By: #### 0 0071, 15733 ####[place] [address] Urea nitrogen 23 mg/dL Normal 7-25 [facility] Comment on above: Order Comment: No: Do not add to previou s drawNo collection time noted on specimen or requisition. The collection timerecorded is the time of receipt in the lab. Performed By: #### 0 0071, 40702 ####[address] CBC W/DIFFon 06-21-2017 ABS BASOPHILS 0.1 10*3/uL Normal 0.0-0.2 [facility] Comment on above: Order Comment: No: Do not add to previou s drawNo collection time noted on specimen or requisition. The collection timerecorded is the time of receipt in the lab. Performed By: #### 5 0103 ####[facility] ABS IMM GRANS 0.0 10*3/uL Normal 0.0-0.2 [facility] Comment on above: Order Comment: No: Do not add to previou s drawNo collection time noted on specimen or requisition. The collection timerecorded is the time of receipt in the lab. Performed By: #### 5 0103 ####[facility] Basophils Auto #/vol (Bld) 0.5 % Normal 0.0-1.0 [facility] Comment on above: Order Comment: No: Do not add to previou s drawNo collection time noted on specimen or requisition. The collection timerecorded is the time of receipt in the lab. Performed By: #### 5 0103 ####[facility] Eosinophils 0.2 10*3/uL Normal 0.0-0.5 [facility] Comment on above: Order Comment: No: Do not add to previou s drawNo collection time noted on specimen or requisition. The collection timerecorded is the time of receipt in the lab. Performed By: #### 5 0103 ####[facility] Eosinophils/100 leukocytes 2.0 % Normal 0.0-6.0 [facility] Comment on above: Order Comment: No: Do not add to previou s drawNo collection time noted on specimen or requisition. The collection timerecorded is the time of receipt in the lab. Performed By: #### 5 0103 ####[facility] Erythrocyte distribution width Auto Ratio (RBC) 12.6 % Normal 11.5-15.0 [facility] Comment on above: Order Comment: No: Do not add to previou s drawNo collection time noted on specimen or requisition. The collection timerecorded is the time of receipt in the lab. Performed By: #### 5 0103 ####[facility]3000 [facility] [place] [address], [facility] Erythrocytes (RBC) 0 % Normal 0-0 [facility] Comment on above: Order Comment: No: Do not add to previou s drawNo collection time noted on specimen or requisition. The collection timerecorded is the time of receipt in the lab. Performed By: #### 5 0103 ####[facility]3000 [facility].[address] Erythrocytes (RBC) 4.95 10*6/uL Normal 4.20-5.70 [facility] Comment on above: Order Comment: No: Do not add to previou s drawNo collection time noted on specimen or requisition. The collection timerecorded is the time of receipt in the lab. Performed By: #### 5 0103 ####[facility] Hematocrit (HCT) 42.5 % Normal 39.0-50.0 [facility] Comment on above: Order Comment: No: Do not add to previou s drawNo collection time noted on specimen or requisition. The collection timerecorded is the time of receipt in the lab. Performed By: #### 5 0103 ####[facility]3000 [facility].[address] Hemoglobin mass conc (Bld) 14.3 g/dL Normal 13.0-17.0 [facility] Comment on above: Order Comment: No: Do not add to previou s drawNo collection time noted on specimen or requisition. The collection timerecorded is the time of receipt in the lab. Performed By: #### 5 0103 ####[facility] IMMATURE GRANS 0.4 % Normal 0.0-1.0 [facility] Comment on above: Order Comment: No: Do not add to previou s drawNo collection time noted on specimen or requisition. The collection timerecorded is the time of receipt in the lab. Performed By: #### 5 0103 ####[address] Lymphocytes 3.0 10*3/uL Normal 1.2-4.0 [facility] Comment on above: Order Comment: No: Do not add to previou s drawNo collection time noted on specimen or requisition. The collection timerecorded is the time of receipt in the lab. Performed By: #### 5 0103 ####[address] Lymphocytes/100 leukocytes 28.2 % Normal 20.0-45.0 [facility] Comment on above: Order Comment: No: Do not add to previou s drawNo collection time noted on specimen or requisition. The collection timerecorded is the time of receipt in the lab. Performed By: #### 5 0103 ####[address] MCH 28.9 pg Normal 27.0-33.0 [facility] Comment on above: Order Comment: No: Do not add to previou s drawNo collection time noted on specimen or requisition. The collection timerecorded is the time of receipt in the lab. Performed By: #### 5 0103 ####[address] MCHC mass conc (RBC) 33.6 g/dL Normal 32.0-35.0 [facility] Comment on above: Order Comment: No: Do not add to previou s drawNo collection time noted on specimen or requisition. The collection timerecorded is the time of receipt in the lab. Performed By: #### 5 0103 ####[facility]3000 [facility] [place] [address], [facility] MCV 85.9 fL Normal 82.0-98.0 [facility] Comment on above: Order Comment: No: Do not add to previou s drawNo collection time noted on specimen or requisition. The collection timerecorded is the time of receipt in the lab. Performed By: #### 5 0103 ####[facility] [facility] [place] [address], [facility] Monocytes 1.0 10*3/uL Normal 0.1-1.0 [facility] Comment on above: Order Comment: No: Do not add to previou s drawNo collection time noted on specimen or requisition. The collection timerecorded is the time of receipt in the lab. Performed By: #### 5 0103 ####[facility]3000 [facility].[address] MONOS 9.0 % Normal 5.0-12.0 [facility] Comment on above: Order Comment: No: Do not add to previou s drawNo collection time noted on specimen or requisition. The collection timerecorded is the time of receipt in the lab. Performed By: #### 5 0103 ####[facility]3000 [facility].[address] Neutrophils 6.4 10*3/uL Normal 1.6-7.6 [facility] Comment on above: Order Comment: No: Do not add to previou s drawNo collection time noted on specimen or requisition. The collection timerecorded is the time of receipt in the lab. Performed By: #### 5 0103 ####[facility] Neutrophils/100 leukocytes 59.9 % Normal 40.0-72.0 [facility] Comment on above: Order Comment: No: Do not add to previou s drawNo collection time noted on specimen or requisition. The collection timerecorded is the time of receipt in the lab. Performed By: #### 5 0103 ####[facility]3000 [facility] [place] [address], [facility] PLAT CNT 179 10*3/uL Normal 150-400 [facility] Comment on above: Order Comment: No: Do not add to previou s drawNo collection time noted on specimen or requisition. The collection timerecorded is the time of receipt in the lab. Performed By: #### 5 0103 ####[facility]3000 [facility] [place] [address], [facility] WBC (Leukocytes) 10.7 10*3/uL High 4.0-10.6 [facility] Comment on above: Order Comment: No: Do not add to previou s drawNo collection time noted on specimen or requisition. The collection timerecorded is the time of receipt in the lab. Performed By: #### 5 0103 ####[facility]3000 [facility] [place] [address], [facility] MAGNESIUM BLOODon 06-21-2017 Magnesium 2.3 mg/dL Normal 1.9-2.7 [facility] Comment on above: Order Comment: No: Do not add to previou s drawNo collection time noted on specimen or requisition. The collection timerecorded is the time of receipt in the lab. Performed By: #### 0 0071, 23197 ####[facility]3000 [facility].[address] POC GLUCOSE LABon 06-21-2017 Glucose mass conc 261 mg/dL High 70-100 [facility] Comment on above: Performed By: #### [id number] ####[facility]3000 [facility].[address] Glucose mass conc 327 mg/dL High 70-100 [facility] Comment on above: Performed By: #### [id number] ####[facility] Glucose mass conc 176 mg/dL High 70-100 [facility] Comment on above: Performed By: #### [id number] ####[place] [address] PROTHROMBIN TIMEon 8 INR Coag RelTime (PPP) 1.04 {INR} Normal 0.91-1.16 [facility] Comment on above: Order Comment: No: [...] OF ACTION, CLINICALEFFECTIVENESS, AND OPTIMAL THERAPEUTIC RANGE. [id number]. Performed By: #### 5 6101, 75105 ####[place] [address] Prothrombin time (PT) Coag time (PPP) 13.6 s Normal 12.3-14.8 [facility] Comment on above: Order Comment: No: Do not add to previou s drawNo collection time noted on specimen or requisition. The collection timerecorded is the time of receipt in the lab. Result Comment: ALL RESULTS MUST BE INTERPRETED WITH RESPECT TO BLOOD DRAWING ARTIFACTOR DILUTION ERROR OF ANTICOAGULANT AT THE TIME OF SAMPLING. Performed By: #### 5 6101, 83053 ####[facility] [place] [address], [place] UFH HEPARIN ASSAYon 06-22-19 18 UNFRACTIONATED HEPARIN CANCELED Normal 0.30-0.70 [facility] Comment on above: Order Comment: Please see comments attac hed. Result Comment: CLIN ICAL SIGNIFICANCE OF THE PTT RESULT IS QUESTIONABLE IN THE PRESENCEOF HEPARIN. Results called. Accurately read back by GUDELIA SYKES RN,[facility] PATIENT'S NURSE, AT 145.Patient has had a cath.procedure per Gudelia. Patient may still haveresidual heparin that elevates this UFH result.The released value >1.00 was canceled by KNG on 06/21/2017 15:02 Performed By: #### 3 0477 ####[facility] [facility] [place] [address], [place] UNFRACTIONATED HEPARIN >1.00 Critically high 0.30-0.70 [facility] Comment on above: Result Comment: Rivaroxaban and Apixaban will interfere with the anti Xa assay used tomonitor UFH and LMWH.CLINICAL SIGNIFICANCE OF THE PTT RESULT IS QUESTIONABLE IN THE PRESENCEOF HEPARIN. Results called. Accurately read back by GUDELIA SYKES RN,[facility] PATIENT'S NURSE, AT 145.Patient has had a cath.procedure per Gudelia. Patient may still haveresidual heparin in the blood stream. Performed By: #### 3 0477 ####[facility] [facility] [place] [address], [facility] UNFRACTIONATED HEPARIN 0.67 IU/mL Normal 0.30-0.70 [facility] Comment on above: Order Comment: MOVE TO AM PER SATISH MURRAY A T 0058.No collection time noted on specimen or requisition. The collection timerecorded is the time of receipt in the lab. Result Comment: Morena roxaban and Apixaban will interfere with the anti Xa assay used tomonitor UFH and LMWH. Performed By: #### 5 6101, [id number] ####[facility] Vital Signs Date Time Vital Sign Value Performing Clinician Valentina senior 09-04-2024 10:00-0400 Body height 177.8 cm Madeline Foss AWNING INSTALLER Work Phone: [facility] 09-04-2024 10:00-0400 Body mass index (BMI) [Ratio] 23.96 kg/m2 Madeline Foss AWNING INSTALLER Work Phone: [facility] 09-04-2024 10:00-0400 Body weight 75.75 kg Madeline Foss AWNING INSTALLER Work Phone: [facility] 09-04-2024 10:00-0400 Diastolic blood pressure 62 mm[Hg] Madeline Foss AWNING INSTALLER Work Phone: [facility] 09-04-2024 10:00-0400 Heart rate 61 /min Madeline Foss AWNING INSTALLER Work Phone: [facility] 09-04-2024 10:00-0400 Respiratory rate 16 /min Madeline Foss AWNING INSTALLER Work Phone: [facility] 09-04-2024 10:00-0400 SaO2% (BldA) [Mass fraction] 98 % Madeline Foss AWNING INSTALLER Work Phone: [facility] 09-04-2024 10:00-0400 Systolic blood pressure 170 mm[Hg] Madeline Foss AWNING INSTALLER Work Phone: [facility] 08-05-2024 13:38-0400 Diastolic blood pressure 83 mm[Hg] Kati Spivey MD Work Phone: [facility] 08-05-2024 13:38-0400 Heart rate 62 /min Kati Spivey MD Work Phone: [facility] 08-05-2024 13:38-0400 Respiratory rate 18 /min Kati Spivey MD Work Phone: [facility] 08-05-2024 13:38-0400 Systolic blood pressure 153 mm[Hg] Kati Spivey MD Work Phone: [facility] 07-17-2024 15:35-0400 Body height 177.8 cm Bong Hollingsworth DPM Work Phone: [facility] 07-17-2024 15:35-0400 Body mass index (BMI) [Ratio] 24.39 kg/m2 Bong Hollingsworth DPM Work Phone: [facility] 07-17-2024 15:35-0400 Body weight 77.11 kg Bong Hollingsworth DPM Work Phone: [facility] 07-17-2024 15:35-0400 Respiratory rate 16 /min Bong Hollingsworth DPM Work Phone: [facility] 07-14-2024 15:23-0400 Body height 180.3 cm Mendez Garcia MD Work Phone: [facility] 07-14-2024 15:23-0400 Body mass index (BMI) [Ratio] 24.97 kg/m2 Mendez Garcia MD Work Phone: [facility] 07-14-2024 15:23-0400 Body weight 81.19 kg Mendez Garcia MD Work Phone: [facility] 07-14-2024 15:23-0400 Diastolic blood pressure 74 mm[Hg] Mendez Garcia MD Work Phone: [facility] 07-14-2024 15:23-0400 Heart rate 64 /min Mendez Garcia MD Work Phone: [facility] 07-14-2024 15:23-0400 SaO2% (BldA) [Mass fraction] 97 % Mendez Garcia MD Work Phone: [facility] 07-14-2024 15:23-0400 Systolic blood pressure 136 mm[Hg] Mendez Garcia MD Work Phone: [facility] 12-17-2023 13:52-0400 Body height 180.3 cm Mendez Garcia MD Work Phone: [facility] 12-17-2023 13:52-0400 Body mass index (BMI) [Ratio] 23.85 kg/m2 Mendez Garcia MD Work Phone: [facility] 12-17-2023 13:52-0400 Body weight 77.56 kg Mendez Garcia MD Work Phone: [facility] 12-17-2023 13:52-0400 Diastolic blood pressure 78 mm[Hg] Mendez Garcia MD Work Phone: [facility] 12-17-2023 13:52-0400 Heart rate 64 /min Mendez Garcia MD Work Phone: [facility] 12-17-2023 13:52-0400 SaO2% (BldA) [Mass fraction] 99 % Mendez Garcia MD Work Phone: [facility] 12-17-2023 13:52-0400 Systolic blood pressure 138 mm[Hg] Mendez Garcia MD Work Phone: [facility] Healthcare Encounters Encounter Date Encounter Type Care Provider Facility Start: 10-29-2024 End: 10-29-2024 [facility] Start: 10-13-2024 ambulatory [facility] Start: 10-12-2024 End: 10-13-2024 Refill Mendez Garcia MD Work Phone: [facility] Comment on above: Light cigarette smok er (1-9 cigs/day) Start: 09-04-2024 End: 09-04-2024 Bamboo flowsheet Madeline Foss AWNING INSTALLER Work Phone: [facility] Start: 09-04-2024 End: 09-04-2024 Bamboo flowsheet Madeline Foss AWNING INSTALLER Work Phone: [facility] Start: 09-04-2024 End: 09-04-2024 Office outpatient visit 25 minutes Madeline Foss AWNING INSTALLER Work Phone: [facility] Comment on above: Type 2 diabetes lorena itus with hyperglycemia (HCC) (Primary Dx); Elevated blood pressure reading in office without diagnosis of hypertension; Screening for thyroid disorder; Pure hypercholesterolemia Start: 09-04-2024 End: 09-04-2024 ambulatory MADELINE FOSS Not Available Start: 08-05-2024 End: 08-05-2024 Patient encounter procedure Kati Spivey MD Work Phone: Urology Comment on above: Erectile dysfunction , unspecified erectile dysfunction type (Primary Dx) Start: 08-05-2024 End: 08-05-2024 ambulatory KATI SPIVEY Facility:[facility] Start: 07-24-2024 End: 07-24-2024 ambulatory ELMA RODRIGUEZ Facility:[facility] Start: 07-21-2024 ambulatory ELMA RODRIGUEZ [facility] ty:[facility] Start: 07-17-2024 End: 07-17-2024 Office outpatient new 45 minutes Bong Hollingsworth DPM Work Phone: [facility] Comment on above: Other specified diso rders of synovium, left ankle and foot (Primary Dx); Other specified disorders of synovium, right ankle and foot; 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, subsequent encounter Start: 07-17-2024 End: 07-17-2024 ambulatory BONG HOLLINGSWORTH Not Available Start: 07-17-2024 End: 07-17-2024 Bamboo flowsheet Bong Hollingsworth DPM Work Phone: [facility] Start: 07-17-2024 End: 07-17-2024 Bamboo flowsheet Bong Hollingsworth DPM Work Phone: [facility] Start: 07-15-2024 ambulatory ELMA RODRIGUEZ Facility :[facility] Start: 07-14-2024 End: 07-14-2024 Office outpatient visit 25 minutes Mendez Garcia MD Work Phone: [facility] Comment on above: Wellness examination (Primary Dx); Type 2 diabetes mellitus with other specified complication, with long-term current use of insulin; Pure hypercholesterolemia (CMS/HCC); Atherosclerosis of lumbee coronary artery of lumbee heart without angina pectoris (CMS/HCC); Primary hypertension (CMS/HCC); Status post insertion of drug-eluting stent into left anterior descending (LAD) artery; Erectile dysfunction, unspecified erectile dysfunction type; Light cigarette smoker (1-9 cigs/day) Start: 07-14-2024 End: 07-14-2024 Patient encounter status Mendez Garcia MD Work Phone: [facility] Start: 07-14-2024 End: 07-14-2024 ambulatory MENDEZ GARCIA Not Available Start: 07-14-2024 End: 07-14-2024 Bamboo flowsheet Mendez Garcia MD Work Phone: [facility] Start: 07-14-2024 End: 07-14-2024 Bamboo flowsheet Mendez Garcia MD Work Phone: [facility] Start: 12-17-2023 End: 12-17-2023 Office outpatient visit 15 minutes Mendez Garcia MD Work Phone: [facility] Comment on above: Laceration of left l ower extremity, initial encounter (Primary Dx); Chronic dysfunction of both eustachian tubes; Vestibular dizziness Start: 12-17-2023 End: 12-17-2023 ambulatory MENDEZ GARCIA Not Available Start: 09-14-2023 End: 09-14-2023 ambulatory MENDEZ GARCIA Not Available Start: 04-07-2020 End: 04-08-2020 Patient encounter procedure NATALYA HERNANDEZ Facility: Start: 07-19-2017 End: 07-20-2017 Ambulatory DEFAULT PHYSICIAN Facility:[facility] Start: 06-20-2017 End: 06-22-2017 Evaluation and management of inpatient Chad Gabino Facility:[facility] Start: 06-20-2017 End: 06-21-2017 Ambulatory DEFAULT PHYSICIAN Facility:[facility] Procedures Date Procedure Procedure Detail Performing Clinician Start: 07-17-2024 Radex ankle complete minimum 3 views Bong Hollingsworth DPM Work Phone: Start: 07-14-2024 Hemoglobin glycosyla niall a1c Mendez Garcia MD Work Phone: Start: 08-28-2022 History of placement of stent in anterior descending branch of left coronary artery Status post insertion of drug-eluting stent into left anterior descending (LAD) artery Mendez Garcia MD Work Phone: Start: 06-21-2017 DILATION OF 1 COR AR T WITH DRUG-ELUT INTRA, PERC APPROACH JAMIR YUN Start: 06-21-2017 FLUOROSCOPY OF MULTI PLE CORONARY ARTERIES USING OTH CONTRAST JAMIR YUN History of placement of stent in anterior descending branch of left coronary artery Status post insertion of drug-eluting stent into left anterior descending (LAD) artery Mendez Garcia MD Work Phone: Plan of Treatment Date Care Activity Detail Author Start: 2038 RSV Vaccine (1 - 1-dose 75+ series) RSV Vaccine (1 - 1-dose 75+ series) [facility] Start: 08-01-2029 Prostate specific antigen measurement Prostate Cancer Screening Discussion [facility] Start: 07-15-2027 Diabetes Screening Diabetes Screening [facility] Start: 09-17-2025 Glaucoma screening Diabetes: Retinopathy Screening [facility] Start: 08-01-2025 Urine screening for protein Diabetes: Urine Protein Screening [facility] Start: 12-24-2024 End: 12-24-2024 Patient encounter procedure 12/24/2024 2:50 PM EDT Office Visit Urology [address] [place] [address] Seferino Gonzalez MD [address] [place] [address] ED discussion Urology Comment on above: ED discussion Start: 12-05-2024 Hemoglobin A1c measurement Diabetes: Hemoglobin A1C [facility] Start: 11-24-2024 Influenza vaccination [facility] Start: 10-13-2024 Hemoglobin A1c measurement Diabetes: Hemoglobin A1C [facility] Start: 09-05-2024 End: 09-04-2025 TSH W/REFLEX TO FT4 TSH W/REFLEX TO FT4 Lab Routine Screening for thyroid disorder Expected: 09/05/2024 (Approximate), Expires: 09/04/2025 [facility] Comment on above: Expected: 09/05/2024 (Approximate), Expi res: 09/04/2025 Start: 09-04-2024 End: 09-04-2025 Cortisol Cortisol Lab Routine Type 2 diabetes mellitus with hyperglycemia (HCC) Expected: 09/04/2024 (Approximate), Expires: 09/04/2025 [facility] Work Phone: Comment on above: Expected: 09/04/2024 (Approximate), Expi res: 09/04/2025 Start: 09-04-2024 End: 09-04-2025 Insulin, random Insulin, random Lab Routine Type 2 diabetes mellitus with hyperglycemia (HCC) Expected: 09/04/2024 (Approximate), Expires: 09/04/2025 [facility] Comment on above: Expected: 09/04/2024 (Approximate), Expi res: 09/04/2025 Start: 09-04-2024 End: 09-04-2025 LIPOPROTEIN FRACTIONATION, NMR WITH LIPID PANEL (TRIGLYCERIDES/HDL-C) LIPOPROTEIN FRACTIONATION, NMR WITH LIPID PANEL (TRIGLYCERIDES/HDL-C) Lab Routine Pure hypercholesterolemia Expected: 09/04/2024 (Approximate), Expires: 09/04/2025 [facility] Comment on above: Expected: 09/04/2024 (Approximate), Expi res: 09/04/2025 Start: 09-04-2024 End: 09-04-2024 Patient encounter procedure 09/04/2024 10:00 AM EDT Office Visit [facility] [address] [facility] [address] [place] [address] Madeline Foss, AWNING INSTALLER [address] [place] [address] Arrived [facility] Comment on above: Arrived Start: 07-17-2024 End: 07-17-2024 Patient encounter procedure [facility] Comment on above: Arrived Start: 07-14-2024 End: 07-14-2024 Patient encounter procedure 07/14/2024 3:15 PM EDT Office Visit [facility] [address] [place] [address] Mendez Garcia MD [address] [place] [address] Arrived [facility] Comment on above: Arrived Start: 07-14-2024 End: 07-14-2025 25-hydroxyvitamin D3 [Mass/volume] in Serum or Plasma Vitamin D 25 hydroxy Lab Routine Wellness examination Expected: 07/14/2024 (Approximate), Expires: 07/14/2025 [facility] Work Phone: Comment on above: Expected: 07/14/2024 (Approximate), Expi res: 07/14/2025 Start: 07-14-2024 End: 07-14-2025 Testosterone [Mass/volume] in Serum or Plasma Testosterone Lab Routine Erectile dysfunction, unspecified erectile dysfunction type Expected: 07/14/2024 (Approximate), Expires: 07/14/2025 [facility] Comment on above: Expected: 07/14/2024 (Approximate), Expi res: 07/14/2025 Start: 07-05-2024 Urine screening for protein Diabetes: Urine Protein Screening [facility] Start: 04-17-2024 Urine screening for protein Diabetes: Urine Protein Screening [facility] Start: 12-15-2023 Hemoglobin A1c measurement Diabetes: Hemoglobin A1C [facility] Start: 12-01-2023 Screening for malignant neoplasm of colon [facility] Start: 11-25-2023 Covid-19 Vaccine ( season) Covid-19 Vaccine ( season) [facility] Start: 11-25-2023 Influenza vaccination Influenza Vaccine (#1) [facility] Start: 2013 Pneumococcal Vaccine: 50+ (1 of 1 - PCV) Pneumococcal Vaccine: 50+ (1 of 1 - PCV) [facility] Start: 2013 Shingrix Vaccine (1 of 2) Shingrix Vaccine (1 of 2) [facility] Start: 01-02-2008 Screening for malignant neoplasm of colon [facility] Start: 1998 Lipid panel Lipid Screening [facility] Start: 1982 Urine microalbumin profile DTaP,Tdap,Td Vaccine (1 - Tdap) [facility] Start: 1981 Anxiety Screening Anxiety Screening [facility] Start: 1981 Depression Screening Depression Screening [facility] Start: 1981 Hepatitis C screening Hepatitis C Screening [facility] Start: 1981 HIV screening HIV Screening [facility] Start: 1963 Screening for malignant neoplasm of colon [facility] Payers Date Payer Category Payer Medicaid [id number] 2022 Medicaid [id number] 2013 Self-pay 1965 Unknown [id number] 2.16.84 [id number] 1965 Unknown [id number] 2.16.8 [id number] 1963 Unknown [id number] 2.16.8 [id number] 1963 Unknown [id number] 2.16.8 [id number] 1963 Unknown [id number] 2.16.8 [id number] 1963 Unknown [id number] 2.16.84 [id number] 1963 Unknown [id number] 2.16.84 [id number] 1963 Unknown [id number] 2.16.84 [id number] 1963 Unknown [id number] 2.16.84 [id number] 1963 Unknown [id number] 2.16.84 [id number] 1963 Unknown [id number] 2.16.84 [id number] 1963 Unknown [id number] 2.16.84 [id number] 1959 Unknown [id number] Unknown Social History Date Type Detail Facility Start: 09-04-2022 End: 07-17-2024 Tobacco smoking status [facility] Ex-smoker [facility] Start: 08-14-2012 End: 08-14-2022 History of tobacco use Current smoker [facility] Start: 08-14-2012 End: 08-14-2022 History of tobacco use Cigarette Smoker [facility] Start: 09-04-2022 End: 04-15-2023 Cigarettes smoked current (pack per day) - Reported 1 [facility] Start: 09-04-2022 End: 07-17-2024 Tobacco use and exposure Smokeless tobacco non-user [facility] Start: 12-17-2023 End: 09-04-2024 Alcoholic beverage intake Lifetime non-drinker (finding) [facility] Start: 04-15-2023 End: 09-04-2024 Humiliation, Afraid, Rape, and Kick questionnaire [HARK] [facility] Within the last year , have you been afraid of your partner or ex-partner? No [facility] Do you belong to any clubs or organizations such as hindu groups, unions, fraternal or athletic groups, or school groups? Yes [facility] Are you now , , , , never or living with a partner? [facility] How often to you hav e a drink containing alcohol? Monthly or less [facility] How many standard dr inks containing alcohol do you have on a typical day? 1 or 2 [facility] How often do you hav e 6 or more drinks on 1 occasion? Never [facility] How hard is it for y ou to pay for the very basics like food, housing, medical care, and heating Not hard at all [facility] Do you feel stress - tense, restless, nervous, or anxious, or unable to sleep at night because your mind is troubled all the time - these days [OSQ] Not at all [facility] (I/We) worried clau er (my/our) food would run out before (I/we) got money to buy more. Never true [facility] Start: 1965 Sex assigned at Not on file [facility] Tobacco smoking stat [facility] Tobacco smoking consumption unknown [facility] Medical Equipment Procedure Code Equipment Code Equipment Origin al Text Equipment Identifier Dates [id number] Start: 11-24-2021 use to test BLOO D SUGAR TWICE DAILY [id number] Start: 12-27-2022 USE DIRECTED to test BLOOD SUGAR TWICE DAILY [id number] Start: 01-21-2024 Functional Status Date Assessment Result Facility 09-04-2024 Patient Health Quest ionnaire 2 item (PHQ-2) [Reported] [facility] 09-04-2024 PHQ-9 quick depressi on assessment panel [Reported.PHQ] [facility] 07-14-2024 Patient Health Quest ionnaire 2 item (PHQ-2) [Reported] [facility] Clinical Notes 12-17-2023 to 10-29-2024 Telephone Encounter - BRIA Guerrier - 10/13/2024 8:05 AM EDTTelephone Encounter - BRIA Guerrier - 10/13/2024 8:05 AM Bryan Foss NP - 09/04/2024 10:00 AM EDTPatient Instructions Note Date & Type Note Facility 10-29-2024 Note HNO ID: [id number] Author: SEFERINO GONZALEZ MD Service: ? Author Type: Physician Type: Progress Notes Filed: 10/29/2024 09:07 Note Text: Urology Note Patient info Mendez Rodríguez 1965 [id number] CC: The patient is a 59-year-old male with a history of DM and ED, presenting for further evaluation and management of ED. HPI: The patient reports a 3-year history of ED, characterized by insufficient rigidity for penetration and brief duration of erections. He notes a worsening of symptoms over the past year. He has trialed oral PDE5 inhibitors and intracavernosal injections without success. He denies any penile curvature or changes suggestive of Peyronie's disease. He reports a subjective improvement in erectile firmness when standing, attributing this to gravitational effects, and notes a coincidental improvement with ibuprofen use, which he was taking for a leg fracture. The patient has a history of DM, with a recent HbA1c of 7.3%. Previous HbA1c levels have been as high as 8.7% within the last year, indicating variable glycemic control. He has a history of coronary artery disease, status post stent placement. Recent testosterone levels were within normal limits, with a total testosterone of 645 ng/dL measured in July. He maintains a healthy lifestyle, including regular exercise and a balanced diet, and expresses a strong desire to restore erectile function, particularly due to the age difference with his . Patient Entered Questionnaires PROMIS Global Health Percentiles provide an indication of how the patient's score ranks in relation to the general population. Higher percentile rankings indicate better function/quality of life. 50th percentile is the average of the general population and indicates half of respondents had a worse score. ROS: Genitourinary: (+) erectile dysfunction, (+) penile bumps, (-) penile curvature No past medical history on file. No past surgical history on file. No family history on file. Social History Tobacco Use Smoking status: Former Types: Cigarettes Passive exposure: Past Smokeless tobacco: Former Current Outpatient Medications Medication Sig Dispense Refill metFORMIN (GLUCOPHAGE) 1,000 mg tablet Take 1 tablet by mouth two times a day with meals. No current facility-administered medications for this visit. SENSITIVE EXAMINATION CONSENT: The sensitive examination was discussed with the Patient or Patient's Authorized Filterer. As applicable, any other physician, advance practice provider, medical student, or other health professional student that will be observing or involved in the sensitive examination for educational or training purposes was discussed with the Patient or Authorized Filterer. The Patient or Authorized Filterer has agreed to proceed with the sensitive examination. (Sensitive examination includes inspection and/or palpation of the breasts, pelvis, prostate and anorectal regions) Exam: General: Alert AND oriented, no acute distress Skin: Normal Genitourinary: Palpable penile scar tissue consistent with Peyronie's dorsal base, decreased penile elasticity and circumcised Results: A/P: 1. Erectile dysfunction due to diabetes mellitus (HCC) (E11.69) Chronic ED for 3 years, worsening over the last year. Oral PDE5 inhibitors and intracavernosal injections have been ineffective. Testosterone levels are within normal limits. Examination reveals scar tissue consistent with Peyronie's disease. ED is primarily attributed to longstanding diabetes mellitus with variable glycemic control, as evidenced by fluctuating HbA1c levels. - Discussed the pathophysiology of ED in the context of diabetes, emphasizing the irreversible damage to penile vasculature due to chronic hyperglycemia. - Advised against further diagnostic testing as it would not alter the management plan. - Educated on the limited efficacy of vacuum erection devices and the potential benefits of a penile prosthesis. - Provided detailed information on penile implant surgery, including procedure, recovery, and risks such as infection and mechanical failure. - Arranged for surgical scheduling and pre-operative evaluation. 2. Peyronie's disease (N48.6) Palpable scar tissue on penile examination, indicating Peyronie's disease. No significant penile curvature reported by the patient. - Advised against further use of intracavernosal injections due to the risk of exacerbating scar tissue formation. - Discussed the potential impact of Peyronie's disease on penile length and the importance of early intervention. - Included in the surgical plan for penile prosthesis to address both ED and Peyronie's disease. 3. Type 2 diabetes mellitus with hyperglycemia, with long-term current use of insulin (HCC) (E11.65) Longstanding T2DM with variable glycemic control. Recent HbA1c of 7.3% indicates moderate control, but previous level (more content not included)... [facility] 10-13-2024 Note [place] [facility] - [facility] Subjective Mendez Rodríguez is a 59 y.o. year old male patient being seen for 1 year follow up CAD. He had routine labs with lipid panel drawn in July 2024. He is not taking amlodipine or atorvastatin because he feels fine . Denies chest pain and SOB. Still smoking. He is interested in having ISAI's done. Patient Active Problem List Diagnosis Coronary arteriosclerosis Diabetes mellitus (CMS/HCC) Acute pain of left shoulder Adhesive capsulitis of left shoulder Chronic dysfunction of both eustachian tubes Chronic otitis externa of left ear Hypertension Palpitations Pure hypercholesterolemia Status post insertion of drug-eluting stent into left anterior descending (LAD) artery Type 2 diabetes mellitus with hyperglycemia (CMS/HCC) Vestibular dizziness Family History Problem Relation Name Age of Onset Coronary artery disease Mother Diabetes Mother Hypertension Father Heart attack Paternal Grandmother Social History Tobacco Use Smoking status: Every Day Current packs/day: 0.50 Types: Cigarettes Smokeless tobacco: Never Substance Use Topics Alcohol use: Not Currently HPI Mendez is seen in follow-up. He is a 59-year-old man with coronary artery disease status post stenting of the RCA in 2018 in the setting of unstable angina and abnormal stress test. At that time he had an occluded OM branch with collateral filling and moderate LAD stenosis. He did well after the stenting procedure. Previously he lost weight with intermittent fasting diet. He felt much better with that. He currently has been taking aspirin 81 mg daily. In addition he takes Lantus and metformin for his diabetes. He has stopped atorvastatin and amlodipine on his own. He denies chest pain or shortness of breath. He has good exercise tolerance. His complaint is lower extremity claudication with cramping's of the legs whenever he does walking exercises for long period of time. In addition he has been complaining of erectile dysfunction and is seeing a urologist at the [facility] in October 2024. Review of Systems Cardiovascular: Positive for claudication. Neurological: Positive for light-headedness. All other systems reviewed and are negative. Objective Visit Vitals BP 149/83 (BP Location: Left arm, Patient Position: Sitting) Pulse 63 Ht 1.778 m (5' 10 ) Wt 78.9 kg (174 lb) SpO2 99% BMI 24.97 kg/m??? Smoking Status Every Day BSA 1.97 m??? Physical Exam Constitutional: Appearance: He is [...] No Known Allergies Medications Current Outpatient Medications: aspirin 81 mg chewable tablet, Chew 1 tablet (81 mg) once daily as directed. Need apt for further refills., Disp: 90 tablet, Rfl: 0 Lantus U-100 Insulin 100 unit/mL injection vial, Inject 100 Units under the skin in the morning., Disp: , Rfl: metFORMIN (Glucophage) 500 mg tablet, Take 500 mg by mouth once daily as directed., Disp: , Rfl: amLODIPine (Norvasc) 5 mg tablet, Take 1 tablet (5 mg) by mouth in the morning., Disp: 90 tablet, Rfl: 3 atorvastatin (Lipitor) 80 mg tablet, Take 1 tablet (80 mg) by mouth at bedtime. Needs an apt for further refills, Disp: 90 tablet, Rfl: 3 ibuprofen 600 mg tablet, Take 600 mg by mouth three times daily. (Patient not taking: Reported on 10/13/2024), Disp: , Rfl: Recent Labs blood testing 06/28/2022: Hemoglobin 13.4, platelets 184, glucose 197, BUN 11, creatinine 0.78, EGFR 103, potassium 4.3, LFTs normal, hemoglobin A1c 8.1, cholesterol 115, HDL 45, triglycerides 65, LDL 56. Blood testing 07/11/2021: BUN 19, creatinine 0.81, glucose 123, EGFR 98, potassium 4.7, LFTs normal. Blood testing 04/25/2023: Hemoglobin 11.8, platelets 131, potassium 4.2, BUN 16, creatinine 0.93, EGFR more than 60. Blood testing (more content not included)... [facility] 10-13-2024 Telephone encounter Note Pt is former smoker, patch declined [facility] 10-13-2024 Miscellaneous Notes Pt is former smoker, patch declined documented in this encounter [facility] 09-04-2024 History of Present illness Narrative Images from the original note were not included. Subjective Patient ID: Mendez Rodríguez is a 59 y.o. male who presents for No chief complaint on file.. Mendez presents today for issues with diabetes. He would like to discuss his BS is great at bed time it runs in the 80 and then he will wake and it is the 200s. He will even take his fast acting insulin and it will not tough the BS. Current Outpatient Medications on File Prior to Visit Medication Sig Dispense Refill Alcohol Swabs (B-D SINGLE USE SWABS REGULAR) pads USE DIRECTED TWICE DAILY Aspirin Low Dose 81 MG chewable tablet CHEW AND SWALLOW 1 (ONE) TABLET BY MOUTH IN THE MORNING B-D INS SYR ULTRAFINE 1CC/30G 30G X 1/2 1 ML misc USE DIRECTED THREE TIMES DAILY 100 each 5 Blood Glucose Monitoring Suppl (True Metrix Air Glucose Meter) w/Device kit USE DIRECTED to CHECK BLOOD SUGAR TWICE DAILY Continuous Glucose Logistics Account Manager (FreeStyle Preeti 3 Boykin) device 1 Device continuously 1 each 0 Continuous Glucose Sensor (FreeStyle Preeti 3 Sensor) misc Apply 1 patch topically every 14 (fourteen) days 2 each 11 Drug Brea Unilet Lancets 30G misc use to test BLOOD SUGAR TWICE DAILY ibuprofen 600 MG tablet TAKE 1 TABLET BY MOUTH THREE TIMES DAILY NEEDED WITH FOOD OR MILK 90 tablet 2 insulin lispro (HumaLOG) 100 UNIT/ML injection Inject 7 Units under the skin in the morning and 7 Units at noon and 7 Units in the evening. Inject with meals. 15 mL 11 Lantus 100 UNIT/ML injection INJECT 80 UNITS SUBCUTANEOUSLY AT BEDTIME 60 mL 11 metFORMIN (Glucophage) 1000 MG tablet TAKE 1 TABLET BY MOUTH IN THE MORNING WITH A MEAL 30 tablet 5 nicotine (Nicoderm, Step 3) 7 MG/24HR patch PLACE 1 patch on the skin EVERY 24 HOURS ONCE DAILY at the same time each day 28 patch 2 True Metrix Blood Glucose Test test strip USE DIRECTED to test BLOOD SUGAR TWICE DAILY 200 strip 3 No current facility-administered medications on file prior to visit. I have reviewed and reconciled the history and medication list with the patient today. No Known Allergies Social History Tobacco Use Smoking status: Former Current packs/day: 0.00 Average packs/day: 1 pack/day for 10.0 years (10.0 ttl pk-yrs) Types: Cigarettes Start date: 08/14/2012 Quit date: 08/14/2022 Years since quittin.0 Smokeless tobacco: Never Vaping Use Vaping status: Never Used Substance Use Topics Alcohol use: Never Drug use: Defer Family History Problem Relation Name Age of Onset Diabetes Mother Hypertension Mother Heart disease Mother Multiple myeloma Father Diabetes Sibling Throat cancer Sibling Past Medical History: Diagnosis Date Actinic keratoses 2021 Chest pain 06/19/2017 hospitalization - chest pain due to canabis use DM (diabetes mellitus), type 2 (HCC) Personal history of other medical treatment 06/2017 ECHO EF 60% Past Surgical History: Procedure Laterality Date CARDIAC CATHETERIZATION 05/2017 CARDIAC SURGERY 07/01/2017 NARGIS 90% stenosis RCA [facility] CORONARY ANGIOGRAPHY 07/01/2017 Bilat selective coronary Angiography-Dr Yun [facility] TONSILLECTOMY Visit Vitals Smoking Status Former Review of Systems Constitutional: Negative. HENT: Negative. Eyes: Negative. Respiratory: Negative. Cardiovascular: Negative. Gastrointestinal: Negative. Genitourinary: Negative. Musculoskeletal: Negative. Skin: Negative. Neurological: Negative. Psychiatric/Behavioral: The patient is nervous/anxious. Hematological: Negative. Endocrine: Frequently checking his meter, doing fingerstick's, very upset about his fluctuating results. Allergic/Immunologic: Negative. Objective Physical Exam Vitals reviewed. Constitutional: Appearance: Normal appearance. HENT: Head: Normocephalic and atraumatic. Right Ear: External ear normal. Left Ear: External ear normal. Nose: Nose normal. Mouth/Throat: Pharynx: Oropharynx is clear. Eyes: Conjunctiva/sclera: Conjunctivae normal. Cardiovascular: Rate and Rhythm: Normal rate and regular rhythm. Pulses: Normal pulses. Heart sounds: Normal heart sounds. Pulmonary: Effort: Pulmonary effort is normal. Breath sounds: Normal breath sounds. Abdominal: Palpations: Abdomen is soft. Musculoskeletal: General: Normal range of motion. Cervical back: Normal range of motion and neck supple. Skin: General: Skin is warm and dry. Neurological: General: No focal deficit present. Mental Status: He is alert and oriented to person, place, and time. Psychiatric: Mood and Affect: Mood normal. Behavior: Behavior normal. Thought Content: Thought content normal. Judgment: Judgment normal. Assessment/Plan 1. Type 2 diabetes mellitus with hyperglycemia (HCC) (Primary) Discussed the pt diabetes diagnosis at length today. We discussed his diet and exercise today. He reports that he stopped taking the long acting insulin since he has short acting insulin. We discussed the differences between the insulins and the need to restart the long acting at a lesser amount. We will restart this at 10 units q hs. He is advised that we will also increase his metformin to bid. His A1C is at 7.3 today which is down from his June A1C that was 8.7. A cortisol level was ordered , to be drawn in the am. - metFORMIN (Glucophage) 1000 MG tablet; Take 1 tablet (1,000 mg) by mouth in the morning and 1 tablet (1,000 mg) in the evening. Take with meals. Dispense: 60 tablet; Refill: 0 - Cortisol; Future - insulin glargine (Lantus) 100 UNIT/ML injection; Inject 10 Units under the skin at bedtime Dispense: 60 mL; Refill: 0 - Cortisol - Insulin, random; Future - Insulin, random 2. Elevated blood pressure reading in office without diagnosis of hypertension Repeat Bp at 172/76. We will repeat next visit, 1 month. 3. Screening for thyroid disorder - TSH W/REFLEX TO FT4; Future - TSH W/REFLEX TO FT4 4. Pure hypercholesterolemia The pt has requested to have his LDL P drawn. This is ordered today, he will be in to have this drawn in the am. CHOLESTEROL, TOTAL <200 mg/dL 243 High 389 High 267 High HDL CHOLESTEROL > OR = 40 mg/dL 66 73 66 TRIGLYCERIDES <150 mg/dL 60 94 66 LDL-CHOLESTEROL mg/dL (calc) 162 High 295 High CM 184 High CM Comment: Reference range: <100 Desirable range <100 mg/dL for primary prevention; <70 mg/dL for patients with CHD or diabetic patients with > or = 2 CHD risk factors. LDL-C is now calculated using the Poncho-Rai calculation, which is a validated novel method providing better accuracy than the Friedewald equation in the estimation of LDL-C. Poncho POWELL et al. TRACI. 2013;310(19): 8295-8248 (http://education.OutTrippin .com/faq/KQY911) CHOL/HDLC RATIO <5.0 (calc) 3.7 5.3 High 4.0 NON HDL CHOLESTEROL <130 mg/dL (calc) 177 High 316 High CM 201 High CM Comment: For patients with diabetes plus 1 major ASCVD risk factor, treating to a non-HDL-C goal of <100 mg/dL (LDL-C of <70 mg/dL) is considered a therapeutic option. - LIPOPROTEIN FRACTIONATION, NMR WITH LIPID PANEL (TRIGLYCERIDES/HDL-C); Future - LIPOPROTEIN FRACTIONATION, NMR WITH LIPID PANEL (TRIGLYCERIDES/HDL-C) No follow-ups on file. documented in this encounter [facility] 09-04-2024 Instructions Madeline Foss NP - 09/04/2024 10:00 AM EDT See note for changes today. documented in this encounter [facility] 08-05-2024 History of Present illness Narrative Chief complaint: ED HPI: Patient is a 59 year old male with chronic ED for ~3 years. He is not to achieve erection. Erections are not firm enough for penetration and not long lasting. He does not have libido issues. He feels his erections have worsened the last 12 months. He has tried PDE5i and ICI for his ED without successful erections. He has DM as a potential reason for ED. He is interested in further testing for his ED. His PSA and testosterone levels are WNL. IPSS-10 QoL- 1 ANAY- 5 No past medical history on file. No past surgical history on file. Allergies: No Known Allergies No current outpatient medications No family history on file. EXAM: SAMMY Labs reviewed:PSA and testosterone Imaging: no new images reviewed today Impression: ASSESSMENT/PLAN: 1. Erectile dysfunction, unspecified erectile dysfunction type - ICD9: 607.84, ICD10: N52.9 Patient presents for further evaluation of ED. Etiology of ED was discussed. Discussed options of including PDE5I, JOSE, ICI, and IPP. He is refractory to PDE5i and ICI. The patient would like to meet with a Men's health specialist for further testing to assess for a circulation issue. Follow up with Dr. Gonzalez for further evaluation and discussion Pauline Seth APRN.CNP Medical Decision Making: Problems: Low: Stable chronic illness Risk: Low: Low risk from testing/treatment Medical Decision Making Level: 3 - Low documented in this encounter [facility] 08-05-2024 Note HNO ID: [id number] Author: PAULINE SETH APRN.CNP Service: ? Author Type: Nurse Practitioner Type: Progress Notes Filed: 08/05/2024 14:07 Note Text: Chief complaint: ED HPI: Patient is a 59 year old male with chronic ED for ~3 years. He is not to achieve erection. Erections are not firm enough for penetration and not long lasting. He does not have libido issues. He feels his erections have worsened the last 12 months. He has tried PDE5i and ICI for his ED without successful erections. He has DM as a potential reason for ED. He is interested in further testing for his ED. His PSA and testosterone levels are WNL. IPSS-10 QoL- 1 ANAY- 5 No past medical history on file. No past surgical history on file. Allergies: No Known Allergies No current outpatient medications No family history on file. EXAM: SAMMY Labs reviewed:PSA and testosterone Imaging: no new images reviewed today Impression: ASSESSMENT/PLAN: 1. Erectile dysfunction, unspecified erectile dysfunction type - ICD9: 607.84, ICD10: N52.9 Patient presents for further evaluation of ED. Etiology of ED was discussed. Discussed options of including PDE5I, JOSE, ICI, and IPP. He is refractory to PDE5i and ICI. The patient would like to meet with a Men's health specialist for further testing to assess for a circulation issue. Follow up with Dr. Gonzalez for further evaluation and discussion Pauline Seth APRN.SECURITY BUSINESS ANALYST Medical Decision Making: Problems: Low: Stable chronic illness Risk: Low: Low risk from testing/treatment Medical Decision Making Level: 3 - Low [facility] 07-24-2024 Note Patient Education Urology Erectile Dysfunction Erectile dysfunction (ED) is the inability to get or keep an erection in order to have sexual intercourse. ED is considered a symptom of an underlying disorder and is not considered a disease. ED may include: ??? Inability to get an erection. ??? Lack of enough hardness of the erection to allow penetration. ??? Loss of erection before sex is finished. What are the causes? This condition may be caused by: ??? Physical causes, such as: ? Artery problems. This may include heart disease, high blood pressure, atherosclerosis, and diabetes. ? Hormonal problems, such as low testosterone. ? Obesity. ? Nerve problems. This may include back or pelvic injuries, multiple sclerosis, Parkinson's disease, spinal cord injury, and stroke. ??? Certain medicines, such as: ? Pain relievers. ? Antidepressants. ? Blood pressure medicines and water pills (diuretics). ? Cancer medicines. ? Antihistamines. ? Muscle relaxants. ??? Lifestyle factors, such as: ? Use of drugs such as marijuana, cocaine, or opioids. ? Excessive use of alcohol. ? Smoking. ? Lack of physical activity or exercise. ??? Psychological causes, such as: ? Anxiety or stress. ? Sadness or depression. ? Exhaustion. ? Fear about sexual performance. ? Guilt. What are the signs or symptoms? Symptoms of this condition include: ??? Inability to get an erection. ??? Lack of enough hardness of the erection to allow penetration. ??? Loss of the erection before sex is finished. ??? Sometimes having normal erections, but with frequent unsatisfactory episodes. ??? Low sexual satisfaction in either partner due to erection problems. ??? A curved penis occurring with erection. The curve may cause pain, or the penis may be too curved to allow for intercourse. ??? Never having nighttime or morning erections. How is this diagnosed? This condition is often diagnosed by: ??? Performing a physical exam to find other diseases or specific problems with the penis. ??? Asking you detailed questions about the problem. ??? Doing tests, such as: ? Blood tests to check for diabetes mellitus or high cholesterol, or to measure hormone levels. ? Other tests to check for underlying health conditions. ? An ultrasound exam to check for scarring. ? A test to check blood flow to the penis. ??? Doing a sleep study at home to measure nighttime erections. How is this treated? This condition may be treated by: ??? Medicines, such as: ? Medicine taken by mouth to help you achieve an erection (oral medicine). ? Hormone replacement therapy to replace low testosterone levels. ? Medicine that is injected into the penis. Your health care provider may instruct you how to give yourself these injections at home. ? Medicine that is delivered with a short applicator tube. The tube is inserted into the opening at the tip of the penis, which is the opening of the urethra. A tiny pellet of medicine is put in the urethra. The pellet dissolves and enhances erectile function. This is also called MUSE (medicated urethral system for erections) therapy. ??? Vacuum pump. This is a pump with a ring on it. The pump and ring are placed on the penis and used to create pressure that helps the penis become erect. ??? Penile implant surgery. In this procedure, you may receive: ? An inflatable implant. This consists of cylinders, a pump, and a reservoir. The cylinders can be inflated with a fluid that helps to create an erection, and they can be deflated after intercourse. ? A semi-rigid implant. This consists of two silicone rubber rods. The rods provide some rigidity. They are also flexible, so the penis can both curve downward in its normal position and become straight for sexual intercourse. ??? Blood vessel surgery to improve blood flow to the penis. During this procedure, a blood vessel from a different part of the body is placed into the penis to allow blood to flow around (bypass) damaged or blocked blood vessels. ??? Lifestyle changes, such as exercising more, losing weight, and quitting smoking. Follow these instructions at home: Medicines ??? Take dmtz-izj-lqtprje and prescription medicines only as told by your health care provider. Do not increase the dosage without first discussing it with your health care provider. ??? If you are using self-injections, do injections as directed by your health care provider. Make sure you avoid any veins that are on the surface of the penis. After giving an injection, apply pressure to the injection site for 5 minutes. ??? Talk to your health care provider about how to prevent headaches while taking ED medicines. These medicines may cause a sudden headache due to the increase in blood flow in your body. General instructions ??? Exercise regularly, as directed by your health care provider. Work with your health care provider to lose weight, if needed. ??? Do not u (more content not included)... [facility] 07-14-2024 History of Present illness Narrative Images from the original note were not included. Subjective Patient ID: Mendez Rodríguez is a 59 y.o. male who presents for Annual Exam. Pt here for wellness Will complete labs this week Follows healthy diet and very active Pt stopped the atorvastain Has cologuard kit at home he will complete and send in Current Outpatient Medications on File Prior to Visit Medication Sig Dispense Refill Alcohol Swabs (B-D SINGLE USE SWABS REGULAR) pads USE DIRECTED TWICE DAILY Aspirin Low Dose 81 MG chewable tablet CHEW AND SWALLOW 1 (ONE) TABLET BY MOUTH IN THE MORNING B-D INS SYR ULTRAFINE 1CC/30G 30G X 1/2 1 ML misc USE DIRECTED THREE TIMES DAILY 100 each 5 Blood Glucose Monitoring Suppl (True Metrix Air Glucose Meter) w/Device kit USE DIRECTED to CHECK BLOOD SUGAR TWICE DAILY Drug Brea Unilet Lancets 30G misc use to test BLOOD SUGAR TWICE DAILY ibuprofen 600 MG tablet TAKE 1 TABLET BY MOUTH THREE TIMES DAILY NEEDED WITH FOOD OR MILK 90 tablet 2 Lantus 100 UNIT/ML injection INJECT 80 UNITS SUBCUTANEOUSLY AT BEDTIME 60 mL 11 metFORMIN (Glucophage) 1000 MG tablet TAKE 1 TABLET BY MOUTH IN THE MORNING WITH A MEAL 30 tablet 5 True Metrix Blood Glucose Test test strip USE DIRECTED to test BLOOD SUGAR TWICE DAILY 200 strip 3 [DISCONTINUED] atorvastatin (Lipitor) 80 MG tablet Take 80 mg by mouth in the morning. No current facility-administered medications on file prior to visit. I have reviewed and reconciled the history and medication list with the patient today. No Known Allergies Social History Tobacco Use Smoking status: Former Current packs/day: 0.00 Average packs/day: 1 pack/day for 10.0 years (10.0 ttl pk-yrs) Types: Cigarettes Start date: 08/14/2012 Quit date: 08/14/2022 Years since quittin.9 Smokeless tobacco: Never Substance Use Topics Alcohol use: Never Family History Problem Relation Name Age of Onset Diabetes Mother Hypertension Mother Heart disease Mother Multiple myeloma Father Diabetes Sibling Throat cancer Sibling Past Medical History: Diagnosis Date Actinic keratoses 2021 Chest pain 06/19/2017 hospitalization - chest pain due to canabis use DM (diabetes mellitus), type 2 (CMS/HCC) Personal history of other medical treatment 06/2017 ECHO EF 60% Past Surgical History: Procedure Laterality Date CARDIAC CATHETERIZATION 05/2017 CARDIAC SURGERY 07/01/2017 NARGIS 90% stenosis RCA [facility] CORONARY ANGIOGRAPHY 07/01/2017 Bilat selective coronary Angiography-Dr Yun [facility] TONSILLECTOMY Visit Vitals BP 136/74 Pulse 64 Ht 5' 11 Wt 179 lb SpO2 97% BMI 24.97 kg/m Smoking Status Former BSA 2.02 m Review of Systems Objective Physical Exam Constitutional: General: He is not in acute distress. Appearance: He is normal weight. He is not ill-appearing. HENT: Head: Normocephalic. Cardiovascular: Rate and Rhythm: Normal rate and regular rhythm. Heart sounds: Normal heart sounds. No murmur heard. Pulmonary: Effort: Pulmonary effort is normal. Breath sounds: Normal breath sounds. Musculoskeletal: General: No swelling. Right lower leg: No edema. Left lower leg: No edema. Neurological: Mental Status: He is alert. Psychiatric: Mood and Affect: Mood normal. Thought Content: Thought content normal. Judgment: Judgment normal. Office Visit on 07/14/2024 Component Date Value Ref Range Status Hemoglobin A1C 07/14/2024 8.7 Final Assessment/Plan Diagnoses and all orders for this visit: Wellness examination - Vitamin D 25 hydroxy; Future Type 2 diabetes mellitus with other specified complication, with long-term current use of insulin - POCT Glycated hemoglobin, total - Continuous Glucose Logistics Account Manager (FreeStyle Preeti 3 Boykin) device; 1 Device continuously - Continuous Glucose Sensor (FreeStyle Preeti 3 Sensor) misc; Apply 1 patch topically every 14 (fourteen) days Pure hypercholesterolemia (CMS/HCC) Atherosclerosis of [place] coronary artery of lum[place] heart without angina pectoris (CMS/HCC) Primary hypertension (CMS/HCC) Status post insertion of drug-eluting stent into left anterior descending (LAD) artery Erectile dysfunction, unspecified erectile dysfunction type - Testosterone; Future - Ambulatory referral to Urology; Future Light cigarette smoker (1-9 cigs/day) - nicotine (Nicoderm CQ) 7 MG/24HR patch; Place 1 patch over 24 hours on the skin 1 (one) time each day at the same time Follow up in about 6 weeks (around 08/25/2024) for F/U med changes, Test/Lab Review. documented in this encounter [facility] 03-26-2024 History of Present illness Narrative Patient: Mendez Rodríguez : 1965 PCP: Mendez Garcia MD SUBJECTIVE This is a 59 y.o. male that presents today for a chief complaint of feeling of popping like say sensation to the lateral aspect of the left fibula. Patient states in March 2023 he has a left fibula fracture was seen by area matcher offbearer placed in walking boot and had a nonunion. He states no pain today. Allergies: No Known Allergies Past Medical History: Past Medical History: Diagnosis Date Actinic keratoses 2021 Chest pain 06/19/2017 hospitalization - chest pain due to canabis use DM (diabetes mellitus), type 2 (CMS/HCC) Personal history of other medical treatment 06/2017 ECHO EF 60% Medications: Current Outpatient Medications: Alcohol Swabs (B-D SINGLE USE SWABS REGULAR) pads, USE DIRECTED TWICE DAILY, Disp: , Rfl: Aspirin Low Dose 81 MG chewable tablet, CHEW AND SWALLOW 1 (ONE) TABLET BY MOUTH IN THE MORNING, Disp: , Rfl: B-D INS SYR ULTRAFINE 1CC/30G 30G X 1/2 1 ML misc, USE DIRECTED THREE TIMES DAILY, Disp: 100 each, Rfl: 5 Blood Glucose Monitoring Suppl (True Metrix Air Glucose Meter) w/Device kit, USE DIRECTED to CHECK BLOOD SUGAR TWICE DAILY, Disp: , Rfl: Continuous Glucose Logistics Account Manager (FreeStyle Preeti 3 Boykin) device, 1 Device continuously, Disp: 1 each, Rfl: 0 Continuous Glucose Sensor (FreeStyle Preeti 3 Sensor) misc, Apply 1 patch topically every 14 (fourteen) days, Disp: 2 each, Rfl: 11 Drug Brea Unilet Lancets 30G misc, use to test BLOOD SUGAR TWICE DAILY, Disp: , Rfl: ibuprofen 600 MG tablet, TAKE 1 TABLET BY MOUTH THREE TIMES DAILY NEEDED WITH FOOD OR MILK, Disp: 90 tablet, Rfl: 2 Lantus 100 UNIT/ML injection, INJECT 80 UNITS SUBCUTANEOUSLY AT BEDTIME, Disp: 60 mL, Rfl: 11 metFORMIN (Glucophage) 1000 MG tablet, TAKE 1 TABLET BY MOUTH IN THE MORNING WITH A MEAL, Disp: 30 tablet, Rfl: 5 nicotine (Nicoderm, Step 3) 7 MG/24HR patch, PLACE 1 patch on the skin EVERY 24 HOURS ONCE DAILY at the same time each day, Disp: 28 patch, Rfl: 2 True Metrix Blood Glucose Test test strip, USE DIRECTED to test BLOOD SUGAR TWICE DAILY, Disp: 200 strip, Rfl: 3 Social History: Social History Socioeconomic History Marital status: Spouse name: Not on file Number of children: Not on file Years of education: Not on file Highest education level: Not on file Occupational History Not on file Tobacco Use Smoking status: Former Current packs/day: 0.00 Average packs/day: 1 pack/day for 10.0 years (10.0 ttl pk-yrs) Types: Cigarettes Start date: 08/14/2012 Quit date: 08/14/2022 Years since quittin.9 Smokeless tobacco: Never Substance and Sexual Activity Alcohol use: Never Drug use: Not on file Sexual activity: Not on file Other Topics Concern Not on file Social History Narrative Not on file Social Drivers of Health Financial Resource Strain: Low Risk (04/15/2023) Overall Financial Resource Strain (CARDIA) Difficulty of Paying Living Expenses: Not hard at all Food Insecurity: No Food Insecurity (04/15/2023) Hunger Vital Sign Worried About Running Out of Food in the Last Year: Never true Ran Out of Food in the Last Year: Never true Transportation Needs: No Transportation Needs (04/15/2023) PRAPARE - Transportation Lack of Transportation (Medical): No Lack of Transportation (Non-Medical): No Physical Activity: Sufficiently Active (04/15/2023) Exercise Vital Sign Days of Exercise per Week: 6 days Minutes of Exercise per Session: 30 min Stress: No Stress Concern Present (04/15/2023) [place] [employer] - Occupational Stress Questionnaire Feeling of Stress : Not at all Social Connections: Socially Integrated (04/15/2023) Social Connection and Isolation Panel [NHANES] Frequency of Communication with Friends and Family: More than three times a week Frequency of Social Gatherings with Friends and Family: More than three times a week Attends [employer] Services: 1 to 4 times per year Active Member of Clubs or Organizations: Yes Attends Club or Organization Meetings: More than 4 times per year Marital Status: Intimate Partner Violence: Unknown (05/17/2023) Received from [facility] [place] [facility] Fear of Current or Ex-Partner: Not on file Emotionally Abused: Not on file Physically Abused: Not on file Sexually Abused: Not on file Physically or Sexually Abused: Not on file Housing Stability: Low Risk (04/15/2023) Housing Stability Vital Sign Unable to Pay for Housing in the Last Year: No Number of Places Lived in the Last Year: 1 Unstable Housing in the Last Year: No ROS: General: denies fever, chills, fatigue, malaise Gastrointestinal: denies abdominal pain, ulcers, or changes in appetite or bowel habits Musculoskeletal: denies arthritis, denies loss of strength, pain to hip, knees, back Cardiovascular: denies CP, palpitations, irregular rhythms OBJECTIVE LE EXAM: DERM: Positive hair growth to b/l feet with good skin turgor noted. Negative openings in skin. Minimal edema to lateral left fibula region VASC: Palpable pedal pulsed b/l with warm to cool tibia to toes b/l NEURO: Gross sensation intact digits 1-10 and b/l feet ORTHO: +5/5 DF/PF/IN/EV right, +5/5 DF/PF/IN/EV left. 20 degrees inversion and 10 degrees eversion STJ b/l. Ankle ROM less than 10 degrees b/l. Negative palpation left distal fibula XRAY:XR ankle 3+ views right Imaging Result: Error left ankle: Notable oblique fracture at the tibiotalar joint with spike with slight displacement and negative angulation XR foot 3+ views right Imaging Result: Error eft foot DJD noted to left 1st MPJ US: ASSESSMENT 1. Other specified disorders of synovium, left ankle and foot 2. Other specified disorders of synovium, right ankle and foot 3. 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 HPI ER Follow-up Additional comments: Laceration on leg , need stitches removed Last edited by Victorina Judd MA on 12/17/2023 7:56 AM. Subjective Patient ID: Mendez Rodríguez is a 58 y.o. male who presents for ER Follow-up (Laceration on leg , need stitches removed ). Pt was at ER due to moving a toilet to the outside and when he set this down the bottom of it scraped his leg causing a laceration , needing 4 stitches Pt already took the stitches out , on his lower left leg Pt was given abx but he did not take these Pt states he is very dizzy all the time ER Follow-up Flowsheet Row Documentation from 12/06/2023 in [facility] with Marianne Hurley MA Hospital Information Discharged To: Home Setting Discharge Hospital [facility] Diagnosis laceration Discharge Date 12/05/23 Engagement Call Start Time 154 Admission Date 12/05/23 Medications Discharge medications reviewed and reconciled from hospital? Yes Appointments Self Management Patient Teaching Does the patient have access to their discharge instructions? Yes Wrap Up Wrap Up Additional Comments will need suture removal Call End Time 154 Current Outpatient Medications on File Prior to Visit Medication Sig Dispense Refill Alcohol Swabs (B-D SINGLE USE SWABS REGULAR) pads USE DIRECTED TWICE DAILY Aspirin Low Dose 81 MG chewable tablet CHEW AND SWALLOW 1 (ONE) TABLET BY MOUTH IN THE MORNING atorvastatin (Lipitor) 80 MG tablet Take 80 mg by mouth in the morning. B-D INS SYR ULTRAFINE 1CC/30G 30G X 1/2 1 ML misc USE DIRECTED THREE TIMES DAILY 100 each 5 Blood Glucose Monitoring Suppl (True Metrix Air Glucose Meter) w/Device kit USE DIRECTED to CHECK BLOOD SUGAR TWICE DAILY Drug Brea Unilet Lancets 30G misc use to test BLOOD SUGAR TWICE DAILY glucose blood (True Metrix Blood Glucose Test) test strip use to test BLOOD SUGAR TWICE DAILY 200 strip 3 ibuprofen 600 MG tablet TAKE 1 TABLET BY MOUTH THREE TIMES DAILY NEEDED WITH FOOD OR MILK 90 tablet 5 Lantus 100 UNIT/ML injection INJECT 80 UNITS SUBCUTANEOUSLY AT BEDTIME metFORMIN (Glucophage) 1000 MG tablet Take 1 tablet (1,000 mg) by mouth in the morning. Take with meals. 30 tablet 11 No current facility-administered medications on file prior to visit. I have reviewed and reconciled the history and medication list with the patient today. No Known Allergies Social History Tobacco Use Smoking status: Former Current packs/day: 0.00 Average packs/day: 1 pack/day for 10.0 years (10.0 ttl pk-yrs) Types: Cigarettes Start date: 08/14/2012 Quit date: 08/14/2022 Years since quittin.3 Smokeless tobacco: Never Substance Use Topics Alcohol use: Never Family History Problem Relation Name Age of Onset Diabetes Mother Hypertension Mother Heart disease Mother Multiple myeloma Father Diabetes Sibling Throat cancer Sibling Past Medical History: Diagnosis Date Actinic keratoses 2021 Chest pain 06/19/2017 hospitalization - chest pain due to canabis use DM (diabetes mellitus), type 2 (CMS/HCC) Personal history of other medical treatment 06/2017 ECHO EF 60% Past Surgical History: Procedure Laterality Date CARDIAC CATHETERIZATION 05/2017 CARDIAC SURGERY 07/01/2017 NARGIS 90% stenosis [facility]CA [facility] CORONARY ANGIOGRAPHY 07/01/2017 Bilat selective coronary Angiography-Dr Yun [facility] TONSILLECTOMY Visit Vitals Smoking Status Former Review of Systems Objective Physical Exam Constitutional: General: He is not in acute distress. Appearance: He is normal weight. He is not ill-appearing. HENT: Head: Normocephalic. Cardiovascular: Rate and Rhythm: Normal rate and regular rhythm. Heart sounds: Normal heart sounds. No murmur heard. Pulmonary: Effort: Pulmonary effort is normal. Breath sounds: Normal breath sounds. Musculoskeletal: General: No swelling. Right lower leg: No edema. Left lower leg: No edema. Neurological: Mental Status: He is alert. Psychiatric: Mood and Affect: Mood normal. Thought Content: Thought content normal. Judgment: Judgment normal. Assessment/Plan Diagnoses and all orders for this visit: Laceration of left lower extremity, initial encounter - Improved. He removed the sutures himself after 10 days. Chronic dysfunction of both eustachian tubes - prn OTC Sudafed Vestibular dizziness No follow-ups on file. documented in this encounter [facility] Healthcare Evaluation note Diagnosis Laceration of left lower extremity, initial encounter- Primary Chronic dysfunction of both eustachian tubes Vestibular dizziness documented in this encounter [facility]* Diagnosis Atherosclerosis of lumbee coronary artery of lumbee heart without angina pectoris (CMS/HCC)- Primary Diabetes mellitus without complication Type II or unspecified type diabetes mellitus without mention of complication, not stated as uncontrolled Primary hypertension (CMS/HCC) Unspecified essential hypertension Status post insertion of drug-eluting stent into left anterior descending (LAD) artery Type 2 diabetes mellitus with hyperglycemia, without long-term current use of insulin (CMS/HCC) Wellness examination- Primary Type 2 diabetes mellitus with other specified complication, with long-term current use of insulin Pure hypercholesterolemia (CMS/HCC) Pure hypercholesterolemia Atherosclerosis of lumbee coronary artery of lumbee heart without angina pectoris (CMS/HCC) Primary hypertension (CMS/HCC) Unspecified essential hypertension Status post insertion of drug-eluting stent into left anterior descending (LAD) artery Erectile dysfunction, unspecified erectile dysfunction type Light cigarette smoker (1-9 cigs/day) Tobacco use disorder documented in this encounter [facility] HealthcareEvaluation note* Diagnosis Atherosclerosis of lumbee coronary artery of lumbee heart without angina pectoris (CMS/HCC)- Primary Diabetes mellitus without complication Type II or unspecified type diabetes mellitus without mention of complication, not stated as uncontrolled Primary hypertension (CMS/HCC) Unspecified essential hypertension Status post insertion of drug-eluting stent into left anterior descending (LAD) artery Type 2 diabetes mellitus with hyperglycemia, without long-term current use of insulin (CMS/HCC) Other specified disorders of synovium, left ankle and foot- Primary Other specified disorders of synovium, right ankle and foot 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, subsequent encounter documented in this encounter [facility] HealthcareEvaluation note* Diagnosis Erectile dysfunction, unspecified erectile dysfunction type- Primary [facility] Atherosclerosis of lumbee coronary artery of lumbee heart without angina pectoris- Primary Diabetes mellitus without complication (HCC) Type II or unspecified type diabetes mellitus without mention of complication, not stated as uncontrolled Primary hypertension Unspecified essential hypertension Status post insertion of drug-eluting stent into left anterior descending (LAD) artery Type 2 diabetes mellitus with hyperglycemia, without long-term current use of insulin (HCC) Type 2 diabetes mellitus with hyperglycemia (HCC)- Primary Elevated blood pressure reading in office without diagnosis of hypertension Screening for thyroid disorder Pure hypercholesterolemia Pure hypercholesterolemia documented in this encounter [facility] HealthcareEvaluation note* Diagnosis Atherosclerosis of lumbee coronary artery of lumbee heart without angina pectoris- Primary Diabetes mellitus without complication (HCC) Type II or unspecified type diabetes mellitus without mention of complication, not stated as uncontrolled Primary hypertension Unspecified essential hypertension Status post insertion of drug-eluting stent into left anterior descending (LAD) artery Type 2 diabetes mellitus with hyperglycemia, without long-term current use of insulin (HCC) Light cigarette smoker (1-9 cigs/day) Tobacco use disorder documented in this encounter [facility] Healthcare Summary Purpose Family History No Family History [...] section and content) DATE CREATED AUTHOR 09/13/2017 [facility] DATE CREATED AUTHOR AUTHOR'S ORGANIZ ATION 04/15/2020 [facility] DATE CREATED AUTHOR AUTHOR'S ORGANIZ ATION 07/13/2021 [facility]ical Specialist DATE CREATED AUTHOR AUTHOR'S ORGANIZ ATION 07/25/2024 [facility] DATE CREATED AUTHOR AUTHOR'S ORGANIZ ATION 08/05/2024 [facility] DATE CREATED AUTHOR AUTHOR'S ORGANIZ ATION 08/06/2024 [facility] DATE CREATED AUTHOR AUTHOR'S ORGANIZ ATION 09/06/2024 [facility] d[facility] Specialists EPIC DATE CREATED AUTHOR AUTHOR'S ORGANIZ ATION 10/18/2024 [facility] DATE CREATED AUTHOR AUTHOR'S ORGANIZ ATION 10/31/2024 [facility] Reason for Visit (unrecogniz ed section and content) Reason Comments ER Follow-up Laceration on leg , need stitches removed Reason Comments Annual Exam Reason Comments Ankle Pain Lt ankle pain Reason Comments Consult Erectile Dysfunction Reason Comments Med Refill Care Teams (unrecognized sec tion and content) Patient Relations Representative Relationship Specialty Start Date End Date Mendez Garcia MD [address] [place] [address] PCP - General Internal Medicine 08/10/22 Patient Relations Representative Relationship Specialty Start Date End Date Mendez Garcia MD [address] [place], [place] [id number] PCP - General Internal Medicine 08/10/22 Kromer, Karuna PCP - [facility] [employer] 09/24/23 Patient Relations Representative Relationship Specialty Start Date End Date Mendez Garcia MD [address] [place] [address] PCP - General Internal Medicine 08/10/22 Kromer, Karuna PCP - [facility] [employer] 09/24/23 Patient Relations Representative Relationship Specialty Start Date End Date Mendez Garcia MD [address] [place] [address] PCP - General Internal Medicine 08/10/22 Kromer, Karuna PCP - [facility] 09/24/23 Patient Relations Representative Relationship Specialty Start Date End Date Mendez Garcia MD [address] [place] [address] PCP - General Internal Medicine 08/10/22 Kromer, Karuna PCP - [facility] [employer] 09/24/23 Patient Relations Representative Relationship Specialty Start Date End Date Mendez Garcia MD [address] [place] [address] PCP - General Internal Medicine 08/10/22 Kromer, Karuna PCP - [facility] [employer] 09/24/23 Patient Relations Representative Relationship Specialty Start Date End Date Mendez Garcia MD [address] [place] [address] PCP - General Internal Medicine 08/10/22 Kromer, Karuna PCP - [facility] [employer] 09/24/23 Source Comments (unrecognize d section and content) In the event this informatio n is protected by the Federal Confidentiality of Alcohol and Drug Abuse Patient Records regulations: The Federal rules restrict any use of the information to criminally investigate or prosecute any alcohol or drug abuse patient.[facility] FOR RECORDS PERTAINING TO PATIENTS WHO ARE [...] BE BASED ON THE PRIMARY CLINICAL RECORDS. [facility]. provides no warranty or guarantee of the accuracy or completeness of information in this document.
--- NOTE | 2024-11-06 09:15 | CA_ITS ---
[facility] Test Date: 2024-11-06 Pat Name: BELINDA SAUCEDA Department: Room: - Gender: Male Supervisor Graphite: Mariel Lopez : 1965 Requested By: JAMIR YUN M.D. Order Number: [id number] Reading MD: JAMIR YUN M.D. Interpretive Statements Summary of the findings: Right leg: ISAI= 1.20; TBI= 0.96. Doppler waveforms demonstrate biphasic flow at the posterior tibial and monophasic flow at the dorsalis pedis arteries. Left leg: ISAI= 1.27; TBI= 0.95. Doppler waveforms demonstrate biphasic flow at the posterior tibial and dorsalis pedis arteries. Segmental pressures: Segmental pressures are normal bilaterally. Pulse volume recordings: PVRs at the high thigh, below knee, and ankle levels show normal waveforms. Conclusion: Right and left ankle-brachial indices are suggestive of normal overall arterial flow at rest. Toe-brachial indices are not suggestive of PAD. Segmental pressures show no segmental disease. Pulse volume recordings indicate good overall resting arterial flow. Overall grossly normal resting physiologic examination. Electronically Signed On 11-06-2024 19:42:23 EDT by JAMIR YUN M.D.
== END 2024-11-06 08:04 | disposition home or self-care (01) ==
LOC: CARD 08:03
PROVIDERS: PCP Internal Medicine; Visit Provider Internal Medicine Interventional Cardiology
DX: I25.10 Atherosclerotic heart disease of native coronary artery without angina pectoris (principal); I35.1 Nonrheumatic aortic (valve) insufficiency; I73.9 Peripheral vascular disease, unspecified
CPT/HCPCS: 93306; 93923